=== PATIENT | male | born 1950 | race Caucasian/White ===

== ENCOUNTER 2016-07-08 15:56 | Inpatient (IN) | payer MEDICARE ==
[2016-07-12] MEDS ORDERED: ALPRAZolam TAB* 0.5 MG PO PRN (10:05)
[2016-07-12] MEDS ORDERED: Prochlorperazine TAB* 10 MG PO PRN (10:05)
[2016-07-12] MEDS ORDERED: Ondansetron TAB* 4 MG PO PRN (10:05)
[2016-07-12] MEDS ORDERED: NS 0.9% 1000 ML* 1,000 ML IV SCH ×2 (13:00→13:15)
[2016-07-12] MEDS ORDERED: NS 0.9% IVPB ONE (13:00)
[2016-07-12] MEDS ORDERED: IFOSFAMIDE IVPB ONE (13:00)
[2016-07-12] MEDS ORDERED: MESNA IVPB ONE (13:00)
[2016-07-12] MEDS: Enoxaparin(*) 40 MG/0.4 ML SYR SUBCUT SCH (13:25)
[2016-07-12] MEDS: Senna TAB PO PRN (16:39)
[2016-07-13] MEDS: Senna TAB PO PRN (08:02)
[2016-07-13] MEDS ORDERED: Omeprazole CAP* 20 MG PO SCH (09:00)
[2016-07-13] MEDS ORDERED: Valsartan TAB* 160 MG PO SCH (09:00)
[2016-07-13] MEDS: Enoxaparin(*) 40 MG/0.4 ML SYR SUBCUT SCH (12:41)
[2016-07-13] MEDS ORDERED: NS 0.9% IVPB ONE (13:00)
[2016-07-13] MEDS ORDERED: ETOPOSIDE IVPB ONE (13:00)
[2016-07-13 16:00] LABS: Albumin 3.2 g/dL (3.2-5.2); BUN/Creatinine Ratio 24.4 (8-20); Calcium 8.3 mg/dL (8.6-10.3); EGFR African American 127.7 (>60); EGFR Non-African American 99.3 (>60); Globulin 2.6 g/dL (2-4); Potassium 3.7 mmol/L (3.5-5.0); Total Bilirubin 0.5 mg/dL (0.2-1.0); Total Protein 5.8 g/dL (6.4-8.9)
[2016-07-13 16:09] VITALS: BP 139/77
--- NOTE | 2016-07-14 04:30 | DS ---
CC: Saniya Kim NP DISCHARGE SUMMARY: DATE OF ADMISSION: 07/12/16 DATE OF DISCHARGE: 07/13/16 DISCHARGE DIAGNOSIS: 1. 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 2. Hypertension: Stable on valsartan. 3. Hepatitis C: Nonactive. DISCHARGE MEDICATIONS: 1. Neupogen 480 mcg subcutaneous daily, day 4 through 11. 2. Valsartan 160 mg q.a.m. 3. Omeprazole 20 mg q.a.m. 4. Alprazolam 0.5 t.i.d. p.r.n. anxiety. 5. Senna 2 tabs p.o. b.i.d. p.r.n. constipation. 6. Prochlorperazine 10 mg p.o. q.6 hours p.r.n. nausea. 7. Ondansetron 4 mg q.6 hours p.r.n. nausea. HOSPITAL COURSE: Please see admission note for full H and P; however, briefly, Mr. Goetz is wel l-known to our service due to his unfortunate diagnosis of mantle cell lymphoma recently, recurrent to the eyelid and lacrimal glands. He initiated chemotherapy with cycle 1 day 1 of RICE in the chem otherapy suite as an outpatient on 07/11/16 and was admitted on 07/12/16 for overnight infusion. Ov ernight infusion was tolerated very well with no complications and no complaints by the patient. Th roughout his admission, he had no complaints of nausea and showed no evidence of toxicities from placido motherapy. Today, he received education regarding his subcutaneous injections of Neupogen for days 4 through 11 and was seen at the bedside by JOSE Long. The patient denied questions regarding discharge and states understanding of followup in the office. He will be seen on 07/21/16 to evalua te tolerance and plan for cycle 2 to start on 07/23/16. TIME SPENT: Greater than 30 minutes with greater than 50% [id number] counseling. JOSE ANTONIO NAVARRETE NP [id number]/[facility] #: [id number]
== END 2016-07-13 17:15 | disposition home or self-care (01) | DRG 847 ==
LOC: MED 07-12 12:26
PROVIDERS: ADMIT Internal Medicine Hematology & Oncology; ATTEND Internal Medicine Hematology & Oncology
DX: Z51.11 Encounter for antineoplastic chemotherapy (principal); C83.18 Mantle cell lymphoma, lymph nodes of multiple sites; G90.09 Other idiopathic peripheral autonomic neuropathy; I48.91 Unspecified atrial fibrillation; C34.12 Malignant neoplasm of upper lobe, left bronchus or lung; I10 Essential (primary) hypertension; B19.20 Unspecified viral hepatitis C without hepatic coma
CPT/HCPCS: 36415; 36591; 80053; 83615; 85025; 96361; 96367; 96413; 96415; 96417; 99214; 99222; 99232; A9270-GY; G0463; J1100; J1200; J1453; J1642; J1650; J2469; J9045; J9181; J9209; J9280; J9310

== ENCOUNTER 2016-07-18 17:49 | Inpatient (IN) | payer MEDICARE ==
[2016-07-18] MEDS ORDERED: Acetaminophen TAB* 325 MG PO ONE (18:43)
[2016-07-18] MEDS ORDERED: Ketorolac INJ* 30 MG/ML 1 ML VIAL IV ONE (18:43)
[2016-07-18] MEDS ORDERED: fentaNYL* 50 MCG/ML 2 ML VIAL (100 MCG VIAL) IV SLOW PU ONE (18:48)
[2016-07-18] MEDS: NS 0.9% 1000 ML* 3,000 ML IV ONE ×3 (18:56→19:35)
[2016-07-18 19:18] LABS: Add Diff/Slide Review? Manual Diff Added; Albumin 3.7 g/dL (3.2-5.2); BUN/Creatinine Ratio 19.5 (8-20); Comments Flag Yes; EGFR African American 72.1 (>60); EGFR Non-African American 56.1 (>60); Globulin 2.9 g/dL (2-4); Hematocrit 34 % (42-52); Hemoglobin 11.9 g/dl (14.0-18.0); Mean Corpuscular HGB Conc 35 g/dl (31-36); Mean Corpuscular Hemoglobin 32 pg (27-31); Mean Corpuscular Volume 92 fL (80-94); Mean Platelet Volume 10 um3 (7.4-10.4); Potassium 3.8 mmol/L (3.5-5.0); Red Blood Count 3.71 10^6/ul (4.0-5.4); Red Cell Distribution Width 12 % (10.5-15); Total Bilirubin 2.2 mg/dL (0.2-1.0); Total Protein 6.6 g/dL (6.4-8.9); White Blood Count 0.2 10^3/ul (3.5-10.8)
[2016-07-18 19:19] LABS: Troponin I 0.02 ng/mL (<0.04)
[2016-07-18] MEDS ORDERED: Cefepime(*) 2 GM in NS 0.9% 50 ML* 50 ML IVPB ONE (19:22)
--- NOTE | 2016-07-18 19:36 | RAD ---
INDICATION: Fever. Neutropenia. COMPARISON: August 06, 2015 TECHNIQUE: An AP portable view obtained at 1915 hours is submitted. FINDINGS: Bones/Soft Tissues: There are no acute bony findings. There is a right-sided [id number] catheter. Cardiomediastinal: The cardiomediastinal silhouette is normal. Lungs: There are no infiltrates. Pleura: There are no pleural effusions. Other: None IMPRESSION: NO ACTIVE DISEASE.
[2016-07-18 19:49] LABS: Neutrophil % 3 % (38-83); Reactive Lymph % 3 % (0-6)
[2016-07-18 19:50] LABS: Spherocytes 1+
[2016-07-18 19:51] LABS: Add Path Review? YES
[2016-07-18] MEDS: NS 0.9% 1000 ML* 2,000 ML IV ONE (20:52)
--- NOTE | 2016-07-18 21:03 | ED ---
I, Howard,Chelsea, scribed for Clara Palomares MD on 07/18/16 at 1850 . HPI Febrile Illness - HPI Summary HPI Summary: This 65 y/o male presents to ED via [facility] for elevated temperature since yesterday. Temperature of 104.4 F is noted at triage. Blood presure of 102 /76 is noted at initial evaluation, and it is unknown if the blood pressure is within baseline for pt. Positive for sharp pain at right hip and DO. PMHx is significant for lymphoma with ongoing chemo treatment. Primary care involves Dr. Bhatia. Pt lives alone. - History of Current Complaint Chief Complaint: EDGeneral Time Seen by Provider: 07/18/16 18:36 Hx Obtained From: Patient Timing: Constant Pain Intensity: 7 Pain Scale Used: 0-10 Numeric Aggravating Factors: Nothing Alleviating Factors: Nothing Associated Signs and Symptoms: Headache - Additional Pertinent History Primary Care Physician: SUJEY - Allergy/Home Medications Allergies/Adverse Reactions: Allergies Allergy/AdvReac Type Severity Reaction Status Date / Time No Known Allergies Allergy Verified 05/27/16 13:33 PMH/Surg Hx/FS Hx/Imm Hx Endocrine/Hematology History: Reports: Hx Thyroid Disease - HYPO Denies: Hx Diabetes, Hx Systemic Lupus Erythematosus Cardiovascular History: Reports: Hx Hypertension, Other Cardiovascular Problems/ Disorders - HX HEART PALPITATIONS Denies: Hx Congestive Heart Failure, Hx Pacemaker/ICD Respiratory History: Reports: Hx Chronic Obstructive Pulmonary Disease (COPD), Hx Lung Cancer - left upper lobectomy 07/30/15, Other Respiratory Problems/ Disorders - HX OF RIGHT PLEURAL EFFUSION (02/05/2015), Denies: Hx Asthma GI History: Reports: Hx Gastroesophageal Reflux Disease Denies: Hx Ulcer History: Reports: Other Problems/Disorders - BENIGN URETERAL TUMOR Denies: Hx Dialysis, Hx Renal Disease Musculoskeletal History: Reports: Hx Arthritis Denies: Hx Rheumatoid Arthritis Sensory History: Reports: Hx Contacts or Glasses Denies: Hx Hearing Aid Opthamlomology History: Reports: Hx Contacts or Glasses Neurological History: Reports: Other Neuro Impairments/Disorders - IDIOPATHIC PERIPHERAL NEUROPATHY Psychiatric History: Reports: Hx Anxiety, Hx Panic Disorder - ANXIETY-DOES NOT INTERFERE WITH MRI - Cancer History Cancer Type, Location and Year: Lung CA 2014, lymphoma Hx Chemotherapy: No - LYMPHOMA IN REMISSION, CHEMO FIRST WEEK OF JUNE - Surgical History Surgery Procedure, Year, and Place: KIDNEY SURGERY - FIBROUS (benign) TUMOR IN [place], [facility] [place] 30 yrs ago. 2009 LAPAROSCOPIC CHOLECYSTECTOMY, [facility] [place]. RIGHT KNEE ARTHROSCOPY X 2, [facility] [place]. 2013 RIGHT KNEE TOTAL REPLACEMENT, [facility] [place]. 02/05/2015 BIOPSY RIGHT AXILLA ADENOPATHY, RIGHT THORACENTESIS, [facility] [place]. POWER PORT 12/15. Left Upper Lobectomy 07/30/15 Hx Anesthesia Reactions: No Infectious Disease History: Yes Infectious Disease History: Reports: Hx Hepatitis - + HEP C 2001 Denies: Hx Human Immunodeficiency Virus (HIV), Traveled Outside the [place] in Last 30 Days - Family History Known Family History: Negative: Other - Negative adverse reaction to anesthesia or malignant hyperthermia - Social History Alcohol Use: None Alcohol Amount: 1-2/WEEK Substance Use Type: Reports: None Substance Use Comment - Amount & Last Used: HX OF DRUG ABUSE- NONE FOR 15 YRS Hx Tobacco Use: Yes Smoking Status (MU): Former Smoker Type: Cigarettes Amount Used/How Often: 1/2PPD 50 YRS Length of Time of Smoking/Using Tobacco: 52 YRS Have You Smoked in the Last Year: No Review of Systems Positive: Fever Positive: Other - right hip pain Positive: Headache All Other Systems Reviewed And Are Negative: Yes Physical Exam Triage Information Reviewed: Yes Vital Signs On Initial Exam: Initial Vitals Temp Pulse Resp BP Pulse Ox 104.4 F 135 24 102/76 98 07/18/16 18:32 07/18/16 18:32 07/18/16 18:32 07/18/16 18:32 07/18/16 18:32 Vital Signs Reviewed: Yes Appearance: Positive: Ill-Appearing, Obese Skin: Positive: Other - hot to touch Eyes: Positive: EOMI, TJ Neck: Positive: Supple, Nontender Respiratory/Lung Sounds: Positive: Clear to Auscultation, Breath Sounds Present Cardiovascular: Positive: RRR, Pulses are Symmetrical in both Upper and Lower Extremities Abdomen Description: Positive: Nontender, Soft Musculoskeletal: Positive: Pain @ - at right hip Neurological: Positive: Sensory/Motor Intact, Alert, Oriented to Person Place, Time Psychiatric: Positive: Affect/Mood Appropriate AVPU Assessment: Alert - [place] Coma Scale Coma Scale Total: 15 Diagnostics - Vital Signs Vital Signs Temp Pulse Resp BP Pulse Ox 07/18/16 18:32 104.4 F 135 24 102/76 98 - Laboratory Lab Results: Lab Results 07/18/16 07/18/16 07/18/16 Range/Units 18:33 18:33 18:33 WBC 0.2 L (3.5-10.8) 10^3/ul RBC 3.71 L (4.0-5.4) 10^6/ul Hgb 11.9 L (14.0-18.0) g/dl Hct 34 L (42-52) % MCV 92 (80-94) fL MCH 32 H (27-31) pg MCHC 35 (31-36) g/dl RDW 12 (10.5-15) % Plt Count 41 L (150-450) 10^3/ul MPV 10 (7.4-10.4) um3 Absolute Neuts (auto) 0 L* (1.5-7.7) 10^3/ul Absolute Lymphs (auto) 0.2 L (1.0-4.8) 10^3/ul Absolute Monos (auto) 0 (0-0.8) 10^3/ul Absolute Eos (auto) Not Reportable Absolute Basos (auto) Not Reportable Absolute Nucleated RBC Not Reportable Neutrophils % 3 L (38-83) % Lymphocytes % 91 H (25-47) % Reactive Lymphs % 3 (0-6) % Monocytes % 3 (0-13) % Normal RBC Morphology Not Reportable Spherocytes 1+ Hem Pathologist Commnt Pending INR (Anticoag Therapy) 1.02 (0.89-1.11) APTT 45.5 H (26.0-36.3) seconds Sodium 133 (133-145) mmol/L Potassium 3.8 (3.5-5.0) mmol/L Chloride 104 (101-111) mmol/L Carbon Dioxide 19 L (22-32) mmol/L Anion Gap 10 (2-11) mmol/L BUN 25 H (6-24) mg/dL Creatinine 1.28 H (0.67-1.17) mg/dL Est GFR ( Amer) 72.1 (>60) Est GFR (Non-Af Amer) 56.1 (>60) BUN/Creatinine Ratio 19.5 (8-20) Glucose 133 H (70-100) mg/dL Lactic Acid (0.5-2.0) mmol/L Calcium 9.0 (8.6-10.3) mg/dL Total Bilirubin 2.20 H (0.2-1.0) mg/dL AST 16 (13-39) U/L ALT 26 (7-52) U/L Alkaline Phosphatase 99 (34-104) U/L Troponin I 0.02 (<0.04) ng/mL Total Protein 6.6 (6.4-8.9) g/dL Albumin 3.7 (3.2-5.2) g/dL Globulin 2.9 (2-4) g/dL Albumin/Globulin Ratio 1.3 (1-3) 07/18/16 Range/Units 18:33 WBC (3.5-10.8) 10^3/ul RBC (4.0-5.4) 10^6/ul Hgb (14.0-18.0) g/dl Hct (42-52) % MCV (80-94) fL MCH (27-31) pg MCHC (31-36) g/dl RDW (10.5-15) % Plt Count (150-450) 10^3/ul MPV (7.4-10.4) um3 Absolute Neuts (auto) (1.5-7.7) 10^3/ul Absolute Lymphs (auto) (1.0-4.8) 10^3/ul Absolute Monos (auto) (0-0.8) 10^3/ul Absolute Eos (auto) Absolute Basos (auto) Absolute Nucleated RBC Neutrophils % (38-83) % Lymphocytes % (25-47) % Reactive Lymphs % (0-6) % Monocytes % (0-13) % Normal RBC Morphology Spherocytes Hem Pathologist Commnt INR (Anticoag Therapy) (0.89-1.11) APTT (26.0-36.3) seconds Sodium (133-145) mmol/L Potassium (3.5-5.0) mmol/L Chloride (101-111) mmol/L Carbon Dioxide (22-32) mmol/L Anion Gap (2-11) mmol/L BUN (6-24) mg/dL Creatinine (0.67-1.17) mg/dL Est GFR ( Amer) (>60) Est GFR (Non-Af Amer) (>60) BUN/Creatinine Ratio (8-20) Glucose (70-100) mg/dL Lactic Acid 2.6 H* (0.5-2.0) mmol/L Calcium (8.6-10.3) mg/dL Total Bilirubin (0.2-1.0) mg/dL AST (13-39) U/L ALT (7-52) U/L Alkaline Phosphatase (34-104) U/L Troponin I (<0.04) ng/mL Total Protein (6.4-8.9) g/dL Albumin (3.2-5.2) g/dL Globulin (2-4) g/dL Albumin/Globulin Ratio (1-3) Result Diagrams: 07/18/16 18:33 07/18/16 18:33 Lab Statement: Any lab studies that have been ordered have been reviewed, and results considered in the medical decision making process. - Radiology CXR Xray Interpretation: No Acute Changes Radiology Interpretation Completed By: Radiologist - EKG 1740 Cardiac Rate: Tachycardia - 134 bpm EKG Rhythm: Sinus Tachycardia Re-Evaluation - Re-Evaluation First Eval Re-Evaluation Time: 18:50 Course/Dx - Course Course Of Treatment: 65 yo male with lymphoma who arrived with temp of 104.4 with a recent wbc of 5. Today's wbc is 0.2 and he has received a 30 cc/kg bolus as well as cefepime for neutropenia. - Diagnoses Provider Diagnoses: Neutropenic fever - Provider Notifications Discussed Care Of Patient With: Dr. Chan (Hospitalist) at 1935 PM Instructed by Provider To: Admit As Inpatient - Critical Care Time Critical Care Time: 30-74 min Discharge - Discharge Plan Condition: Critical Disposition: ADMITTED TO [facility] documentation as recorded by the Howard villanueva Soohyun accurately reflects the service I personally performed and the decisions made by me, Clara Palomares MD.
[2016-07-18] MEDS: NS 0.9% 1000 ML* 1,000 ML IV SCH (21:05)
[2016-07-18] MEDS ORDERED: Morphine INJ* 2 MG/ML 1 ML SYRINGE ONE (21:22)
[2016-07-18] MEDS: Morphine INJ* 2 MG/ML 1 ML SYRINGE IV PRN (21:29)
[2016-07-18 21:58] LABS: Urine Bacteria Absent (Absent); Urine Bilirubin Negative (Negative); Urine Glucose Negative (Negative); Urine Nitrite Negative (Negative)
[2016-07-18] MEDS ORDERED: Heparin VIAL(*) 5000 UNITS/ML VIAL (FIVE THOUSAND) SUBCUT SCH (22:00)
[2016-07-18] MEDS ORDERED: NS 0.9% 1000 ML* 2,000 ML IV ONE (22:55)
[2016-07-18] MEDS ORDERED: Norepinephrine 16MCG/ML IVPRE* 4,000 MCG/250 ML BAG IV ONE (22:57)
--- NOTE | 2016-07-19 00:14 | HP ---
HISTORY AND PHYSICAL: DATE OF ADMISSION: 07/18/16 PRIMARY CARE PROVIDER: Saniya Kim NP CONSULTING ONCOLOGISTS: Dr. Hraris and Dr. Bhatia. ATTENDING PHYSICIAN: Ricardo Chan MD* (report being dictated by Dez Kim NP) CHIEF COMPLAINT: 1. Fever. 2. Aches. HISTORY OF PRESENT ILLNESS: Mr. Goetz is a 65-year-old male patient who comes into the ER today stating that he was feeling hot and flushed over the last 24 hours. He did receive chemo. He is on RICE therapy for lymphoma. He got his last chemo here about last week and he noted that throughout Monday and today, he was having chills, fevers, aching all over, and not feeling well. He called Dr. Harris, who is reservation sales agent for the group and Dr. Harris referred him to the hospital. He denies any vomiting. Denies having any abdominal pain. He says it just aches all over. He denies having any chest pain. Denies having any shortness of breath. He denied having any cough. He states that he was concerned because of the fever. He came in, was evaluated. There was no obvious source, but he did appear to be neutropenic and because of this, the hospitalist service was asked to evaluate for admission. PAST MEDICAL HISTORY: Significant for: 1. Lymphoma. 2. Lung cancer. 3. GERD. 4. Hypertension. 5. Hepatitis C. PAST SURGICAL HISTORY: 1. He has had a left upper lobe lobectomy. 2. He has had a laparoscopic cholecystectomy. 3. He has had port placement. 4. He has had 2 knee arthroscopies. HOME MEDICATIONS: According to the last discharge summary include: 1. Senna 2 tabs p.o. daily as needed. 2. Compazine 10 mg every 6 hours as needed. 3. Zofran 4 mg p.o. every 6 hours as needed. 4. Prilosec 20 mg daily. 5. Diovan 160 mg daily. 6. I am not sure, but he did have Neupogen. I do not know if he is still taking this or not at this point and that was 480 mcg subcu daily. ALLERGIES TO MEDICATIONS: Include no known drug allergies. FAMILY HISTORY: His mother had a history of breast cancer. Father had a history of cancer. SOCIAL HISTORY: He is a former smoker. He does drink occasionally. Surgical decision maker is his ex-, Greta. REVIEW OF SYSTEMS: There is documented fever. He denied having any significant weight change. There was no double vision. There was no ear discharge. He denied having any rhinorrhea. No sore throat. No thyroid enlargement. He denied having any chest pain, orthopnea, or nocturnal dyspnea. There is no abdominal pain. No nausea. No vomiting. No dysuria. No frequency. No seizure. No loss of consciousness. No pruritus. No skin ulcerations. Review of 14 systems completed, all others negative. PHYSICAL EXAMINATION GENERAL: At this time, Mr. Goetz is a 65-year-old male patient. He does not appear to be in any acute distress. He is sitting in the ER stretcher. He is awake and he is alert. VITAL SIGNS: Blood pressure 103/76 with a pulse 135, respirations 24, O2 sat 98 %, and his temperature initially was 104.4. His temperature now is 101.6, his heart rate is 118, his O2 sat is 97%, and blood pressure is 100/60. HEENT: Head is atraumatic and normocephalic. Eyes: EOMs are intact. His sclarea were anicteric and not pale. Throat: Oral mucosa appears to be dry. No oropharyngeal erythema. NECK: Supple. LUNGS: Clear to auscultation bilaterally. No wheezes, rales, or rhonchi. HEART: Sounds S1, S2. Regular rate and rhythm. No murmurs, rubs, or gallops. ABDOMEN: Soft, flat, and nontender. Bowel sounds present. He was nontender. EXTREMITIES: Pulses were 2+ throughout. He was able to move all 4 extremities with 5/5 strength. NEUROLOGIC: The patient is awake, he is alert, and he is oriented x3. His tongue is midline. His glued wood tester are equal. He had no gross focal deficits. His skin is intact. DIAGNOSTIC STUDIES/LAB DATA: His labs today revealed a WBC of 0, RBC of 3.71, hemoglobin of 11.9, hematocrit of 34, and platelet count was 41. His absolute neutrophils were 0. His INR was 1.02 and his PTT was 45.5. Sodium of 133, potassium 3.8, chloride of 104, his bicarb was 19, his BUN was 25, his creatinine was 1.28, glucose 133, his lactic was 2.6, calcium 9.0. Total bili 2.2, AST 16, ALT 26, alk phos 99. Troponin 0.02. He had a chest x-ray obtained today, which revealed when I reviewed it, no infiltrates. Radiology read it as no active disease. He did have an EKG today as well, which showed what appeared to be a sinus tachycardia, rate of [address]-elevations or T- wave inversions were noted. Old medical records were reviewed. ASSESSMENT AND PLAN: Mr. Goetz is a 65-year-old male patient coming into the ER today with complaints of fevers and aches. Recently received chemotherapy about last week for his lymphoma. He now appears to be neutropenic. He will be admitted under inpatient status for: 1. Neutropenic fever: At this point, he does appear to be septic. Source is unclear. I am going to put him on Cefepime 2 g every 8 hours. I am going to check him for the flu as well, although I think this is less likely. We will hydrate him. He does appear to be dehydrated. He got 3 L of fluid in the ER. I am going to give him another 2 L wide open. If his blood pressure does not respond after this, I would consider starting Levophed. I am going to put him in the ICU. We will panculture him. We will wait for source and follow. 2. History of lymphoma: He can follow with his oncology team. 3. Hypertension: I am going to hold his Diovan. 4. Hepatitis C: It is not an active issue currently. 5. Lung cancer: He can follow with his primary and primary oncology team. Not an active issue currently. 6. Gastroesophageal reflux disease: Continue PPI therapy. 7. Code status: He is full code. 8. Fluid, electrolytes, and nutrition: Again, he will have normal saline at 150 an hour. In addition to this, a regular diet. 9. DVT prophylaxis: He is high risk. He will be placed on heparin subcu. We will watch the platelets while on heparin. TIME SPENT: Time spent on the admission was 60 minutes; greater than half the time was spent [id number] with the patient obtaining my history and physical, the other half time is spent going over the plan of care with the patient and implementing plan of care. I did discuss the plan of care with my attending, Dr. Chan. He is in agreement. DEZ KIM NP CC: Saniya Kim NP; Dr. Harris; Dr. Bhatia* [id number]/[facility] #: [id number] [facility]
[2016-07-19] MEDS: Acetaminophen TAB* 325 MG PO PRN ×4 (00:21→22:25)
[2016-07-19] MEDS ORDERED: Norepinephrine 16MCG/ML IVPRE* 4,000 MCG/250 ML BAG IV ONE (02:12)
[2016-07-19] MEDS: Norepinephrine 16MCG/ML IVPRE* 4,000 MCG/250 ML BAG IV SCH ×4 (02:15→12:23)
[2016-07-19] MEDS: NS 0.9% 1000 ML* 1,000 ML IV SCH (03:06)
[2016-07-19] MEDS ORDERED: NS 0.9% 1000 ML* 1,000 ML IV ONE (03:16)
--- NOTE | 2016-07-19 04:31 | PN ---
Progress Note - Progress Note Note: Nursing reports 3 of 4 blood CX bottles already growing Gram negative bacilli. Patient initiated on cefepime 2g IV Q8H. Most recent urine CX grew carpenter- sensitive E-coli (specifically sensitive to cefepime). Continue as is. Hypotension improved with aggressive hydration and norepinephrine GTT currently at 30.
[2016-07-19] MEDS: Cefepime(*) 2 GM in NS 0.9% 50 ML* 50 ML IVPB SCH ×3 (05:31→20:05)
[2016-07-19 05:51] LABS: Hematocrit 29 % (42-52); Hemoglobin 9.9 g/dl (14.0-18.0); Mean Corpuscular HGB Conc 35 g/dl (31-36); Mean Corpuscular Hemoglobin 32 pg (27-31); Mean Corpuscular Volume 92 fL (80-94); Mean Platelet Volume 10 um3 (7.4-10.4); Red Cell Distribution Width 13 % (10.5-15); White Blood Count 0.1 10^3/ul (3.5-10.8)
[2016-07-19 05:52] LABS: Add Diff/Slide Review? Manual Diff Added; Comments Flag Yes
[2016-07-19 05:56] LABS: BUN/Creatinine Ratio 19.7 (8-20); Calcium 6.7 mg/dL (8.6-10.3); EGFR African American 76.2 (>60); EGFR Non-African American 59.2 (>60); Potassium 3.7 mmol/L (3.5-5.0)
[2016-07-19 06:39] LABS: Eosinophils % 9 % (0-6); Hypochromasia 1+; Neutrophil % 1 % (38-83); Reactive Lymph % 5 % (0-6)
[2016-07-19] MEDS: Omeprazole CAP* 20 MG PO SCH (08:45)
[2016-07-19] MEDS: Morphine INJ* 2 MG/ML 1 ML SYRINGE IV PRN ×8 (08:50→23:31)
[2016-07-19 11:36] LABS: Uric Acid 4.9 mg/dL (4.4-7.6)
[2016-07-19] MEDS ORDERED: TBO FILGRASTIM 480 MCG/0.8 ML SUBCUT SCH (12:00)
--- NOTE | 2016-07-19 12:27 | PN ---
Progress Note - Progress Note Note: CRITICAL CARE MEDICINE Date: 07/19/16 Time: 1130 SUBJECTIVE: Patient seen and examined. PHYSICAL EXAM: Vital Signs: Reviewed. Neurologic: awake, comm HEENT: pupils equal. Sclera anicteric. Trachea midline. Cardiovascular: S1 S2, tachy Respiratory: some distress but able to provide a deep breath; no rales Abdomen: Soft, nt. No r/g/r. Extremities: Warm. no edema Access: port LABS: Reviewed. IMAGING: Reviewed. MEDICATIONS: Reviewed. ASSESSMENT: 65 M Septic shock sec to ecoli from UTI Acute hypoxic resp failure - more from wob associated with metabolic demands of his septic shock Mantle cell lymphoma s/p RICE now in fan Previous lung ca Neutropenic fevers PLAN: Neurologic: awake, communicating and tolerating. Cardiovascular: Perfusing. Intravascular volume better and still with some ebb phase and would keep fluids today. adjust to LR. tafhcycardia will remain. Respiratory: Can place on HFo2 today to see if we can relieve some of the metabolic demands associated with his resp mechanics not for parenchyma O2. At risk for ALI. Gastrointestinal: po diet. Renal/Metabolic: edwina on ckd and f.u post hydration status. Infectious Disease: on C4 continued for ecoli sepsis. Hematology: onc f/u. no transfusion needs at this time. neupogen. Endocrine: tolerating and doesn't seem to require stress dose steroids by may be at risk for relative adrenal depletion. clincal f/u Musculoskeletal: oob but rest today Psych/Social: he expresses understanding Supportive and preventative care as ordered. SUP: po VTE prophylaxis: held due to plt counts currently Disposition: ICU Code Status: Full D//w onc. Critical Care Time: 30min Anca Braswell DO
[2016-07-19] MEDS ORDERED: Ondansetron INJ* 2 MG/ML VIAL ONE (17:27)
[2016-07-19] MEDS ORDERED: Ondansetron INJ* 2 MG/ML VIAL IV PRN (17:33)
[2016-07-20] MEDS: Morphine INJ* 2 MG/ML 1 ML SYRINGE IV PRN ×16 (01:05→22:55)
[2016-07-20 04:22] LABS: Hematocrit 26 % (42-52); Hemoglobin 9.1 g/dl (14.0-18.0); Mean Corpuscular HGB Conc 34 g/dl (31-36); Mean Corpuscular Hemoglobin 32 pg (27-31); Mean Corpuscular Volume 93 fL (80-94); Mean Platelet Volume 9 um3 (7.4-10.4); Red Blood Count 2.84 10^6/ul (4.0-5.4); Red Cell Distribution Width 13 % (10.5-15)
[2016-07-20 04:23] LABS: Comments Flag Yes
[2016-07-20 04:24] LABS: White Blood Count 0.3 10^3/ul (3.5-10.8)
[2016-07-20] MEDS: Cefepime(*) 2 GM in NS 0.9% 50 ML* 50 ML IVPB SCH ×3 (04:27→21:20)
[2016-07-20 04:30] LABS: Albumin 2.8 g/dL (3.2-5.2); Calcium 7.3 mg/dL (8.6-10.3); EGFR African American 95.9 (>60); EGFR Non-African American 74.5 (>60); Globulin 2.6 g/dL (2-4); Potassium 4.2 mmol/L (3.5-5.0); Total Bilirubin 0.6 mg/dL (0.2-1.0); Total Protein 5.4 g/dL (6.4-8.9)
[2016-07-20 04:35] LABS: Troponin I 0.63 ng/mL (<0.04)
--- NOTE | 2016-07-20 05:34 | PN ---
Progress Note - Progress Note Note: Nursing called to report morphologic change on telemetry, reviewed and concerning for ST elevation. ECG obtained revealing new non-diagnostic ST elevation in V3-6 & 2 with decreased upward concavity in V2. Patient had reported a brief episode of 1-2/10 chest pain to nursing prior to midnight completely alleviated with IV morphine. Currently he denies chest pain, SOB, N/V , palpitations, sweating, and light-headedness. He denies any of these associations with his chest pain earlier yesterday as well. Troponin is up to 0.6 from 0.02. Lungs: CTAB; CV TR/RR; Abdomen: SNTND; extremities: W&D. He is admitted for neutropenic fever 2nd E coli septic shock eliminating him from consideration for cardiac catheterization. His platelets have been <50 and in fact are 10 this AM removing the option of aspirin and heparin. Additionally, beta blockade cannot be done as his systolics have been in the 90s recently, worse prior. The case was reviewed with Maribel Gould MD cardiology who agreed that he is not a candidate for either medical therapy or cardiac catheterization. As such, will continue supportive treatment, trend troponin, & check an ECHO in the AM. Assessment: plan abnormal ECG & elevated troponin : certainly concerning for ACS, but could also be pericarditis : chech ECHO to eval for wall motion abnormalities vs pericardial effusion : Maribel Stauffer MD cardiology consulted, will follow : continue supplemental oxygen neutropenic fever 2nd septic shock 2nd E coli : continue cefepime
--- NOTE | 2016-07-20 09:45 | ECHO ---
Patient: SHEKHAR PAUL [facility] Rec#: [id number] : 1950 Date: 07/20/2016 Age: 65y Height: 233.68 cm / 92.0 in Weight: 26.76 kg / 59.0 lbs Sex: M BSA: 1.51 Room#: ICU 1 Admit Date#: 07/18/2016 Type: Inpatient Referring: Ricardo Chan MD Reading: Jyoti Blackwood MD Forensic Anthropologist: Greta Galvan,RDCS,RDMS CC: Saniya Kim NP Transthoracic Echocardiogram Indication: Fever, Chest pain BP: 92/59 HR: 94 Rhythm: NSR Findings History: Lymphoma, lung cancer, chemotherapy, HTN, former smoker, GERD Technical Comments: The study quality is fair. Completed 0820 Left Ventricle: The left ventricular chamber size is normal. Mild concentric left ventricular hypertrophy is observed. There is diffuse global hypokinesis of the left ventricle. The estimated ejection fraction is 25-30%. Abnormal left ventricular diastolic function is observed. Left Atrium: The left atrium is severely dilated. Right Ventricle: The right ventricle is mildly dilated. The right ventricular global systolic function is mildly to moderately reduced. Right Atrium: The right atrium is moderately dilated. Aortic Valve: The aortic valve is trileaflet. Systolic excursion of the aortic valve is normal. There is a trace of aortic regurgitation. There is no evidence of aortic stenosis. Mitral Valve: The mitral valve leaflets appear normal. There is mild to moderate mitral regurgitation. There is no evidence of mitral stenosis. Tricuspid Valve: The tricuspid valve leaflets are normal. There is moderate to severe tricuspid regurgitation. There is evidence of moderate pulmonary hypertension. Pulmonic Valve: The pulmonic valve appears normal. There is mild pulmonic regurgitation. Pericardium: There is no significant pericardial effusion. Aorta: The aortic root appears normal. The aortic arch is not well visualized. Pulmonary Artery: The main pulmonary artery appears normal. Venous: The inferior vena cava is dilated. There is less than 50% respiratory change in the inferior vena cava dimension. Conclusions Mild concentric left ventricular hypertrophy is observed. There is diffuse global hypokinesis of the left ventricle. The estimated ejection fraction is 25-30%, closer to 25%. The right ventricle is dilated and global systolic function is mildly to moderately reduced. Bi atrial enlargement. There is a trace of aortic regurgitation, mild sclerosis. There is mild to moderate mitral regurgitation, closer to moderate. There is moderate to severe tricuspid regurgitation, mild reversal of flow into the hepatic veins. There is evidence of moderate pulmonary hypertension: 47 mmHg assuming an RA pressure of 20 mmHg. Compared with prior echo of 08/05/15, LVEF newly depressed, previously 55-60%, RVE and hypokinesis are new, the degree of MR and TR have increased from trace, PA pressure ewly elevated. Measurements Name Value Normal Range RVIDd (AP) 2D 3.6 cm (0.9 - 2.6) RVDdMajor (2D) 3.4 cm (2.2 - 4.4) RAd ISD 4CH 5.6 cm (3.4 - 4.9) RA (A4C)W 5.3 cm (2.9 - 4.6) IVSd (2D) 1.1 cm (0.6 - 1) LVPWd (2D) 1.1 cm (0.6 - 1) LVIDd (2D) 5.3 cm (3.6 - 5.4) LVIDs (2D) 4.4 cm - LV FS (2D) 16 % (25 - 45) Aortic Annulus 2 cm (1.4 - 2.6) Ao root diameter (2D) 3.3 cm (2.1 - 3.5) Ascending Ao 3.1 cm (2.1 - 3.4) LA dimension (AP) 2D 4.4 cm (2.3 - 3.8) LAd ISD 4CH 6.1 cm (2.9 - 5.3) LA ISD 4CH W 4.7 cm (2.5 - 4.5) Name Value Normal Range LA ESV SP 4CH (A/L) 92.79 ml - LA ESV SP 2CH (A/L) 117.6 ml - LA ESV BP (A/L) 112.26 ml - LA ESV BP (A/L) index 74 ml/m2 - LA ESV SP 4CH (MOD) 85.06 ml - LA ESV SP 2CH (MOD) 110.83 ml - Name Value Normal Range MV E-wave Vmax 0.9 m/sec - MV deceleration time 134.4 msec - MV A-wave Vmax 0.6 m/sec - MV E:A ratio 1.5 ratio - P. vein S-wave Vmax 0.4 m/sec - P. vein D-wave Vmax 0.5 m/sec - P. vein S:D Vmax ratio 0.8 ratio - P. vein A-wave duration 100.3 msec - LV septal e' Vmax 0.06 m/sec - LV lateral e' Vmax 0.05 m/sec - LV E:e' septal ratio 15 ratio - LV E:e' lateral ratio 18 ratio - Name Value Normal Range AV Vmax 1.2 m/sec - AV VTI 22 cm - AV peak gradient 6 mmHg - AV mean gradient 3.9 mmHg - LVOT Vmax 0.9 m/sec - LVOT VTI 14.4 cm - LVOT peak gradient 3.1 mmHg - LVOT mean gradient 1.7 mmHg - NAYELI Vmax 0.4 m/sec - Name Value Normal Range MR Vmax 4.1 m/sec - MR VTI 117 cm - MR flow (PISA) 63 ml/sec - MR PISA radius 0.5 cm - MR alias Vmax 33.89 cm/sec - Name Value Normal Range TR Vmax 2.6 m/sec - TR peak gradient 27 mmHg - RAP 20 mmHg - RVSP 47 mmHg - IVC diameter 3.4 cm - Name Value Normal Range PV Vmax 0.7 m/sec - PV peak gradient 2 mmHg -
[2016-07-20] MEDS ORDERED: Adenosine* 3 MG/ML VIAL ONE (10:36)
[2016-07-20] MEDS ORDERED: Adenosine* 3 MG/ML VIAL IV PUSH ONE (10:42)
[2016-07-20] MEDS ORDERED: Amiodarone TAB* 400 MG PO ONE (10:43)
[2016-07-20] MEDS ORDERED: Amiodarone 150 MG IVPREMIX* 150 MG/100 ML BAG IV ONE ×3 (10:44→11:23)
[2016-07-20] MEDS ORDERED: Amiodarone IV VIAL* 6 ML ONE (10:48)
[2016-07-20] MEDS: Omeprazole CAP* 20 MG PO SCH (10:57)
[2016-07-20] MEDS: oxyCODONE TAB* 5 MG TAB PO PRN ×3 (10:57→19:46)
[2016-07-20] MEDS: FILGRASTIM-SNDZ* 480 MCG/0.8 ML SYRINGE SUBCUT SCH (11:10)
[2016-07-20] MEDS ORDERED: Amiodarone IV VIAL* 3 ML ONE (11:24)
--- NOTE | 2016-07-20 11:24 | PN ---
Progress Note - Progress Note SOAP: Subjective: feels bad right now. +chest pain, middle of chest. had it yesterday but it resolved and then this am got up to go to the bathroom and it recurred. currently in atypical aflutter, tachypneic. Objective: Vital Signs Temp Pulse Resp BP Pulse Ox 98.1 F 93 26 92/59 100 07/20/16 07:25 07/20/16 06:15 07/20/16 10:25 07/20/16 06:00 07/20/16 06:15 current HR 130s-140s rr 30 perr eomi tachy CTA anteriorly soft nt +Bs no le edema A+O x 3, grossly nonfocal Laboratory Results - last 24 hr 07/19/16 07/20/16 07/20/16 05:33 03:50 04:02 WBC 0.3 L RBC 2.84 L Hgb 9.1 L Hct 26 L MCV 93 MCH 32 H MCHC 34 RDW 13 Plt Count 10 L D MPV 9 Neut % (Auto) 4.9 L Lymph % (Auto) 69.1 H Snyder % (Auto) 20.4 H Eos % (Auto) 5.6 Baso % (Auto) 0 Absolute Neuts (auto) 0 L Absolute Lymphs (auto) 0.2 L Absolute Monos (auto) 0.1 Absolute Eos (auto) 0 Absolute Basos (auto) 0 Absolute Nucleated RBC 0 Nucleated RBC % 0.3 Sodium 136 Potassium 4.2 Chloride 113 H Carbon Dioxide 17 L Anion Gap 6 BUN 22 Creatinine 1.00 Est GFR ( Amer) 95.9 Est GFR (Non-Af Amer) 74.5 BUN/Creatinine Ratio 22.0 H Glucose 115 H Uric Acid 4.9 Calcium 7.3 L Total Bilirubin 0.60 D AST 13 ALT 18 Alkaline Phosphatase 61 Lactate Dehydrogenase Cancelled 126 L Troponin I 0.63 H* Total Protein 5.4 L Albumin 2.8 L Globulin 2.6 Albumin/Globulin Ratio 1.1 07/20/16 06:15 WBC RBC Hgb Hct MCV MCH MCHC RDW Plt Count MPV Neut % (Auto) Lymph % (Auto) Snyder % (Auto) Eos % (Auto) Baso % (Auto) Absolute Neuts (auto) Absolute Lymphs (auto) Absolute Monos (auto) Absolute Eos (auto) Absolute Basos (auto) Absolute Nucleated RBC Nucleated RBC % Sodium Potassium Chloride Carbon Dioxide Anion Gap BUN Creatinine Est GFR ( Amer) Est GFR (Non-Af Amer) BUN/Creatinine Ratio Glucose Uric Acid Calcium Total Bilirubin AST ALT Alkaline Phosphatase Lactate Dehydrogenase Troponin I 0.48 H* Total Protein Albumin Globulin Albumin/Globulin Ratio Active Medications Generic Name Dose Route Start Last Admin Trade Name Freq PRN Reason Stop Dose Admin Acetaminophen 650 mg 07/18/16 20:19 07/19/16 22:25 Tylenol Tab* PO 650 mg Q4H PRN Administration FEVER/PAIN Filgrastim-Sndz 480 mcg 07/19/16 12:04 07/20/16 11:10 Zarxio* SUBCUT 480 mcg DAILY NIKOLAY Administration Heparin Sodium (Porcine) 5 ml 07/19/16 09:00 07/20/16 10:58 Heparin Flush Port (Ivad) FLUSH Not Given DAILY [facility] Protocol Cefepime HCl 2 gm/ Sodium 50 mls @ 100 mls/hr 07/19/16 05:00 07/20/16 04:27 Chloride IVPB 100 mls/hr Q8H NIKOLAY Administration Morphine Sulfate 2 mg 07/19/16 18:52 07/20/16 10:25 Morphine Inj (Syringe)* IV 2 mg Q1H PRN Administration PAIN - MILD Omeprazole 20 mg 07/19/16 09:00 07/20/16 10:57 Prilosec Cap* PO 20 mg QAM NIKOLAY Administration Ondansetron HCl 4 mg 07/19/16 17:33 Zofran Inj* IV Q6H PRN NAUSEA/VOMITING Oxycodone HCl 5 mg 07/20/16 10:05 07/20/16 10:57 Roxycodone Tab* PO 5 mg Q4H PRN Administration PAIN Assessment: recurrent mantle cell lymphoma on salvage R-ICE chemotherapy, cycle 1 day 10 admitted with neutropenic fevers of unclear source. Unfortunately he has deteriorated clinically. He has ongoing chest pain with an echocardiogram showing new heart failure, and then after his echo developed aflutter. At this point he will be managed primarily by the scheme technician. Plan: Neutropenic sepsis: unclear source cont neupogen would transfuse platelets <15, when more stable today cont cefepime hold heparin flushes afib/flutter: ongoing chest pain, new heart failure (he did receive adriamycin in January 2015 for 6 cycles--300 mg/m2) management per ICU and cardiology discussed at length with Dr. Braswell
[2016-07-20] MEDS ORDERED: Magnesium Sulfate 2 GM IV* 2 GM/50 ML BAG IVPB ONE (11:26)
--- NOTE | 2016-07-20 11:37 | PN ---
Progress Note - Progress Note Note: CRITICAL CARE MEDICINE Date: 07/20/16 Time: 930 SUBJECTIVE: Patient seen and examined. PHYSICAL EXAM: Vital Signs: Reviewed. Neurologic: awake, comm HEENT: pupils equal. Sclera anicteric. Trachea midline. Cardiovascular: S1 S2, tachy at 100 Respiratory: less distress, heike high flow. no rales Abdomen: Soft, nt. Extremities: Warm. Access: port LABS: Reviewed. IMAGING: Reviewed. MEDICATIONS: Reviewed. ASSESSMENT: 65 M Septic shock sec to ecoli from UTI Acute hypoxic resp failure - more from wob associated with metabolic demands of his septic shock Mantle cell lymphoma s/p RICE now in fan Previous lung ca Neutropenic fevers Pancytopenia PLAN: Neurologic: awake, communicating and tolerating. Cardiovascular: Perfusing. Intravascular volume ok and can hold on further and allow him to mobilize. Cards will eval for type 2 mi. Respiratory: Stay on HFO2 today with slow wean. May have small effusions but doubt ali. Gastrointestinal: po diet. Renal/Metabolic: edwina better. Infectious Disease: C4 continued for ecoli sepsis. Hematology: onc f/u. no transfusion yet, even plt given his acute setting currently, but may need plt later today. neupogen. Endocrine: clincal f/u Musculoskeletal: oob but rest again today Psych/Social: he expresses understanding Supportive and preventative care as ordered. SUP: po VTE prophylaxis: held due to plt counts currently Disposition: ICU service Code Status: Full D/w onc. Critical Care Time: 30min FHever Braswell DO
[2016-07-20] MEDS ORDERED: Diltiazem IV* 5 MG/ML 5 ML VIAL (for loading dose/IV Push) (25 MG) IV SLOW PU ONE (11:59)
[2016-07-20] MEDS ORDERED: Amiodarone 360 MG IVPREMIX* 360 MG/200 ML BAG IV SCH (13:30)
[2016-07-20] MEDS ORDERED: Metoprolol Tartrate IV* 1 MG/ML 5 ML VIAL ONE (14:08)
[2016-07-20] MEDS ORDERED: Metoprolol Tartrate IV* 1 MG/ML 5 ML VIAL IV ONE ×2 (14:10→16:39)
[2016-07-20] MEDS ORDERED: Furosemide IV* 10 MG/ML VIAL (40 MG) IV SLOW PU ONE (15:27)
--- NOTE | 2016-07-20 16:36 | PN ---
Progress Note - Progress Note Note: CRITICAL CARE MEDICINE Date: 07/20/16 Time: 1630 Late entry throughout the day: Pt with aflutter earlier today; did not break with amio bolus, but slowed from 150 to 140s; HFO2 up to dec pulm demand. cardizem given with slower rate into 120s but occasional afib to aflutter resuming. Amio gtt started but still same with rates ~110-120s. Lopressor 5mg then given with conversion to SR into 80- 90s however did not hold as still now with PAF. Will give another dose and see if we can hold with amio gtt for now and eventual po bb. However, his dynamics are still tenuous. Attempt to mobilize some water with lasix. Remains on HFO2 and continued. We discussed his dynamics at length. We discussed plans of care. We discussed cardioversion if it came to it but he is hoping to avoid. Explained he would need sedation for it, however rate controlled at present and see where his status takes us as I'm concerned that sedation may lead towards intubation needs , as well as risk with plts being so low, and the fact that he converted with rx and now back into PAF. He express understanding. We did discuss potential intubation if it came to it and would utilize as needed in his current dynamics, but he also desires DNR. Disposition: ICU Code Status: DNR, trial intubation Critical Care Time: 25min Anca Braswell DO
[2016-07-20] MEDS: Amiodarone 360 MG IVPREMIX* 360 MG/200 ML BAG IV SCH (19:29)
[2016-07-20 22:37] LABS: Mean Platelet Volume 8 um3 (7.4-10.4)
[2016-07-20 22:38] LABS: Comments Flag Yes
--- NOTE | 2016-07-21 00:08 | CONS ---
CONSULTATION REPORT: DATE OF CONSULTATION: 07/20/16 REASON FOR CONSULTATION: Chest pain, cardiomyopathy, and elevated troponin. HISTORY OF PRESENT ILLNESS: Mr. Goetz is an unfortunate 65-year-old gentleman actively receiving chemo with a history of lymphoma and lung cancer. He is on RICE therapy for his lymphoma. He is neutropenic and developed chills , fevers and total body aching and Dr. Harris referred him to the hospital on the . Evaluation to date included lab work, which confirmed his neutropenia, has showed mild elevation in troponins, acidemia, evidence of dehydration and blood cultures were positive for E. coli. He was admitted to the intensive care unit and treated for sepsis with aggressive hydration and has subsequently developed chest pain in addition to his total body flu-like aching. An echocardiogram was done yesterday, which revealed his ejection fraction was 20% to 25% as well as right ventricular hypokinesis and this is new compared to an echo done a year ago. He additionally had [id number] mitral and moderate- to-severe tricuspid insufficiency. When I examined the patient, he had been medicated with morphine for his diffuse myalgias and was feeling better. He denies orthopnea or PND and said he was feeling pretty well until this weekend when he came in. PAST MEDICAL HISTORY: The patient has a past medical history of lymphoma with ongoing RICE therapy, history of lung cancer with left upper lobectomy, history of hypertension, hepatitis C, and reflux. PAST SURGICAL HISTORY: Includes his left upper lobectomy, laparoscopic cholecystectomy, port placement, and knee arthropathies. CURRENT INPATIENT MEDICATIONS: Include: 1. Tylenol p.r.n. 2. Cefepime. 3. Zarxio 480 mcg subcutaneously daily. 4. Heparin flush. 5. Morphine p.r.n. 6. Prilosec 20 mg a day. 7. Zofran p.r.n. 8. OxyContin, Roxycontin. 9. He was recently on a norepinephrine drip and received potassium replacement yesterday. ALLERGIES: He has no known drug allergies. FAMILY HISTORY: Significant that his mother had breast cancer, his father had cancer. No family history of coronary disease identified. SOCIAL HISTORY: The patient is a former smoker, occasional alcohol. REVIEW OF SYSTEMS: See history of present illness for recent fevers, chills, myalgias, followed by chest pain following aggressive hydration. PHYSICAL EXAMINATION: On exam, the patient is 6 feet 2 inches, weighs 257 pounds with a BMI of 33. Vital signs at the time I saw him when I walked in the room, he became acutely tachycardic with a regular narrow complex tachycardia at 160 beats a minute (increased from approximately 100 beats a minute). Blood pressure 131/76, oxygen saturation 100% on room air, respiratory rate was 23, temperature was 98.6 at the time I saw him, yesterday it was as high as 100.2 and on the , it was 104.1. General Appearance: Centripetally obese, somewhat older gentleman lying at 20 degrees, appeared reasonably comfortable. Psychologically pleasant and cooperative. Neurologically awake, alert, oriented to person, place, and time. Cranial nerves II through XII intact grossly. Normal sensory and motor function in the upper and lower extremities. Gait not able to be checked. Skin was warm and dry. No appreciable cyanosis or rashes. HEENT: Pupils are equal and round. Mucous membranes moderately moist. Neck: Thick from obesity, but increased JVP not appreciated. Breath sounds were mildly diminished in the bases. No wheezing, rales or rhonchi. Coronary: S1 and S2, regular, but very tachycardic. No murmurs or rubs appreciated. Abdomen: Rotund, active bowel sounds. Soft, nontender. Lower extremities were warm and free of edema. LABORATORY DATA: White count 0.3, hemoglobin 9.1, hematocrit 26, platelets 10. INR 1.02. Sodium 136, potassium 4.2, chloride 113, bicarbonate 17. BUN 22, creatinine 1.0, glucose 115. ALT of 18, LDH 126, troponin #1 of 0.63, #2 of 0.48. Urinalysis from 07/18/16 was positive for protein, blood, leukocyte esterase, red blood cells, bacteria were negative. Influenza A and B were negative. Microbiology, urine culture, no growth. Two blood cultures from the are positive for E. coli. Chest x-ray from 07/18/16 showed no active disease. Transthoracic echo from 07/20/16 showed global hypokinesis with ejection fraction of 25%, right ventricular enlargement and hypokinesis, mild-to -moderate mitral insufficiency, [id number] tricuspid insufficiency, PA pressure of 47 mmHg. Ejection fraction in 08/05/15 was 55% to 60% with good valve function. ECG at 3:44 this morning has showed normal sinus rhythm, 94 beats a minute, QRS axis +30, normal AV and IV conduction times. He has diffuse J-point type ST elevation. 12-lead ECG at 10:37 this morning showed a narrow complex tachycardia at 150 beats a minute suspicious for flutter. IMPRESSION: In summary, Mr. Goetz is a 65-year-old gentleman with a history of lung cancer and now being treated for lymphoma, presented with neutropenic with E. coli sepsis and following aggressive sepsis management including antibiotics, fluids, and pressors. He developed chest pain, and a mild elevation in troponins. His echo was found to be newly depressed, but appeared to be severe with global hypokinesis. During my exam, the patient developed his regular narrow complex tachycardia at 150 beats a minute and I gave Adenocard, which revealed/confirmed that this is atypical flutter with a 2:1 block. I have initiated amiodarone both IV push and orally. I discussed with the director of business development the option of cardioversion. This option was declined as he was hemodynamically stable and later in the day with Lopressor for rate control, he did transiently cardiovert, but popped right back in, so electrically cardioversion is not felt to help him at least today. The cardiomyopathy itself could be related to the atrial flutter as the patient is completely unaware when he is in this rhythm. He is completely asymptomatic. This could be a tachycardic-induced rhythm. It is also possible that it is related to the septic shock and his metabolic derangements and we cannot entirely rule out the possibility of underlying coronary artery disease. For now, I am recommending amiodarone loading, we can retry cardioversion, it would be much better for him if he is able to maintain sinus rhythm. If able, now that he is no longer needing pressors, I would look towards converting him towards medications for his cardiomyopathy, low-dose beta blockers and VICENTE inhibitors and I would avoid calcium channel blockers if possible for rate lowering. Long-term, once the patient's neutropenia has improved and he is a candidate for more than medical management, I would consider either a heart catheterization or a stress test, but if he is going to be receiving ongoing chemo, I suspect medical management is optimal as opposed to procedural or interventional management as anticoagulants will be very risky for him. As his sepsis improves, he may want to consider starting spironolactone as part of his diuretic regimen as this can help with cardiomyopathy. The patient's chest pain could be anginal but as he has had hours of it with only a mild bump in troponin, congestive heart failure may be a major component. The patient was quite adamant that he did not feel better sitting up positionally, but for pain control in addition to beta-blockers, nitrates may help even in low doses for symptomatic relief. Overall, the patient is a high risk candidate. With sepsis, anemia, he is at risk for high output failure in addition to systolic failure and attempts at rhythm and rate control are going to be very important to stabilize or improve his cardiomyopathy. CC: Saniya Kim NP; Nathaniel Harris MD; Hospitalist Service* [id number]/[facility] #: [id number] MTDD
[2016-07-21] MEDS: Morphine INJ* 2 MG/ML 1 ML SYRINGE IV PRN ×4 (02:25→10:27)
[2016-07-21] MEDS: oxyCODONE TAB* 5 MG TAB PO PRN ×2 (02:25→10:27)
[2016-07-21] MEDS ORDERED: Metoprolol Tartrate IV* 1 MG/ML 5 ML VIAL ONE (02:38)
[2016-07-21] MEDS ORDERED: Metoprolol Tartrate IV* 1 MG/ML 5 ML VIAL IV ONE ×3 (02:40→14:05)
[2016-07-21] MEDS: Cefepime(*) 2 GM in NS 0.9% 50 ML* 50 ML IVPB SCH ×3 (04:48→20:33)
[2016-07-21 06:32] LABS: Hematocrit 24 % (42-52); Hemoglobin 8.4 g/dl (14.0-18.0); Mean Corpuscular HGB Conc 35 g/dl (31-36); Mean Corpuscular Hemoglobin 32 pg (27-31); Mean Corpuscular Volume 93 fL (80-94); Mean Platelet Volume 10 um3 (7.4-10.4); Red Blood Count 2.62 10^6/ul (4.0-5.4); Red Cell Distribution Width 13 % (10.5-15)
[2016-07-21 06:33] LABS: Comments Flag Yes; White Blood Count 0.6 10^3/ul (3.5-10.8)
[2016-07-21 06:36] LABS: BUN/Creatinine Ratio 23.6 (8-20); EGFR African American 89.6 (>60); EGFR Non-African American 69.7 (>60); Magnesium 1.9 mg/dL (1.9-2.7); Phosphorus 2.2 mg/dL (2.5-5.0); Potassium 3.9 mmol/L (3.5-5.0)
[2016-07-21] MEDS: Amiodarone 360 MG IVPREMIX* 360 MG/200 ML BAG IV SCH (06:47)
[2016-07-21] MEDS: Omeprazole CAP* 20 MG PO SCH (08:10)
[2016-07-21] MEDS: FILGRASTIM-SNDZ* 480 MCG/0.8 ML SYRINGE SUBCUT SCH (08:10)
--- NOTE | 2016-07-21 09:11 | PN ---
Progress Note - Progress Note SOAP: Subjective: []Better today then yesterday, and much better then day before that. His breathing is doing ok. No chest pain when HR is controlled, can feel it when HR goes higher. No fevers or chills. Eating some. Acetaminophen (Tylenol Tab*) 650 mg PO Q4H PRN PRN Reason: FEVER/PAIN Last Admin: 07/19/16 22:25 Dose: 650 mg Filgrastim-Sndz (Zarxio*) 480 mcg SUBCUT DAILY [facility] Last Admin: 07/21/16 08:10 Dose: 480 mcg Heparin Sodium (Porcine) (Heparin Flush Port (Ivad)) 5 ml FLUSH DAILY [facility] PRN Reason: Protocol Last Admin: 07/21/16 08:11 Dose: Not Given Cefepime HCl 2 gm/ Sodium (Chloride) 50 mls @ 100 mls/hr IVPB Q8H [facility] Last Admin: 07/21/16 04:48 Dose: 100 mls/hr Amiodarone HCl (Nexterone 360 Mg/200 Ml Ivpremix*) 360 mg in 200 mls @ 16.666 mls/hr IV Q12H [facility] PRN Reason: 0.5 MG/MIN Stop: 07/21/16 19:29 Last Admin: 07/21/16 06:47 Dose: 16.666 mls/hr Morphine Sulfate (Morphine Inj (Syringe)*) 2 mg IV Q1H PRN PRN Reason: PAIN - MILD Last Admin: 07/21/16 08:09 Dose: 2 mg Omeprazole ([facility]c Cap*) [facility] Last Admin: 07/21/16 08:10 Dose: 20 mg Ondansetron HCl (Zofran Inj*) 4 mg IV Q6H PRN PRN Reason: NAUSEA/VOMITING Oxycodone HCl (Roxycodone Tab*) 5 mg PO Q4H PRN PRN Reason: PAIN Last Admin: 07/21/16 02:25 Dose: 5 mg Objective: [] Vital Signs Temp Pulse Resp BP Pulse Ox 100 F 85 20 115/73 100 07/21/16 07:27 07/21/16 06:15 07/21/16 08:09 07/21/16 06:00 07/21/16 08:36 HEENT - Pale, no thrush, no LAD and no JVD Pulm - High flow O2. No distress, rated under 20 Irregular and rapid, no murmurs, distant S1S2 Obease, +BS NT Ext warm, no edema Assessment: 65 recurrent mantle cell lymphoma on salvage R-ICE chemotherapy, cycle 1 day 10 admitted with neutropenic fevers, gram negative sepsis 2nd to E. Coli. Course further complicated by rapid a-fib, cardiomyopathy and likley stress ischemia. Today he appears more stable on high flow O2 and amiodarone load. There is modest increase in WBC and fever responding to Cefepime. Plan: 1. Neutropenic sepsis. Will continue Cefepime and will continue Neupogen until ANC > 2000. 2. Heme. Counts stable, follow and transfuse platelets < 10K 3. Cardiac. Amiodarone load and rate 120s. Cardiomyopathy could be stress induced. Appreciate ICU team and cardiology input. 4. FEN. Renal function is stable. Fluid balance per ICU team. 5. Currently on intensive care service, will follow and to oncology once ready for floor.
[2016-07-21] MEDS ORDERED: Digoxin IV* 0.5 MG/2 ML AMP (0.25 MG/ML) ONE (09:51)
[2016-07-21] MEDS ORDERED: Furosemide IV* 10 MG/ML VIAL (40 MG) IV SLOW PU ONE (09:56)
[2016-07-21] MEDS ORDERED: Carvedilol TAB* 6.25 MG PO SCH (10:00)
[2016-07-21] MEDS: Potassium & Sodium Phos 250MG* = 1 PACKET PO SCH ×2 (10:16→20:33)
--- NOTE | 2016-07-21 11:35 | PN ---
Progress Note - Progress Note Note: CRITICAL CARE MEDICINE Date: 07/21/16 Time: 930 SUBJECTIVE: Patient seen and examined. PHYSICAL EXAM: Vital Signs: Reviewed. Neurologic: awake, comm HEENT: pupils equal. Sclera anicteric. Trachea midline. Cardiovascular: S1 S2, tachy still and variable Respiratory: less distress again, heike high flow. no rales; changed to 30lpm Abdomen: Soft, nt. Extremities: Warm. Access: port LABS: Reviewed. IMAGING: Reviewed. MEDICATIONS: Reviewed. ASSESSMENT: 65 M Septic shock sec to ecoli from UTI Acute hypoxic resp failure - more from wob associated with metabolic demands of his septic shock Mantle cell lymphoma s/p RICE now in fan Previous lung ca Neutropenic fevers Pancytopenia Afib/Aflutter with RVR PLAN: Neurologic: awake, communicating. prn rx Cardiovascular: Perfusing. Intravascular volume fine and can mobilize again today. Hr still problematic. Seems to respond to bb. Start bb po and see if we can improve control. Doubt he will maintain rhythm control and will dc amio later. Respiratory: Stay on HFO2 today but wean some. Gastrointestinal: po diet. Renal/Metabolic: edwina stable Infectious Disease: C4 continued for ecoli sepsis. Hematology: onc f/u. plt better. neupogen. Endocrine: maintained Musculoskeletal: oob Psych/Social: he expresses understanding Supportive and preventative care as ordered. SUP: po VTE prophylaxis: chemical prophyl held due to plt counts currently Disposition: ICU Code Status: Full Critical Care Time: 30min Anca Braswell DO
[2016-07-21] MEDS ORDERED: Digoxin IV* 0.5 MG/2 ML AMP (0.25 MG/ML) IV SLOW PU ONE (14:06)
[2016-07-21] MEDS ORDERED: Potassium Chlor TAB* 20 MEQ TAB.ER PO ONE (15:00)
[2016-07-21] MEDS ORDERED: Metoprolol Tartrate TAB* 25 MG PO SCH ×2 (21:00→21:21)
[2016-07-21] MEDS ORDERED: Metoprolol Tartrate TAB* 25 MG PO ONE (21:20)
[2016-07-21] MEDS ORDERED: Metoprolol Tartrate TAB* 25 MG ONE (21:25)
[2016-07-22] MEDS: Acetaminophen TAB* 325 MG PO PRN ×2 (00:02→03:30)
[2016-07-22] MEDS: Cefepime(*) 2 GM in NS 0.9% 50 ML* 50 ML IVPB SCH ×3 (04:28→21:03)
[2016-07-22 05:52] LABS: Hematocrit 25 % (42-52); Hemoglobin 8.6 g/dl (14.0-18.0); Mean Corpuscular HGB Conc 35 g/dl (31-36); Mean Corpuscular Hemoglobin 32 pg (27-31); Mean Corpuscular Volume 92 fL (80-94); Mean Platelet Volume 8 um3 (7.4-10.4); Red Blood Count 2.69 10^6/ul (4.0-5.4); Red Cell Distribution Width 13 % (10.5-15); White Blood Count 1.8 10^3/ul (3.5-10.8)
[2016-07-22 05:56] LABS: Add Diff/Slide Review? Manual Diff Added; BUN/Creatinine Ratio 25.2 (8-20); Calcium 7.9 mg/dL (8.6-10.3); Comments Flag Yes; EGFR African American 92.6 (>60); Magnesium 1.6 mg/dL (1.9-2.7); Phosphorus 2.2 mg/dL (2.5-5.0); Potassium 3.4 mmol/L (3.5-5.0)
[2016-07-22 07:37] LABS: Eosinophils % 2 % (0-6); Immature Granulocytes 14 % (0-9); Metamyelocytes % 1 % (0-2); Myelocytes % 1 % (0-1); Neutrophil % 47 % (38-83)
[2016-07-22 07:39] LABS: Toxic Granulation 1+
[2016-07-22] MEDS: Potassium & Sodium Phos 250MG* = 1 PACKET PO SCH ×2 (09:00→21:03)
[2016-07-22] MEDS: FILGRASTIM-SNDZ* 480 MCG/0.8 ML SYRINGE SUBCUT SCH (09:00)
[2016-07-22] MEDS: Omeprazole CAP* 20 MG PO SCH (09:00)
[2016-07-22] MEDS ORDERED: Potassium Chlor TAB* 20 MEQ TAB.ER PO ONE ×2 (09:24→17:00)
[2016-07-22] MEDS ORDERED: Magnesium Sulfate 2 GM IV* 2 GM/50 ML BAG IVPB ONE (09:24)
[2016-07-22] MEDS ORDERED: Furosemide IV* 10 MG/ML VIAL (40 MG) IV SLOW PU ONE (09:30)
[2016-07-22] MEDS ORDERED: Metoprolol Tartrate TAB* 25 MG PO ONE (09:31)
--- NOTE | 2016-07-22 10:27 | PN ---
Progress Note - Progress Note SOAP: Subjective: []Still feeling better. SOB, cannot get much in his lungs. Starting to eat today. No fevers. No chest pain. Had a BM that was fairly solid. No nausea. Acetaminophen (Tylenol Tab*) 650 mg PO Q4H PRN PRN Reason: FEVER/PAIN Last Admin: 07/22/16 03:30 Dose: 650 mg Filgrastim-Sndz (Zarxio*) 480 mcg SUBCUT DAILY [facility] Last Admin: 07/22/16 09:00 Dose: 480 mcg Heparin Sodium (Porcine) (Heparin Flush Port (Ivad)) 5 ml FLUSH DAILY [facility] PRN Reason: Protocol Last Admin: 07/22/16 09:00 Dose: Not Given Cefepime HCl 2 gm/ Sodium (Chloride) 50 mls @ 100 mls/hr IVPB Q8H [facility] Last Admin: 07/22/16 04:28 Dose: 100 mls/hr Metoprolol Tartrate (Lopressor Tab*) 50 mg PO BID [facility] Morphine Sulfate (Morphine Inj (Syringe)*) 2 mg IV Q1H PRN PRN Reason: PAIN - MILD Last Admin: 07/21/16 10:27 Dose: 2 mg Omeprazole (Prilosec Cap*) 20 mg PO QAM [facility] Last Admin: 07/22/16 09:00 Dose: 20 mg Ondansetron HCl (Zofran Inj*) 4 mg IV Q6H PRN PRN Reason: NAUSEA/VOMITING Oxycodone HCl (Roxycodone Tab*) 5 mg PO Q4H PRN PRN Reason: PAIN Last Admin: 07/21/16 10:27 Dose: 5 mg Potassium Chloride (Klor Con Er Tab*) 40 meq PO ONCE ONE Stop: 07/22/16 17:01 Potassium Phos/Sodium Phos (Neutra Phos 250 Mg Colin*) 250 mg PO BID [facility] Stop: 07/22/16 21:01 Last Admin: 07/22/16 09:00 Dose: 250 mg Objective: [] Vital Signs Temp Pulse Resp BP Pulse Ox 99.6 F 89 16 102/53 99 07/22/16 07:53 07/22/16 07:00 07/22/16 07:00 07/22/16 07:00 07/22/16 07:00 HEENT - Pale, no thrush, no LAD and no JVD Pulm - Decreased O2, shallow breaths, rate 20 on exam Irregular and rapid, no murmurs, distant S1S2 Obease, +BS NT Ext warm, no edema Assessment: 65 recurrent mantle cell lymphoma on salvage R-ICE chemotherapy, cycle 1 day 10 admitted with neutropenic fevers, gram negative sepsis 2nd to E. Coli. Course further complicated by rapid a-fib, cardiomyopathy and likley stress ischemia. There is increase in WBC and fever responding to Cefepime. Plan: 1. Neutropenic sepsis. Will continue Cefepime and will continue Neupogen until ANC > 2000. 2. Heme. Counts stable, follow. No transfusions today. 3. Cardiac. Amiodarone and Metoprolol. Decreased HR> Cardiomyopathy could be stress induced. Appreciate ICU team and cardiology input. 4. FEN. Renal function is stable. Fluid balance per ICU team. Mg and K today. 5. Currently on intensive care service, will follow and to oncology once ready for floor.
--- NOTE | 2016-07-22 11:01 | PN ---
Progress Note - Progress Note Note: CRITICAL CARE MEDICINE Date: 07/22/16 Time: 1000 SUBJECTIVE: Patient seen and examined. PHYSICAL EXAM: Vital Signs: Reviewed. Neurologic: awake, comm HEENT: pupils equal. Sclera anicteric. Trachea midline. Cardiovascular: S1 S2, Hr better, in SR but still tachy. Respiratory: less distress again, wean off high flow. Abdomen: Soft, nt. Extremities: Warm. Access: port LABS: Reviewed. IMAGING: Reviewed. MEDICATIONS: Reviewed. ASSESSMENT: 65 M Septic shock sec to ecoli from UTI Acute hypoxic resp failure - more from wob associated with metabolic demands of his septic shock - improved. Mantle cell lymphoma s/p RICE now in fan Previous lung ca Neutropenic fevers Pancytopenia Afib/Aflutter with RVR Stress cardiomyopathy PLAN: Neurologic: awake, communicating. prn rx but needing less Cardiovascular: Perfusing. mobilize a bit more vol today and then can hold off on further iv diuretics. inc bb to 50mg bid and should be able to hold there. Would look to add back low dose arb after that when able. did recived dig, and amio previous, but see if can maintain with just bb. Respiratory: off HFO2 today and try to avoid recuse needs Gastrointestinal: po diet. Renal/Metabolic: maintained. replete lytes Infectious Disease: C4 continued for ecoli sepsis ongoing and extended course waiting count recovery Hematology: onc f/u. plt a bit lower but holding. Hopefully can rebound tomorrow. neupogen. Endocrine: maintained Musculoskeletal: oob more today Psych/Social: he expresses understanding Supportive and preventative care as ordered. SUP: po VTE prophylaxis: chemical prophyl held due to plt counts currently Disposition: ICU Code Status: Continued DNR, trail intubation (claridied again with pt) Critical Care Time: 30min Anca Braswell DO
[2016-07-22] MEDS: oxyCODONE TAB* 5 MG TAB PO PRN ×2 (12:49→21:12)
[2016-07-22] MEDS: Metoprolol Tartrate TAB* 50 mg PO SCH (21:03)
[2016-07-23] MEDS: oxyCODONE TAB* 5 MG TAB PO PRN ×2 (01:17→21:13)
[2016-07-23] MEDS: Cefepime(*) 2 GM in NS 0.9% 50 ML* 50 ML IVPB SCH (04:28)
[2016-07-23 05:59] LABS: Hematocrit 26 % (42-52); Mean Corpuscular HGB Conc 35 g/dl (31-36); Mean Corpuscular Hemoglobin 32 pg (27-31); Mean Corpuscular Volume 92 fL (80-94); Mean Platelet Volume 8 um3 (7.4-10.4); Red Blood Count 2.82 10^6/ul (4.0-5.4); Red Cell Distribution Width 13 % (10.5-15); White Blood Count 9.1 10^3/ul (3.5-10.8)
[2016-07-23 06:00] LABS: Add Diff/Slide Review? Manual Diff Added; Comments Flag Yes
[2016-07-23 06:07] LABS: Add Path Review? YES
[2016-07-23 06:24] LABS: BUN/Creatinine Ratio 22.6 (8-20); Calcium 7.8 mg/dL (8.6-10.3); EGFR African American 104.2 (>60); Magnesium 1.8 mg/dL (1.9-2.7); Phosphorus 1.9 mg/dL (2.5-5.0); Potassium 3.3 mmol/L (3.5-5.0)
[2016-07-23 06:33] LABS: Hypochromasia 1+; Immature Granulocytes 36 % (0-9); Macrocytosis 1+; Metamyelocytes % 4 % (0-2); Microcytosis 1+; Neutrophil % 45 % (38-83)
--- NOTE | 2016-07-23 08:34 | PN ---
Progress Note - Progress Note SOAP: Subjective: []Not feeling any different. Remains weak and SOB. Not taking deep breaths. Not eating much, a little. Passing gas and small BM. No fever or chills. Acetaminophen (Tylenol Tab*) 650 mg PO Q4H PRN PRN Reason: FEVER/PAIN Last Admin: 07/22/16 03:30 Dose: 650 mg Heparin Sodium (Porcine) (Heparin Flush Port (Ivad)) 5 ml FLUSH DAILY [facility] PRN Reason: Protocol Last Admin: 07/22/16 09:00 Dose: Not Given Cefepime HCl 2 gm/ Sodium (Chloride) 50 mls @ 100 mls/hr IVPB Q8H [facility] Last Admin: 07/23/16 04:28 Dose: 100 mls/hr Magnesium Sulfate 3 gm/ Sodium (Chloride) 106 mls @ 53 mls/hr IVPB ONCE ONE Stop: 07/23/16 10:20 Metoprolol Tartrate (Lopressor Tab*) 50 mg PO BID [facility] Last Admin: 07/22/16 21:03 Dose: 50 mg Morphine Sulfate (Morphine Inj (Syringe)*) 2 mg IV Q1H PRN PRN Reason: PAIN - MILD Last Admin: 07/21/16 10:27 Dose: 2 mg Omeprazole (Prilosec Cap*) 20 mg PO QAM [facility] Last Admin: 07/22/16 09:00 Dose: 20 mg Ondansetron HCl (Zofran Inj*) 4 mg IV Q6H PRN PRN Reason: NAUSEA/VOMITING Oxycodone HCl (Roxycodone Tab*) 5 mg PO Q4H PRN PRN Reason: PAIN Last Admin: 07/23/16 01:17 Dose: 5 mg Potassium Chloride (Klor Con Er Tab*) 20 meq PO BID [facility] Objective: [] Vital Signs Temp Pulse Resp BP Pulse Ox 100.3 F 91 19 126/60 99 07/23/16 07:39 07/23/16 07:00 07/23/16 07:00 07/23/16 07:00 07/23/16 07:00 HEENT - Pale, no thrush, no LAD and no JVD Pulm - Still with mild respiratory distress. No wheezing or crackles. Irregular and rapid, no murmurs, distant S1S2 Obease, +BS but decreased, distended, NT. Ext warm, no edema Assessment: 65 recurrent mantle cell lymphoma on salvage R-ICE chemotherapy, cycle 1 day 10 admitted with neutropenic fevers, gram negative sepsis 2nd to E. Coli. Course further complicated by rapid a-fib, cardiomyopathy and likley stress ischemia. Continued SOB likley from underlying lung disease. Plan: 1. E. Coli sepsis. Day 4 of antibiotics for carpenter sensitive E.Coli. Will consider narrowing of antibiotics. 2. D/c Neupogen. 2. Heme. Tx plts today 3. Cardiac. Metoprolol with stable rate today. 4. FEN. Replete Mg and K. Unclear if can keep neutral fluid balance based on PO intake w/o IVF. 5. Currently on intensive care service, will discuss with belt operator when to transfer to floor.
[2016-07-23] MEDS: Omeprazole CAP* 20 MG PO SCH (09:25)
[2016-07-23] MEDS: Metoprolol Tartrate TAB* 50 mg PO SCH ×3 (09:25→20:37)
[2016-07-23] MEDS: Potassium Chlor TAB* 20 MEQ TAB.ER PO SCH ×2 (09:25→20:38)
[2016-07-23] MEDS ORDERED: Potassium Phosphate IV* 20 MMOLE in NS 0.9% 250 ML* 250 ML IVPB ONE (09:38)
--- NOTE | 2016-07-23 11:09 | PN ---
Progress Note - Progress Note Note: CRITICAL CARE MEDICINE Date: 07/23/16 Time: 1000 SUBJECTIVE: Patient seen and examined. PHYSICAL EXAM: Vital Signs: Reviewed. Neurologic: awake, comm HEENT: pupils equal. Sclera anicteric. Trachea midline. Cardiovascular: S1 S2, Hr maintained, Afib rate controlled. Respiratory: NC. no rales Abdomen: Soft, nt. Extremities: Warm. Dep edema Access: port LABS: Reviewed. IMAGING: Reviewed. MEDICATIONS: Reviewed. ASSESSMENT: 65 M Septic shock sec to ecoli from UTI Acute hypoxic resp failure - more from wob associated with metabolic demands of his septic shock - improved. Mantle cell lymphoma s/p RICE now in fan Previous lung ca Neutropenic fevers Pancytopenia Afib/Aflutter with RVR Stress cardiomyopathy PLAN: Neurologic: awake, communicating. prn rx Cardiovascular: Perfusing. mobilized well. can hold on diuretics. adjusted bb to tid to maintain as long as bp tolerable and hopefully improved cardiac function in time. not on anticoags. can have cards f/u for anticipated outpt needs Respiratory: NC. doing well. Gastrointestinal: po diet. encourage Renal/Metabolic: maintained. repleting lytes, and off lasix should improve Infectious Disease: Now with neutrophils, can adjusted abx to ancef for tx of ecoli sepsis for 7days. Hematology: onc f/u. plts today. neupogen dcd. Endocrine: maintained Musculoskeletal: oob, ambulate. Psych/Social: he expresses understanding Supportive and preventative care as ordered. SUP: po VTE prophylaxis: chemical prophyl held due to plt counts currently Disposition: to floor with tele Code Status: Continued DNR, trail intubation Critical Care Time: 25min FHever Braswell DO
[2016-07-23] MEDS: ceFAZolin VIAL(*) 1 GM in NS 0.9% 50 ML* 50 ML IVPB SCH ×2 (11:51→20:32)
[2016-07-24] MEDS: oxyCODONE TAB* 5 MG TAB PO PRN ×2 (01:13→05:25)
[2016-07-24] MEDS: ceFAZolin VIAL(*) 1 GM in NS 0.9% 50 ML* 50 ML IVPB SCH ×3 (02:19→22:02)
[2016-07-24 05:47] LABS: Hematocrit 25 % (42-52); Hemoglobin 8.8 g/dl (14.0-18.0); Mean Corpuscular HGB Conc 35 g/dl (31-36); Mean Corpuscular Hemoglobin 32 pg (27-31); Mean Corpuscular Volume 91 fL (80-94); Mean Platelet Volume 9 um3 (7.4-10.4); Red Blood Count 2.78 10^6/ul (4.0-5.4); Red Cell Distribution Width 13 % (10.5-15); White Blood Count 12.1 10^3/ul (3.5-10.8)
[2016-07-24 05:53] LABS: Comments Flag Yes
[2016-07-24 05:55] LABS: Add Diff/Slide Review? Manual Diff Added
[2016-07-24 06:05] LABS: BUN/Creatinine Ratio 18.5 (8-20); Calcium 7.6 mg/dL (8.6-10.3); EGFR African American 122.2 (>60); EGFR Non-African American 95.1 (>60); Potassium 3.2 mmol/L (3.5-5.0)
[2016-07-24 06:27] LABS: Immature Granulocytes 16 % (0-9); Myelocytes % 4 % (0-1); Neutrophil % 63 % (38-83); Reactive Lymph % 3 % (0-6)
[2016-07-24 06:28] LABS: Add Path Review? YES; Hypochromasia 1+
[2016-07-24] MEDS: Omeprazole CAP* 20 MG PO SCH (09:20)
[2016-07-24] MEDS: Metoprolol Tartrate TAB* 50 mg PO SCH ×3 (09:20→21:57)
[2016-07-24] MEDS: Potassium Chlor TAB* 20 MEQ TAB.ER PO SCH ×2 (09:20→21:58)
[2016-07-24] MEDS ORDERED: Potassium Chlor TAB* 20 MEQ TAB.ER PO ONE (12:00)
--- NOTE | 2016-07-24 12:37 | PN ---
Subjective Date of Service: 07/24/16 Interval History: Patient seen this afternoon. No complaints. Breathing well, no fever or chills. Says he feels his appetite may be returning, ate most of his breakfast this AM. No chest pain or palpitations. Family History: Unchanged from Admission Social History: Unchanged from Admission Past Medical History: Unchanged from Admission Objective Active Medications: Acetaminophen (Tylenol Tab*) 650 mg PO Q4H PRN Heparin Sodium (Porcine) (Heparin Flush Port (Ivad)) 5 ml FLUSH DAILY [facility] Cefazolin Sodium 1 gm/ Sodium (Chloride) 50 mls @ 200 mls/hr IVPB Q8H [facility] Metoprolol Tartrate (Lopressor Tab*) 50 mg PO TID [facility] Morphine Sulfate (Morphine Inj (Syringe)*) 2 mg IV Q1H PRN Omeprazole (Prilosec Cap*) 20 mg PO QAM [facility] Ondansetron HCl (Zofran Inj*) 4 mg IV Q6H PRN Oxycodone HCl (Roxycodone Tab*) 5 mg PO Q4H PRN Potassium Chloride (Klor Con Er Tab*) 20 meq PO BID [facility] Vital Signs 07/23/16 07/23/16 07/23/16 12:50 14:19 15:24 Temperature 97.9 F 98.3 F Pulse Rate 117 85 Respiratory 20 24 20 Rate Blood Pressure 130/66 140/64 (mmHg) O2 Sat by Pulse 94 100 Oximetry 07/24/16 07/24/16 07/24/16 07:35 08:00 11:01 Temperature 98.6 F 98.0 F Pulse Rate 86 87 Respiratory 22 24 20 Rate Blood Pressure 105/57 113/65 (mmHg) O2 Sat by Pulse 97 100 Oximetry Oxygen Devices in Use Now: Nasal Cannula - 5L Appearance: Middle-aged, M, laying in bed in NAD Eyes: No Scleral Icterus Ears/Nose/Mouth/Throat: Mucous Membranes Moist Neck: NL Appearance and Movements; NL JVP Respiratory: Symmetrical Chest Expansion and Respiratory Effort, Clear to Auscultation Cardiovascular: NL Sounds; No Murmurs; No JVD, - - IRIR Abdominal: NL Sounds; No Tenderness; No Distention Lymphatic: No Cervical Adenopathy Extremities: - - Mild LE edema Neurological: Alert and Oriented x 3 Result Diagrams: 07/24/16 05:35 07/24/16 05:35 Additional Lab and Data: Lab Results 07/18/16 07/18/16 07/18/16 Range/Units 18:33 18:33 18:33 WBC 0.2 L (3.5-10.8) 10^3/ul RBC 3.71 L (4.0-5.4) 10^6/ul Hgb 11.9 L (14.0-18.0) g/dl Hct 34 L (42-52) % MCV 92 (80-94) fL MCH 32 H (27-31) pg MCHC 35 (31-36) g/dl RDW 12 (10.5-15) % Plt Count 41 L (150-450) 10^3/ul MPV 10 (7.4-10.4) um3 Absolute Neuts (auto) 0 L* (1.5-7.7) 10^3/ul Absolute Lymphs (auto) 0.2 L (1.0-4.8) 10^3/ul Absolute Monos (auto) 0 (0-0.8) 10^3/ul Absolute Eos (auto) Not Reportable Absolute Basos (auto) Not Reportable Absolute Nucleated RBC Not Reportable Neutrophils % 3 L (38-83) % Lymphocytes % 91 H (25-47) % Reactive Lymphs % 3 (0-6) % Monocytes % 3 (0-13) % Normal RBC Morphology Not Reportable Spherocytes 1+ Hem Pathologist Commnt Pending INR (Anticoag Therapy) 1.02 (0.89-1.11) APTT 45.5 H (26.0-36.3) seconds Sodium 133 (133-145) mmol/L Potassium 3.8 (3.5-5.0) mmol/L Chloride 104 (101-111) mmol/L Carbon Dioxide 19 L (22-32) mmol/L Anion Gap 10 (2-11) mmol/L BUN 25 H (6-24) mg/dL Creatinine 1.28 H (0.67-1.17) mg/dL Est GFR ( Amer) 72.1 (>60) Est GFR (Non-Af Amer) 56.1 (>60) BUN/Creatinine Ratio 19.5 (8-20) Glucose 133 H (70-100) mg/dL Lactic Acid (0.5-2.0) mmol/L Calcium 9.0 (8.6-10.3) mg/dL Total Bilirubin 2.20 H (0.2-1.0) mg/dL AST 16 (13-39) U/L ALT 26 (7-52) U/L Alkaline Phosphatase 99 (34-104) U/L Troponin I 0.02 (<0.04) ng/mL Total Protein 6.6 (6.4-8.9) g/dL Albumin 3.7 (3.2-5.2) g/dL Globulin 2.9 (2-4) g/dL Albumin/Globulin Ratio 1.3 (1-3) // Range/Units 18:33 WBC (3.5-10.8) 10^3/ul RBC (4.0-5.4) 10^6/ul Hgb (14.0-18.0) g/dl Hct (42-52) % MCV (80-94) fL MCH (27-31) pg MCHC (31-36) g/dl RDW (10.5-15) % Plt Count (150-450) 10^3/ul MPV (7.4-10.4) um3 Absolute Neuts (auto) (1.5-7.7) 10^3/ul Absolute Lymphs (auto) (1.0-4.8) 10^3/ul Absolute Monos (auto) (0-0.8) 10^3/ul Absolute Eos (auto) Absolute Basos (auto) Absolute Nucleated RBC Neutrophils % (38-83) % Lymphocytes % (25-47) % Reactive Lymphs % (0-6) % Monocytes % (0-13) % Normal RBC Morphology Spherocytes Hem Pathologist Commnt INR (Anticoag Therapy) (0.89-1.11) APTT (26.0-36.3) seconds Sodium (133-145) mmol/L Potassium (3.5-5.0) mmol/L Chloride (101-111) mmol/L Carbon Dioxide (22-32) mmol/L Anion Gap (2-11) mmol/L BUN (6-24) mg/dL Creatinine (0.67-1.17) mg/dL Est GFR ( Amer) (>60) Est GFR (Non-Af Amer) (>60) BUN/Creatinine Ratio (8-20) Glucose (70-100) mg/dL Lactic Acid 2.6 H* (0.5-2.0) mmol/L Calcium (8.6-10.3) mg/dL Total Bilirubin (0.2-1.0) mg/dL AST (13-39) U/L ALT (7-52) U/L Alkaline Phosphatase (34-104) U/L Troponin I (<0.04) ng/mL Total Protein (6.4-8.9) g/dL Albumin (3.2-5.2) g/dL Globulin (2-4) g/dL Albumin/Globulin Ratio (1-3) Microbiology and Other Data: Microbiology 07/18/16 21:35 Urine Culture - Final Urine No Growth (<1,000 CFU/mL) 07/18/16 21:35 Nasal Screen MRSA (PCR)([facility]) - Final Nasal Mrsa Negative Influenza Types A,B Antigen ([facility]) - Final Specimen received for Influenza A/B Molecular testing Assess/Plan/Problems-Billing Assessment: Sepsis 2/2 E. coli bacteremia, acute hypoxic respiratory failure, AFib with RVR , cardiomyopathy in a 65 yo M with hx of mantle cell lymphoma on cycle 1 of R- ICE chemo 1. E. coli bacteremia - continue Ancef, no longer neutropenic s/p Filgrastim 2. AFib with RVR - rate has been controlled - continue current TID Metoprolol dosing - holding on anticoagulation, can discuss further as outpatient 3. Cardiomyopathy - ?stress vs tachycardia vs ischemia - mild LE edema, otherwise no signs of fluid overload - continue with beta-quincy alone for now 4. Hypokalemia - replete 5. Pancytopenia - WBC up as above - Platelets stable 6. Acute hypoxic respiratory failure - on 5L NC, continue to wean as able 7. DVT ppx - SCDs
[2016-07-24 13:09] LABS: Magnesium 1.9 mg/dL (1.9-2.7)
[2016-07-24] MEDS: Acetaminophen TAB* 325 MG PO PRN (21:59)
[2016-07-25] MEDS: ceFAZolin VIAL(*) 1 GM in NS 0.9% 50 ML* 50 ML IVPB SCH ×3 (03:00→20:15)
[2016-07-25] MEDS: oxyCODONE TAB* 5 MG TAB PO PRN ×3 (06:37→20:10)
[2016-07-25 06:42] LABS: Hematocrit 26 % (42-52); Hemoglobin 9.1 g/dl (14.0-18.0); Mean Corpuscular HGB Conc 35 g/dl (31-36); Mean Corpuscular Hemoglobin 32 pg (27-31); Mean Corpuscular Volume 91 fL (80-94); Mean Platelet Volume 10 um3 (7.4-10.4); Red Blood Count 2.86 10^6/ul (4.0-5.4); Red Cell Distribution Width 13 % (10.5-15); White Blood Count 15.2 10^3/ul (3.5-10.8)
[2016-07-25 06:44] LABS: Add Diff/Slide Review? Manual Diff Added; Comments Flag Yes
[2016-07-25 06:56] LABS: BUN/Creatinine Ratio 16.2 (8-20); Calcium 7.6 mg/dL (8.6-10.3); EGFR African American 149.6 (>60); EGFR Non-African American 116.3 (>60); Magnesium 1.6 mg/dL (1.9-2.7); Potassium 3.7 mmol/L (3.5-5.0)
[2016-07-25 07:49] LABS: Add Path Review? YES; Hypochromasia 1+; Immature Granulocytes 16 % (0-9); Metamyelocytes % 3 % (0-2); Myelocytes % 4 % (0-1); Neutrophil % 66 % (38-83); Polychromasia 1+
[2016-07-25] MEDS: Metoprolol Tartrate TAB* 50 mg PO SCH ×3 (08:57→20:13)
[2016-07-25] MEDS: Acetaminophen TAB* 325 MG PO PRN (08:57)
[2016-07-25] MEDS: Potassium Chlor TAB* 20 MEQ TAB.ER PO SCH ×2 (08:57→20:12)
[2016-07-25] MEDS: Omeprazole CAP* 20 MG PO SCH (08:57)
[2016-07-26] MEDS: oxyCODONE TAB* 5 MG TAB PO PRN (01:25)
[2016-07-26] MEDS: ceFAZolin VIAL(*) 1 GM in NS 0.9% 50 ML* 50 ML IVPB SCH (03:11)
[2016-07-26 06:08] LABS: BUN/Creatinine Ratio 13.4 (8-20); Calcium 7.7 mg/dL (8.6-10.3); EGFR African American 152.2 (>60); EGFR Non-African American 118.3 (>60); Magnesium 1.5 mg/dL (1.9-2.7); Potassium 3.9 mmol/L (3.5-5.0)
[2016-07-26 06:11] LABS: Add Diff/Slide Review? Manual Diff Added; Comments Flag Yes; Hematocrit 27 % (42-52); Hemoglobin 9.1 g/dl (14.0-18.0); Mean Corpuscular HGB Conc 34 g/dl (31-36); Mean Corpuscular Hemoglobin 31 pg (27-31); Mean Corpuscular Volume 91 fL (80-94); Mean Platelet Volume 11 um3 (7.4-10.4); Red Blood Count 2.93 10^6/ul (4.0-5.4); Red Cell Distribution Width 13 % (10.5-15); White Blood Count 13.7 10^3/ul (3.5-10.8)
[2016-07-26 06:30] LABS: Immature Granulocytes 5 % (0-9); Metamyelocytes % 1 % (0-2); Neutrophil % 62 % (38-83)
[2016-07-26 06:31] LABS: Add Path Review? YES; Hypochromasia 1+; Toxic Granulation 2+
[2016-07-26] MEDS ORDERED: ALPRAZolam TAB* 0.5 MG PO ONE (09:40)
[2016-07-26] MEDS ORDERED: ALPRAZolam TAB* 0.5 MG ONE (09:41)
--- NOTE | 2016-07-26 09:50 | PN ---
Progress Note - Progress Note SOAP: Subjective: []Anxious this AM, though denies worsening SOB or chest pain. States at home he takes Xanax 0.5 mg and would like to try that. Medications: Acetaminophen (Tylenol Tab*) 650 mg PO Q4H PRN PRN Reason: FEVER/PAIN Last Admin: 07/25/16 08:57 Dose: 650 mg Heparin Sodium (Porcine) (Heparin Flush Port (Ivad)) 5 ml FLUSH DAILY [facility] PRN Reason: Protocol Last Admin: 07/26/16 09:42 Dose: Not Given Cefazolin Sodium 1 gm/ Sodium (Chloride) 50 mls @ 200 mls/hr IVPB Q8H [facility] Stop: 07/30/16 10:59 Last Admin: 07/26/16 03:11 Dose: 200 mls/hr Metoprolol Tartrate (Lopressor Tab*) 50 mg PO TID [facility] Last Admin: 07/25/16 20:13 Dose: 50 mg Morphine Sulfate (Morphine Inj (Syringe)*) 2 mg IV Q1H PRN PRN Reason: PAIN - MILD Last Admin: 07/21/16 10:27 Dose: 2 mg Omeprazole (Prilosec Cap*) 20 mg PO QAM [facility] Last Admin: 07/25/16 08:57 Dose: 20 mg Ondansetron HCl (Zofran Inj*) 4 mg IV Q6H PRN PRN Reason: NAUSEA/VOMITING Oxycodone HCl (Roxycodone Tab*) 5 mg PO Q4H PRN PRN Reason: PAIN Last Admin: 07/26/16 01:25 Dose: 5 mg Potassium Chloride (Klor Con Er Tab*) 20 meq PO BID [facility] Last Admin: 07/25/16 20:12 Dose: 20 meq Objective: [] Assessment: []65 yo male with recurrent mantle cell lymphoma now s/p C1 RICE (day 16 today) admitted with neutropenic fever, slowly recovering. Plan: []1. Neutropenic Fever: resolved 2. E.Coli Sepsis: on Cefazolin, improving 3. A.Fib with RVR: post medical conversion, SR now, cont. B-Jimbo and will f/ u with cardiology on d/c 4. Cardiomyopathy: question of stress induced r/t sepsis and tachycardia, however will f/u with cardiology on d/c 5. Pancytopenia: secondary to chemotherapy, resolving 6. Anxiety: restart Xanax 0.5 mg PO TID PRN 7. Mantle Cell Lymphoma: C2 RICE delayed x1 week, will re-assess following d/c
[2016-07-26] MEDS: Omeprazole CAP* 20 MG PO SCH (10:45)
[2016-07-26] MEDS: Metoprolol Tartrate TAB* 50 mg PO SCH (10:45)
[2016-07-26] MEDS ORDERED: ALPRAZolam TAB* 0.5 MG PO PRN (10:45)
[2016-07-26] MEDS: Potassium Chlor TAB* 20 MEQ TAB.ER PO SCH (10:45)
[2016-07-26 11:47] VITALS: BP 130/75
--- NOTE | 2016-07-26 16:46 | DS ---
CC: Dr. Blackwood; Saniya Kim NP DISCHARGE SUMMARY: DATE OF ADMISSION: 07/18/16 DATE OF DISCHARGE: 07/26/16 DISCHARGE DIAGNOSES: 1. E. coli sepsis: Improving on cefazolin, we will discharge on Levaquin to complete full 2 weeks of antibiotics. 2. Neutropenic fever: Resolved, . 3. Atrial fibrillation with rapid ventricular response: Resolved with medical management, on beta quincy. Will follow up with Cardiology on discharge. 4. Cardiomyopathy: Likely stress induced secondary to severe sepsis, will follow up with cardiolog y on discharge. 5. Recurrent mantle cell lymphoma: Status post cycle 1 RICE with cycle 2 delayed x1 week at this t [facility]. 6. Pancytopenia: Secondary to chemotherapy, resolving. DISCHARGE MEDICATIONS: 1. Levaquin 750 mg p.o. daily to complete full 2 weeks of antibiotics. 2. Metoprolol 50 mg p.o. t.i.d. 3. Potassium chloride 20 mEq p.o. daily. 4. Loperamide 2 mg p.r.n. diarrhea MDD 8 tablets. 5. Acetaminophen 650 mg p.o. q.4 hours p.r.n. fever or pain, call office with any fevers. 6. Oxycodone 5 mg p.o. q.4 hours p.r.n. pain. 7. Omeprazole 20 mg q.a.m. 8. Senna 2 tabs p.o. b.i.d. p.r.n. constipation. 9. Compazine 10 mg p.o. q.6 hours p.r.n. nausea. 10. Ondansetron 4 mg p.o. q.6 hours p.r.n. nausea. 11. Stop valsartan and stop Prograf until next cycle. HOSPITAL COURSE: Please see admission note for full H and P; however, briefly, Mr. Goetz is wel l known to our service due to his unfortunate recurrence of mantle cell lymphoma, now status post fi rst cycle of RICE. He presented to the ER feeling flushed with fevers, chills, and aches. At that time, he felt very unwell, though he had no specific signs of infection. At this time, Mr. Hernandez d was approximately day 6 following his first chemotherapy and was neutropenic, therefore he was adm itted with neutropenic fever and covered with Bactrim antibiotics. On admission, his lactic acid wa s 2.6 resolving to 1.5 the following day. On admission, Mr. Goetz received aggressive hydration , which his blood pressure did unfortunately not respond to and therefore, he required Levophed drip , which was starting on the evening of the July 18 and discontinued shortly after. He was in the [facility] for the majority of his stay. During his admission, his course was complicated by tachycardia an d subsequent echo revealing significant cardiomyopathy. He was seen in consultation by Dr. Blackwood who administered amiodarone to medically convert the patient out of atrial flutter to sinus rhythm. Subsequently, he has been on beta quincy and done very well. In terms of his cardiomyopathy, she f elt that management as an outpatient would be best once the patient recovered from his severe sepsis . At this time, Mr. Goetz is doing well with full recovery of his counts. He remains weak, but feels strong enough to walk around the hospital. He gets short of breath with exertion; however, i s using supplemental O2 and maintaining oxygenation. He has not had further fevers or chills and clark s as noted early recovery of his neutrophils, improvement of platelets and recovery of his H and H. Plan of care was discussed with Mr. Goetz at length, he will continue on Levaquin 750 mg to com plete a 2-week course of antibiotics (4/4 cultures on admission positive for pansensitive E. coli). He will continue with beta quincy and follow up with Dr. Blackwood in approximately 2 weeks. I have requested that he call the office to schedule this at his convenience. He will be seen in the oncol ogy office on 07/29/16, to discuss with Dr. Bhatia regarding plan of care. He will have labs drawn that day. Mr. Goetz has been set up for home oxygen and denies questions or concerns, st ating appreciation for ability to be discharged today. TIME SPENT: Greater than 40 minutes spent with greater than 50% in [id number] counseling. JOSE ANTONIO NAVARRETE, KARLY [id number]/[facility] #: [id number]
== END 2016-07-26 14:11 | disposition home or self-care (01) | DRG 871 ==
LOC: ED 17:49 → ICU 20:16 → MEDTELE 07-23 12:32
PROVIDERS: ADMIT Hospitalist; ATTEND Internal Medicine Hematology & Oncology
PROC: 3E033XZ Introduction of Vasopressor into Peripheral Vein, Percutaneous Approach (ICD-10-PCS; principal; 2016-07-19)
PROC: 30233R1 Transfusion of Nonautologous Platelets into Peripheral Vein, Percutaneous Approach (ICD-10-PCS; 2016-07-20)
DX: A41.51 Sepsis due to Escherichia coli [E. coli] (principal); R65.21 Severe sepsis with septic shock; J96.01 Acute respiratory failure with hypoxia; N17.9 Acute kidney failure, unspecified; D61.810 Antineoplastic chemotherapy induced pancytopenia; C83.10 Mantle cell lymphoma, unspecified site; I48.4 Atypical atrial flutter; I13.0 Hypertensive heart and chronic kidney disease with heart failure and stage 1 through stage 4 chronic kidney disease, or unspecified chronic kidney disease; I50.20 Unspecified systolic (congestive) heart failure; I48.0 Paroxysmal atrial fibrillation; E86.0 Dehydration; E87.2 Acidosis; N39.0 Urinary tract infection, site not specified; I51.81 Takotsubo syndrome; E03.9 Hypothyroidism, unspecified; J44.9 Chronic obstructive pulmonary disease, unspecified; K21.9 Gastro-esophageal reflux disease without esophagitis; M19.90 Unspecified osteoarthritis, unspecified site; G60.9 Hereditary and idiopathic neuropathy, unspecified; Z96.651 Presence of right artificial knee joint; R40.2412 Glasgow coma scale score 13-15, at arrival to emergency department; R50.81 Fever presenting with conditions classified elsewhere; B19.20 Unspecified viral hepatitis C without hepatic coma; E66.9 Obesity, unspecified; I27.2 Other secondary pulmonary hypertension; N18.9 Chronic kidney disease, unspecified; T45.1X5A Adverse effect of antineoplastic and immunosuppressive drugs, initial encounter; Z66 Do not resuscitate; E87.6 Hypokalemia; Z80.3 Family history of malignant neoplasm of breast; Z87.891 Personal history of nicotine dependence; Y92.9 Unspecified place or not applicable; Z85.118 Personal history of other malignant neoplasm of bronchus and lung; Z90.2 Acquired absence of lung [part of]; Z90.49 Acquired absence of other specified parts of digestive tract; Z80.9 Family history of malignant neoplasm, unspecified; Z68.33 Body mass index [BMI] 33.0-33.9, adult; F41.0 Panic disorder [episodic paroxysmal anxiety]; D70.9 Neutropenia, unspecified; I08.3 Combined rheumatic disorders of mitral, aortic and tricuspid valves
CPT/HCPCS: 36415; 71010; 80048; 80053; 81003; 81015; 83605; 83615; 83735; 84100; 84484; 84550; 85025; 85049; 85060; 85610; 85730; 87040; 87077; 87086; 87186; 87205; 87502; 87641; 93005; 93306; 94760; 99232; 99239; A9270-GY; J0153; J0282; J0690; J0692; J1160; J1447; J1642; J1885; J1940; J2270; J2405; J3010; J3475; J3480; P9035; Q5101 ZA

== ENCOUNTER 2016-08-11 08:49 | Emergency (ER) | payer MEDICARE ==
[2016-08-11] MEDS ORDERED: NS 0.9% 1000 ML* 1,000 ML IV SCH (10:30)
[2016-08-11 12:52] LABS: Hematocrit 23 % (42-52); Hemoglobin 7.8 g/dl (14.0-18.0); Mean Corpuscular HGB Conc 34 g/dl (31-36); Mean Corpuscular Hemoglobin 30 pg (27-31); Mean Corpuscular Volume 89 fL (80-94); Mean Platelet Volume 9 um3 (7.4-10.4); Red Blood Count 2.58 10^6/ul (4.0-5.4); Red Cell Distribution Width 13 % (10.5-15); White Blood Count 9.2 10^3/ul (3.5-10.8)
[2016-08-11 13:03] LABS: Add Diff/Slide Review? Slide Review Added; Comments Flag Yes
[2016-08-11 13:17] LABS: Albumin 2.6 g/dL (3.2-5.2); BUN/Creatinine Ratio 13.5 (8-20); C Reactive Protein 172.74 mg/L (< 5.00); Calcium 8.2 mg/dL (8.6-10.3); EGFR African American 135.3 (>60); EGFR Non-African American 105.2 (>60); Globulin 3.4 g/dL (2-4); Magnesium 1.4 mg/dL (1.9-2.7); Potassium 4.2 mmol/L (3.5-5.0); Total Bilirubin 0.7 mg/dL (0.2-1.0)
[2016-08-11 13:18] LABS: Troponin I 0.02 ng/mL (<0.04)
[2016-08-11 13:28] LABS: TSH (Thyroid Stimulating Horm) 1.52 mcIU/mL (0.34-5.60)
[2016-08-11 13:31] LABS: Urine Bilirubin Negative (Negative); Urine Glucose Negative (Negative); Urine Nitrite Negative (Negative)
[2016-08-11] MEDS ORDERED: NS 0.9% 500 ML BAG* 500 ML IV ONE (14:00)
--- NOTE | 2016-08-11 14:42 | ED ---
Any Muñiz Edward, scribed for Jose Roberto Hewitt MD on 08/11/16 at 0938 . Dizziness - HPI Summary HPI Summary: 66 y/o male presents to ED c/o generalized weakness and lightheadedness. Patient 's symptoms started this morning when he woke up. Associated sx: body aches. Patient describes his symptoms as "flu-like." Denies fever, cough, dysuria, diarrhea, sore throat and nausea. PMHx lymphoma, CT (within last 6 weeks), went septic on . Patient stated that he started a new chemo cocktail on Monday that would not interfere with his "weak heart". - History Of Current Complaint Chief Complaint: EDDizziness Stated Complaint: LIGHTHEADED Time Seen by Provider: 08/11/16 09:31 Hx Obtained From: Patient Onset/Duration: Still Present Timing: Constant Character: Lightheaded, Weak Associated Signs And Symptoms: Positive: Other: - Also denies sore throat, dysuria, and cough. Negative: Nausea, Vomiting, Diarrhea, Fever - Allergies/Home Medications Allergies/Adverse Reactions: Allergies Allergy/AdvReac Type Severity Reaction Status Date / Time No Known Allergies Allergy Verified 05/27/16 13:33 PMH/Surg Hx/FS Hx/Imm Hx Previously Healthy: No Endocrine/Hematology History: Reports: Hx Thyroid Disease - HYPO, Other Endocrine/Hematological Disorders - Hx of nadirs, takes immune system booster Denies: Hx Diabetes, Hx Systemic Lupus Erythematosus Cardiovascular History: Reports: Hx Hypertension, Hx Myocardial Infarction - Less than 6 weeks ago, Other Cardiovascular Problems/Disorders - HX HEART PALPITATIONS Denies: Hx Congestive Heart Failure, Hx Pacemaker/ICD Respiratory History: Reports: Hx Chronic Obstructive Pulmonary Disease (COPD), Hx Lung Cancer - left upper lobectomy 07/30/15, Other Respiratory Problems/ Disorders - HX OF RIGHT PLEURAL EFFUSION (02/05/2015) Denies: Hx Asthma GI History: Reports: Hx Gastroesophageal Reflux Disease Denies: Hx Ulcer History: Reports: Other Problems/Disorders - BENIGN URETERAL TUMOR , frequent UTIs Denies: Hx Dialysis, Hx Renal Disease Musculoskeletal History: Reports: Hx Arthritis, Hx Back Problems - Chronic back pain x30 years Denies: Hx Rheumatoid Arthritis Sensory History: Reports: Hx Contacts or Glasses Denies: Hx Hearing Aid Opthamlomology History: Reports: Hx Contacts or Glasses Neurological History: Reports: Other Neuro Impairments/Disorders - IDIOPATHIC PERIPHERAL NEUROPATHY Psychiatric History: Reports: Hx Anxiety, Hx Panic Disorder - ANXIETY-DOES NOT INTERFERE WITH MRI - Cancer History Cancer Type, Location and Year: Lung CA 2015,. Lymphoma x2 Hx Chemotherapy: Yes - Surgical History Surgery Procedure, Year, and Place: KID[place] [facility] [place]. [place] [facility] [place] [facility] [place] [facility] [place]2015 BIOPSY RIGHT AXILLA ADENOPATHY, [place] [facility] [place]. Left Upper Lobectomy 07/30/15 Hx Anesthesia Reactions: No Infectious Disease History: No Infectious Disease History: Reports: Hx Hepatitis - + HEP C 2001 Denies: Hx Human Immunodeficiency Virus (HIV), Traveled Outside the in Last 30 Days - Family History Known Family History: Positive: Cardiac Disease - Mother of CHF, Other - Mother, father and brother had cancer - Social History Occupation: Retired Lives: Alone Alcohol Use: None Alcohol Amount: 1-2/WEEK Substance Use Type: Reports: None Substance Use Comment - Amount & Last Used: HX OF DRUG ABUSE- NONE FOR 15 YRS Hx Tobacco Use: Yes Smoking Status (MU): Former Smoker Type: Cigarettes Amount Used/How Often: 1PPD 50 YRS Length of Time of Smoking/Using Tobacco: 52 YRS Have You Smoked in the Last Year: No Review of Systems Constitutional: Negative Negative: Fever Eyes: Negative ENT: Negative Negative: Sore Throat, Nasal Discharge Cardiovascular: Negative Respiratory: Negative Negative: Cough Gastrointestinal: Negative Negative: Vomiting, Diarrhea, Nausea Genitourinary: Negative Negative: dysuria Positive: Other - Body aches Skin: Negative Neurological: Negative, Other - Lightheadedness Positive: Weakness Psychological: Normal All Other Systems Reviewed And Are Negative: Yes Physical Exam Triage Information Reviewed: Yes Vital Signs On Initial Exam: Initial Vitals Temp Pulse Resp BP Pulse Ox 97.9 F 86 20 132/70 100 08/11/16 08:57 08/11/16 08:57 08/11/16 08:57 08/11/16 08:57 08/11/16 08:57 Vital Signs Reviewed: Yes Appearance: Positive: Well-Appearing, No Pain Distress, Well-Nourished Skin: Positive: Warm, Skin Color Reflects Adequate Perfusion, Dry Head/Face: Positive: Normal Head/Face Inspection Eyes: Positive: Normal, EOMI, TJ ENT: Positive: Normal ENT inspection Neck: Positive: Supple, Nontender Respiratory/Lung Sounds: Positive: Clear to Auscultation, Breath Sounds Present Cardiovascular: Positive: RRR Abdomen Description: Positive: Nontender, Soft Bowel Sounds: Positive: Present Musculoskeletal: Positive: Normal, Strength/ROM Intact Neurological: Positive: Normal, Sensory/Motor Intact, Alert, Oriented to Person Place, Time Psychiatric: Positive: Normal, Affect/Mood Appropriate - [place] Coma Scale Coma Scale Total: 15 Diagnostics - Vital Signs Vital Signs Temp Pulse Resp BP Pulse Ox 08/11/16 08:57 97.9 F 86 20 132/70 100 - Laboratory Lab Results: Lab Results 08/11/16 08/11/16 08/11/16 Range/Units 12:10 12:10 12:10 WBC 9.2 (3.5-10.8) 10^3/ul RBC 2.58 L (4.0-5.4) 10^6/ul Hgb 7.8 L (14.0-18.0) g/dl Hct 23 L (42-52) % MCV 89 (80-94) fL MCH 30 (27-31) pg MCHC 34 (31-36) g/dl RDW 13 (10.5-15) % Plt Count 275 (150-450) 10^3/ul MPV 9 (7.4-10.4) um3 Neut % (Auto) 77.5 (38-83) % Lymph % (Auto) 7.6 L (25-47) % [place] % (Auto) 14.1 H (1-9) % Eos % (Auto) 0.2 (0-6) % Baso % (Auto) 0.6 (0-2) % Absolute Neuts (auto) 7.1 (1.5-7.7) 10^3/ul Absolute Lymphs (auto) 0.7 L (1.0-4.8) 10^3/ul Absolute Monos (auto) 1.3 H (0-0.8) 10^3/ul Absolute Eos (auto) 0 (0-0.6) 10^3/ul Absolute Basos (auto) 0.1 (0-0.2) 10^3/ul Absolute Nucleated RBC 0 10^3/ul Nucleated RBC % 0 INR (Anticoag Therapy) 1.24 H (0.89-1.11) APTT 32.0 (26.0-36.3) seconds Sodium 135 (133-145) mmol/L Potassium 4.2 (3.5-5.0) mmol/L Chloride 101 (101-111) mmol/L Carbon Dioxide 26 (22-32) mmol/L Anion Gap 8 (2-11) mmol/L BUN 10 (6-24) mg/dL Creatinine 0.74 (0.67-1.17) mg/dL Est GFR ( Amer) 135.3 (>60) Est GFR (Non-Af Amer) 105.2 (>60) BUN/Creatinine Ratio 13.5 (8-20) Glucose 102 H (70-100) mg/dL Lactic Acid (0.5-2.0) mmol/L Calcium 8.2 L (8.6-10.3) mg/dL Magnesium 1.4 L (1.9-2.7) mg/dL Total Bilirubin 0.70 (0.2-1.0) mg/dL AST 20 (13-39) U/L ALT 18 (7-52) U/L Alkaline Phosphatase 119 H (34-104) U/L Total Creatine Kinase 17 (10-223) U/L CK-MB (CK-2) 1.7 (0.6-6.3) ng/mL Troponin I 0.02 (<0.04) ng/mL C-Reactive Protein 172.74 H (< 5.00) mg/L B-Natriuretic Peptide ( - 100) pg/mL Total Protein 6.0 L (6.4-8.9) g/dL Albumin 2.6 L (3.2-5.2) g/dL Globulin 3.4 (2-4) g/dL Albumin/Globulin Ratio 0.8 L (1-3) Lipase 23 (11.0-82.0) U/L TSH 1.52 (0.34-5.60) mcIU/mL Urine Color Urine Appearance Urine pH (5-9) Ur Specific [place] (1.010-1.030) Urine Protein (Negative) Urine Ketones (Negative) Urine Blood (Negative) Urine Nitrate (Negative) Urine Bilirubin (Negative) Urine Urobilinogen (Negative) Ur Leukocyte Esterase (Negative) Urine Glucose (Negative) 08/11/16 08/11/16 08/11/16 Range/Units 12:10 12:10 13:20 WBC (3.5-10.8) 10^3/ul RBC (4.0-5.4) 10^6/ul Hgb (14.0-18.0) g/dl Hct (42-52) % MCV (80-94) fL MCH (27-31) pg MCHC (31-36) g/dl RDW (10.5-15) % Plt Count (150-450) 10^3/ul MPV (7.4-10.4) um3 Neut % (Auto) (38-83) % Lymph % (Auto) (25-47) % [place] % (Auto) (1-9) % Eos % (Auto) (0-6) % Baso % (Auto) (0-2) % Absolute Neuts (auto) (1.5-7.7) 10^3/ul Absolute Lymphs (auto) (1.0-4.8) 10^3/ul Absolute Monos (auto) (0-0.8) 10^3/ul Absolute Eos (auto) (0-0.6) 10^3/ul Absolute Basos (auto) (0-0.2) 10^3/ul Absolute Nucleated RBC 10^3/ul Nucleated RBC % INR (Anticoag Therapy) (0.89-1.11) APTT (26.0-36.3) seconds Sodium (133-145) mmol/L Potassium (3.5-5.0) mmol/L Chloride (101-111) mmol/L Carbon Dioxide (22-32) mmol/L Anion Gap (2-11) mmol/L BUN (6-24) mg/dL Creatinine (0.67-1.17) mg/dL Est GFR ( Amer) (>60) Est GFR (Non-Af Amer) (>60) BUN/Creatinine Ratio (8-20) Glucose (70-100) mg/dL Lactic Acid 0.8 (0.5-2.0) mmol/L Calcium (8.6-10.3) mg/dL Magnesium (1.9-2.7) mg/dL Total Bilirubin (0.2-1.0) mg/dL AST (13-39) U/L ALT (7-52) U/L Alkaline Phosphatase (34-104) U/L Total Creatine Kinase (10-223) U/L CK-MB (CK-2) (0.6-6.3) ng/mL Troponin I (<0.04) ng/mL C-Reactive Protein (< 5.00) mg/L B-Natriuretic Peptide 472 H ( - 100) pg/mL Total Protein (6.4-8.9) g/dL Albumin (3.2-5.2) g/dL Globulin (2-4) g/dL Albumin/Globulin Ratio (1-3) Lipase (11.0-82.0) U/L TSH (0.34-5.60) mcIU/mL Urine Color Yellow Urine Appearance Clear Urine pH 5.0 (5-9) Ur Specific [place] 1.008 L (1.010-1.030) Urine Protein Negative (Negative) Urine Ketones Negative (Negative) Urine Blood Negative (Negative) Urine Nitrate Negative (Negative) Urine Bilirubin Negative (Negative) Urine Urobilinogen Negative (Negative) Ur Leukocyte Esterase Negative (Negative) Urine Glucose Negative (Negative) Result Diagrams: 08/11/16 12:10 08/11/16 12:10 Lab Statement: Any lab studies that have been ordered have been reviewed, and results considered in the medical decision making process. Dizzy Course/Dx - Course Course Of Treatment: NO CRITICAL CARE TIME. IMPROVED AFTER IV FLUIDS IN ED. DISCUSSED WITH PRADEEP ALVAREZ AND HARJIT. DISCHARGE HOME STABLE. - Diagnoses Provider Diagnoses: Weakness, Hypomagnesemia, Anemia Discharge - Discharge Plan Condition: Stable Disposition: HOME Patient Education Materials: Weakness (ED), Hypomagnesemia (ED), Anemia (ED) Referrals: Yosef Bhatia MD [Medical Doctor] - Saniya Kim NP [Primary Care Provider] - Additional Instructions: FOLLOW UP WITH YOUR DOCTOR. YOU HAVE AN APPOINTMENT TOMORROW, 08/12/16, AT 1PM WITH JOSE ANTONIO NAVARRETE. YOUR MAGNESIUM IS LOW, TAKE YOUR MAGNESIUM DIRECTED. RETURN TO THE EMERGENCY DEPARTMENT FOR ANY WORSENING OF YOUR CONDITION; FEVER, WEAKNESS OR QUESTIONS OR CONCERNS. The documentation as recorded by the Any villanueva Edward accurately reflects the service I personally performed and the decisions made by me, Jose Roberto Hewitt MD.
[2016-08-11 15:13] VITALS: BP 125/68
== END 2016-08-11 15:23 | disposition home or self-care (01) ==
LOC: ED 08:49
DX: R53.1 Weakness (principal); E83.42 Hypomagnesemia; D64.9 Anemia, unspecified; R42 Dizziness and giddiness; J02.9 Acute pharyngitis, unspecified; R30.0 Dysuria; R05 Cough; Z87.891 Personal history of nicotine dependence
CPT/HCPCS: 36415; 80053; 81003; 82550; 82553; 83605; 83690; 83735; 83880; 84443; 84484; 85025; 85610; 85730; 86140; 99283; J1642

== ENCOUNTER 2017-07-02 10:04 | Emergency (ER) | payer MEDICARE ==
[2017-07-02] MEDS ORDERED: DOXYcycline CAP(*) 100 MG PO ONE (11:22)
--- NOTE | 2017-07-02 11:50 | ED ---
Skin Complaint - HPI Summary HPI Summary: Pt. is a 66-year-old male who presents emergency department for evaluation for a tick bite to his right upper inner thigh. Patient states he noticed tick this afternoon and pulled it out. He believes he got tick , when he was mowing the grass. Symptoms are mild in severity. He notes a small area of redness surrounding tick bite. Otherwise denies fever, headache, joint pain, rash. Symptoms are mild in severity. No current modifying factors. - History of Current Complaint Chief Complaint: EDRashSkinAbscess Time Seen by Provider: 07/02/17 11:13 Stated Complaint: FOUND TICK ON RT LOWER EXTEMITY Hx Obtained From: Patient Pain Intensity: 1 - Additional Pertinent History Primary Care Physician: SUJEY - Allergy/Home Medications Allergies/Adverse Reactions: Allergies Allergy/AdvReac Type Severity Reaction Status Date / Time No Known Allergies Allergy Verified 07/02/17 10:06 PMH/Surg Hx/FS Hx/Imm Hx Previously Healthy: Yes Endocrine/Hematology History: Reports: Hx Thyroid Disease - HYPO, Other Endocrine/Hematological Disorders - Hx of nadirs, takes immune system booster Denies: Hx Diabetes, Hx Systemic Lupus Erythematosus Cardiovascular History: Reports: Hx Hypertension, Hx Myocardial Infarction - Less than 6 weeks ago, Other Cardiovascular Problems/Disorders - HX HEART PALPITATIONS Denies: Hx Congestive Heart Failure, Hx Pacemaker/ICD Respiratory History: Reports: Hx Chronic Obstructive Pulmonary Disease (COPD), Hx Lung Cancer - left upper lobectomy 07/30/15, Other Respiratory Problems/ Disorders - HX OF RIGHT PLEURAL EFFUSION (02/05/2015) Denies: Hx Asthma GI History: Reports: Hx Gastroesophageal Reflux Disease Denies: Hx Ulcer History: Reports: Other Problems/Disorders - BENIGN URETERAL TUMOR , frequent UTIs Denies: Hx Dialysis, Hx Renal Disease Musculoskeletal History: Reports: Hx Arthritis, Hx Back Problems - Chronic back pain x30 years Denies: Hx Rheumatoid Arthritis Sensory History: Reports: Hx Contacts or Glasses Denies: Hx Hearing Aid Opthamlomology History: Reports: Hx Contacts or Glasses Neurological History: Reports: Other Neuro Impairments/Disorders - IDIOPATHIC PERIPHERAL NEUROPATHY Psychiatric History: Reports: Hx Anxiety, Hx Panic Disorder - ANXIETY-DOES NOT INTERFERE WITH MRI - Cancer History Cancer Type, Location and Year: Lung CA 2014,. Lymphoma x2 Hx Chemotherapy: Yes - Surgical History Surgery Procedure, Year, and Place: KIDNEY SURGERY - FIBROUS (benign) [place]UMOR IN [place], [facility] [place]rs ago. 2009 LAPAROSCOPIC CHOLECYSTECTOMY, [facility] [place]. RIGHT KNEE ARTHROSCOPY X 2, [facility] [place]. 2013 RIGHT KNEE TOTAL REPLACEMENT, [facility] [place]. 02/05/2015 BIOPSY RIGHT AXILLA ADENOPATHY, RIGHT THORACENTESIS, [facility] [place]. POWER PORT 02/03. Left Upper Lobectomy 07/30/15 Hx Anesthesia Reactions: No Infectious Disease History: No Infectious Disease History: Reports: Hx Hepatitis - + HEP C 2001 Denies: Hx Human Immunodeficiency Virus (HIV), Traveled Outside the [place] in Last 30 Days - Family History Known Family History: Positive: Cardiac Disease - Mother of CHF, Other - Mother, father and brother had cancer - Social History Occupation: Retired Lives: With Family Alcohol Use: None Alcohol Amount: 1-2/WEEK Substance Use Type: Reports: None Substance Use Comment - Amount & Last Used: HX OF DRUG ABUSE- NONE FOR 15 YRS Hx Tobacco Use: Yes Smoking Status (MU): Former Smoker Type: Cigarettes Amount Used/How Often: 1PPD 50 YRS Length of Time of Smoking/Using Tobacco: 52 YRS Have You Smoked in the Last Year: No Review of Systems Negative: Fever Musculoskeletal: Negative Positive: Other - Tick to upper leg right Negative: Headache All Other Systems Reviewed And Are Negative: Yes Physical Exam Triage Information Reviewed: Yes Vital Signs On Initial Exam: Initial Vitals Temp Pulse Resp BP Pulse Ox 96 F 70 16 147/79 97 07/02/17 10:08 07/02/17 10:08 07/02/17 10:08 07/02/17 10:08 07/02/17 10:08 Vital Signs Reviewed: Yes Appearance: Positive: Well-Appearing - Pt. sitting on bed in [facility]. Skin: Positive: Warm, Dry, Other - <1cm area of erythema noted to the right upper medial aspect of leg. No erythema migrans. No induration or fluctuance. Head/Face: Positive: Normal Head/Face Inspection Eyes: Positive: Normal, TJ Neck: Positive: Supple Musculoskeletal: Positive: Normal Neurological: Positive: Normal, CN Intact II-III Psychiatric: Positive: Normal Diagnostics - Vital Signs Vital Signs Temp Pulse Resp BP Pulse Ox 07/02/17 10:08 96 F 70 16 147/79 97 - Laboratory Lab Statement: Any lab studies that have been ordered have been reviewed, and results considered in the medical decision making process. Course/Dx - Course Course Of Treatment: Pt. presenting for evaluation after tick bite. Patient notes it was present for 3-4 days. Patient removed tick prior to arrival. We' ll treat prophylactically with 200 mg doxycycline. Advised patient to keep wound clean and dry. Close follow-up with family doctor for rash, fever, joint pain, headaches. Patient understands and agrees with plan. - Differential Diagnoses - Skin Complaint Differential Diagnoses: Abscess, Cellulitis, Tick Born Illness - Diagnoses Provider Diagnoses: Tick bite Discharge - Sign-Out/Discharge Documenting (check all that apply): Discharge/Admit/Transfer - Discharge Plan Condition: Good Disposition: HOME Patient Education Materials: Tick Bite (ED) Referrals: Saniya Kim NP [Primary Care Provider] - Additional Instructions: Schedule a follow up appointment with your PCP for fever, rash, joint pain, headache Keep area clean and dry - Billing Disposition and Condition Condition: GOOD Disposition: HOME
[2017-07-02 12:48] VITALS: BP 142/93
== END 2017-07-02 11:30 | disposition home or self-care (01) ==
LOC: ED 10:04
DX: S70.361A Insect bite (nonvenomous), right thigh, initial encounter (principal); W57.XXXA Bitten or stung by nonvenomous insect and other nonvenomous arthropods, initial encounter; Y92.9 Unspecified place or not applicable
CPT/HCPCS: 99281; A9270-GY

== ENCOUNTER 2017-10-14 15:26 | Emergency (ER) | payer MEDICARE ==
--- NOTE | 2017-10-14 15:59 | ED ---
Palpitations / Dysrhythmia - HPI Summary HPI Summary: This patient is a 67 year old M presenting to [facility] with a chief complaint of fast heart palpitations beginning about an hour and a half ago. Reports elevated blood pressure. Denies CP, SOB, fever, chills, abdominal pain, nausea, and vomiting. Patient denies any other symptoms. Patient reports a lobectomy roughly two and half years ago that resulted in A-fib. He states he has not had A-fib since then. PMHx of lymphoma, currently in remission. - History of Current Complaint Chief Complaint: EDDysrhythmPalp Time Seen by Provider: 10/14/17 15:51 Hx Obtained From: Patient Onset/Duration: Sudden Onset Timing: Constant Character: Fast Aggravating: Nothing Alleviating: Nothing Associated Signs & Symptoms: Negative Related History: Similar Episode/Dx as - A-fib - Allergy/Home Medications Allergies/Adverse Reactions: Allergies Allergy/AdvReac Type Severity Reaction Status Date / Time No Known Allergies Allergy Verified 10/14/17 15:42 Home Medications: Home Medications Imbruvica 4 cap PO DAILY 10/14/17 [History Confirmed 10/14/17] Metoprolol Tartrate TAB* [Lopressor TAB*] 50 mg PO BID 10/14/17 [History] Wellbutrin TAB* 300 mg PO DAILY 10/14/17 [History Confirmed 10/14/17] PMH/Surg Hx/FS Hx/Imm Hx Endocrine/Hematology History: Reports: Hx Thyroid Disease - HYPO, Other Endocrine/Hematological Disorders - Hx of nadirs, takes immune system booster Denies: Hx Diabetes, Hx Systemic Lupus Erythematosus Cardiovascular History: Reports: Hx Hypertension, Hx Myocardial Infarction - Less than 6 weeks ago, Other Cardiovascular Problems/Disorders - HX HEART PALPITATIONS Denies: Hx Congestive Heart Failure, Hx Pacemaker/ICD Respiratory History: Reports: Hx Chronic Obstructive Pulmonary Disease (COPD), Hx Lung Cancer - left upper lobectomy 07/30/15, Other Respiratory Problems/ Disorders - HX OF RIGHT PLEURAL EFFUSION (02/05/2015) Denies: Hx Asthma GI History: Reports: Hx Gastroesophageal Reflux Disease Denies: Hx Ulcer History: Reports: Other Problems/Disorders - BENIGN URETERAL TUMOR , frequent UTIs Denies: Hx Dialysis, Hx Renal Disease Musculoskeletal History: Reports: Hx Arthritis, Hx Back Problems - Chronic back pain x30 years Denies: Hx Rheumatoid Arthritis Sensory History: Reports: Hx Contacts or Glasses Opthamlomology History: Reports: Hx Contacts or Glasses Neurological History: Reports: Other Neuro Impairments/Disorders - IDIOPATHIC PERIPHERAL NEUROPATHY Psychiatric History: Reports: Hx Anxiety, Hx Panic Disorder - ANXIETY-DOES NOT INTERFERE WITH MRI - Cancer History Cancer Type, Location and Year: Lung CA 2015,. Lymphoma x2 Hx Chemotherapy: Yes - Surgical History Surgery Procedure, Year, and Place: KIDNEY SURGERY - FIBROUS (benign) TUMOR IN [place], [facility] [place] 30 yrs ago. 2009 LAPAROSCOPIC CHOLECYSTECTOMY, [facility] [place]. RIGHT KNEE ARTHROSCOPY X 2, [facility] [place]. 2013 RIGHT KNEE TOTAL REPLACEMENT, [facility] [place]. 02/05/2015 BIOPSY RIGHT AXILLA ADENOPATHY, RIGHT THORACENTESIS, [facility] [place]. POWER PORT 02/03. Left Upper Lobectomy 07/30/15 Hx Anesthesia Reactions: No Infectious Disease History: Yes Infectious Disease History: Reports: Hx Hepatitis - + HEP C 2001 Denies: Hx Human Immunodeficiency Virus (HIV), Traveled Outside the [place] in Last 30 Days - Family History Known Family History: Positive: Cardiac Disease - Mother of CHF, Other - Mother, father and brother had cancer - Social History Alcohol Use: None Alcohol Amount: 1-2/WEEK Substance Use Type: Reports: None Substance Use Comment - Amount & Last Used: HX OF DRUG ABUSE- NONE FOR 15 YRS Hx Tobacco Use: Yes Smoking Status (MU): Former Smoker Type: Cigarettes Amount Used/How Often: 1PPD 50 YRS Length of Time of Smoking/Using Tobacco: 52 YRS Have You Smoked in the Last Year: No Review of Systems Negative: Fever Positive: Palpitations. Negative: Chest Pain Negative: Shortness Of Breath Negative: Abdominal Pain, Vomiting, Nausea All Other Systems Reviewed And Are Negative: Yes Physical Exam - Summary Physical Exam Summary: GENERAL: Patient is a well developed and nourished male who is lying comfortable in the stretcher. Patient is not in any acute respiratory distress. HEAD AND FACE: Normocephalic EYES: PERRLA, EOMI x 2. EARS: Hearing grossly intact. MOUTH: Oropharynx within normal limits. NECK: Supple, trachea is midline, no adenopathy, no JVD, no carotid bruit. CHEST: Symmetric, no tenderness at palpation LUNGS: Clear to auscultation bilaterally. No wheezing or crackles. CVS: Tachycardic rate and regular rhythm, S1 and S2 present, no murmurs or gallops appreciated. ABDOMEN: Soft, non-tender. Bowel sounds are normal. No abdominal abnormal pulsations. EXTREMITIES: Full ROM in all major joints, no cyanosis or clubbing. BLE edema right worse than left, with 2+ pitting edema on right NEURO: Alert and oriented x 3. No acute neurological deficits. Speech is normal and follows commands. SKIN: Dry and warm Triage Information Reviewed: Yes Vital Signs On Initial Exam: Initial Vitals Temp Pulse Resp BP Pulse Ox 98.8 F 96 13 148/91 96 10/14/17 15:33 10/14/17 15:33 10/14/17 15:33 10/14/17 15:33 10/14/17 15:33 Vital Signs Reviewed: Yes Diagnostics - Vital Signs Vital Signs Temp Pulse Resp BP Pulse Ox 10/14/17 15:33 98.8 F 92 0 148/91 95 - Laboratory Result Diagrams: 10/14/17 16:35 10/14/17 16:35 Lab Statement: Any lab studies that have been ordered have been reviewed, and results considered in the medical decision making process. - Radiology CXR Radiology Interpretation Completed By: Radiologist - #. Postsurgical change of partial LEFT pneumonectomy. Persistent finding of small LEFT pleural effusion. #. No new intrathoracic disease evident Ed Physician has reviewed this report. - EKG 1836 Cardiac Rate: NL - 78 BPM EKG Rhythm: Sinus Rhythm EKG Interpretation: ST depressions seen in lateral leads - Additional Comments Diagnostic Additional Comments: A Venous Doppler study reveals, as per radiologist: No evidence for RIGHT lower extremity deep venous thrombosis. ED Physician has reviewed this report. Re-Evaluation - Re-Evaluation First Re-Evaluation Time: 18:47 Change: Improved - Patient reports symptoms improved after Cardizem. Course/Dx - Course Course Of Treatment: 67 year old M presenting to [facility] with a chief complaint of fast heart palpitations beginning about an hour and a half ago. Reports elevated blood pressure. Denies CP, SOB, fever, chills, abdominal pain, nausea, and vomiting. Patient denies any other symptoms. Patient was tachycardic upon evaluation. Patient was given Cardizem; heart rate improved and patient reports feeling better. Patient is given IVF. CXR is unremarkable. Venous Doppler study is negative for DVT. Bloodwork is unremarkable. Patient will be signed out to Dr. Bartholomew awaiting next troponin results. - Diagnoses Provider Diagnoses: Palpitations Discharge - Sign-Out/Discharge Documenting (check all that apply): Sign-Out Patient Signing out patient TO: Alan Bartholomew - troponin - Discharge Plan Condition: Good Disposition: HOME Patient Education Materials: Chest Pain (ED) Referrals: Saniya Kim NP [Primary Care Provider] - - Billing Disposition and Condition Condition: GOOD Disposition: Home - Attestation Statements Document Initiated by Scribe: Yes Documenting Scribe: Yola Osuna Provider For Whom Grayson is Documenting (Include Credential): Ale Richmond MD Scribe Attestation: Yola Muñiz, scribed for Ale Richmond MD on 10/16/17 at 0750. Scribe Documentation Reviewed: Yes Provider Attestation: The documentation as recorded by the scribeYola accurately reflects the service I personally performed and the decisions made by , Ale Richmond MD
[2017-10-14] MEDS ORDERED: NS 0.9% 1000 ML* 1,000 ML IV ONE (16:16)
[2017-10-14] MEDS ORDERED: Diltiazem IV VIAL* 5 MG/ML 10 ML VIAL IV SLOW PU ONE (16:17)
[2017-10-14] MEDS ORDERED: Diltiazem IV* 5 MG/ML 5 ML VIAL (for loading dose/IV Push) (25 MG) ONE (16:36)
[2017-10-14 16:49] LABS: ABS Basophils 0.3 10^3/ul (0-0.2); ABS Eosinophils 0 10^3/ul (0-0.6); ABS Neutrophils 2.1 10^3/ul (1.5-7.7); ABS Nucleated RBC 0 10^3/ul; Eosinophil % 0.8 % (0-6); Hematocrit 42 % (42-52); Hemoglobin 14.7 g/dl (14.0-18.0); Lymphocyte % 37.1 % (25-47); Mean Corpuscular HGB Conc 35 g/dl (31-36); Mean Corpuscular Hemoglobin 34 pg (27-31); Mean Corpuscular Volume 98 fL (80-94); Mean Platelet Volume 9.9 um3 (7.4-10.4); Nucleated Red Blood Cells % 0.1; Platelet Count 94 10^3/ul (150-450); Red Blood Count 4.33 10^6/ul (4.00-5.40); Red Cell Distribution Width 14 % (10.5-15); White Blood Count 5.5 10^3/ul (3.5-10.8)
[2017-10-14 16:55] LABS: INR 0.93 (0.77-1.02)
[2017-10-14 16:58] LABS: EGFR Non-African American 67.8 (>60)
--- NOTE | 2017-10-14 17:17 | RAD ---
Indication: Palpitations. History of atrial fibrillation. History of lung carcinoma. Comparison: July 05, 2017 PET/CT. Technique: Upright AP 1637 hours Report: Unchanged finding of LEFT hemithorax volume loss reflecting previous partial LEFT pneumonectomy. Unchanged small LEFT pleural effusion. No pulmonary infiltrate or suspicious focal pulmonary lesions evident. Tip of RIGHT chest port at level of the superior vena cava RIGHT atrial junction. Unchanged mild cardiomegaly. Unremarkable central pulmonary vasculature and mediastinal contours. IMPRESSION: #. Postsurgical change of partial LEFT pneumonectomy. Persistent finding of small LEFT pleural effusion. #. No new intrathoracic disease evident.
[2017-10-14 17:49] LABS: ABS Basophils 0 10^3/ul (0-0.2); ABS Neutrophils 2.4 10^3/ul (1.5-7.7); Monocytes % 17 % (0-7)
--- NOTE | 2017-10-14 17:57 | RAD ---
INDICATION: Clinical concern for RIGHT lower extremity DVT. History of mantle cell lymphoma. COMPARISON: September 04, 2013 ultrasound TECHNIQUE: Spears scale, color Doppler, and spectral analysis of the deep veins of the RIGHT lower extremity. Vessel compression, phasicity, and augmentation assessed. REPORT: The RIGHT common femoral, great saphenous, profunda femoral, femoral, popliteal, peroneal, and posterior tibial veins are patent. Patency of the LEFT common femoral vein documented. IMPRESSION: No evidence for RIGHT lower extremity deep venous thrombosis.
--- NOTE | 2017-10-14 19:36 | ED ---
Re-Evaluation - Re-Evaluation First Re-Evaluation Time: 18:47 Change: Improved - Patient reports symptoms improved after Cardizem. Second Eval Re-Evaluation Time: 19:35 Change: Unchanged Comment: Pt wishes to leave before 2nd troponin, unwilling to wait to speak with me. Due to high patient census and acuity unable to break free immediately. Course/Dx - Course Course Of Treatment: 67 year old M presenting to [facility] with a chief complaint of fast heart palpitations beginning about an hour and a half ago. Reports elevated blood pressure. Denies CP, SOB, fever, chills, abdominal pain, nausea, and vomiting. Patient denies any other symptoms. Patient was tachycardic upon evaluation. Patient was given Cardizem; heart rate improved and patient reports feeling better. Patient is given IVF. CXR is unremarkable. Venous Doppler study is negative for DVT. Bloodwork is unremarkable. Patient will be signed out to Dr. Bartholomew awaiting next troponin results. - Diagnoses Provider Diagnoses: Palpitations Discharge - Sign-Out/Discharge Documenting (check all that apply): Patient Departure - Discharge Plan Condition: Good Disposition: HOME Patient Education Materials: Chest Pain (ED) Referrals: Saniya Kim NP [Primary Care Provider] - - Billing Disposition and Condition Condition: GOOD Disposition: Home - Attestation Statements Document Initiated by Grayson: Shilpi
[2017-10-14 20:06] VITALS: BP 154/95
== END 2017-10-14 20:07 | disposition home or self-care (01) ==
LOC: ED 15:26
DX: R00.2 Palpitations (principal); R03.0 Elevated blood-pressure reading, without diagnosis of hypertension; J90 Pleural effusion, not elsewhere classified; R60.0 Localized edema; Z96.651 Presence of right artificial knee joint; Z90.2 Acquired absence of lung [part of]; Z85.72 Personal history of non-Hodgkin lymphomas; Z87.891 Personal history of nicotine dependence
CPT/HCPCS: 36415; 71045; 80053; 83605; 83735; 83880; 84484; 85025; 85379; 85610; 85730; 86141; 87040; 93005; 96374; 99284; J3490

== ENCOUNTER 2017-12-17 19:10 | Emergency (ER) | payer MEDICARE ==
--- NOTE | 2017-12-17 19:53 | ED ---
Hypertension - HPI Summary HPI Summary: A 67 y/o M with PMHx afib presents to ED with c/o elevated BP onset [employer]. Pt took his BP at home and it was 192/116. Pt denies irregular palpitations. Associated sx: hot ears. At bedside, pt states feeling OK, but his ears are still hot. Pt takes Metoprolol. Dr. Blackwood is his compliance representative. Pt went to his office on two days ago for a check-up s/p heart monitoring (they did see afib on his heart monitor for 13 hours). They prescribed Eliquis but the pharmacy didnt have it, so he hasnt picked it up or taken it yet. Pt says hes unable to notice when he has episodes of afib. Denies CP, SOB, LE edema, fever, cough, sinus congestion. BP at bedside is 148/82. Other PMHx includes lymphoma, in remission; anxiety. Pt sees Dr. Bhatia, oncology. - History of Current Complaint Chief Complaint: EDHypertension Stated Complaint: HIGH BP Time Seen by Provider: 12/17/17 19:45 Hx Obtained From: Patient Onset/Duration: Started Hours Ago, Atraumatic, Still Present Timing: Constant Associated Signs & Symptoms: Other: - Pos: hot ears. Denies CP, SOB, LE edema, fever, cough, sinus congestion. - Allergies/Home Medications Allergies/Adverse Reactions: Allergies Allergy/AdvReac Type Severity Reaction Status Date / Time No Known Allergies Allergy Verified 10/14/17 15:42 PMH/Surg Hx/FS Hx/Imm Hx Previously Healthy: No Endocrine/Hematology History: Reports: Hx Thyroid Disease - HYPO, Other Endocrine/Hematological Disorders - Hx of nadirs, takes immune system booster Denies: Hx Diabetes, Hx Systemic Lupus Erythematosus Cardiovascular History: Reports: Hx Hypertension, Hx Myocardial Infarction - Less than 6 weeks ago, Other Cardiovascular Problems/Disorders - HX HEART PALPITATIONS Denies: Hx Congestive Heart Failure, Hx Pacemaker/ICD Respiratory History: Reports: Hx Chronic Obstructive Pulmonary Disease (COPD), Hx Lung Cancer - left upper lobectomy 07/30/15, Other Respiratory Problems/ Disorders - HX OF RIGHT PLEURAL EFFUSION (02/05/2015) Denies: Hx Asthma GI History: Reports: Hx Gastroesophageal Reflux Disease Denies: Hx Ulcer History: Reports: Other Problems/Disorders - BENIGN URETERAL TUMOR , frequent UTIs Denies: Hx Dialysis, Hx Renal Disease Musculoskeletal History: Reports: Hx Arthritis, Hx Back Problems - Chronic back pain x30 years Denies: Hx Rheumatoid Arthritis Sensory History: Reports: Hx Contacts or Glasses Opthamlomology History: Reports: Hx Contacts or Glasses Neurological History: Reports: Other Neuro Impairments/Disorders - IDIOPATHIC PERIPHERAL NEUROPATHY Psychiatric History: Reports: Hx Anxiety, Hx Panic Disorder - ANXIETY-DOES NOT INTERFERE WITH MRI - Cancer History Cancer Type, Location and Year: Lung CA 2015,. Lymphoma x2 Hx Chemotherapy: Yes - Surgical History Surgery Procedure, Year, and Place: KIDNEY SURGERY - [place] [facility] [place]. 2009 LAPAROSCOPIC [place] [facility] [place] [facility] [place] [facility] [place]. [place]2015 BIOPSY RIGHT AXILLA ADENOPATHY, [place] [facility] [place] 02/03. Left Upper Lobectomy 07/30/15 Hx Anesthesia Reactions: No Infectious Disease History: No Infectious Disease History: Reports: Hx Hepatitis - + HEP C 2001 Denies: Hx Human Immunodeficiency Virus (HIV), Traveled Outside the [place] in Last 30 Days - Family History Known Family History: Positive: Cardiac Disease - Mother of CHF, Other - Mother, father and brother had cancer - Social History Occupation: Retired Lives: Alone Alcohol Use: None Alcohol Amount: 1-2/WEEK Substance Use Type: Reports: None Substance Use Comment - Amount & Last Used: HX OF DRUG ABUSE- NONE FOR 15 YRS Hx Tobacco Use: Yes Smoking Status (MU): Former Smoker Type: Cigarettes Amount Used/How Often: 1PPD 50 YRS Length of Time of Smoking/Using Tobacco: 52 YRS Have You Smoked in the Last Year: No Review of Systems Negative: Fever ENT: Other - neg: sinus congestion Positive: Other - pos: hot ears Positive: Other - pos: high BP. Negative: Palpitations, Chest Pain Negative: Shortness Of Breath, Cough Negative: Edema - LE All Other Systems Reviewed And Are Negative: Yes Physical Exam - Summary Physical Exam Summary: Appearance: Well appearing, no pain distress Skin: warm, dry, reflects adequate perfusion Head/face: normal Eyes: EOMI, TJ ENT: mucous membranes moist. ears clear. Neck: supple, non-tender Respiratory: CTA, breath sounds present Cardiovascular: RRR, pulses symmetrical Abdomen: non-tender, soft Bowel Sounds: present Musculoskeletal: normal, strength/ROM intact Neuro: normal, sensory motor intact, A&Ox3 Triage Information Reviewed: Yes Vital Signs On Initial Exam: Initial Vitals Temp Pulse Resp BP Pulse Ox 98.9 F 74 16 159/90 96 12/17/17 19:18 12/17/17 19:18 12/17/17 19:18 12/17/17 19:18 12/17/17 19:18 Vital Signs Reviewed: Yes Diagnostics - Vital Signs Vital Signs Temp Pulse Resp BP Pulse Ox 12/17/17 19:18 98.9 F 74 16 159/90 96 - Laboratory Lab Statement: Any lab studies that have been ordered have been reviewed, and results considered in the medical decision making process. - EKG 1952 Cardiac Rate: NL - [address] Segment: Normal Summary of EKG Findings: Normal [place]. Normal Interval. Hypertension Course/Dx - Course Course Of Treatment: Patient states his ears got warm and sometimes his blood pressures up when that happens. He took his blood pressure is 190 systolic. He is feeling better here and his blood pressures down to 148 systolic. He also has had intermittent atrial fibrillation but at present he is in normal sinus rhythm. He tried to fill his novel anticoagulant the other day but the pharmacy was out. First dose was given here. - Diagnoses Provider Diagnoses: Hypertension, History of lymphoma, Paroxysmal A-fib Discharge - Sign-Out/Discharge Documenting (check all that apply): Patient Departure - DC - Discharge Plan Condition: Improved Disposition: HOME Patient Education Materials: Chronic Hypertension (ED) Referrals: Jyoti Blackwood MD [Medical Doctor] - Saniya Kim NP [Primary Care Provider] - Additional Instructions: Take your blood pressure medicine every day. Take the blood thinner twice a day as ordered. Fill the medication in the morning. Return with chest pain, trouble breathing, worse, new symptoms or other concerns. - Billing Disposition and Condition Condition: IMPROVED Disposition: Home - Attestation Statements Document Initiated by Scribe: Yes Documenting Scribe: Latia Granados Provider For Whom Scribe is Documenting (Include Credential): Dr. Livan Nj MD Scribe Attestation: Latia Muñiz scribed for Dr. Livan Nj MD on 12/17/17 at 2149. Scribe Documentation Reviewed: Yes Provider Attestation: The documentation as recorded by the scribe, Latia Granados accurately reflects the service I personally performed and the decisions made by me, Dr. Livan Nj MD
[2017-12-17] MEDS ORDERED: Apixaban* 5 MG TAB PO ONE (19:54)
[2017-12-17 20:15] VITALS: BP 149/82
== END 2017-12-17 20:20 | disposition home or self-care (01) ==
LOC: ED 19:10
DX: I10 Essential (primary) hypertension (principal); I48.0 Paroxysmal atrial fibrillation; Z85.72 Personal history of non-Hodgkin lymphomas; Z96.651 Presence of right artificial knee joint; Z87.891 Personal history of nicotine dependence
CPT/HCPCS: 93005; 99282

== ENCOUNTER 2018-06-02 19:15 | Emergency (ER) | payer MEDICARE ==
--- NOTE | 2018-06-02 23:48 | ED ---
Abdominal Pain/Male - HPI Summary HPI Summary: This patient is a 67 year old male presenting to [facility] with a chief complaint of LUQ pain since a couple hours ago. He said the pain lasted 15 minutes and then resolved. He denies the pain radiating anywhere, nausea, vomiting, diarrhea. He is currently in remission for lymphoma and lung cancer. He is currently not in any pain. - History of Current Complaint Chief Complaint: EDAbdPain Stated Complaint: ABD PAIN PER EMS Hx Obtained From: Patient Onset/Duration: Lasting Minutes, Resolved Severity Initially: Moderate Severity Currently: None Pain Intensity: 0 Pain Scale Used: 0-10 Numeric Location: Discrete At: LUQ Radiates: No - Allergies/Home Medications Allergies/Adverse Reactions: Allergies Allergy/AdvReac Type Severity Reaction Status Date / Time No Known Allergies Allergy Verified 06/02/18 19:32 PMH/Surg Hx/FS Hx/Imm Hx Endocrine/Hematology History: Reports: Hx Thyroid Disease - HYPO, Other Endocrine/Hematological Disorders - Hx of nadirs, takes immune system booster Denies: Hx Diabetes, Hx Systemic Lupus Erythematosus Cardiovascular History: Reports: Hx Hypertension, Hx Myocardial Infarction - Less than 6 weeks ago, Other Cardiovascular Problems/Disorders - HX HEART PALPITATIONS Denies: Hx Congestive Heart Failure, Hx Pacemaker/ICD Respiratory History: Reports: Hx Chronic Obstructive Pulmonary Disease (COPD), Hx Lung Cancer - left upper lobectomy 07/30/15, Other Respiratory Problems/ Disorders - HX OF RIGHT PLEURAL EFFUSION (02/05/2015) Denies: Hx Asthma GI History: Reports: Hx Gastroesophageal Reflux Disease Denies: Hx Ulcer History: Reports: Other Problems/Disorders - BENIGN URETERAL TUMOR , frequent UTIs Denies: Hx Dialysis, Hx Renal Disease Musculoskeletal History: Reports: Hx Arthritis, Hx Back Problems - Chronic back pain x30 years Denies: Hx Rheumatoid Arthritis Sensory History: Reports: Hx Contacts or Glasses Opthamlomology History: Reports: Hx Contacts or Glasses Neurological History: Reports: Other Neuro Impairments/Disorders - IDIOPATHIC PERIPHERAL NEUROPATHY Psychiatric History: Reports: Hx Anxiety, Hx Panic Disorder - ANXIETY-DOES NOT INTERFERE WITH MRI - Cancer History Cancer Type, Location and Year: Lung CA 2014,. Lymphoma x2 Hx Chemotherapy: Yes - Surgical History Surgery Procedure, Year, and Place: KID[place] SURG[place] [facility] [place]. 2010 [place] [facility] [place] 2[place] [facility] [place] [facility] [place]. 02/05/2015 BIOPSY RIGHT AXILLA ADENOPATHY, [place]ORAC[place]ES[place] [facility] [place] P[place] 02/03. Left Upper Lobectomy 07/30/15 Hx Anesthesia Reactions: No Infectious Disease History: No Infectious Disease History: Reports: Hx Hepatitis - + HEP C 2001 Denies: Hx Human Immunodeficiency Virus (HIV), Traveled Outside the [place] in Last 30 Days - Family History Known Family History: Positive: Cardiac Disease - Mother of CHF, Other - Mother, father and brother had cancer - Social History Alcohol Use: None Alcohol Amount: 1-2/WEEK Substance Use Type: Reports: None Substance Use Comment - Amount & Last Used: HX OF DRUG ABUSE- NONE FOR 15 YRS Hx Tobacco Use: Yes Smoking Status (MU): Former Smoker Type: Cigarettes Amount Used/How Often: 1PPD 50 YRS Length of Time of Smoking/Using Tobacco: 52 YRS Have You Smoked in the Last Year: No Review of Systems Negative: Fever Positive: Abdominal Pain. Negative: Vomiting, Diarrhea, Nausea All Other Systems Reviewed And Are Negative: Yes Physical Exam - Summary Physical Exam Summary: VITAL SIGNS: Reviewed. GENERAL: Patient is a well-developed and nourished MALE who is lying comfortable in the stretcher. Patient is not in any acute respiratory distress. HEAD AND FACE: No signs of trauma. No ecchymosis, hematomas or skull depressions. No sinus tenderness. EYES: PERRLA, EOMI x 2, No injected conjunctiva, no nystagmus. EARS: Hearing grossly intact. Ear canals and tympanic membranes are within normal limits. MOUTH: Oropharynx within normal limits. NECK: Supple, trachea is midline, no adenopathy, no JVD, no carotid bruit, no c- spine tenderness, neck with full ROM. CHEST: Symmetric, no tenderness at palpation LUNGS: Clear to auscultation bilaterally. No wheezing or crackles. CVS: Regular rate and rhythm, S1 and S2 present, no murmurs or gallops appreciated. ABDOMEN: Soft, non-tender. No signs of distention. No rebound no guarding, and no masses palpated. Bowel sounds are normal. EXTREMITIES: FROM in all major joints, no edema, no cyanosis or clubbing. NEURO: Alert and oriented x 3. No acute neurological deficits. Speech is normal and follows commands. SKIN: Dry and warm Triage Information Reviewed: Yes Vital Signs On Initial Exam: Initial Vitals Temp Pulse Resp BP Pulse Ox 98.1 F 68 16 131/76 95 06/02/18 19:30 06/02/18 19:30 06/02/18 19:30 06/02/18 19:30 06/02/18 19:30 Vital Signs Reviewed: Yes Diagnostics - Vital Signs Vital Signs Temp Pulse Resp BP Pulse Ox 06/02/18 23:30 69 176/90 95 06/02/18 23:29 68 95 06/02/18 23:06 97.1 F 75 16 159/83 94 06/02/18 19:30 98.1 F 68 16 131/76 95 - Laboratory Result Diagrams: 06/03/18 00:32 06/03/18 00:32 Lab Statement: Any lab studies that have been ordered have been reviewed, and results considered in the medical decision making process. Abdominal Pain Male Course/Dx - Course Course Of Treatment: This patient is a 67 year old male presenting to [facility] with a chief complaint of LUQ pain since a couple hours ago. Labs and Abd/Pel CT were unremarkable for gastrointestinal problems. The patient will be discharged and this plan was discussed with the patient and he was agreeable with this plan. - Diagnoses Provider Diagnoses: Abdominal pain Discharge - Sign-Out/Discharge Documenting (check all that apply): Patient Departure - Discharge Patient Received Moderate/Deep Sedation with Procedure: No - Discharge Plan Condition: Stable Disposition: HOME Referrals: Saniya Kim, [facility] [Primary Care Provider] - 2 Days Additional Instructions: Return to ED with any new or worsening symptoms. - Attestation Statements Document Initiated by Scribe: Yes Documenting Scribe: Eliceo Masterson Provider For Whom Scribe is Documenting (Include Credential): Long Richey MD Scribe Attestation: Eliceo Muñiz, scribed for Long Richey MD on 06/03/18 at 0328. Status of Scribe Document: Ready
[2018-06-03 00:46] LABS: Hematocrit 41 % (36-46); Hemoglobin 13.9 g/dL (14.0-18.0); Mean Corpuscular HGB Conc 34 g/dL (31-36); Mean Corpuscular Hemoglobin 33 pg (27-31); Mean Corpuscular Volume 98 fL (80-94); Mean Platelet Volume 11.2 fL (7.4-10.4); Platelet Count 95 10^3/uL (150-450); Red Blood Count 4.22 10^6 /uL (4.18-5.48); Red Cell Distribution Width 14 % (10.5-15); White Blood Count 4.7 10^3/uL (3.5-10.8)
[2018-06-03 00:56] LABS: Albumin 3.6 g/dL (3.2-5.2); Albumin/Globulin Ratio 1.3 (1-3); BUN/Creatinine Ratio 10.1 (8-20); Calcium 8.8 mg/dL (8.6-10.3); EGFR African American 73.3 (>60); EGFR Non-African American 60.6 (>60); Globulin 2.7 g/dL (2-4); Magnesium 1.9 mg/dL (1.9-2.7); Potassium 4.2 mmol/L (3.5-5.0); Total Bilirubin 1.1 mg/dL (0.2-1.0); Total Protein 6.3 g/dL (6.4-8.9)
[2018-06-03 01:15] LABS: Lymphocytes % 38 %; Monocytes % 21 %; Neutrophil % 36 %; Variant Lymph % 2 % (0-6)
[2018-06-03 01:22] LABS: Platelet Morphology Large
[2018-06-03 01:23] LABS: ABS Basophils 0.09 10^3/ul (0-0.2); ABS Eosinophils 0.05 10^3/ul (0-0.6); ABS Neutrophils 1.69 10^3/ul (1.5-7.7)
[2018-06-03 02:35] LABS: Urine Appearance Cloudy; Urine Bacteria Absent (Absent); Urine Bilirubin Negative (Negative); Urine Blood 2+ (Negative); Urine Color Yellow; Urine Glucose Negative (Negative); Urine Ketones Negative (Negative); Urine Nitrite Negative (Negative); Urine Protein Negative (Negative); Urine Red Blood Cell Absent (Absent); Urine Specific Gravity 1.011 (1.010-1.030); Urine Squamous Epithelial Cell Present (Absent); Urine Urobilinogen Negative (Negative); Urine White Blood Cell Trace(0-5/hpf) (Absent)
[2018-06-03 03:54] VITALS: BP 124/73
== END 2018-06-03 03:59 | disposition home or self-care (01) ==
LOC: ED 19:15
DX: R10.12 Left upper quadrant pain (principal); Z87.891 Personal history of nicotine dependence; J44.9 Chronic obstructive pulmonary disease, unspecified; Z85.118 Personal history of other malignant neoplasm of bronchus and lung; K21.9 Gastro-esophageal reflux disease without esophagitis; F41.9 Anxiety disorder, unspecified; Z85.72 Personal history of non-Hodgkin lymphomas; B19.20 Unspecified viral hepatitis C without hepatic coma
CPT/HCPCS: 36415; 74176; 80053; 81003; 81015; 82150; 83690; 83735; 85025; 85060; 87077; 87086; 87186; 99283

== ENCOUNTER 2018-09-03 15:28 | Inpatient (IN) | payer MEDICARE ==
[2018-09-03] MEDS ORDERED: Ondansetron INJ* 2 MG/ML VIAL IV PRN (15:42)
[2018-09-03] MEDS ORDERED: KCL 20 MEQ/100 ML IVPREMIX* 20 MEQ/100 ML BAG IV ONE (17:00)
[2018-09-03] MEDS ORDERED: ALPRAZolam TAB* 0.5 MG PO PRN (17:06)
[2018-09-03] MEDS ORDERED: Prochlorperazine TAB* 10 MG PO PRN (17:06)
[2018-09-03] MEDS ORDERED: Metoprolol Tartrate IV* 1 MG/ML 5 ML VIAL IV ONE (17:10)
[2018-09-03] MEDS ORDERED: Magnesium Sulfate 2 GM IV* 2 GM/50 ML BAG IVPB ONE (17:30)
--- NOTE | 2018-09-03 17:35 | PN ---
Progress Note - Progress Note Date of Service: 09/03/18 SOAP: Subjective: []Called by nursing for SVT on tele with rate 150, vital signs otherwise stable. Milton denies chest pain and pressure, denies feeling palpitations. Denies SOB, however mild tachypnea following ambulation in room. History of A.Fib. Medicaitons: Alprazolam (Xanax Tab*) 0.5 mg PO TID PRN PRN Reason: ANXIETY Apixaban (Eliquis*) 5 mg PO BID NIKOLAY Bupropion HCl (Wellbutrin Xl *) 150 mg PO DAILY NIKOLAY Escitalopram Oxalate (Lexapro *) 10 mg PO DAILY NIKOLAY Sodium Chloride (Ns 0.9% 1000 Ml) 1,000 mls @ 100 mls/hr IV PER RATE NIKOLAY Azithromycin (Zithromax 500 Mg/250 Ml) 500 mg in 250 mls @ 250 mls/hr IVPB Q24H NIKOLAY Ceftriaxone Sodium 1 gm/ (Sodium Chloride) 50 mls @ 100 mls/hr IVPB Q24H NIK[facility]AY Potassium Chloride (Potassium Chloride 20 Meq/100 Ml Ivpremix*) 20 meq in 100 mls @ 50 mls/hr IV ONCE ONE Stop: 09/03/18 18:59 Magnesium Sulfate (Magnesium Sulfate 2 Gm Iv*) 2 gm in 50 mls @ 50 mls/hr IVPB ONCE ONE Stop: 09/03/18 18:29 Metoprolol Tartrate (Lopressor Tab*) 50 mg PO BID NIKOLAY Ondansetron HCl (Zofran Inj*) 4 mg IV Q4H PRN PRN Reason: NAUSEA/VOMITING Oxycodone HCl (Roxycodone Tab*) 5 mg PO Q6HR NIKOLAY Pantoprazole Sodium (Protonix Tab*) 40 mg PO QAM NIKOLAY Potassium Chloride (Klor Con Er Tab*) 30 meq PO DAILY NIKOLAY Prochlorperazine (Compazine Tab*) 10 mg PO Q6H PRN PRN Reason: NAUSEA Objective: [] Vital Signs Temp Pulse Resp BP Pulse Ox 97 F 119 18 106/67 91 09/03/18 16:21 09/03/18 16:21 09/03/18 16:21 09/03/18 16:21 09/03/18 16:21 A&Ox3, EOMI, neuro grossly non-focal HRR, rapid rate, tele SVT with ectopy, rate 119 LS clear, tachypnea, normal resp. effort Laboratory Tests 09/03/18 09/03/18 09/03/18 14:38 14:38 14:38 WBC 7.3 Hgb 10.2 L Hct 30 L Plt Count 113 L Absolute Neuts (auto) 6.0 Absolute Lymphs (auto) 0.6 L Sodium 134 L Potassium 3.4 L Chloride 104 Carbon Dioxide 23 Anion Gap 7 Lactic Acid 1.2 Calcium 7.3 L Magnesium 1.6 L Lactate Dehydrogenase 210 Assessment: []68 yo male admitted with bibasilar pneumonia presenting with tachycardia. EKG reveala tachy aarhythmia and he has a history of A.Fib. Plan: []- replace K+ and Mg - IV metoprolol push x1, resume home PO beta quincy - on Eliquis - abx. as per admission - cont. tele monitoring, repeat 12 lead EKG in AM
[2018-09-03] MEDS: Metoprolol Tartrate TAB* 50 mg PO SCH (17:55)
[2018-09-03] MEDS: oxyCODONE TAB* 5 MG TAB PO SCH (17:59)
[2018-09-03] MEDS: oxyCODONE TAB* 5 MG TAB PO PRN (18:00)
[2018-09-03] MEDS: cefTRIAXone(*) 1 GM in NS 0.9% 50 ML* 50 ML IVPB SCH (20:01)
[2018-09-03] MEDS: Azithromycin 500 mg/250 ml NS 500 MG/250 ML BAG IVPB SCH (20:48)
[2018-09-03] MEDS: Apixaban* 5 MG TAB PO SCH (20:49)
[2018-09-03 22:29] LABS: Influenza A Molecular NEGATIVE (Negative); Influenza B Molecular NEGATIVE (Negative)
[2018-09-04] MEDS: oxyCODONE TAB* 5 MG TAB PO SCH ×5 (00:04→23:51)
[2018-09-04] MEDS: NS 0.9% 1000 ML** 1,000 ML IV SCH ×3 (00:05→22:57)
[2018-09-04 06:07] LABS: Hematocrit 30 % (42-52); Hemoglobin 10.4 g/dL (14.0-18.0); Mean Corpuscular HGB Conc 35 g/dL (31-36); Mean Corpuscular Hemoglobin 33 pg (27-31); Mean Corpuscular Volume 96 fL (80-94); Mean Platelet Volume 11.7 fL (7.4-10.4); Platelet Count 118 10^3/uL (150-450); Red Blood Count 3.13 10^6 /uL (4.18-5.48); Red Cell Distribution Width 15 % (10-15); White Blood Count 7.8 10^3/uL (3.5-10.8)
[2018-09-04 06:16] LABS: Albumin 2.3 g/dL (3.2-5.2); Albumin/Globulin Ratio 0.8 (1-3); BUN/Creatinine Ratio 21.5 (8-20); Calcium 7.9 mg/dL (8.6-10.3); EGFR African American 117.3 (>60); Globulin 2.9 g/dL (2-4); Magnesium 1.9 mg/dL (1.9-2.7); Potassium 3.7 mmol/L (3.5-5.0); Total Bilirubin 1.9 mg/dL (0.2-1.0); Total Protein 5.2 g/dL (6.4-8.9)
[2018-09-04 08:24] LABS: ABS Basophils 0.1 10^3/ul (0-0.2); ABS Eosinophils 0.1 10^3/ul (0-0.6); ABS Lymphocytes 0.6 10^3/ul (1.0-4.8); ABS Monocytes 0.5 10^3/ul (0-0.8); ABS Neutrophils 6.5 10^3/ul (1.5-7.7); Eosinophil % 1.1 %; Lymphocyte % 8.2 %
[2018-09-04] MEDS: Pantoprazole TAB * 40 MG TAB PO SCH (08:33)
[2018-09-04] MEDS: Potassium Chlor TAB* 10 MEQ TAB.ER PO SCH (08:34)
[2018-09-04] MEDS: BuPROPion XL* 150 MG TAB.XL PO SCH (08:34)
[2018-09-04] MEDS: Metoprolol Tartrate TAB* 50 mg PO SCH ×2 (08:34→21:12)
[2018-09-04] MEDS: Apixaban* 5 MG TAB PO SCH ×2 (08:34→21:11)
[2018-09-04] MEDS: Escitalopram * 10 MG TAB PO SCH (09:37)
--- NOTE | 2018-09-04 14:20 | CONSULT ---
Subjective Date of Service: 09/04/18 - CC: SOB, cough Interval History: Several weeks of SOB. Found to have pneumonia and afib/fllutter, RVR. Per patient he has been taking his Eliquis. Unaware of afib/flutter, no palpitations or racing. Family History: Unchanged from Admission - Mother CHF, Father of cancer, type unknownn Social History: Unchanged from Admission - , distant IVDA. Past Medical History: Unchanged from Admission - PAF on metoprolol, Lymphoma since 2014, lung CA, lobectomy 2016, HCV, HTN, chol, transient CM with sepsis Medications Active Medications: Alprazolam (Xanax Tab*) 0.5 mg PO TID PRN PRN Reason: ANXIETY Apixaban (Eliquis*) 5 mg PO BID [facility] Last Admin: 09/04/18 08:34 Dose: 5 mg Bupropion HCl (Wellbutrin Xl *) 150 mg PO DAILY [facility] Last Admin: 09/04/18 08:34 Dose: 150 mg Escitalopram Oxalate (Lexapro *) 10 mg PO DAILY [facility] Last Admin: 09/04/18 09:37 Dose: 10 mg Sodium Chloride (Ns 0.9% 1000 Ml) 1,000 mls @ 100 mls/hr IV PER RATE [facility] Last Admin: 09/04/18 12:32 Dose: 100 mls/hr Azithromycin (Zithromax 500 Mg/250 Ml) 500 mg in 250 mls @ 250 mls/hr IVPB Q24H [facility] Last Admin: 09/03/18 20:48 Dose: 250 mls/hr Ceftriaxone Sodium 1 gm/ (Sodium Chloride) 50 mls @ 100 mls/hr IVPB Q24H [facility] Last Admin: 09/03/18 20:01 Dose: 100 mls/hr Metoprolol Tartrate (Lopressor Tab*) 50 mg PO BID [facility] Last Admin: 09/04/18 08:34 Dose: 50 mg Metoprolol Tartrate (Lopressor Iv*) 5 mg IV Q6H PRN PRN Reason: TACHYCARDIA Ondansetron HCl (Zofran Inj*) 4 mg IV Q4H PRN PRN Reason: NAUSEA/VOMITING Oxycodone HCl (Roxycodone Tab*) 5 mg PO Q6HR [facility] Last Admin: 09/04/18 12:32 Dose: 5 mg Oxycodone HCl (Roxycodone Tab*) 10 mg PO Q6H PRN PRN Reason: pain uncontrolled by prior med Last Admin: 09/03/18 18:00 Dose: 10 mg Pantoprazole Sodium (Protonix Tab*) 40 mg PO QAM [facility] Last Admin: 09/04/18 08:33 Dose: 40 mg Potassium Chloride (Klor Con Er Tab*) 30 meq PO DAILY [facility] Last Admin: 09/04/18 08:34 Dose: 30 meq Prochlorperazine (Compazine Tab*) 10 mg PO Q6H PRN PRN Reason: NAUSEA Home Medications: Omeprazole CAP (NF) [Prilosec CAP* 20 MG] 20 mg PO QAM 07/04/12 [History Confirmed 09/03/18] ALPRAZolam TAB* [Xanax TAB*] 0.5 mg PO TID PRN #15 tab MDD 1.5 mg 07/26/16 [Rx Confirmed 09/03/18] Imbruvica 4 cap PO DAILY 10/14/17 [History Confirmed 09/03/18] Metoprolol Tartrate TAB* [Lopressor TAB*] 50 mg PO BID 10/14/17 [History Confirmed 09/03/18] Wellbutrin TAB* 150 mg PO DAILY 10/14/17 [History Confirmed 09/03/18] Acetaminophen TAB* [Tylenol TAB*] 650 mg PO Q72HR 09/03/18 [History Confirmed ] Apixaban* [Eliquis*] 5 mg PO BID 09/03/18 [History Confirmed 09/03/18] Escitalopram * [Lexapro *] 10 mg PO DAILY 09/03/18 [History Confirmed 09/03/18] Potassium Chloride 30 meq PO DAILY 09/03/18 [History Confirmed 09/03/18] Prochlorperazine TAB* [Compazine Tab*] 10 mg PO Q6H PRN 09/03/18 [History Confirmed 09/03/18] oxyCODONE TAB* [Roxycodone TAB 5 mg*] 5 mg PO Q6HR MDD 30 mg 09/03/18 [History Confirmed 09/03/18] Review of Systems - Measurements Intake and Output: Intake and Output Last 24 Hours 09/02/18 09/03/18 09/04/18 09/05/18 04:59 04:59 04:59 04:59 Intake Total 545 723 Output Total 275 Balance 545 448 Weight 243 lb Intake: IV Fluids 25 523 IVF & ABX 25 523 IVPB 400 IVF & ABX 300 potassium 100 Oral 120 200 Output: Urine 275 - Review of Systems General Comments: + fevers, chills, cough, unproductive. No orthopnea, + GARCIA. No palpitations, no increase in LE edema. Review of Systems Statement: All other review of systems negative, unless stated above. Objective Vital Signs: Temp Pulse Resp BP Pulse Ox 98.7 F 128 17 120/41 92 09/04/18 07:39 09/04/18 07:39 09/04/18 12:32 09/04/18 07:39 09/04/18 07:39 Oxygen Devices in Use Now: None Appearance: Overweight older male lying at 40 degrees in bed appears comforatbble. Eyes: PERRLA Ears/Nose/Mouth/Throat: Mucous Membranes Moist Neck: NL Appearance and Movements; NL JVP - thick. Respiratory: Symmetrical Chest Expansion and Respiratory Effort - patchy rhonchi and crackles. No wheezing. Cardiovascular: - - Irregularly irregular and fast. Abdominal: NL Sounds; No Tenderness; No Distention - + centripetal obesity. Extremities: - - 2++ edema lower legs. Skin: - - Large 6 inch by 12 inch ecchymotic area on right lower arm, no cyanosis. Laboratory Results: 09/04/18 05:35 09/04/18 05:35 Total Bilirubin 1.90 mg/dL (0.2-1.0) H 09/04/18 05:35 AST 26 U/L (13-39) 09/04/18 05:35 ALT 18 U/L (7-52) 09/04/18 05:35 Alkaline Phosphatase 156 U/L (34-104) H 09/04/18 05:35 Total Protein 5.2 g/dL (6.4-8.9) L 09/04/18 05:35 Albumin 2.3 g/dL (3.2-5.2) L 09/04/18 05:35 Globulin 2.9 g/dL (2-4) 09/04/18 05:35 Albumin/Globulin Ratio 0.8 (1-3) L 09/04/18 05:35 Diagnostic Imaging: Echo 12/25/17: EF 55-60%, mild to mod MR, PA pr 41 mmHg. Stress test: 03/02/18: EF 64%, normal perfusion rest/stress. Patient Name: SHEKHAR PAUL Medical Record#: [id number] Ordering Physician: [id number] : 1950 Age: 68 Sex: M Location: [facility] Exam Date: 09/03/18 ADM Status: REG REF Order Information: CT CHEST/ABD/PEL W Accession Number: [id number] CPT: 97442 INDICATION: History of lung cancer and mantle cell lymphoma. Six-week history of fevers and dyspnea on exertion. Post LEFT lobectomy. History of urolithiasis, cholecystectomy. COMPARISON: July 27, 2018 CT chest and June 03, 2018 CT abdomen pelvis. December 25, 2017 PET/CT. TECHNIQUE: Multidetector CT images were obtained from the lung apices to the ischial tuberosities with 149 mL Omnipaque 300 IV contrast. Oral contrast administered. CHEST REPORT: LUNG: Postsurgical change of LEFT upper lobe resection. Patchy bilateral pulmonary consolidation and more confluent consolidation involving the posterior lateral basal segments of the lower lobes with associated air bronchograms. The appearance is most suggestive of bronchopneumonia. Small bilateral dependent pleural effusions. MEDIASTINUM / AXILLA: Negative for thoracic lymphadenopathy, cardiomegaly, or pericardial effusion. Mild atherosclerotic plaque of normal diameter abdominal aorta. BONES: Schmorl node endplate herniation at the superior endplate of the T11 vertebral body. Negative for suspicious thoracic osseous lesions. SOFT TISSUE: Gynecomastia noted. Unremarkable superficial soft tissues. CHEST IMPRESSION: #. Bronchopneumonia. Trace associated pleural effusions. #. No compelling CT evidence for thoracic metastatic disease. ABDOMEN PELVIS REPORT: LIVER / GALLBLADDER / PANCREAS / SPLEEN: Negative for focal liver lesions. Post cholecystectomy. Negative for biliary dilatation. Moderately atrophic pancreas without suspicious CT finding. Unremarkable spleen. ALIMENTARY TRACT: Negative for suspicious CT finding at the upper GI, small bowel, infra cecal appendix, or colon. Negative for ascites, free air, or significant hernias. MESENTERIC: Unremarkable. ADRENAL / GENITOURINARY: Normal adrenal glands. Unremarkable kidneys with symmetric nephrograms and pyelograms. Unremarkable nondilated ureters and largely decompressed urinary bladder. Symmetric seminal vesicles. RETROPERITONEAL: Negative for lymphadenopathy. VASCULAR: Mild atherosclerotic plaque of normal diameter abdominal aorta and iliac arteries. BONES: Negative for suspicious osseous lesions. Lumbar sacral spine degenerative spondylosis and facet joint osteoarthritis. Acquired central canal stenosis most prominent at L2-L3 moderate in severity. This report is only to be considered final once signed by the Provider(s) as displayed in the "<Electronically Signed by >" field (s). Absence of a signature indicates the report is in a draft status and still needs to be finalized. In the event this document was created by someone other than the signing Provider, the individual initiating the document will be listed in the "Entered by:" or "Dictated by:" kumar. 1 of 2 EKG Data: Tele: atrial flutter RVR 130-150 bpm Assessment/Plan 68 yo with PAF, in flutter RVR with pneumonia. Also hx lung CA and lymphoma. Plan: CV in AM. Keep KCL 4-4.5, KCL replacement noted, may need more. Continue metoprolol for rate control, may be difficult with flutter for consistent good control especially in setting of pneumonia. May need an antiarrhythmic added to maintain NSR. Continue Eliquis. long term flutter ablation might be an option for him.
--- NOTE | 2018-09-04 17:18 | CONS ---
CONSULTATION REPORT: DATE OF CONSULT: 09/04/18 REQUESTING PHYSICIAN: Dr. Bhatia. CONSULTING SERVICE: Infectious Diseases. REASON FOR CONSULTATION: Pneumonia. IMPRESSION: 1. Community acquired pneumonia in the setting of immunocompromised state. He had had Rituxan therapy in the last year who has had malaise, cough, and was feverish. A CT of the chest from 09/03/18 shows bibasilar infiltrates as reported by the radiologist, but also some scattered small infiltrates mostly in the right lung as well. As he is immunocompromised the differential includes typical and atypical bacteria, viruses, fungi, including cryptococcus, cytomegalovirus, mycobacterial. 2. Mantle cell lymphoma chemotherapy including Rituxan about a year ago. 3. Atrial fibrillation. 4. Depression. RECOMMENDATION: We will continue ceftriaxone and azithromycin, we will add cryptococcal antigen and follow his progress here. HISTORY OF PRESENT ILLNESS: This is a 68-year-old man who has been followed by Dr. Bhatia for mantle cell lymphoma treated with chemotherapy, which has been over about a year now and more recently has had a week or 10 days of malaise, chills, feverish feeling cough which has been nonproductive. He had a CT chest , abdomen and pelvis with findings as noted above. He was admitted for antibiotics, which are ceftriaxone and azithromycin, tolerating that well. Since he has been here his appetite has improved. He is in atrial fibrillation. He will be seen by Dr. Blackwood for cardioversion tomorrow. He does not have any chest pain and no fevers since he has been here. PAST MEDICAL HISTORY: 1. Depression. 2. Mantle cell lymphoma 3. Atrial fibrillation. 4. Gastroesophageal reflux disease. MEDICATIONS: 1. Xanax as needed. 2. Eliquis. 3. Azithromycin 500 mg daily. 4. Bupropion XL 5. Escitalopram. 6. Metoprolol. 7. Oxycodone is needed. 8. Pantoprazole. 9. Ceftriaxone 1 g a day. ALLERGIES: No known drug allergies. SOCIAL HISTORY: He lives in [place]. He is semiretired from [employer]. No pets. No travel. No sick contacts. He lives by himself. FAMILY HISTORY: No current infections or TB. REVIEW OF SYSTEMS: All negative except as noted above to a 14 point review. PHYSICAL EXAM: Vital Signs: Temperature 37, heart rate 120, respiratory rate 19, blood pressure 120/40, oxygen saturation 92% on room air. General: He is awake, nondistressed. Neurologic: He is oriented x3. Follows commands. HEENT : There is no conjunctival hemorrhage. Oropharynx without lesions. Neck: Supple without mass. Heart: Tachycardic without murmurs. Lungs: Decreased breath sound at the base without wheeze, rales or egophony. Abdomen: Soft, nontender, distended. Bowel sounds present. Skin: There is no rash or splinter hemorrhages. There is ecchymosis in the right forearm. DIAGNOSTIC STUDIES/LAB DATA: White blood cell count 7, hemoglobin 10, MCV 96, platelets 118. Creatinine is 0.7, bilirubin 1.9, ALT 18. Please see impressions recommendations outlined above. Thanks for asking Mr. Goetz in consultation. [id number]/[facility] #: [id number] BECKY
[2018-09-04] MEDS: cefTRIAXone(*) 1 GM in NS 0.9% 50 ML* 50 ML IVPB SCH (17:37)
[2018-09-04] MEDS: Metoprolol Tartrate IV* 1 MG/ML 5 ML VIAL IV PRN (17:38)
[2018-09-04] MEDS: Azithromycin 500 mg/250 ml NS 500 MG/250 ML BAG IVPB SCH (19:24)
[2018-09-05] MEDS: Metoprolol Tartrate IV* 1 MG/ML 5 ML VIAL IV PRN (05:29)
[2018-09-05] MEDS: oxyCODONE TAB* 5 MG TAB PO SCH ×3 (05:34→17:07)
[2018-09-05 05:59] LABS: BUN/Creatinine Ratio 20.5 (8-20); Calcium 7.4 mg/dL (8.6-10.3); EGFR African American 128.5 (>60); EGFR Non-African American 106.2 (>60); Potassium 3.8 mmol/L (3.5-5.0)
[2018-09-05] MEDS: Potassium Chlor TAB* 10 MEQ TAB.ER PO SCH (09:11)
[2018-09-05] MEDS: Apixaban* 5 MG TAB PO SCH ×2 (09:12→21:16)
[2018-09-05] MEDS: Escitalopram * 10 MG TAB PO SCH (09:12)
[2018-09-05] MEDS: Pantoprazole TAB * 40 MG TAB PO SCH (09:12)
[2018-09-05] MEDS: BuPROPion XL* 150 MG TAB.XL PO SCH (09:12)
[2018-09-05] MEDS: Metoprolol Tartrate TAB* 50 mg PO SCH ×2 (09:12→21:16)
[2018-09-05] MEDS ORDERED: Potassium Chlor TAB* 20 MEQ TAB.ER PO ONE (10:00)
[2018-09-05] MEDS ORDERED: Naloxone* 0.4 MG/ML 1 ML VIAL ONE (10:05)
[2018-09-05] MEDS ORDERED: fentaNYL* 50 MCG/ML 2 ML VIAL (100 MCG VIAL) ONE (10:05)
[2018-09-05] MEDS ORDERED: Midazolam* 1 MG/ML 5 ML VIAL (5 MG) ONE ×2 (10:05)
[2018-09-05] MEDS ORDERED: Flumazenil* 0.1 MG/ML 5 ML MDV ONE (10:05)
--- NOTE | 2018-09-05 12:26 | PN ---
Subjective Date of Service: 09/05/18 - CC: SOB Interval History: SOB persisted until more aggressive beta blockade this AM and better rate control. No new c/o. Medications Active Medications: Alprazolam (Xanax Tab*) 0.5 mg PO TID PRN PRN Reason: ANXIETY Apixaban (Eliquis*) 5 mg PO BID [facility] Last Admin: 09/05/18 09:12 Dose: 5 mg Bupropion HCl (Wellbutrin Xl *) 150 mg PO DAILY [facility] Last Admin: 09/05/18 09:12 Dose: 150 mg Escitalopram Oxalate (Lexapro *) 10 mg PO DAILY [facility] Last Admin: 09/05/18 09:12 Dose: 10 mg Sodium Chloride (Ns 0.9% 1000 Ml) 1,000 mls @ 100 mls/hr IV PER RATE [facility] Last Admin: 09/04/18 22:57 Dose: 100 mls/hr Azithromycin (Zithromax 500 Mg/250 Ml) 500 mg in 250 mls @ 250 mls/hr IVPB Q24H [facility] Last Admin: 09/04/18 19:24 Dose: 250 mls/hr Ceftriaxone Sodium 1 gm/ (Sodium Chloride) 50 mls @ 100 mls/hr IVPB Q24H [facility] Last Admin: 09/04/18 17:37 Dose: 100 mls/hr Magnesium Oxide (Magox 400 Tab*) 400 mg PO DAILY [facility] Metoprolol Tartrate (Lopressor Tab*) 50 mg PO BID [facility] Last Admin: 09/05/18 09:12 Dose: 50 mg Metoprolol Tartrate (Lopressor Iv*) 5 mg IV Q6H PRN PRN Reason: TACHYCARDIA Last Admin: 09/05/18 05:29 Dose: 5 mg Ondansetron HCl (Zofran Inj*) 4 mg IV Q4H PRN PRN Reason: NAUSEA/VOMITING Oxycodone HCl (Roxycodone Tab*) 5 mg PO Q6HR [facility] Last Admin: 09/05/18 05:34 Dose: 5 mg Oxycodone HCl (Roxycodone Tab*) 10 mg PO Q6H PRN PRN Reason: pain uncontrolled by prior med Last Admin: 09/03/18 18:00 Dose: 10 mg Pantoprazole Sodium (Protonix Tab*) 40 mg PO QAM [facility] Last Admin: 09/05/18 09:12 Dose: 40 mg Potassium Chloride (Klor Con Er Tab*) 30 meq PO DAILY [facility] Last Admin: 09/05/18 09:11 Dose: 30 meq Prochlorperazine (Compazine Tab*) 10 mg PO Q6H PRN PRN Reason: NAUSEA Objective Vital Signs: Temp Pulse Resp BP Pulse Ox 98.2 F 112 17 128/60 92 09/05/18 08:02 09/05/18 08:02 09/05/18 10:00 09/05/18 08:02 09/05/18 08:02 Oxygen Devices in Use Now: None Appearance: Overweight older male lying at 40 degrees in bed appears comforatbble. Eyes: PERRLA Ears/Nose/Mouth/Throat: Mucous Membranes Moist Neck: NL Appearance and Movements; NL JVP - thick. Respiratory: Symmetrical Chest Expansion and Respiratory Effort - patchy rhonchi and crackles. No wheezing. Cardiovascular: - - Irregularly irregular and fast. Abdominal: NL Sounds; No Tenderness; No Distention - + centripetal obesity. Extremities: - - 2++ edema lower legs. Skin: - - Large 6 inch by 12 inch ecchymotic area on right lower arm, no cyanosis. Laboratory Results: 09/04/18 05:35 09/05/18 05:30 Total Bilirubin 1.90 mg/dL (0.2-1.0) H 09/04/18 05:35 AST 26 U/L (13-39) 09/04/18 05:35 ALT 18 U/L (7-52) 09/04/18 05:35 Alkaline Phosphatase 156 U/L (34-104) H 09/04/18 05:35 Total Protein 5.2 g/dL (6.4-8.9) L 09/04/18 05:35 Albumin 2.3 g/dL (3.2-5.2) L 09/04/18 05:35 Globulin 2.9 g/dL (2-4) 09/04/18 05:35 Albumin/Globulin Ratio 0.8 (1-3) L 09/04/18 05:35 Diagnostic Imaging: Echo 12/25/17: EF 55-60%, mild to mod MR, PA pr 41 mmHg. Stress test: 03/02/18: EF 64%, normal perfusion rest/stress. Patient Name: SHEKHAR PAUL Medical Record#: [id number] Ordering Physician: Yosef Bhatia MD Acct.#: [id number] : 1950 Age: 68 Sex: M Location: [facility] Exam Date: 09/03/18 ADM Status: REG REF Order Information: CT CHEST/ABD/PEL W Accession Number: [id number] CPT: 40384 INDICATION: History of lung cancer and mantle cell lymphoma. Six-week history of fevers and dyspnea on exertion. Post LEFT lobectomy. History of urolithiasis, cholecystectomy. COMPARISON: July 27, 2018 CT chest and June 03, 2018 CT abdomen pelvis. December 25, 2017 PET/CT. TECHNIQUE: Multidetector CT images were obtained from the lung apices to the ischial tuberosities with 149 mL Omnipaque 300 IV contrast. Oral contrast administered. CHEST REPORT: LUNG: Postsurgical change of LEFT upper lobe resection. Patchy bilateral pulmonary consolidation and more confluent consolidation involving the posterior lateral basal segments of the lower lobes with associated air bronchograms. The appearance is most suggestive of bronchopneumonia. Small bilateral dependent pleural effusions. MEDIASTINUM / AXILLA: Negative for thoracic lymphadenopathy, cardiomegaly, or pericardial effusion. Mild atherosclerotic plaque of normal diameter abdominal aorta. BONES: Schmorl node endplate herniation at the superior endplate of the T11 vertebral body. Negative for suspicious thoracic osseous lesions. SOFT TISSUE: Gynecomastia noted. Unremarkable superficial soft tissues. CHEST IMPRESSION: #. Bronchopneumonia. Trace associated pleural effusions. #. No compelling CT evidence for thoracic metastatic disease. ABDOMEN PELVIS REPORT: LIVER / GALLBLADDER / PANCREAS / SPLEEN: Negative for focal liver lesions. Post cholecystectomy. Negative for biliary dilatation. Moderately atrophic pancreas without suspicious CT finding. Unremarkable spleen. ALIMENTARY TRACT: Negative for suspicious CT finding at the upper GI, small bowel, infra cecal appendix, or colon. Negative for ascites, free air, or significant hernias. MESENTERIC: Unremarkable. ADRENAL / GENITOURINARY: Normal adrenal glands. Unremarkable kidneys with symmetric nephrograms and pyelograms. Unremarkable nondilated ureters and largely decompressed urinary bladder. Symmetric seminal vesicles. RETROPERITONEAL: Negative for lymphadenopathy. VASCULAR: Mild atherosclerotic plaque of normal diameter abdominal aorta and iliac arteries. BONES: Negative for suspicious osseous lesions. Lumbar sacral spine degenerative spondylosis and facet joint osteoarthritis. Acquired central canal stenosis most prominent at L2-L3 moderate in severity. This report is only to be considered final once signed by the Provider(s) as displayed in the "<Electronically Signed by >" field (s). Absence of a signature indicates the report is in a draft status and still needs to be finalized. In the event this document was created by someone other than the signing Provider, the individual initiating the document will be listed in the "Entered by:" or "Dictated by:" kumar. 1 of 2 EKG Data: Tele: atrial flutter RVR 130-150 bpm, now 90's since later this AM. Assessment/Plan 68 yo with PAF, in flutter RVR with pneumonia. Also hx lung CA and lymphoma. s/p succesful cardioversion A. flutter to NSR. Keep KCL 4-4.5, KCL replacement noted, I ordered additional electrolytes to recheck. Continue metoprolol for rhythm control for now. If recurrent flutter or significant ectopy then a stronger antiarrhythmic can be added to maintain NSR. Continue Eliquis. long term flutter ablation might be an option for him.
[2018-09-05] MEDS: Magnesium Oxide TAB* 400 MG PO SCH (13:21)
[2018-09-05] MEDS: NS 0.9% 1000 ML** 1,000 ML IV SCH (13:23)
[2018-09-05 15:10] LABS: Calcium 7.5 mg/dL (8.6-10.3); Magnesium 1.8 mg/dL (1.9-2.7); Potassium 4.7 mmol/L (3.5-5.0)
[2018-09-05 15:15] LABS: BUN/Creatinine Ratio 19.7 (8-20); EGFR African American 132.7 (>60); EGFR Non-African American 109.7 (>60)
[2018-09-05] MEDS: cefTRIAXone(*) 1 GM in NS 0.9% 50 ML* 50 ML IVPB SCH (17:07)
--- NOTE | 2018-09-05 17:21 | PRO ---
CC: Dr. Bhatia CARDIOVERSION REPORT: DATE OF PROCEDURE: 09/05/18 PREPROCEDURE DIAGNOSIS: Atrial flutter, rapid ventricular rate. POSTPROCEDURE DIAGNOSIS: Atrial flutter, rapid ventricular rate. PROCEDURE: Electrical cardioversion. SURGEON: Jyoti Blackwood MD. The indications, risks, and benefits of the procedure were discussed with the patient and he was amen able to proceeding. I verified that he had been taking his Eliquis regularly. DESCRIPTION OF PROCEDURE: The patient had AP patches placed on the chest wall. A time-out was morteza roberson. The patient received a total of 8 mg of Versed and 50 mcg of fentanyl for sedation. 100 joules w as delivered across the chest wall with successful cardioversion from atrial flutter with a rapid mey tricular rate to normal sinus rhythm. The patient's blood pressure dropped transiently with sedation and he responded well to antigravity m easures and saline. CONCLUSION: Successful cardioversion from atrial flutter to normal sinus rhythm. COMPLICATIONS: Transient hypotension. [id number]/[facility] #: [id number]
[2018-09-05] MEDS: Azithromycin 500 mg/250 ml NS 500 MG/250 ML BAG IVPB SCH (18:20)
[2018-09-06] MEDS: oxyCODONE TAB* 5 MG TAB PO SCH ×5 (00:30→23:44)
[2018-09-06] MEDS: NS 0.9% 1000 ML** 1,000 ML IV SCH (01:48)
[2018-09-06] MEDS: BuPROPion XL* 150 MG TAB.XL PO SCH (08:32)
[2018-09-06] MEDS: Potassium Chlor TAB* 10 MEQ TAB.ER PO SCH (08:32)
[2018-09-06] MEDS: Pantoprazole TAB * 40 MG TAB PO SCH (08:32)
[2018-09-06] MEDS: Metoprolol Tartrate TAB* 50 mg PO SCH ×2 (08:32→21:38)
[2018-09-06] MEDS: Magnesium Oxide TAB* 400 MG PO SCH (08:32)
[2018-09-06] MEDS: Escitalopram * 10 MG TAB PO SCH (08:32)
[2018-09-06] MEDS: Apixaban* 5 MG TAB PO SCH ×2 (08:32→21:38)
[2018-09-06] MEDS ORDERED: Magnesium Sulfate 2 GM IV* 2 GM/50 ML BAG IVPB ONE (10:34)
[2018-09-06] MEDS ORDERED: Furosemide IV* 10 MG/ML 2 ML VIAL (20 MG) IV ONE (10:48)
--- NOTE | 2018-09-06 10:56 | PN ---
Progress Note - Progress Note Date of Service: 09/06/18 SOAP: Subjective: [Successful cardioversion yesterday with Dr Blackwood. Remained in NSR over night. He reports a couple "thumps" this am. Nothing significant on tele. Reports some increased cough and dyspnea this am. No fevers] Objective: [ Vital Signs: Temp Pulse Resp BP Pulse Ox 98.0 F 90 20 115/57 96 09/06/18 08:00 09/06/18 08:00 09/06/18 08:00 09/06/18 08:00 09/06/18 08:00 Alprazolam (Xanax Tab*) 0.5 mg PO TID PRN PRN Reason: ANXIETY Apixaban (Eliquis*) 5 mg PO BID [facility] Last Admin: 09/06/18 08:32 Dose: 5 mg Bupropion HCl (Wellbutrin Xl *) 150 mg PO DAILY [facility] Last Admin: 09/06/18 08:32 Dose: 150 mg Escitalopram Oxalate (Lexapro *) 10 mg PO DAILY [facility] Last Admin: 09/06/18 08:32 Dose: 10 mg Azithromycin (Zithromax 500 Mg/250 Ml) 500 mg in 250 mls @ 250 mls/hr IVPB Q24H [facility] Last Admin: 09/05/18 18:20 Dose: 250 mls/hr Ceftriaxone Sodium 1 gm/ (Sodium Chloride) 50 mls @ 100 mls/hr IVPB Q24H [facility] Last Admin: 09/05/18 17:07 Dose: 100 mls/hr Magnesium Sulfate (Magnesium Sulfate 2 Gm Iv*) 2 gm in 50 mls @ 50 mls/hr IVPB ONCE ONE Stop: 09/06/18 11:33 Magnesium Oxide (Magox 400 Tab*) 400 mg PO DAILY [facility] Last Admin: 09/06/18 08:32 Dose: 400 mg Metoprolol Tartrate (Lopressor Tab*) 50 mg PO BID [facility] Last Admin: 09/06/18 08:32 Dose: 50 mg Metoprolol Tartrate (Lopressor Iv*) 5 mg IV Q6H PRN PRN Reason: TACHYCARDIA Last Admin: 09/05/18 05:29 Dose: 5 mg Ondansetron HCl (Zofran Inj*) 4 mg IV Q4H PRN PRN Reason: NAUSEA/VOMITING Oxycodone HCl (Roxycodone Tab*) 5 mg PO Q6HR [facility] Last Admin: 09/06/18 05:33 Dose: 5 mg Oxycodone HCl (Roxycodone Tab*) 10 mg PO Q6H PRN PRN Reason: pain uncontrolled by prior med Last Admin: 09/03/18 18:00 Dose: 10 mg Pantoprazole Sodium (Protonix Tab*) 40 mg PO QAM [facility] Last Admin: 09/06/18 08:32 Dose: 40 mg Potassium Chloride (Klor Con Er Tab*) 30 meq PO DAILY [facility] Last Admin: 09/06/18 08:32 Dose: 30 meq Prochlorperazine (Compazine Tab*) 10 mg PO Q6H PRN PRN Reason: NAUSEA Laboratory Results - last 24 hr 09/04/18 09/04/18 09/05/18 05:35 05:35 14:47 Hem Pathologist Commnt Sodium 136 Potassium 4.7 Chloride 109 Carbon Dioxide 20 L Anion Gap 7 BUN 14 Creatinine 0.71 Est GFR ( Amer) 132.7 Est GFR (Non-Af Amer) 109.7 BUN/Creatinine Ratio 19.7 Glucose 102 H Calcium 7.5 L Magnesium 1.8 L Cryptococcus Ag Negative Exam: Gen: mildly ill appearing 68 yo male in NAD CV: RRR, no m/r/g Resp: diffuse rhonchi Abd: soft, nonTTP Ext: trace edema] Assessment: [This is a 68 yo male with mantle cell lymphoma treated by Dr Bhatia with imbruvica with recent h/o malaise and fevers admitted with bilateral PNA. He was in rapid afib at admission which was resistant to aggressive beta blockade now s/p cardioversion.] Plan: [1. PNA - cont ceftriaxone/azithromycin - ID consult appreciated - cryptococcus Ag negative - stop IVF and give a one time dose of Lasix today due to persistent rhonchi and increased dyspnea today 2. Afib - s/p cardioversion 09/05 - remains in NSR - cont BB and eliquis - cont telemetry - keep K >4 and Mg >2 3. Mantle cell lymphoma - hold imbruvica dispo: cont IV abx, evaluate for dc readiness over the next couple of days
[2018-09-06] MEDS: cefTRIAXone(*) 1 GM in NS 0.9% 50 ML* 50 ML IVPB SCH (16:35)
[2018-09-06] MEDS: Azithromycin 500 mg/250 ml NS 500 MG/250 ML BAG IVPB SCH (17:24)
[2018-09-07] MEDS: Metoprolol Tartrate IV* 1 MG/ML 5 ML VIAL IV PRN ×2 (01:10→08:42)
[2018-09-07] MEDS ORDERED: Metoprolol Tartrate IV* 1 MG/ML 5 ML VIAL IV ONE (02:40)
[2018-09-07] MEDS: oxyCODONE TAB* 5 MG TAB PO SCH ×3 (05:44→19:39)
[2018-09-07 06:50] LABS: BUN/Creatinine Ratio 18.5 (8-20); Calcium 7.4 mg/dL (8.6-10.3); EGFR African American 146.9 (>60); EGFR Non-African American 121.4 (>60); Magnesium 1.8 mg/dL (1.9-2.7); Potassium 3.7 mmol/L (3.5-5.0)
[2018-09-07 06:51] LABS: Hematocrit 31 % (42-52); Hemoglobin 10.3 g/dL (14.0-18.0); Mean Corpuscular HGB Conc 33 g/dL (31-36); Mean Corpuscular Hemoglobin 31 pg (27-31); Mean Corpuscular Volume 95 fL (80-94); Mean Platelet Volume 11.2 fL (7.4-10.4); Platelet Count 151 10^3/uL (150-450); Red Blood Count 3.29 10^6 /uL (4.18-5.48); Red Cell Distribution Width 15 % (10-15); White Blood Count 6.6 10^3/uL (3.5-10.8)
[2018-09-07 07:46] LABS: ABS Lymphocytes 0.7 10^3/ul (1.0-4.8); ABS Monocytes 0.8 10^3/ul (0-0.8); ABS Neutrophils 5.1 10^3/ul (1.5-7.7); Eosinophil % 0.5 %; Lymphocyte % 9.9 %
[2018-09-07 07:50] LABS: Polychromasia 1+
[2018-09-07] MEDS ORDERED: Magnesium Sulfate IV* 3 GM in NS 0.9% 100 ML* 100 ML IVPB ONE (08:25)
[2018-09-07] MEDS: Potassium Chlor TAB* 10 MEQ TAB.ER PO SCH (08:31)
[2018-09-07] MEDS: BuPROPion XL* 150 MG TAB.XL PO SCH (08:31)
[2018-09-07] MEDS: Magnesium Oxide TAB* 400 MG PO SCH ×2 (08:33→21:08)
[2018-09-07] MEDS: Metoprolol Tartrate TAB* 50 mg PO SCH ×2 (08:37→20:58)
[2018-09-07] MEDS: Escitalopram * 10 MG TAB PO SCH (08:37)
[2018-09-07] MEDS: Apixaban* 5 MG TAB PO SCH ×2 (08:38→20:58)
[2018-09-07] MEDS: Pantoprazole TAB * 40 MG TAB PO SCH (08:38)
[2018-09-07] MEDS: oxyCODONE TAB* 5 MG TAB PO PRN ×2 (08:39→20:59)
[2018-09-07] MEDS ORDERED: Furosemide IV* 10 MG/ML 2 ML VIAL (20 MG) IV ONE (09:45)
--- NOTE | 2018-09-07 09:45 | PN ---
Progress Note - Progress Note Date of Service: 09/07/18 SOAP: Subjective: []did fine until evening then more SOB, ok in bed but difficulty walking to bathroom. No palpitations and no chest pain. eating fine EVENTS: Rapid a-fib overnight, Rx IV Metoprolol Alprazolam (Xanax Tab*) 0.5 mg PO TID PRN PRN Reason: ANXIETY Last Admin: 09/06/18 12:04 Dose: 0.5 mg Apixaban (Eliquis*) 5 mg PO BID [facility] Last Admin: 09/07/18 08:38 Dose: 5 mg Bupropion HCl (Wellbutrin Xl *) 150 mg PO DAILY [facility] Last Admin: 09/07/18 08:31 Dose: 150 mg Escitalopram Oxalate (Lexapro *) 10 mg PO DAILY [facility] Last Admin: 09/07/18 08:37 Dose: 10 mg Azithromycin (Zithromax 500 Mg/250 Ml) 500 mg in 250 mls @ 250 mls/hr IVPB Q24H [facility] Last Admin: 09/06/18 17:24 Dose: 250 mls/hr Ceftriaxone Sodium 1 gm/ (Sodium Chloride) 50 mls @ 100 mls/hr IVPB Q24H [facility] Last Admin: 09/06/18 16:35 Dose: 100 mls/hr Magnesium Sulfate 3 gm/ Sodium (Chloride) 106 mls @ 53 mls/hr IVPB ONCE ONE Stop: 09/07/18 10:24 Magnesium Oxide (Magox 400 Tab*) 400 mg PO DAILY [facility] Last Admin: 09/07/18 08:33 Dose: 400 mg Metoprolol Tartrate (Lopressor Tab*) 50 mg PO BID [facility] Last Admin: 09/07/18 08:37 Dose: 50 mg Metoprolol Tartrate (Lopressor Iv*) 5 mg IV Q6H PRN PRN Reason: TACHYCARDIA Last Admin: 09/07/18 08:42 Dose: 5 mg Ondansetron HCl (Zofran Inj*) 4 mg IV Q4H PRN PRN Reason: NAUSEA/VOMITING Oxycodone HCl (Roxycodone Tab*) 5 mg PO Q6HR [facility] Last Admin: 09/07/18 05:44 Dose: 5 mg Oxycodone HCl (Roxycodone Tab*) 10 mg PO Q6H PRN PRN Reason: pain uncontrolled by prior med Last Admin: 09/07/18 08:39 Dose: 10 mg Pantoprazole Sodium (Protonix Tab*) 40 mg PO QAM [facility] Last Admin: 09/07/18 08:38 Dose: 40 mg Potassium Chloride (Klor Con Er Tab*) 30 meq PO DAILY [facility] Last Admin: 09/07/18 08:31 Dose: 30 meq Prochlorperazine (Compazine Tab*) 10 mg PO Q6H PRN PRN Reason: NAUSEA Objective: [] Vital Signs Temp Pulse Resp BP Pulse Ox 98.1 F 126 16 112/51 92 09/06/18 23:28 09/07/18 03:51 09/07/18 08:39 09/07/18 03:51 09/07/18 03:51 Exam: Gen:comfortable in bed CV: RRR on my exam and in 90s, distant S1S2 Resp: crackles at base BL Abd: soft, nonTTP Ext:+1-+2 PRIYANK Micro: Yeast in sputum Assessment: [This is a 68 yo male with mantle cell lymphoma treated by Dr Bhatia with imbruvica with recent h/o malaise and fevers admitted with bilateral PNA. He was in rapid afib at admission which was resistant to aggressive beta blockade. Recurrent a-fib last night with increased SOB.] Plan: [1. PNA - cont ceftriaxone/azithromycin - cryptococcus Ag negative - Yeast in sputum of unclear sig, d/w ID as clinically improving will follow. 2. Afib - s/p cardioversion 09/05 - a-fib d/w cardiology - NPO today, possible re-cardioversion - Metoprolol IV as needed - cont telemetry - keep K >4 and Mg >2, Give IV Mg today 3. CHF. Lasix 20 IV now and check BNP in am. 3. Mantle cell lymphoma - hold imbruvica
--- NOTE | 2018-09-07 10:44 | PN ---
Progress Note - Progress Note Date of Service: 09/07/18 SOAP: Subjective: CC: Pneumonia HPI: Mr. Goetz is a 68 yo male with PMH significant for depression, mantle cell lymphoma, A fib, and GERD; who presented to the hospital with complaints of malaise, fever, chills and cough. Denies fever, chills, nausea, vomiting, diarrhea. Continued to have an intermittent cough without much sputum production. Reports shortness of breath overnight and this morning, but states this improved after medication in his IV (metoprolol was given for rapid A fib). Objective: Vital Signs - 8 hr 09/07/18 09/07/18 09/07/18 02:55 03:51 05:44 Pulse Rate 126 Respiratory 18 18 18 Rate Blood Pressure 112/51 (mmHg) O2 Sat by Pulse 92 Oximetry Physical Exam: General: NAD, sitting up in bed Neurological: Alert and Oriented HEENT: Moist MM, no thrush Cardiovascular: Heart rate regular. + bilateral LE edema Respiratory: Lung sounds clear, diminished with crackles in the bilateral bases and scattered in the right upper lobe Abdominal: Bowel sounds present; ABD soft, non tender and non distended Skin: No rash Laboratory Results - last 24 hr 09/07/18 09/07/18 05:52 05:52 WBC 6.6 RBC 3.29 L Hgb 10.3 L Hct 31 L MCV 95 H MCH 31 MCHC 33 RDW 15 Plt Count 151 MPV 11.2 H Neut % (Auto) 77.1 Lymph % (Auto) 9.9 Mills % (Auto) 11.9 Eos % (Auto) 0.5 Baso % (Auto) 0.6 Absolute Neuts (auto) 5.1 Absolute Lymphs (auto) 0.7 L Absolute Monos (auto) 0.8 Absolute Eos (auto) 0.0 Absolute Basos (auto) 0.0 Absolute Nucleated RBC 0.0 Neutrophils % 77.0 Lymphocytes % 9.0 Reactive Lymphs % 1.0 Monocytes % 12.0 Eosinophils % 1.0 Nucleated RBC % 0.0 Normal RBC Morphology Not Reportable Polychromasia 1+ Hypochromasia 1+ Sodium 138 Potassium 3.7 Chloride 107 Carbon Dioxide 22 Anion Gap 9 BUN 12 Creatinine 0.65 L Est GFR ( Amer) 146.9 Est GFR (Non-Af Amer) 121.4 BUN/Creatinine Ratio 18.5 Glucose 128 H Calcium 7.4 L Magnesium 1.8 L Microbiology 09/05/18 04:41 Gram Stain - Final Sputum Sputum Culture - Preliminary MOLD YEAST 09/04/18 05:19 Legionella Urinary Antigen - Final Urine Negative Legionella Antigen Streptococcus pneumoniae Ag Screen - Final Negative S. pneumo Antigen Assessment: 1. Community acquired pneumonia. This is in the setting of an immunocompromised state. Chest CT with bibasilar infiltrates and scattered infiltrates on the right lung. Cryptococcus antigen negative. Sputum culture with mold and yeast, unclear significance. Urine antigens for legionella and s. pneumoniae negative. Afebrile and no leukocytosis. 2. Mantle cell lymphoma. Treated with Rituxan, on hold for now. 3. A fib. Recurrent A fib with RVR overnight, suspect this is contributing to increased shortness of breath. Plan: Continue ceftriaxone and azithromycin, day 5. If he continues to improve suspect the mold and yeast seen in the sputum culture are nonpathogens. Will continue to follow along.
[2018-09-07] MEDS ORDERED: Midazolam* 1 MG/ML 5 ML VIAL (5 MG) ONE (13:59)
[2018-09-07] MEDS ORDERED: fentaNYL* 50 MCG/ML 2 ML VIAL (100 MCG VIAL) ONE (14:00)
[2018-09-07] MEDS ORDERED: Naloxone* 0.4 MG/ML 1 ML VIAL ONE (14:00)
[2018-09-07] MEDS ORDERED: Flumazenil* 0.1 MG/ML 5 ML MDV ONE (14:00)
--- NOTE | 2018-09-07 16:05 | PRO ---
CC: Dr. Bhatia; Dr. Khan CARDIOVERSION NOTE: DATE OF PROCEDURE: 09/07/18 PROCEDURE: Direct current cardioversion. INDICATIONS: The patient is a 68-year-old male patient who is hospitalized for pneumonia, history of lung cancer and was found to have rapid atrial flutter/fibrillation. Two days ago, he had direct cu rrent cardioversion with Dr. Blackwood and was started on anticoagulation. He had recurrent rapid symp tomatic atrial flutter/fibrillation last night. Direct current cardioversion was further requested t o restore normal sinus rhythm mechanism. DESCRIPTION OF PROCEDURE: After informed written consent had been obtained and with continuous blood pressure, pulse oximetry, and heart rate monitoring, the patient received a total dose of Versed 10 mg intravenously and 50 mcg of fentanyl intravenously. Attempted direct current cardioversion using 150 synchronized joules then 200 synchronized joules and the third one 200 synchronized joules were u nsuccessful to convert the patient to normal sinus rhythm. The patient tolerated the patient procedu re very well and there were no complications. CONCLUSION: Unsuccessful multiple attempts for direct current cardioversion. The patient is still i n atrial flutter/fibrillation. We will start sotalol 80 mg twice a day. Continue anticoagulation. [id number]/[facility] #: [id number]
[2018-09-07] MEDS: cefTRIAXone(*) 1 GM in NS 0.9% 50 ML* 50 ML IVPB SCH (17:18)
[2018-09-07] MEDS: Azithromycin 500 mg/250 ml NS 500 MG/250 ML BAG IVPB SCH (18:10)
[2018-09-07 18:47] LABS: BUN/Creatinine Ratio 19.4 (8-20); Calcium 7.1 mg/dL (8.6-10.3); EGFR African American 141.9 (>60); EGFR Non-African American 117.3 (>60)
[2018-09-07 19:24] LABS: Magnesium 2.1 mg/dL (1.9-2.7); Potassium 3.7 mmol/L (3.5-5.0)
[2018-09-07] MEDS: Sotalol TAB* 80 MG PO SCH (20:58)
[2018-09-08] MEDS: oxyCODONE TAB* 5 MG TAB PO SCH ×4 (01:24→18:18)
[2018-09-08 06:43] LABS: Hematocrit 32 % (42-52); Hemoglobin 10.6 g/dL (14.0-18.0); Mean Corpuscular HGB Conc 34 g/dL (31-36); Mean Corpuscular Hemoglobin 32 pg (27-31); Mean Corpuscular Volume 94 fL (80-94); Mean Platelet Volume 10.5 fL (7.4-10.4); Platelet Count 173 10^3/uL (150-450); Red Blood Count 3.36 10^6 /uL (4.18-5.48); Red Cell Distribution Width 15 % (10-15); White Blood Count 4.7 10^3/uL (3.5-10.8)
[2018-09-08 07:02] LABS: Albumin 2.2 g/dL (3.2-5.2); Albumin/Globulin Ratio 0.8 (1-3); BUN/Creatinine Ratio 18.6 (8-20); Calcium 7.5 mg/dL (8.6-10.3); EGFR African American 134.9 (>60); EGFR Non-African American 111.5 (>60); Globulin 2.6 g/dL (2-4); Magnesium 1.9 mg/dL (1.9-2.7); Potassium 3.9 mmol/L (3.5-5.0); Total Bilirubin 1.2 mg/dL (0.2-1.0); Total Protein 4.8 g/dL (6.4-8.9)
[2018-09-08] MEDS: Potassium Chlor TAB* 10 MEQ TAB.ER PO SCH (08:29)
[2018-09-08] MEDS: Metoprolol Tartrate TAB* 50 mg PO SCH ×2 (08:30→20:59)
[2018-09-08] MEDS: Pantoprazole TAB * 40 MG TAB PO SCH (08:30)
[2018-09-08] MEDS: Magnesium Oxide TAB* 400 MG PO SCH ×2 (08:30→20:59)
[2018-09-08] MEDS: BuPROPion XL* 150 MG TAB.XL PO SCH (08:30)
[2018-09-08] MEDS: Sotalol TAB* 80 MG PO SCH ×2 (08:30→20:59)
[2018-09-08] MEDS: Escitalopram * 10 MG TAB PO SCH (08:30)
[2018-09-08] MEDS: Apixaban* 5 MG TAB PO SCH ×2 (08:30→20:59)
--- NOTE | 2018-09-08 14:35 | PN ---
Progress Note - Progress Note Date of Service: 09/08/18 SOAP: Subjective: [Repeat cardioversion was unsuccessful yesterday. Started sotalol with much better rate control. Nursing staff noted increased edema in arms and legs, but pt doesn't feel this is much different for him. He reports his breathing is good today, but requiring 4L supp O2 to maintain sats in low 90s. Remains afebrile.] Objective: [ Vital Signs: Temp Pulse Resp BP Pulse Ox 98.4 F 69 20 107/58 97 09/08/18 11:15 09/08/18 11:15 09/08/18 12:16 09/08/18 11:15 09/08/18 11:15 Alprazolam (Xanax Tab*) 0.5 mg PO TID PRN PRN Reason: ANXIETY Last Admin: 09/06/18 12:04 Dose: 0.5 mg Apixaban (Eliquis*) 5 mg PO BID [facility] Last Admin: 09/08/18 08:30 Dose: 5 mg Bupropion HCl (Wellbutrin Xl *) 150 mg PO DAILY [facility] Last Admin: 09/08/18 08:30 Dose: 150 mg Escitalopram Oxalate (Lexapro *) 10 mg PO DAILY [facility] Last Admin: 09/08/18 08:30 Dose: 10 mg Azithromycin (Zithromax 500 Mg/250 Ml) 500 mg in 250 mls @ 250 mls/hr IVPB Q24H [facility] Last Admin: 09/07/18 18:10 Dose: 250 mls/hr Ceftriaxone Sodium 1 gm/ (Sodium Chloride) 50 mls @ 100 mls/hr IVPB Q24H [facility] Last Admin: 09/07/18 17:18 Dose: 100 mls/hr Magnesium Oxide (Magox 400 Tab*) 400 mg PO BID [facility] Last Admin: 09/08/18 08:30 Dose: 400 mg Metoprolol Tartrate (Lopressor Tab*) 50 mg PO BID [facility] Last Admin: 09/08/18 08:30 Dose: 50 mg Metoprolol Tartrate (Lopressor Iv*) 5 mg IV Q6H PRN PRN Reason: TACHYCARDIA Last Admin: 09/07/18 08:42 Dose: 5 mg Ondansetron HCl (Zofran Inj*) 4 mg IV Q4H PRN PRN Reason: NAUSEA/VOMITING Oxycodone HCl (Roxycodone Tab*) 5 mg PO Q6HR [facility] Last Admin: 09/08/18 12:16 Dose: 5 mg Oxycodone HCl (Roxycodone Tab*) 10 mg PO Q6H PRN PRN Reason: pain uncontrolled by prior med Last Admin: 09/07/18 20:59 Dose: 10 mg Pantoprazole Sodium (Protonix Tab*) 40 mg PO QAM [facility] Last Admin: 09/08/18 08:30 Dose: 40 mg Potassium Chloride (Klor Con Er Tab*) 40 meq PO DAILY [facility] Last Admin: 09/08/18 08:29 Dose: 40 meq Prochlorperazine (Compazine Tab*) 10 mg PO Q6H PRN PRN Reason: NAUSEA Sotalol HCl (Betapace Tab*) 80 mg PO BID [facility] Last Admin: 09/08/18 08:30 Dose: 80 mg Laboratory Results - last 24 hr 09/07/18 09/07/18 09/08/18 05:52 18:09 06:32 WBC RBC Hgb Hct MCV MCH MCHC RDW Plt Count MPV Neut % (Auto) Lymph % (Auto) [place] % (Auto) Eos % (Auto) Baso % (Auto) Absolute Neuts (auto) Absolute Lymphs (auto) Absolute Monos (auto) Absolute Eos (auto) Absolute Basos (auto) Absolute Nucleated RBC Immature Gran % Neutrophils % Band Neutrophils % Lymphocytes % Monocytes % Basophils % Nucleated RBC % Normal RBC Morphology Hem Pathologist Commnt Sodium 136 Potassium 3.7 Chloride 105 Carbon Dioxide 23 Anion Gap 8 BUN 13 Creatinine 0.67 Est GFR ( Amer) 141.9 Est GFR (Non-Af Amer) 117.3 BUN/Creatinine Ratio 19.4 Glucose 103 H Calcium 7.1 L Magnesium 2.1 Total Bilirubin AST ALT Alkaline Phosphatase B-Natriuretic Peptide 729 H Total Protein Albumin Globulin Albumin/Globulin Ratio 09/08/18 09/08/18 06:32 06:32 WBC 4.7 RBC 3.36 L Hgb 10.6 L Hct 32 L MCV 94 MCH 32 H MCHC 34 RDW 15 Plt Count 173 MPV 10.5 H Neut % (Auto) Not Reportable Lymph % (Auto) Not Reportable [place] % (Auto) Not Reportable Eos % (Auto) Not Reportable Baso % (Auto) Not Reportable Absolute Neuts (auto) Not Reportable Absolute Lymphs (auto) Not Reportable Absolute Monos (auto) Not Reportable Absolute Eos (auto) Not Reportable Absolute Basos (auto) Not Reportable Absolute Nucleated RBC Not Reportable Immature Gran % 1.0 Neutrophils % 79.0 Band Neutrophils % 1.0 Lymphocytes % 11.0 Monocytes % 7.0 Basophils % 2.0 Nucleated RBC % Not Reportable Normal RBC Morphology Normal Hem Pathologist Commnt Sodium 138 Potassium 3.9 Chloride 107 Carbon Dioxide 25 Anion Gap 6 BUN 13 Creatinine 0.70 Est GFR ( Amer) 134.9 Est GFR (Non-Af Amer) 111.5 BUN/Creatinine Ratio 18.6 Glucose 99 Calcium 7.5 L Magnesium 1.9 Total Bilirubin 1.20 H AST 35 ALT 23 Alkaline Phosphatase 162 H B-Natriuretic Peptide Total Protein 4.8 L Albumin 2.2 L Globulin 2.6 Albumin/Globulin Ratio 0.8 L Exam: Gen: relatively well appearing 68 yo male in NAD CV: RRR, no m/r/g Resp: few crackles appreciated at lung bases Abd: soft, nonTTP Ext: trace to 1+ edema of both upper extremities and 1-2+ LE edema] Assessment: [This is a 68 yo male with mantle cell lymphoma treated by Dr Bhatia with imbruvica with recent h/o malaise and fevers admitted with bilateral PNA. Hospital course c/b rapid afib which has unfortunately been resistant to cardioversion. Plan: [1. PNA - cont ceftriaxone/azithromycin - ID consult appreciated - cryptococcus Ag negative - sputum grew mold and yuli - he reports he is feeling better and has been afebrile so less likely these are true pathogens and may represent a contaminant from the mouth - hold off on additional antimicrobials at this time 2. Afib - s/p cardioversion 09/05 and 09/07 - 09/07 was unsuccessful - remains in rate controlled afib/flutter - cont sotalol per cardiology - cont eliquis - cont telemetry - keep K >4 and Mg >2 3. Edema - repeat echo to better assess EF - will diuress more aggressively 4. Mantle cell lymphoma - hold imbruvica dispo: cont IV abx, evaluate for dc readiness over the next couple of days ]
[2018-09-08] MEDS: cefTRIAXone(*) 1 GM in NS 0.9% 50 ML* 50 ML IVPB SCH (17:20)
[2018-09-08] MEDS: Azithromycin 500 mg/250 ml NS 500 MG/250 ML BAG IVPB SCH (18:19)
[2018-09-09] MEDS: oxyCODONE TAB* 5 MG TAB PO SCH ×4 (00:20→18:17)
[2018-09-09 08:15] LABS: Hematocrit 31 % (42-52); Hemoglobin 10.1 g/dL (14.0-18.0); Mean Corpuscular HGB Conc 33 g/dL (31-36); Mean Corpuscular Hemoglobin 31 pg (27-31); Mean Corpuscular Volume 95 fL (80-94); Mean Platelet Volume 10.7 fL (7.4-10.4); Platelet Count 174 10^3/uL (150-450); Red Blood Count 3.23 10^6 /uL (4.18-5.48); Red Cell Distribution Width 15 % (10-15); White Blood Count 3.6 10^3/uL (3.5-10.8)
[2018-09-09 08:26] LABS: ALT 31 U/L (7-52); AST 48 U/L (13-39); Albumin/Globulin Ratio 0.8 (1-3); Alkaline Phosphatase 150 U/L (34-104); Anion Gap 6 mmol/L (2-11); BUN/Creatinine Ratio 18.8 (8-20); Blood Urea Nitrogen 13 mg/dL (6-24); CO2 Carbon Dioxide 25 mmol/L (22-32); Calcium 7.5 mg/dL (8.6-10.3); Chloride 106 mmol/L (101-111); EGFR African American 137.2 (>60); EGFR Non-African American 113.4 (>60); Globulin 2.5 g/dL (2-4); Glucose 96 mg/dL (70-100); Potassium 3.9 mmol/L (3.5-5.0); Sodium 137 mmol/L (135-145); Total Protein 4.5 g/dL (6.4-8.9)
[2018-09-09 08:50] LABS: ABS Eosinophils 0.1 10^3/ul (0-0.6); ABS Lymphocytes 0.5 10^3/ul (1.0-4.8); ABS Monocytes 0.3 10^3/ul (0-0.8); ABS Neutrophils 2.7 10^3/ul (1.5-7.7); Eosinophil % 1.8 %; Lymphocyte % 13.3 %
[2018-09-09] MEDS: Potassium Chlor TAB* 10 MEQ TAB.ER PO SCH (08:54)
[2018-09-09] MEDS: Magnesium Oxide TAB* 400 MG PO SCH ×3 (08:54→22:23)
[2018-09-09] MEDS: Apixaban* 5 MG TAB PO SCH ×2 (08:54→22:23)
[2018-09-09] MEDS: Escitalopram * 10 MG TAB PO SCH (08:54)
[2018-09-09] MEDS: BuPROPion XL* 150 MG TAB.XL PO SCH (08:54)
[2018-09-09] MEDS: Pantoprazole TAB * 40 MG TAB PO SCH (08:54)
[2018-09-09] MEDS: Sotalol TAB* 80 MG PO SCH ×2 (08:54→22:24)
[2018-09-09] MEDS: Metoprolol Tartrate TAB* 50 mg PO SCH ×2 (08:55→22:24)
[2018-09-09 10:01] LABS: Magnesium 1.7 mg/dL (1.9-2.7)
[2018-09-09] MEDS ORDERED: Magnesium Sulf 4 GM/100 ML IV* 4,000 MG/100 ML BAG IVPB ONE (10:22)
--- NOTE | 2018-09-09 10:45 | PN ---
Progress Note - Progress Note Date of Service: 09/09/18 SOAP: Subjective: [Reports that he continues to feel well. Still requiring 3-4 L supp O2, walked to the bathroom last night and took off his O2 because the hose wouldn't reach and he desaturated to 78%. Recovered quickly. HR remains relatively well controlled with sotalol.] Objective: [ Vital Signs: Temp Pulse Resp BP Pulse Ox 98.1 F 71 18 106/49 95 09/09/18 07:41 09/09/18 07:41 09/09/18 09:57 09/09/18 07:41 09/09/18 07:41 Alprazolam (Xanax Tab*) 0.5 mg PO TID PRN PRN Reason: ANXIETY Last Admin: 09/06/18 12:04 Dose: 0.5 mg Apixaban (Eliquis*) 5 mg PO BID [facility] Last Admin: 09/09/18 08:54 Dose: 5 mg Bupropion HCl (Wellbutrin Xl *) 150 mg PO DAILY [facility] Last Admin: 09/09/18 08:54 Dose: 150 mg Escitalopram Oxalate (Lexapro *) 10 mg PO DAILY [facility] Last Admin: 09/09/18 08:54 Dose: 10 mg Furosemide (Lasix Iv*) 40 mg IV DAILY [facility] Azithromycin (Zithromax 500 Mg/250 Ml) 500 mg in 250 mls @ 250 mls/hr IVPB Q24H [facility] Last Admin: 09/08/18 18:19 Dose: 250 mls/hr Ceftriaxone Sodium 1 gm/ (Sodium Chloride) 50 mls @ 100 mls/hr IVPB Q24H [facility] Last Admin: 09/08/18 17:20 Dose: 100 mls/hr Magnesium Sulfate (Magnesium Sulf 4 Gm/100 Ml Iv*) 4,000 mg in 100 mls @ 33.333 mls/hr IVPB ONCE ONE Stop: 09/09/18 13:21 Magnesium Oxide (Magox 400 Tab*) 400 mg PO BID [facility] Last Admin: 09/09/18 08:54 Dose: 400 mg Metoprolol Tartrate (Lopressor Tab*) 50 mg PO BID [facility] Last Admin: 09/09/18 08:55 Dose: 50 mg Metoprolol Tartrate (Lopressor Iv*) 5 mg IV Q6H PRN PRN Reason: TACHYCARDIA Last Admin: 09/07/18 08:42 Dose: 5 mg Ondansetron HCl (Zofran Inj*) 4 mg IV Q4H PRN PRN Reason: NAUSEA/VOMITING Oxycodone HCl (Roxycodone Tab*) 5 mg PO Q6HR [facility] Last Admin: 09/09/18 07:20 Dose: 5 mg Oxycodone HCl (Roxycodone Tab*) 10 mg PO Q6H PRN PRN Reason: pain uncontrolled by prior med Last Admin: 09/07/18 20:59 Dose: 10 mg Pantoprazole Sodium (Protonix Tab*) 40 mg PO QAM [facility] Last Admin: 09/09/18 08:54 Dose: 40 mg Potassium Chloride (Klor Con Er Tab*) 40 meq PO DAILY [facility] Last Admin: 09/09/18 08:54 Dose: 40 meq Prednisone (Deltasone Tab*) 20 mg PO DAILY [facility] Prochlorperazine (Compazine Tab*) 10 mg PO Q6H PRN PRN Reason: NAUSEA Sotalol HCl (Betapace Tab*) 80 mg PO BID [facility] Last Admin: 09/09/18 08:54 Dose: 80 mg Laboratory Results - last 24 hr 09/09/18 09/09/18 07:30 07:30 WBC 3.6 RBC 3.23 L Hgb 10.1 L Hct 31 L MCV 95 H MCH 31 MCHC 33 RDW 15 Plt Count 174 MPV 10.7 H Neut % (Auto) 74.6 Lymph % (Auto) 13.3 [place] % (Auto) 9.5 Eos % (Auto) 1.8 Baso % (Auto) 0.8 Absolute Neuts (auto) 2.7 Absolute Lymphs (auto) 0.5 L Absolute Monos (auto) 0.3 Absolute Eos (auto) 0.1 Absolute Basos (auto) 0.0 Absolute Nucleated RBC 0.0 Immature Gran % 2.0 Neutrophils % 78.0 Band Neutrophils % 2.0 Lymphocytes % 13.0 Monocytes % 6.0 Eosinophils % 1.0 Nucleated RBC % 0.0 Normal RBC Morphology Normal Sodium 137 Potassium 3.9 Chloride 106 Carbon Dioxide 25 Anion Gap 6 BUN 13 Creatinine 0.69 Est GFR ( Amer) 137.2 Est GFR (Non-Af Amer) 113.4 BUN/Creatinine Ratio 18.8 Glucose 96 Calcium 7.5 L Magnesium 1.7 L Total Bilirubin 0.90 AST 48 H ALT 31 Alkaline Phosphatase 150 H Total Protein 4.5 L Albumin 2.0 L Globulin 2.5 Albumin/Globulin Ratio 0.8 L Exam: Gen: relatively well appearing 68 yo male in NAD CV: somewhat irregular, no m/r/g Resp: diffuse rhonchi and a few crackles appreciated at lung bases Abd: soft, nonTTP Ext: 1+ edema of both upper extremities and 1-2+ LE edema] Assessment: [This is a 68 yo male with mantle cell lymphoma treated by Dr Bhatia with imbruvica with recent h/o malaise and fevers admitted with bilateral PNA. Hospital course c/b rapid afib which has unfortunately been resistant to cardioversion. Plan: [1. PNA - cont ceftriaxone/azithromycin - ID consult appreciated - cryptococcus Ag negative - sputum grew mold and yuli - he reports he is feeling better and has been afebrile so less likely these are true pathogens and may represent a contaminant from the mouth - hold off on additional antimicrobials at this time 2. Afib - s/p cardioversion 09/05 and 09/07 - 09/07 was unsuccessful - remains in rate controlled afib/flutter - cont sotalol per cardiology - cont eliquis - cont telemetry - keep K >4 and Mg >2 3. Edema/hypoxia - repeat echo to better assess EF - increase lasix further - hypoxia is certainly multifactorial secondary to PNA and pulm edema - there are increased rhonchorous breath sounds on exam - will add 20mg of prednisone today as well 4. Mantle cell lymphoma - hold imbruvica dispo: cont IV abx, cont diuresis, no immediate plans for dc
[2018-09-09] MEDS: predniSONE TAB* 20 MG PO SCH (11:38)
[2018-09-09] MEDS: Furosemide IV* 10 MG/ML VIAL (40 MG) IV SCH (11:38)
--- NOTE | 2018-09-09 15:30 | ECHO ---
*[facility]* [place] [address] Fax #: [phone] Transthoracic Echocardiogram Patient: Milton Goetz : 1950 Study Date: 09/09/2018 Age: 68 Gender: M HR: 136 bpm Height: 72 in /182.9 cm BSA: 2.31 m^2 Weight: 242.5 lb /110.2 kg BMI: 33 kg/m^2 *Circuit Design Engineer: * Vanda Paniagua [facility] *Referring Physician: * Heri Owens *Reading Physician: * Efrain Khan MD Indications: Edema. History: Atrial fibrillation. Risk factors: Former tobacco use. Hypertension. Obese. Lymphoma, lung cancer, chemotherapy. Conclusions Summary: 1. Left ventricle: The cavity size is normal. Wall thickness is normal. Systolic function is mildly reduced. The estimated ejection fraction is 45-50%. Given rapid a fib it is difficult to make a final estimate of left ventricle ejection fraction although appears at least mildly reduced. 2. Left atrium: The atrium is severely dilated. 3. Right atrium: The atrium is moderately dilated. 4. Mitral valve: There is mild to moderate regurgitation. 5. Tricuspid valve: There is mild-moderate regurgitation. 6. Pulmonic valve: There is trace to mild regurgitation. 7. C/t 08/04/2016, left ventricle ejection fraction with subtle improvement from 35-40% then.Mixed valvular disease is stable. Study data: Transthoracic echocardiogram. Procedure: Transthoracic echocardiography was performed. Image quality was fair. Complete 2D, spectral Doppler, and color flow Doppler. Location: Bedside. Patient status: Inpatient. Patient room number: 435. Rhythm: Atrial fibrillation. Findings Left ventricle: The cavity size is normal. Wall thickness is normal. Systolic function is mildly reduced. The estimated ejection fraction is 45-50%. Given rapid a fib it is difficult to make a final estimate of left ventricle ejection fraction although appears at least mildly reduced. Wall motion is normal; there are no regional wall motion abnormalities. Left ventricular diastolic function parameters are indeterminate. Right ventricle: The cavity size is moderately dilated. Systolic function is mildly to moderately reduced by visual assessment. Systolic pressure is increased. Ventricular septum: There is septal flattening of the interventricular septum consistent with RV volume or pressure overload. Left atrium: The atrium is severely dilated. Right atrium: The atrium is moderately dilated. Mitral valve: The leaflets are mildly thickened. There is no evidence of stenosis. There is mild to moderate regurgitation. Aortic valve: The valve is trileaflet. The leaflets are normal thickness. There is no evidence of stenosis. There is trace regurgitation. Tricuspid valve: The leaflets are normal thickness. There is no evidence of stenosis. There is mild-moderate regurgitation. Pulmonic valve: The leaflets are normal thickness. There is no evidence of stenosis. There is trace to mild regurgitation. Aorta: Ascending aorta: The ascending aorta is appears normal. Aortic arch: The aortic arch is not visualized. The aortic root is not dilated. Pericardium: A prominent pericardial fat pad is present. There is no significant pericardial effusion. Pulmonary arteries: The main pulmonary artery is normal-sized. Pulmonary artery pressure may be underestimated. Systemic veins: Inferior vena cava: The vessel is normal in size. The respirophasic diameter changes are in the normal range (>= 50%). Measurements Left ventricle Value Ref Aortic valve Value Ref CHAMP, LAX 4.8 cm 4.2 - 5.8 Anita diam, ED 2.0 cm ----- ESD, LAX 3.4 cm 2.5 - 4.0 Peak v, S 1.39 m/sec ----- FS, LAX 28 % 25 - 43 VTI, S 21.2 cm ----- PW, ED, LAX 1.0 cm 0.6 - 1.0 Mean grad, S 4.0 mm Hg ----- FS 28 % 25 - 43 Peak grad, S 8.0 mm Hg ----- PW, ED 1.0 cm 0.6 - 1.0 LVOT/AV, VTI ratio 0.75 ----- E', lat anita, TDI 11.8 cm/sec >=10.0 E/e', lat anita, 6 Mitral valve Value Ref TDI Peak E 0.75 m/sec ----- E', med anita, TDI 9.2 cm/sec >=7.0 Peak A 0 m/sec -- --- E/e', med anita, 8 Decel time 151 ms ----- TDI Peak grad, D 2.3 mm Hg ----- E', avg, TDI 10.5 cm/sec MR alias velocity 0.42 m/sec ----- E/e', avg, TDI 7 <=14 MR PISA radius 0.3 cm -- --- Max MR v 4.08 m/sec ----- LVOT Value Ref Regurg VTI 82.0 cm ----- Peak jonny, S 0.9 m/sec ERO, PISA 0.06 cm^2 ----- VTI, S 16.0 cm MR vol, PISA 6 ml ----- Mean grad, S 2 mm Hg Pulmonic valve Value Ref Ventricular septum Value Ref Peak v, S 0.83 m/sec ----- IVS, ED 0.9 cm 0.6 - 1.0 Peak grad, S 3.0 mm Hg ----- Right ventricle Value Ref Tricuspid valve Value Ref CHAMP, LAX 3.7 cm TR peak v 2.8 m/sec <=2.8 CHAMP minor ax, A4C (H) 5.5 cm 1.9 - 3.5 Peak RV-RA grad, S 31 mm Hg ----- mid Pressure, S 34 mm Hg Aortic root Value Ref Root diam 3.2 cm <4.4 Left atrium Value Ref AP dim, ES (H) 4.40 cm 3.00 - Ascending aorta Value Ref 4.00 AAo AP diam, S 3.1 cm ----- ML dim, A4C 4.9 cm AAo AP diam/bsa, S 1.3 cm/m^2 ----- SI dim, A4C 5.7 cm Vol/bsa, ES, 1-p (H) 39 ml/m^2 12 - 37 Pulmonary artery Value Ref A4C Pressure, S 31.0 mm Hg ----- Vol/bsa, ES, A/L (H) 55 ml/m^2 16 - 34 Inferior vena cava Value Ref Right atrium Value Ref Diam 1.7 cm ----- SI dim, ES (H) 5.7 cm 3.4 - 5.3 ML dim, ES, A4C (H) 5.0 cm 2.6 - 4.4 SI dim, ES, A4C (H) 5.7 cm 3.4 - 5.3 Estimated RAP 3 mm Hg Legend: (L) and (H) becky values outside specified reference range. Prepared and electronically signed by Efrain Khan MD 09/09/2018 15:29
[2018-09-09] MEDS: cefTRIAXone(*) 1 GM in NS 0.9% 50 ML* 50 ML IVPB SCH (17:30)
[2018-09-09] MEDS: Azithromycin 500 mg/250 ml NS 500 MG/250 ML BAG IVPB SCH (18:13)
[2018-09-10] MEDS: oxyCODONE TAB* 5 MG TAB PO SCH ×4 (00:15→21:56)
[2018-09-10 00:46] LABS: Phosphorus < 1.0 mg/dL (2.5-5.0)
[2018-09-10] MEDS ORDERED: Potassium & Sodium Phos 250MG* = 1 PACKET PO ONE (01:15)
[2018-09-10 06:32] LABS: Phosphorus 3.1 mg/dL (2.5-5.0)
[2018-09-10 08:51] LABS: BUN/Creatinine Ratio 20.9 (8-20); Calcium 7.4 mg/dL (8.6-10.3); EGFR African American 141.9 (>60); EGFR Non-African American 117.3 (>60); Magnesium 2.1 mg/dL (1.9-2.7)
[2018-09-10] MEDS: Sotalol TAB* 80 MG PO SCH ×2 (09:16→20:37)
[2018-09-10] MEDS: Metoprolol Tartrate TAB* 50 mg PO SCH ×2 (09:16→20:37)
[2018-09-10] MEDS: Potassium Chlor TAB* 10 MEQ TAB.ER PO SCH (09:16)
[2018-09-10] MEDS: Escitalopram * 10 MG TAB PO SCH (09:16)
[2018-09-10] MEDS: BuPROPion XL* 150 MG TAB.XL PO SCH (09:16)
[2018-09-10] MEDS: Furosemide IV* 10 MG/ML VIAL (40 MG) IV SCH (09:17)
[2018-09-10] MEDS: Pantoprazole TAB * 40 MG TAB PO SCH (09:17)
[2018-09-10] MEDS: Apixaban* 5 MG TAB PO SCH ×2 (09:17→20:37)
[2018-09-10] MEDS: Magnesium Oxide TAB* 400 MG PO SCH ×3 (09:17→20:37)
[2018-09-10] MEDS: predniSONE TAB* 20 MG PO SCH (09:17)
--- NOTE | 2018-09-10 11:17 | PN ---
Progress Note - Progress Note Date of Service: 09/10/18 SOAP: Subjective: [Reports he was very short of breath with walking retirement down the diaz this am. Able to walk to the bathroom and back with O2 in place. HR in to the 150s with any activity, but ~60 bpm overnight. No cough. Diuressing well with lasix (down 2kg today).] Objective: [ Vital Signs: Temp Pulse Resp BP Pulse Ox 97.6 F 74 16 101/61 96 09/10/18 07:25 09/10/18 07:25 09/10/18 09:15 09/10/18 07:25 09/10/18 07:25 Alprazolam (Xanax Tab*) 0.5 mg PO TID PRN PRN Reason: ANXIETY Last Admin: 09/06/18 12:04 Dose: 0.5 mg Apixaban (Eliquis*) 5 mg PO BID [facility] Last Admin: 09/10/18 09:17 Dose: 5 mg Bupropion HCl (Wellbutrin Xl *) 150 mg PO DAILY [facility] Last Admin: 09/10/18 09:16 Dose: 150 mg Escitalopram Oxalate (Lexapro *) 10 mg PO DAILY [facility] Last Admin: 09/10/18 09:16 Dose: 10 mg Furosemide (Lasix Iv*) 40 mg IV DAILY [facility] Last Admin: 09/10/18 09:17 Dose: 40 mg Heparin Sodium (Porcine) (Heparin Flush Port (Ivad)) 5 ml FLUSH DAILY [facility]; Protocol Last Admin: 09/10/18 09:17 Dose: 5 ml Ceftriaxone Sodium 1 gm/ (Sodium Chloride) 50 mls @ 100 mls/hr IVPB Q24H [facility] Last Admin: 09/09/18 17:30 Dose: 100 mls/hr Magnesium Oxide (Magox 400 Tab*) 400 mg PO TID [facility] Last Admin: 09/10/18 09:17 Dose: 400 mg Metoprolol Tartrate (Lopressor Tab*) 50 mg PO BID [facility] Last Admin: 09/10/18 09:16 Dose: 50 mg Metoprolol Tartrate (Lopressor Iv*) 5 mg IV Q6H PRN PRN Reason: TACHYCARDIA Last Admin: 09/07/18 08:42 Dose: 5 mg Ondansetron HCl (Zofran Inj*) 4 mg IV Q4H PRN PRN Reason: NAUSEA/VOMITING Oxycodone HCl (Roxycodone Tab*) 5 mg PO Q6HR [facility] Last Admin: 09/10/18 05:54 Dose: 5 mg Oxycodone HCl (Roxycodone Tab*) 10 mg PO Q6H PRN PRN Reason: pain uncontrolled by prior med Last Admin: 09/07/18 20:59 Dose: 10 mg Pantoprazole Sodium (Protonix Tab*) 40 mg PO QAM [facility] Last Admin: 09/10/18 09:17 Dose: 40 mg Potassium Chloride (Klor Con Er Tab*) 40 meq PO DAILY [facility] Last Admin: 09/10/18 09:16 Dose: 40 meq Prednisone (Deltasone Tab*) 20 mg PO DAILY [facility] Last Admin: 09/10/18 09:17 Dose: 20 mg Prochlorperazine (Compazine Tab*) 10 mg PO Q6H PRN PRN Reason: NAUSEA Sotalol HCl (Betapace Tab*) 80 mg PO BID [facility] Last Admin: 09/10/18 09:16 Dose: 80 mg Laboratory Results - last 24 hr 09/08/18 09/09/18 09/09/18 06:32 07:30 07:30 Hem Pathologist Commnt Sodium 137 Potassium 3.9 Chloride 106 Carbon Dioxide 25 Anion Gap 6 BUN 13 Creatinine 0.69 Est GFR ( Amer) 137.2 Est GFR (Non-Af Amer) 113.4 BUN/Creatinine Ratio 18.8 Glucose 96 Calcium 7.5 L Phosphorus < 1.0 L* Magnesium 1.7 L Total Bilirubin 0.90 AST 48 H ALT 31 Alkaline Phosphatase 150 H Total Protein 4.5 L Albumin 2.0 L Globulin 2.5 Albumin/Globulin Ratio 0.8 L 09/10/18 06:05 Hem Pathologist Commnt Sodium 137 Potassium 4.0 Chloride 104 Carbon Dioxide 27 Anion Gap 6 BUN 14 Creatinine 0.67 Est GFR ( Amer) 141.9 Est GFR (Non-Af Amer) 117.3 BUN/Creatinine Ratio 20.9 H Glucose 113 H Calcium 7.4 L Phosphorus 3.1 Magnesium 2.1 Total Bilirubin AST ALT Alkaline Phosphatase Total Protein Albumin Globulin Albumin/Globulin Ratio Exam: Gen: relatively well appearing 68 yo male in NAD CV: irregular, no m/r/g Resp: somewhat diminished lung sounds but no rhonchi and just an faint crackle at the bases Abd: soft, nonTTP Ext: trace edema of both upper extremities and 1+ LE edema] Assessment: [This is a 68 yo male with mantle cell lymphoma treated by Dr Bhatia with imbruvica with recent h/o malaise and fevers admitted with bilateral PNA. Hospital course c/b rapid afib which has unfortunately been resistant to cardioversion. Has persistent O2 needs and GARCIA without cough or recurrent fevers which seems to be mostly driven by his afib. Plan: [1. PNA - cont ceftriaxone (day 8 )-(completed 7d of azithromycin) - ID consult appreciated - cryptococcus Ag negative - sputum grew mold and yuli which seems less likely to be a true contaminant at this time 2. Afib - s/p cardioversion 09/05 and 09/07 - 09/07 was unsuccessful - rate control is variable in afib/flutter - requested that cardiology re- evaluate him today - cont sotalol - cont eliquis - cont telemetry - keep K >4 and Mg >2 3. Edema/hypoxia - EF ~45% - cont lasix 40 mg IV daily for now - hypoxia is certainly multifactorial secondary to PNA and pulm edema - there are increased rhonchorous breath sounds on exam - cont 20mg of prednisone ( started 09/09) 4. Mantle cell lymphoma - hold imbruvica dispo: cont IV abx, cont diuresis, re-eval by cardiology today, no immediate plans for dc]
[2018-09-10] MEDS: cefTRIAXone(*) 1 GM in NS 0.9% 50 ML* 50 ML IVPB SCH (16:49)
[2018-09-11] MEDS: oxyCODONE TAB* 5 MG TAB PO SCH ×5 (01:27→23:50)
[2018-09-11 06:32] LABS: Hematocrit 32 % (42-52); Hemoglobin 10.6 g/dL (14.0-18.0); Mean Corpuscular HGB Conc 33 g/dL (31-36); Mean Corpuscular Hemoglobin 32 pg (27-31); Mean Corpuscular Volume 95 fL (80-94); Mean Platelet Volume 10.4 fL (7.4-10.4); Platelet Count 218 10^3/uL (150-450); Red Blood Count 3.36 10^6 /uL (4.18-5.48); Red Cell Distribution Width 15 % (10-15); White Blood Count 3.8 10^3/uL (3.5-10.8)
[2018-09-11 06:46] LABS: Albumin 2.3 g/dL (3.2-5.2); Albumin/Globulin Ratio 0.9 (1-3); Calcium 7.7 mg/dL (8.6-10.3); EGFR African American 134.9 (>60); EGFR Non-African American 111.5 (>60); Globulin 2.5 g/dL (2-4); Magnesium 1.9 mg/dL (1.9-2.7); Total Bilirubin 0.7 mg/dL (0.2-1.0); Total Protein 4.8 g/dL (6.4-8.9)
[2018-09-11] MEDS ORDERED: Midazolam* 1 MG/ML 5 ML VIAL (5 MG) ONE (07:59)
[2018-09-11] MEDS ORDERED: fentaNYL* 50 MCG/ML 2 ML VIAL (100 MCG VIAL) ONE (07:59)
[2018-09-11] MEDS ORDERED: Naloxone* 0.4 MG/ML 1 ML VIAL ONE (07:59)
[2018-09-11] MEDS ORDERED: Flumazenil* 0.1 MG/ML 5 ML MDV ONE (08:00)
[2018-09-11 08:35] LABS: ABS Lymphocytes 0.7 10^3/ul (1.0-4.8); ABS Monocytes 0.4 10^3/ul (0-0.8); ABS Neutrophils 2.6 10^3/ul (1.5-7.7); Eosinophil % 0.9 %; Lymphocyte % 19.5 %; Nucleated Red Blood Cells % 0.1
--- NOTE | 2018-09-11 09:09 | CARD ---
CC: Dr. Yosef Bhatia; Dr. Jyoti Blackwood * CARDIOVERSION NOTE: DATE OF STUDY: 09/11/18 PROCEDURE: Cardioversion. INDICATION: Atrial fibrillation. HISTORY: The patient is a 68-year-old gentleman with a history of atrial fibrillation. He has had multiple cardioversions during this admission. The patient was started on sotalol last 09/07/18. He has had at least 5 doses of sotalol. Cardioversion was recommended. PROCEDURE IN DETAIL: The patient was in a fasting state. Informed consent had been obtained prior to the procedure. All labs were reviewed. The patient is on Eliquis for anticoagulation. The patient was given 8 mg of Versed and 50 mcg of fentanyl for conscious sedation. The patient was cardioverted with 150 joules of synchronized biphasic energy. The patient converted to normal sinus rhythm. The patient tolerated the procedure well and there were no complications. The patient will get an EKG to follow up on QT intervals as he is on sotalol. [id number] #: [id number] [facility]
[2018-09-11] MEDS: Furosemide IV* 10 MG/ML VIAL (40 MG) IV SCH (09:52)
[2018-09-11] MEDS: Escitalopram * 10 MG TAB PO SCH (09:52)
[2018-09-11] MEDS: Potassium Chlor TAB* 10 MEQ TAB.ER PO SCH (09:53)
[2018-09-11] MEDS: BuPROPion XL* 150 MG TAB.XL PO SCH (09:53)
[2018-09-11] MEDS: Metoprolol Tartrate TAB* 50 mg PO SCH ×2 (09:53→20:24)
[2018-09-11] MEDS: Pantoprazole TAB * 40 MG TAB PO SCH (09:53)
[2018-09-11] MEDS: Apixaban* 5 MG TAB PO SCH ×2 (09:53→20:25)
[2018-09-11] MEDS: Sotalol TAB* 80 MG PO SCH ×2 (09:53→20:25)
[2018-09-11] MEDS: predniSONE TAB* 20 MG PO SCH (09:53)
[2018-09-11] MEDS: Magnesium Oxide TAB* 400 MG PO SCH ×3 (09:53→20:24)
[2018-09-11] MEDS: cefTRIAXone(*) 1 GM in NS 0.9% 50 ML* 50 ML IVPB SCH (16:47)
[2018-09-12] MEDS: oxyCODONE TAB* 5 MG TAB PO SCH ×4 (06:09→23:46)
[2018-09-12 06:43] LABS: BUN/Creatinine Ratio 21.4 (8-20); Calcium 7.9 mg/dL (8.6-10.3); EGFR African American 134.9 (>60); EGFR Non-African American 111.5 (>60); Potassium 3.9 mmol/L (3.5-5.0)
[2018-09-12 08:11] LABS: Magnesium 1.8 mg/dL (1.9-2.7)
[2018-09-12] MEDS: BuPROPion XL* 150 MG TAB.XL PO SCH (09:34)
[2018-09-12] MEDS: Sotalol TAB* 80 MG PO SCH ×2 (09:34→21:28)
[2018-09-12] MEDS: Escitalopram * 10 MG TAB PO SCH (09:35)
[2018-09-12] MEDS: Potassium Chlor TAB* 10 MEQ TAB.ER PO SCH (09:35)
[2018-09-12] MEDS: Metoprolol Tartrate TAB* 50 mg PO SCH ×2 (09:36→21:29)
[2018-09-12] MEDS: predniSONE TAB* 20 MG PO SCH (09:36)
[2018-09-12] MEDS: Magnesium Oxide TAB* 400 MG PO SCH ×3 (09:36→21:29)
[2018-09-12] MEDS: Apixaban* 5 MG TAB PO SCH ×2 (09:36→21:29)
[2018-09-12] MEDS: Pantoprazole TAB * 40 MG TAB PO SCH (09:36)
[2018-09-12] MEDS: Furosemide IV* 10 MG/ML VIAL (40 MG) IV SCH (09:42)
--- NOTE | 2018-09-12 10:00 | PN ---
<Marsha Li - Last Filed: 09/12/18 09:54> Subjective Date of Service: 09/12/18 - PAF, AFL Interval History: No events last night, patient states breathing has improved, plan is weaning patient off of humidified oxygen per nurse. He offers no complaints and is lying in bed comfortably Medications Active Medications: Alprazolam (Xanax Tab*) 0.5 mg PO TID PRN PRN Reason: ANXIETY Last Admin: 09/06/18 12:04 Dose: 0.5 mg Apixaban (Eliquis*) 5 mg PO BID [facility] Last Admin: 09/12/18 09:36 Dose: 5 mg Bupropion HCl (Wellbutrin Xl *) 150 mg PO DAILY [facility] Last Admin: 09/12/18 09:34 Dose: 150 mg Escitalopram Oxalate (Lexapro *) 10 mg PO DAILY [facility] Last Admin: 09/12/18 09:35 Dose: 10 mg Furosemide (Lasix Iv*) 40 mg IV DAILY [facility] Last Admin: 09/12/18 09:42 Dose: 40 mg Heparin Sodium (Porcine) (Heparin Flush Port (Ivad)) 5 ml FLUSH DAILY [facility]; Protocol Last Admin: 09/12/18 06:14 Dose: 5 ml Ceftriaxone Sodium 1 gm/ (Sodium Chloride) 50 mls @ 100 mls/hr IVPB Q24H [facility] Last Admin: 09/11/18 16:47 Dose: 100 mls/hr Magnesium Oxide (Magox 400 Tab*) 400 mg PO TID [facility] Last Admin: 09/12/18 09:36 Dose: 400 mg Metoprolol Tartrate (Lopressor Tab*) 50 mg PO BID [facility] Last Admin: 09/12/18 09:36 Dose: 50 mg Metoprolol Tartrate (Lopressor Iv*) 5 mg IV Q6H PRN PRN Reason: TACHYCARDIA Last Admin: 09/07/18 08:42 Dose: 5 mg Ondansetron HCl (Zofran Inj*) 4 mg IV Q4H PRN PRN Reason: NAUSEA/VOMITING Oxycodone HCl (Roxycodone Tab*) 10 mg PO Q6H PRN PRN Reason: pain uncontrolled by prior med Last Admin: 09/07/18 20:59 Dose: 10 mg Oxycodone HCl (Roxycodone Tab*) 5 mg PO Q6H [facility] Last Admin: 09/12/18 06:09 Dose: 5 mg Pantoprazole Sodium (Protonix Tab*) 40 mg PO QAM [facility] Last Admin: 09/12/18 09:36 Dose: 40 mg Potassium Chloride (Klor Con Er Tab*) 40 meq PO DAILY [facility] Last Admin: 09/12/18 09:35 Dose: 40 meq Prednisone (Deltasone Tab*) 20 mg PO DAILY [facility] Last Admin: 09/12/18 09:36 Dose: 20 mg Prochlorperazine (Compazine Tab*) 10 mg PO Q6H PRN PRN Reason: NAUSEA Sotalol HCl (Betapace Tab*) 80 mg PO BID [facility] Last Admin: 09/12/18 09:34 Dose: 80 mg Objective Vital Signs: Temp Pulse Resp BP Pulse Ox 97.6 F 67 16 103/49 98 09/12/18 03:15 09/12/18 03:15 09/12/18 09:34 09/12/18 03:15 09/12/18 08:00 Oxygen Devices in Use Now: None, Nasal Cannula Appearance: Overweight older male lying at 40 degrees in bed appears comforatbble. Eyes: PERRLA Ears/Nose/Mouth/Throat: Mucous Membranes Moist Neck: NL Appearance and Movements; NL JVP - thick. Respiratory: Symmetrical Chest Expansion and Respiratory Effort - Diminished throughout, no evidence of adventicious brath sounds Cardiovascular: - - Normal S1, S2, RRR no murmur or gallop Abdominal: NL Sounds; No Tenderness; No Distention - + centripetal obesity. Extremities: - - trace pretibial edema noted bilaterally Skin: - Neurological: Alert and Oriented x 3 Lines/Tubes/Other Access: Clean, Dry and Intact Other Access - right anterior chest mediport Laboratory Results: 09/11/18 05:48 09/12/18 06:15 Total Bilirubin 0.70 mg/dL (0.2-1.0) 09/11/18 05:48 AST 67 U/L (13-39) H 09/11/18 05:48 ALT 52 U/L (7-52) 09/11/18 05:48 Alkaline Phosphatase 157 U/L (34-104) H 09/11/18 05:48 B-Natriuretic Peptide 729 pg/mL (<=100) H 09/08/18 06:32 Total Protein 4.8 g/dL (6.4-8.9) L 09/11/18 05:48 Albumin 2.3 g/dL (3.2-5.2) L 09/11/18 05:48 Globulin 2.5 g/dL (2-4) 09/11/18 05:48 Albumin/Globulin Ratio 0.9 (1-3) L 09/11/18 05:48 Laboratory Results - last 24 hr 09/11/18 09/12/18 05:48 06:15 Hem Pathologist Commnt Sodium 139 Potassium 3.9 Chloride 103 Carbon Dioxide 31 Anion Gap 5 BUN 15 Creatinine 0.70 Est GFR ( Amer) 134.9 Est GFR (Non-Af Amer) 111.5 BUN/Creatinine Ratio 21.4 H Glucose 102 H Calcium 7.9 L Magnesium 1.8 L Diagnostic Imaging: Echo 12/25/17: EF 55-60%, mild to mod MR, PA pr 41 mmHg. Stress test: 03/02/18: EF 64%, normal perfusion rest/stress. Patient Name: MILTON GOETZ Medical Record#: [id number] Ordering Physician: Yosef Bhatia MD Acct.#: [id number] : 1950 Age: 68 Sex: M Location: [facility] Exam Date: 09/03/18 ADM Status: REG REF Order Information: CT CHEST/ABD/PEL W Accession Number: [id number] CPT: 49111 INDICATION: History of lung cancer and mantle cell lymphoma. Six-week history of fevers and dyspnea on exertion. Post LEFT lobectomy. History of urolithiasis, cholecystectomy. COMPARISON: July 27, 2018 CT chest and June 03, 2018 CT abdomen pelvis. December 25, 2017 PET/CT. TECHNIQUE: Multidetector CT images were obtained from the lung apices to the ischial tuberosities with 149 mL Omnipaque 300 IV contrast. Oral contrast administered. CHEST REPORT: LUNG: Postsurgical change of LEFT upper lobe resection. Patchy bilateral pulmonary consolidation and more confluent consolidation involving the posterior lateral basal segments of the lower lobes with associated air bronchograms. The appearance is most suggestive of bronchopneumonia. Small bilateral dependent pleural effusions. MEDIASTINUM / AXILLA: Negative for thoracic lymphadenopathy, cardiomegaly, or pericardial effusion. Mild atherosclerotic plaque of normal diameter abdominal aorta. BONES: Schmorl node endplate herniation at the superior endplate of the T11 vertebral body. Negative for suspicious thoracic osseous lesions. SOFT TISSUE: Gynecomastia noted. Unremarkable superficial soft tissues. CHEST IMPRESSION: #. Bronchopneumonia. Trace associated pleural effusions. #. No compelling CT evidence for thoracic metastatic disease. ABDOMEN PELVIS REPORT: LIVER / GALLBLADDER / PANCREAS / SPLEEN: Negative for focal liver lesions. Post cholecystectomy. Negative for biliary dilatation. Moderately atrophic pancreas without suspicious CT finding. Unremarkable spleen. ALIMENTARY TRACT: Negative for suspicious CT finding at the upper GI, small bowel, infra cecal appendix, or colon. Negative for ascites, free air, or significant hernias. MESENTERIC: Unremarkable. ADRENAL / GENITOURINARY: Normal adrenal glands. Unremarkable kidneys with symmetric nephrograms and pyelograms. Unremarkable nondilated ureters and largely decompressed urinary bladder. Symmetric seminal vesicles. RETROPERITONEAL: Negative for lymphadenopathy. VASCULAR: Mild atherosclerotic plaque of normal diameter abdominal aorta and iliac arteries. BONES: Negative for suspicious osseous lesions. Lumbar sacral spine degenerative spondylosis and facet joint osteoarthritis. Acquired central canal stenosis most prominent at L2-L3 moderate in severity. This report is only to be considered final once signed by the Provider(s) as displayed in the "<Electronically Signed by >" field (s). Absence of a signature indicates the report is in a draft status and still needs to be finalized. In the event this document was created by someone other than the signing Provider, the individual initiating the document will be listed in the "Entered by:" or "Dictated by:" kumar. 1 of 2 *[facility]* [place] [id number] Fax #: [phone] Transthoracic Echocardiogram Patient: Milton Goetz : 1950 Study Date: 09/09/2018 Age: 68 Gender: M HR: 136 bpm Height: 72 in /182.9 cm BSA: 2.31 m^2 Weight: 242.5 lb /110.2 kg BMI: 33 kg/m^2 *Airline Flight Attendant: * Vanda Paniagua [facility] *Referring Physician: * Heri Owens *Reading Physician: * Efrain Khan MD Indications: Edema. History: Atrial fibrillation. Risk factors: Former tobacco use. Hypertension. Obese. Lymphoma, lung cancer, chemotherapy. Conclusions Summary: 1. Left ventricle: The cavity size is normal. Wall thickness is normal. Systolic function is mildly reduced. The estimated ejection fraction is 45-50%. Given rapid a fib it is difficult to make a final estimate of left ventricle ejection fraction although appears at least mildly reduced. 2. Left atrium: The atrium is severely dilated. 3. Right atrium: The atrium is moderately dilated. 4. Mitral valve: There is mild to moderate regurgitation. 5. Tricuspid valve: There is mild-moderate regurgitation. 6. Pulmonic valve: There is trace to mild regurgitation. 7. C/t 08/04/2016, left ventricle ejection fraction with subtle improvement from 35-40% then.Mixed valvular disease is stable. This report is only to be considered final once signed by the Provider(s) as displayed in the "<Electronically Signed by >" field (s). Absence of a signature indicates the report is in a draft status and still needs to be finalized. In the event this document was created by someone other than the signing Provider, the individual initiating the document will be listed in the "Entered by:" or "Dictated by:" kumar. EKG Data: Tele: Sinus rhythm rate 70's no VT or ectopy. 09/12/2018 ECG; Sinus rhythm rate 60, QTc 501 comparable to yesterday's ECG Assessment/Plan #1 H/o PAF/AFL; on Eliquis therapy with multiple CV this admission. He was started on Sotalol 80mg Po BID on 09/07/2018. He is s/p CV 09/11/2018. No ventricular ectopy on telemetry. QTc is 501 comparable to yesterday's ECG. Mag 1.8, K+ 3.9. Will increase KCL to 40mg in MEQ in am and 20 MEQ at noon. will continue PO Mag and give one time dose of 2 g IV. Recommend keeping K+ > 4, Mag >2. Once IV lasix is converted to PO or stopped he will likely require less Mag and K+ replacement. #2Hypomagnesium/Hypokalemia; Will replace. REcommend daily BMP while getting diuresis. #3 HFmrEF; Echo 08/2018 per report LVEF 45-50% improved compared to 2017 study. Appears to be responding well to diuresis. Adds that breathing effort has improved. Would consider transitioning patient to PO Lasix. On Lopressor therapy #4 Disposition pending course, patient DNR will d/w Dr. Blackwood <Jyoti Blackwood - Last Filed: 09/12/18 16:44> Medications Active Medications: Alprazolam (Xanax Tab*) 0.5 mg PO TID PRN PRN Reason: ANXIETY Last Admin: 09/06/18 12:04 Dose: 0.5 mg Apixaban (Eliquis*) 5 mg PO BID [facility] Last Admin: 09/12/18 09:36 Dose: 5 mg Bupropion HCl (Wellbutrin Xl *) 150 mg PO DAILY [facility] Last Admin: 09/12/18 09:34 Dose: 150 mg Escitalopram Oxalate (Lexapro *) 10 mg PO DAILY [facility] Last Admin: 09/12/18 09:35 Dose: 10 mg Furosemide (Lasix Iv*) 40 mg IV DAILY [facility] Last Admin: 09/12/18 09:42 Dose: 40 mg Heparin Sodium (Porcine) (Heparin Flush Port (Ivad)) 5 ml FLUSH DAILY [facility]; Protocol Last Admin: 09/12/18 06:14 Dose: 5 ml Anidulafungin 200 mg/ Sodium (Chloride) 260 mls @ 65 mls/hr IVPB .LOADING DOSE x 1 [facility] Last Admin: 09/12/18 13:47 Dose: 65 mls/hr Anidulafungin 100 mg/ Sodium (Chloride) 130 mls @ 65 mls/hr IVPB Q24H [facility] Magnesium Oxide (Magox 400 Tab*) 400 mg PO TID [facility] Last Admin: 09/12/18 13:47 Dose: 400 mg Metoprolol Tartrate (Lopressor Tab*) 50 mg PO BID [facility] Last Admin: 09/12/18 09:36 Dose: 50 mg Metoprolol Tartrate (Lopressor Iv*) 5 mg IV Q6H PRN PRN Reason: TACHYCARDIA Last Admin: 09/07/18 08:42 Dose: 5 mg Ondansetron HCl (Zofran Inj*) 4 mg IV Q4H PRN PRN Reason: NAUSEA/VOMITING Oxycodone HCl (Roxycodone Tab*) 10 mg PO Q6H PRN PRN Reason: pain uncontrolled by prior med Last Admin: 09/07/18 20:59 Dose: 10 mg Oxycodone HCl (Roxycodone Tab*) 5 mg PO Q6H [facility] Last Admin: 09/12/18 12:09 Dose: 5 mg Pantoprazole Sodium (Protonix Tab*) 40 mg PO QAM [facility] Last Admin: 09/12/18 09:36 Dose: 40 mg Potassium Chloride (Klor Con Er Tab*) 40 meq PO DAILY [facility] Last Admin: 09/12/18 09:35 Dose: 40 meq Potassium Chloride (Klor Con Er Tab*) 20 meq PO 1400 [facility] Last Admin: 09/12/18 16:35 Dose: 20 meq Prochlorperazine (Compazine Tab*) 10 mg PO Q6H PRN PRN Reason: NAUSEA Sotalol HCl (Betapace Tab*) 80 mg PO BID [facility] Last Admin: 09/12/18 09:34 Dose: 80 mg Objective Vital Signs: Temp Pulse Resp BP Pulse Ox 98.5 F 66 16 115/54 97 09/12/18 11:03 09/12/18 11:03 09/12/18 16:40 09/12/18 11:03 09/12/18 15:43 Laboratory Results: 09/11/18 05:48 09/12/18 06:15 Total Bilirubin 0.70 mg/dL (0.2-1.0) 09/11/18 05:48 AST 67 U/L (13-39) H 09/11/18 05:48 ALT 52 U/L (7-52) 09/11/18 05:48 Alkaline Phosphatase 157 U/L (34-104) H 09/11/18 05:48 B-Natriuretic Peptide 729 pg/mL (<=100) H 09/08/18 06:32 Total Protein 4.8 g/dL (6.4-8.9) L 09/11/18 05:48 Albumin 2.3 g/dL (3.2-5.2) L 09/11/18 05:48 Globulin 2.5 g/dL (2-4) 09/11/18 05:48 Albumin/Globulin Ratio 0.9 (1-3) L 09/11/18 05:48 Assessment/Plan I saw and examined the patient personally. Appears improved c/w last week despite imaging. I agree with the above recommendations and plans including Sotalol for PAF and electrolyte optimization.
[2018-09-12] MEDS ORDERED: Magnesium Sulfate 2 GM IV* 2 GM/50 ML BAG IVPB ONE (10:04)
--- NOTE | 2018-09-12 10:44 | PN ---
Progress Note - Progress Note Date of Service: 09/12/18 SOAP: Subjective: CC: Pneumonia HPI: Mr. Goetz is a 68 yo male with PMH significant for depression, mantle cell lymphoma, A fib, and GERD; who presented to the hospital with complaints of malaise, fever, chills and cough. Denies fever, chills, cough, ABD pain, urinary symptoms, nausea, vomiting, diarrhea. Reports that shortness of breath and LE edema are improving. Objective: Vital Signs - 8 hr 09/12/18 09/12/18 08:08 09:34 Temperature 97.7 F Pulse Rate 63 Respiratory 20 16 Rate Blood Pressure 132/72 (mmHg) O2 Sat by Pulse 98 Oximetry Physical Exam: General: NAD, sitting up in bed Neurological: Alert and Oriented HEENT: Moist MM, no thrush Cardiovascular: Heart rate regular Respiratory: Lung sounds clear, diminished in bases bilateral Abdominal: Bowel sound present; ABD soft, non tender, non distended Skin: No rash Laboratory Last Values WBC 3.8 10^3/uL (3.5-10.8) 09/11/18 05:48 RBC 3.36 10^6 /uL (4.18-5.48) L 09/11/18 05:48 Hgb 10.6 g/dL (14.0-18.0) L 09/11/18 05:48 Hct 32 % (42-52) L 09/11/18 05:48 MCV 95 fL (80-94) H 09/11/18 05:48 MCH 32 pg (27-31) H 09/11/18 05:48 MCHC 33 g/dL (31-36) 09/11/18 05:48 RDW 15 % (10-15) 09/11/18 05:48 Plt Count 218 10^3/uL (150-450) 09/11/18 05:48 MPV 10.4 fL (7.4-10.4) 09/11/18 05:48 Neut % (Auto) 68.5 % 09/11/18 05:48 Lymph % (Auto) 19.5 % 09/11/18 05:48 Larue % (Auto) 10.5 % 09/11/18 05:48 Eos % (Auto) 0.9 % 09/11/18 05:48 Baso % (Auto) 0.6 % 09/11/18 05:48 Absolute Neuts (auto) 2.6 10^3/ul (1.5-7.7) 09/11/18 05:48 Absolute Lymphs (auto) 0.7 10^3/ul (1.0-4.8) L 09/11/18 05:48 Absolute Monos (auto) 0.4 10^3/ul (0-0.8) 09/11/18 05:48 Absolute Eos (auto) 0.0 10^3/ul (0-0.6) 09/11/18 05:48 Absolute Basos (auto) 0.0 10^3/ul (0-0.2) 09/11/18 05:48 Absolute Nucleated RBC 0.0 10^3/ul 09/11/18 05:48 Immature Gran % 2.0 % (0-9) 09/09/18 07:30 Neutrophils % 73.0 % 09/11/18 05:48 Band Neutrophils % 2.0 % (0-8) 09/09/18 07:30 Lymphocytes % 18.0 % 09/11/18 05:48 Reactive Lymphs % 1.0 % (0-6) 09/07/18 05:52 Monocytes % 8.0 % 09/11/18 05:48 Eosinophils % 1.0 % 09/11/18 05:48 Basophils % 2.0 % 09/08/18 06:32 Nucleated RBC % 0.1 09/11/18 05:48 Normal RBC Morphology Normal (Normal) 09/11/18 05:48 Polychromasia 1+ 09/07/18 05:52 Hypochromasia 1+ 09/07/18 05:52 Hem Pathologist Commnt 09/11/18 05:48 Sodium 139 mmol/L (135-145) 09/12/18 06:15 Potassium 3.9 mmol/L (3.5-5.0) 09/12/18 06:15 Chloride 103 mmol/L (101-111) 09/12/18 06:15 Carbon Dioxide 31 mmol/L (22-32) 09/12/18 06:15 Anion Gap 5 mmol/L (2-11) 09/12/18 06:15 BUN 15 mg/dL (6-24) 09/12/18 06:15 Creatinine 0.70 mg/dL (0.67-1.17) 09/12/18 06:15 Est GFR ( Amer) 134.9 (>60) 09/12/18 06:15 Est GFR (Non-Af Amer) 111.5 (>60) 09/12/18 06:15 BUN/Creatinine Ratio 21.4 (8-20) H 09/12/18 06:15 Glucose 102 mg/dL (70-100) H 09/12/18 06:15 Calcium 7.9 mg/dL (8.6-10.3) L 09/12/18 06:15 Phosphorus 3.1 mg/dL (2.5-5.0) 09/10/18 06:05 Magnesium 1.8 mg/dL (1.9-2.7) L 09/12/18 06:15 Total Bilirubin 0.70 mg/dL (0.2-1.0) 09/11/18 05:48 AST 67 U/L (13-39) H 09/11/18 05:48 ALT 52 U/L (7-52) 09/11/18 05:48 Alkaline Phosphatase 157 U/L (34-104) H 09/11/18 05:48 B-Natriuretic Peptide 729 pg/mL (<=100) H 09/08/18 06:32 Total Protein 4.8 g/dL (6.4-8.9) L 09/11/18 05:48 Albumin 2.3 g/dL (3.2-5.2) L 09/11/18 05:48 Globulin 2.5 g/dL (2-4) 09/11/18 05:48 Albumin/Globulin Ratio 0.9 (1-3) L 09/11/18 05:48 Cryptococcus Ag Negative (Negative) 09/04/18 05:35 Influenza A (Rapid) Negative (Negative) 09/03/18 22:06 Influenza B (Rapid) Negative (Negative) 09/03/18 22:06 Microbiology 09/05/18 04:41 Gram Stain - Final Sputum Sputum Culture - Final MOLD Tita Albicans 09/04/18 05:19 Legionella Urinary Antigen - Final Urine Negative Legionella Antigen Streptococcus pneumoniae Ag Screen - Final Negative S. pneumo Antigen Assessment: 1. Community acquired pneumonia. This is in the setting of an immunocompromised state. Chest CT with bibasilar infiltrates and scattered infiltrates on the right lung. Cryptococcus antigen negative. Urine antigens for legionella and s. pneumoniae negative. Sputum culture with mold and yeast, unclear significance as he is improving, so feel these are nonpathogens. Afebrile and no leukocytosis. Repeat chest xray from 09/11 "progressive consolidation in the right upper lobe with increase infiltrates in the left upper lobe and right upper lobe". Last xray without significant difference when compared to previous chest xray and chest CT. 2. Mantle cell lymphoma. Treated with Rituxan, on hold per Oncology. Plan: Completed 7 day course of Azithromycin. Continue Ceftriaxone, day 10 discontinue after todays dose. Would not empirically treat with an antifungal medication as patient is taking Sotolol, due to concern for drug interaction. Recommendations have been discussed with Dr. Bhatia.
[2018-09-12] MEDS ORDERED: Anidulafungin* 100 MG in NS 0.9% 100 ML* 100 ML IVPB SCH (13:00)
[2018-09-12] MEDS ORDERED: Anidulafungin* 200 MG in NS 0.9% 250 ML* 200 ML IVPB SCH (13:00)
[2018-09-12] MEDS: Potassium Chlor TAB* 20 MEQ TAB.ER PO SCH (16:35)
[2018-09-12] MEDS: oxyCODONE TAB* 5 MG TAB PO PRN (21:29)
[2018-09-13] MEDS: oxyCODONE TAB* 5 MG TAB PO SCH ×3 (05:47→18:13)
[2018-09-13] MEDS: Potassium Chlor TAB* 10 MEQ TAB.ER PO SCH (09:15)
[2018-09-13] MEDS: Magnesium Oxide TAB* 400 MG PO SCH ×3 (09:20→20:28)
[2018-09-13] MEDS: Pantoprazole TAB * 40 MG TAB PO SCH (09:20)
[2018-09-13] MEDS: Metoprolol Tartrate TAB* 50 mg PO SCH ×2 (09:20→20:28)
[2018-09-13] MEDS: Apixaban* 5 MG TAB PO SCH ×2 (09:20→20:28)
[2018-09-13] MEDS: Furosemide IV* 10 MG/ML VIAL (40 MG) IV SCH (09:22)
[2018-09-13] MEDS: Sotalol TAB* 80 MG PO SCH ×2 (09:45→20:35)
[2018-09-13] MEDS: Escitalopram * 10 MG TAB PO SCH (09:45)
[2018-09-13] MEDS: BuPROPion XL* 150 MG TAB.XL PO SCH (09:45)
[2018-09-13] MEDS: Potassium Chlor TAB* 20 MEQ TAB.ER PO SCH (13:26)
[2018-09-13] MEDS: Anidulafungin* 100 MG in NS 0.9% 100 ML* 100 ML IVPB SCH (13:30)
[2018-09-14] MEDS: oxyCODONE TAB* 5 MG TAB PO SCH ×4 (00:52→17:48)
[2018-09-14] MEDS: BuPROPion XL* 150 MG TAB.XL PO SCH (08:17)
[2018-09-14] MEDS: Sotalol TAB* 80 MG PO SCH ×2 (08:17→21:17)
[2018-09-14] MEDS: Escitalopram * 10 MG TAB PO SCH (08:17)
[2018-09-14] MEDS: Metoprolol Tartrate TAB* 50 mg PO SCH ×2 (08:17→21:16)
[2018-09-14] MEDS: Potassium Chlor TAB* 10 MEQ TAB.ER PO SCH (08:18)
[2018-09-14] MEDS: Apixaban* 5 MG TAB PO SCH ×2 (08:18→21:16)
[2018-09-14] MEDS: Magnesium Oxide TAB* 400 MG PO SCH ×3 (08:18→21:16)
[2018-09-14] MEDS: Pantoprazole TAB * 40 MG TAB PO SCH (08:18)
[2018-09-14] MEDS: Furosemide IV* 10 MG/ML VIAL (40 MG) IV SCH (08:19)
[2018-09-14 08:22] LABS: BUN/Creatinine Ratio 19.2 (8-20); Calcium 7.6 mg/dL (8.6-10.3); EGFR African American 119.1 (>60); EGFR Non-African American 98.4 (>60); Magnesium 1.9 mg/dL (1.9-2.7)
[2018-09-14] MEDS: Potassium Chlor TAB* 20 MEQ TAB.ER PO SCH (12:56)
[2018-09-14] MEDS: Anidulafungin* 100 MG in NS 0.9% 100 ML* 100 ML IVPB SCH (13:23)
--- NOTE | 2018-09-14 21:46 | PN ---
Progress Note - Progress Note Date of Service: 09/14/18 SOAP: Subjective: [Reports feeling better today. He was able to walk a considerable distance with PT today. Still requiring ~4L to maintain sats in the high 80s/low 90s with activity. At rest avg sat is in the high 90s. No cough. Remains in NSR.] Objective: [ Vital Signs: Temp Pulse Resp BP Pulse Ox 97.9 F 64 20 119/64 96 09/14/18 15:31 09/14/18 15:31 09/14/18 21:15 09/14/18 15:31 09/14/18 16:00 Alprazolam (Xanax Tab*) 0.5 mg PO TID PRN PRN Reason: ANXIETY Last Admin: 09/06/18 12:04 Dose: 0.5 mg Apixaban (Eliquis*) 5 mg PO BID [facility] Last Admin: 09/14/18 21:16 Dose: 5 mg Bupropion HCl (Wellbutrin Xl *) 150 mg PO DAILY [facility] Last Admin: 09/14/18 08:17 Dose: 150 mg Escitalopram Oxalate (Lexapro *) 10 mg PO DAILY [facility] Last Admin: 09/14/18 08:17 Dose: 10 mg Furosemide (Lasix Iv*) 40 mg IV DAILY [facility] Last Admin: 09/14/18 08:19 Dose: 40 mg Heparin Sodium (Porcine) (Heparin Flush Port (Ivad)) 5 ml FLUSH DAILY [facility]; Protocol Last Admin: 09/14/18 16:38 Dose: 5 ml Anidulafungin 100 mg/ Sodium (Chloride) 130 mls @ 65 mls/hr IVPB Q24H [facility] Last Admin: 09/14/18 13:23 Dose: 65 mls/hr Magnesium Oxide (Magox 400 Tab*) 400 mg PO TID [facility] Last Admin: 09/14/18 21:16 Dose: 400 mg Metoprolol Tartrate (Lopressor Tab*) 50 mg PO BID [facility] Last Admin: 09/14/18 21:16 Dose: 50 mg Metoprolol Tartrate (Lopressor Iv*) 5 mg IV Q6H PRN PRN Reason: TACHYCARDIA Last Admin: 09/07/18 08:42 Dose: 5 mg Ondansetron HCl (Zofran Inj*) 4 mg IV Q4H PRN PRN Reason: NAUSEA/VOMITING Oxycodone HCl (Roxycodone Tab*) 10 mg PO Q6H PRN PRN Reason: pain uncontrolled by prior med Last Admin: 09/12/18 21:29 Dose: 10 mg Oxycodone HCl (Roxycodone Tab*) 5 mg PO Q6H [facility] Last Admin: 09/14/18 17:48 Dose: 5 mg Pantoprazole Sodium (Protonix Tab*) 40 mg PO QAM [facility] Last Admin: 09/14/18 08:18 Dose: 40 mg Potassium Chloride (Klor Con Er Tab*) 40 meq PO DAILY [facility] Last Admin: 09/14/18 08:18 Dose: 40 meq Potassium Chloride (Klor Con Er Tab*) 20 meq PO 1400 [facility] Last Admin: 09/14/18 12:56 Dose: 20 meq Prochlorperazine (Compazine Tab*) 10 mg PO Q6H PRN PRN Reason: NAUSEA Sotalol HCl (Betapace Tab*) 80 mg PO BID [facility] Last Admin: 09/14/18 21:17 Dose: 80 mg Laboratory Results - last 24 hr 09/14/18 09/14/18 07:35 12:02 Sodium 138 Potassium 4.0 Chloride 102 Carbon Dioxide 32 Anion Gap 4 BUN 15 Creatinine 0.78 Est GFR ( Amer) 119.1 Est GFR (Non-Af Amer) 98.4 BUN/Creatinine Ratio 19.2 Glucose 89 POC Glucose (mg/dL) 129 H Calcium 7.6 L Magnesium 1.9 Exam: Gen: relatively well appearing 68 yo male in NAD CV: RRR, no m/r/g Resp: somewhat diminished lung sounds but no w/c/r Abd: soft, nonTTP Ext: no edema Assessment: [This is a 68 yo male with mantle cell lymphoma treated by Dr Bhatia with imbruvica with recent h/o malaise and fevers admitted with bilateral PNA. Hospital course c/b rapid afib now NSR after 3 cardioversions. Sputum grew mold , now identified as aspergillus and yuli now presumed to be a pathogen based on radiographic progression and continued high O2 needs. Plan: [1. PNA - completed full course of ceftriaxone and azithromycin - cont andulifungin per ID for presumed fungal PNA, azoles are contraindicated in combination with sotalol due to increased risk of QTC prolongation/arrythmia - will require a minimum of 3-4 weeks of antifungal therapy, but likely longer 2. Afib - now NSR s/p 3 cardioversions - cont sotalol and metoprolol - cont eliquis - cont telemetry - keep K >4 and Mg >2 - EF ~45% - now appears euvolemic, can switch to oral diuretics 3. Mantle cell lymphoma - holding imbruvica, remains EDGAR dispo: cont antifungals, consider dc with daily outpatient infusions Monday if he remains stable over the weekend
[2018-09-15] MEDS: oxyCODONE TAB* 5 MG TAB PO SCH ×5 (00:22→23:47)
[2018-09-15 07:45] LABS: Hematocrit 31 % (42-52); Hemoglobin 10.5 g/dL (14.0-18.0); Mean Corpuscular HGB Conc 34 g/dL (31-36); Mean Corpuscular Hemoglobin 32 pg (27-31); Mean Corpuscular Volume 95 fL (80-94); Platelet Count 200 10^3/uL (150-450); Red Blood Count 3.32 10^6 /uL (4.18-5.48); Red Cell Distribution Width 15 % (10-15); White Blood Count 2.9 10^3/uL (3.5-10.8)
[2018-09-15 08:01] LABS: BUN/Creatinine Ratio 18.1 (8-20); Calcium 7.7 mg/dL (8.6-10.3); EGFR African American 110.8 (>60); EGFR Non-African American 91.6 (>60); Potassium 4.1 mmol/L (3.5-5.0)
[2018-09-15 08:21] LABS: ABS Eosinophils 0.1 10^3/ul (0-0.6); ABS Lymphocytes 0.7 10^3/ul (1.0-4.8); ABS Monocytes 0.4 10^3/ul (0-0.8); ABS Neutrophils 1.6 10^3/ul (1.5-7.7); Eosinophil % 3.3 %; Lymphocyte % 25.7 %; Nucleated Red Blood Cells % 0.1
[2018-09-15] MEDS: Potassium Chlor TAB* 10 MEQ TAB.ER PO SCH (08:30)
[2018-09-15] MEDS: Apixaban* 5 MG TAB PO SCH ×2 (08:30→21:25)
[2018-09-15] MEDS: BuPROPion XL* 150 MG TAB.XL PO SCH (08:30)
[2018-09-15] MEDS: Sotalol TAB* 80 MG PO SCH ×2 (08:30→21:23)
[2018-09-15] MEDS: Escitalopram * 10 MG TAB PO SCH (08:31)
[2018-09-15] MEDS: Metoprolol Tartrate TAB* 50 mg PO SCH ×2 (08:31→21:24)
[2018-09-15] MEDS: Magnesium Oxide TAB* 400 MG PO SCH ×3 (08:31→21:23)
[2018-09-15] MEDS: Furosemide IV* 10 MG/ML VIAL (40 MG) IV SCH (08:32)
[2018-09-15] MEDS: Pantoprazole TAB * 40 MG TAB PO SCH (08:32)
[2018-09-15] MEDS: Anidulafungin* 100 MG in NS 0.9% 100 ML* 100 ML IVPB SCH (13:55)
[2018-09-15] MEDS: Potassium Chlor TAB* 20 MEQ TAB.ER PO SCH (13:56)
[2018-09-15] MEDS: oxyCODONE TAB* 5 MG TAB PO PRN (21:24)
[2018-09-16] MEDS: oxyCODONE TAB* 5 MG TAB PO SCH ×3 (05:55→17:31)
[2018-09-16] MEDS: Magnesium Oxide TAB* 400 MG PO SCH ×3 (09:43→21:47)
[2018-09-16] MEDS: Metoprolol Tartrate TAB* 50 mg PO SCH ×2 (09:43→21:48)
[2018-09-16] MEDS: Apixaban* 5 MG TAB PO SCH ×2 (09:43→21:48)
[2018-09-16] MEDS: BuPROPion XL* 150 MG TAB.XL PO SCH (09:43)
[2018-09-16] MEDS: Potassium Chlor TAB* 10 MEQ TAB.ER PO SCH (09:43)
[2018-09-16] MEDS: Escitalopram * 10 MG TAB PO SCH (09:43)
[2018-09-16] MEDS: Sotalol TAB* 80 MG PO SCH ×2 (09:43→21:47)
[2018-09-16] MEDS: Pantoprazole TAB * 40 MG TAB PO SCH (09:43)
[2018-09-16] MEDS: Furosemide IV* 10 MG/ML VIAL (40 MG) IV SCH (09:50)
[2018-09-16] MEDS: Potassium Chlor TAB* 20 MEQ TAB.ER PO SCH (13:47)
[2018-09-16] MEDS: Anidulafungin* 100 MG in NS 0.9% 100 ML* 100 ML IVPB SCH (13:48)
[2018-09-17] MEDS: oxyCODONE TAB* 5 MG TAB PO SCH ×3 (00:41→12:31)
[2018-09-17] MEDS: Furosemide IV* 10 MG/ML VIAL (40 MG) IV SCH (08:51)
[2018-09-17] MEDS: Pantoprazole TAB * 40 MG TAB PO SCH (08:51)
[2018-09-17] MEDS: Metoprolol Tartrate TAB* 50 mg PO SCH (08:51)
[2018-09-17] MEDS: Sotalol TAB* 80 MG PO SCH (08:52)
[2018-09-17] MEDS: Magnesium Oxide TAB* 400 MG PO SCH ×2 (08:52→15:04)
[2018-09-17] MEDS: BuPROPion XL* 150 MG TAB.XL PO SCH (08:52)
[2018-09-17] MEDS: Apixaban* 5 MG TAB PO SCH (08:52)
[2018-09-17] MEDS: Potassium Chlor TAB* 10 MEQ TAB.ER PO SCH (08:52)
[2018-09-17] MEDS: Escitalopram * 10 MG TAB PO SCH (08:53)
--- NOTE | 2018-09-17 11:27 | DS ---
- Discharge Summary Admission Date: 09/03/18 Discharge Date: 09/17/18 Discharge Diagnosis: 1. Aspergillus Pneumonia: improving, home on IV anti-fungal 2. A.Fib: s/p cardioversion, stable on anti-arrhythmias 3. Mantle Cell Lymphoma: Imbruvica on hold, stable by imaging 4. Squamous cell Lung cancer: s/p lobectomy, no recurrence on imaging Discharge Medications: Medication Instructions Recorded Confirmed Type Omeprazole CAP (NF) [Prilosec CAP* 20 mg PO QAM 07/04/12 09/03/18 History 20 MG] ALPRAZolam TAB* [Xanax TAB*] 0.5 mg PO TID PRN #15 tab MDD 1.5 07/26/16 Rx mg Metoprolol Tartrate TAB* 50 mg PO BID 10/14/17 09/03/18 History [Lopressor TAB*] Wellbutrin TAB* 150 mg PO DAILY 10/14/17 09/03/18 History Apixaban* [Eliquis*] 5 mg PO BID 09/03/18 09/03/18 History Escitalopram * [Lexapro *] 10 mg PO DAILY 09/03/18 09/03/18 History Prochlorperazine TAB* [Compazine 10 mg PO Q6H PRN 09/03/18 09/03/18 History Tab*] Furosemide TAB* [Lasix TAB*] 40 mg PO DAILY #30 tab 09/17/18 Rx Magnesium Oxide TAB* [MagOx 400 400 mg PO TID #90 tab 09/17/18 Rx TAB*] Potassium Chlor TAB* [Potassium 40 meq PO 1400 #30 tab.er 09/17/18 Rx Chlor TAB 20 MEQ*] Sotalol TAB* [Betapace 80 MG TAB*] 80 mg PO BID #30 tab 09/17/18 Rx oxyCODONE TAB* [Roxycodone TAB 5 5 - 10 mg PO Q6HR PRN #0 MDD 40 mg 09/17/18 Rx mg*] Andulafungin 100 mg IV q24 hours via Port Disposition: Home Condition: Stable Diet: Heart Healthy Activity: As tolerated Hospital Course: Please see admission note for full H&P, however briefly Mr. Goetz is well known to our service due to his diagnosis of lung cancer (EDGAR) and mantle cell lymphoma treated with Imbruvica. Mr. Goetz was seen in our clinic on to follow-up a CT that was obtained to evaluate his lymphoma due to several weeks of vague complaints of weakness and feeling poorly. This revealed a bibasilar pneumonia and he was admitted for IV antibiotics. On admission Mr. Goetz was found to have tachycardia that was felt to be A.Fib with RVR and IV metropolol was administered. The following day Dr. Blackwood of cardiology saw the patient in consultation. Mr. Goetz was also seen by Infectious disease on 09/04 due to his long standing immunosuppression. On 09/05/18 he was cardioverted successfully. Unfortunately he transitioned back in A.Fib and a second attempt at cardioversion was unsuccessful on 09/07/18. He was started on Sotalol. On 09/08/18 Mr. Goetz had an echocardiogram with EF 45% (slightly improved from prior) with a BNP of 729. On 09/11 he had a successful cardioversion and has remained in sinus since. Work-up for his pneumonia was negative for influenza, cryptococcus antigen, and urine leionella and s.pneumo antigens. On 09/12 it was felt that Mr. Goetz was clinically improving and his abx. were discontinued, however a repeat Chest x-ray from revealed worsening infiltrates and he had difficulty ambulating due to SOB therefore IV anti-fungals were started as his sputum from admission revealing mold and yeast (initially felt to not be clinically significant). On the evening of 09/13 fungal culture results revealed Aspergillus in the sputum. Mr. Goetz has clinically improved since, however he will require at least 4 weeks of IV Anidulafungin (azoles interact with sotalol) due to his Aspergillus pneumonia. During his admission Mr. Goetz has required supplemental O2 due to a combination of his fungal pneumonia, history of lung cancer s/p lobectomy, and underlying chronic cardiac disease. He is unable to maintain his O2 SATs >88% on RA and will therefore require joint terminal attack controller O2. Mr. Goetz is clinically stable for discharge home with plan for IV antibiotics. He will follow-up with his primary as needed, Infectious Disease in approximately 2 weeks, Hem/Onc in 2 weeks, and cardiology in approximately 1 month. Plan of care was reviewed at length with all questions answered.
[2018-09-17] MEDS: Anidulafungin* 100 MG in NS 0.9% 100 ML* 100 ML IVPB SCH (13:36)
[2018-09-17] MEDS: Potassium Chlor TAB* 20 MEQ TAB.ER PO SCH (15:04)
[2018-09-17 17:48] VITALS: BP 108/60
== END 2018-09-17 18:15 | disposition home or self-care (01) | DRG 868 ==
LOC: MED 16:12 → MEDTELE 19:49
PROVIDERS: ADMIT Internal Medicine Hematology & Oncology; ATTEND Internal Medicine Hematology & Oncology
PROC: 5A2204Z Restoration of Cardiac Rhythm, Single (ICD-10-PCS; principal; 2018-09-05 07:00)
PROC: 5A2204Z Restoration of Cardiac Rhythm, Single (ICD-10-PCS; 2018-09-07)
DX: B44.9 Aspergillosis, unspecified (principal); C83.10 Mantle cell lymphoma, unspecified site; I47.1 Supraventricular tachycardia; I48.92 Unspecified atrial flutter; G60.9 Hereditary and idiopathic neuropathy, unspecified; E78.5 Hyperlipidemia, unspecified; Z96.659 Presence of unspecified artificial knee joint; F10.10 Alcohol abuse, uncomplicated; G89.29 Other chronic pain; M54.9 Dorsalgia, unspecified; Z66 Do not resuscitate; E66.3 Overweight; I50.9 Heart failure, unspecified; I11.0 Hypertensive heart disease with heart failure; R09.02 Hypoxemia; E83.42 Hypomagnesemia; E87.6 Hypokalemia; F32.9 Major depressive disorder, single episode, unspecified; K21.9 Gastro-esophageal reflux disease without esophagitis; I48.0 Paroxysmal atrial fibrillation; Z85.118 Personal history of other malignant neoplasm of bronchus and lung; Z79.01 Long term (current) use of anticoagulants; Z99.81 Dependence on supplemental oxygen; Z87.891 Personal history of nicotine dependence; Z86.19 Personal history of other infectious and parasitic diseases; Z90.49 Acquired absence of other specified parts of digestive tract; Z68.31 Body mass index [BMI] 31.0-31.9, adult; Z92.21 Personal history of antineoplastic chemotherapy; Z80.9 Family history of malignant neoplasm, unspecified
CPT/HCPCS: 36415; 71046; 80048; 80053; 83735; 83880; 84100; 85025; 85060; 87070; 87106; 87107; 87205; 87899; 92960; 93005; 93306; 99156; 99157; 99232; 99239; A9270-GY; G8978-GP-CI; G8979-GP-CH; J0348; J0456; J0696; J1642; J1940; J2250; J2310; J3010; J3475; J3480; J3490; J7512

== ENCOUNTER 2018-10-13 14:27 | Inpatient (IN) | payer MEDICARE ==
--- NOTE | 2018-10-13 14:37 | ED ---
Shortness of Breath - HPI Summary HPI Summary: This patient is a 68 year old male presenting to [facility] with a chief complaint of shortness of breath, fever, and chills over the last 5 days. The patient was seen here yesterday for a sore throat and his blood cultures were positive for gram-negative bacterial growth so he was called back in. The patient is currently being treated for lymphoma and was admitted for bilateral fungal pneumonia 2 months ago. 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 The patient reports cough. He reports chronic lower back pain and rates it 7/10 in severity. Medications reviewed. Allergies noted. - History of Current Complaint Time Seen by Provider: 10/13/18 14:31 Hx Obtained From: Patient Onset/Duration: Lasting Days Associated Signs & Symptoms: Cough (Productive), Fever, Chills - Allergy/Home Medications Allergies/Adverse Reactions: Allergies Allergy/AdvReac Type Severity Reaction Status Date / Time No Known Allergies Allergy Verified 07/27/18 12:26 PMH/Surg Hx/FS Hx/Imm Hx Endocrine/Hematology History: Reports: Hx Thyroid Disease - HYPO, Other Endocrine/Hematological Disorders - Hx of nadirs, takes immune system booster Denies: Hx Diabetes, Hx Systemic Lupus Erythematosus Cardiovascular History: Reports: Hx Hypertension, Other Cardiovascular Problems/ Disorders - HX HEART PALPITATIONS Denies: Hx Angina, Hx Congestive Heart Failure, Hx Coronary Artery Disease, Hx Myocardial Infarction, Hx Pacemaker/ICD Respiratory History: Reports: Hx Asthma, Hx Chronic Obstructive Pulmonary Disease (COPD), Hx Lung Cancer - left upper lobectomy 07/30/15, Other Respiratory Problems/Disorders - HX OF RIGHT PLEURAL EFFUSION (02/05/2015) GI History: Reports: Hx Gastroesophageal Reflux Disease Denies: Hx Ulcer History: Reports: Other Problems/Disorders - BENIGN URETERAL TUMOR , frequent UTIs Denies: Hx Dialysis, Hx Renal Disease Musculoskeletal History: Reports: Hx Arthritis, Hx Back Problems - Chronic back pain x30 years Denies: Hx Rheumatoid Arthritis Sensory History: Reports: Hx Contacts or Glasses Denies: Hx Hearing Aid Opthamlomology History: Reports: Hx Contacts or Glasses Neurological History: Reports: Other Neuro Impairments/Disorders - IDIOPATHIC PERIPHERAL NEUROPATHY Psychiatric History: Reports: Hx Anxiety, Hx Panic Disorder - ANXIETY-DOES NOT INTERFERE WITH MRI - Cancer History Cancer Type, Location and Year: Lung CA 2014,. Lymphoma x2 Hx Chemotherapy: Yes - Surgical History Surgery Procedure, Year, and Place: KIDNEY SURGERY - FIBROUS (benign) [place] [facility] [place]. 2009 LAPAROSCOPIC CHOLECYST[place]OMY, [facility] [place]. RIGHT KNEE ARTHROSCOPY X 2, [facility] [place]. 2013 RIGHT KNEE TOTAL REPLACEMENT, [facility] [place]. 02/05/2015 BIOPSY RIGHT AXILLA ADENOPATHY, RIGHT THORACENTESIS, [facility] [place]. POWER PORT 12/15. Left Upper Lobectomy 07/30/15 Hx Anesthesia Reactions: No Infectious Disease History: Reports: Hx Hepatitis - + HEP C 2001 Denies: Hx Human Immunodeficiency Virus (HIV) - Family History Known Family History: Positive: Cardiac Disease - Mother of CHF, Other - Mother, father and brother had cancer - Social History Alcohol Use: None Alcohol Amount: 1-2/WEEK Hx Substance Use: No Substance Use Type: Reports: None Substance Use Comment - Amount & Last Used: HX OF DRUG ABUSE- NONE FOR 15 YRS Hx Tobacco Use: Yes Smoking Status (MU): Former Smoker Type: Cigarettes Amount Used/How Often: 1PPD 50 YRS Length of Time of Smoking/Using Tobacco: 52 YRS Have You Smoked in the Last Year: No Review of Systems Positive: Fever, Chills Positive: Sore Throat Positive: Shortness Of Breath, Cough All Other Systems Reviewed And Are Negative: Yes Physical Exam - Summary Physical Exam Summary: Constitutional: Well-developed, Well-nourished, Alert. (-) Distressed Skin: Warm, Dry HENT: Normocephalic; Atraumatic. Laryngitis Eyes: Conjunctiva normal Neck: Musculoskeletal ROM normal neck. (-) JVD, (-) Stridor, (-) Tracheal deviation Cardio: Rhythm regular, Tachycardic, Heart sounds normal; Intact distal pulses; The pedal pulses are 2+ and symmetric. Radial pulses are 2+ and symmetric. (-) Murmur Pulmonary/Chest wall: Rhonchi at the bilateral bases. 89% spO2 on RA. Abd: Soft, (-) tenderness, (-) Distension, (-) Guarding, (-) Rebound Musculoskeletal: (-) Edema Lymph: (-) Cervical adenopathy Neuro: Alert, Oriented x3 Psych: Mood and affect Normal Triage Information Reviewed: Yes Vital Signs On Initial Exam: Temp Pulse Resp BP Pulse Ox 99.0 F 118 26 117/80 89 10/13/18 14:37 10/13/18 14:37 10/13/18 14:37 10/13/18 14:37 10/13/18 14:37 Vital Signs Reviewed: Yes Diagnostics - Laboratory Result Diagrams: 10/13/18 14:54 10/13/18 14:54 Lab Statement: Any lab studies that have been ordered have been reviewed, and results considered in the medical decision making process. - EKG 1445 Cardiac Rate: Tachycardia EKG Rhythm: Sinus Tachycardia Summary of EKG Findings: ST Depressions in V2-V6. Course/Dx - Course Course Of Treatment: Patient is here after being called back for having positive blood culture. Patient seen by myself last night where cultures were sent. Patient had gram-positive bacilli in this culture. Upon arrival here, patient is tachycardic and borderline hypoxic. Patient was normotensive while in the emergency department. Patient had blood work performed which showed an ANC of 0.6. Patient had an initial lactate of 5.1. Patient is given a 30 cc/ kg bolus of fluids. Patient is given cefepime empirically. Patient was admitted to the oncology service. - Diagnoses Provider Diagnoses: Sepsis, Hypoxemia, Laryngitis, Cough, SOB (shortness of breath) - Physician Notifications Discussed Care of Patient With: Denise Ma - Oncology Time Discussed With Above Provider: 15:35 Instructed by Provider To: Admit As Inpatient Discharge ED - Sign-Out/Discharge Documenting (check all that apply): Patient Departure - Admission Patient Received Moderate/Deep Sedation with Procedure: No - Discharge Plan Condition: Stable Disposition: ADMITTED TO [facility] - Billing Disposition and Condition Condition: STABLE Disposition: Admitted to [facility] - Attestation Statements Document Initiated by Grayson: Yes Documenting Scribe: Eliceo Masterson Provider For Whom Grayson is Documenting (Include Credential): Casey Lindsey MD Scribe Attestation: Eliceo Muñiz, scribed for Casey Lindsey MD on 10/13/18 at 2102. Scribe Documentation Reviewed: Yes Provider Attestation: The documentation as recorded by the Eliceo villanueva accurately reflects the service I personally performed and the decisions made by me, Casey Lindsey MD Status of Scribe Document: Viewed
[2018-10-13] MEDS ORDERED: Cefepime(*) 2 GM in NS 0.9% 50 ML* 50 ML IVPB ONE (14:50)
[2018-10-13] MEDS ORDERED: Cefepime 2 GM in Dextrose(*) 2 GM/50 ML BAG IV ONE (15:04)
[2018-10-13 15:09] LABS: Hematocrit 41 % (42-52); Hemoglobin 13.7 g/dL (14.0-18.0); Mean Corpuscular HGB Conc 34 g/dL (31-36); Mean Corpuscular Hemoglobin 31 pg (27-31); Mean Corpuscular Volume 93 fL (80-94); Mean Platelet Volume 10.2 fL (7.4-10.4); Platelet Count 72 10^3/uL (150-450); Red Blood Count 4.38 10^6 /uL (4.18-5.48); Red Cell Distribution Width 16 % (10-15); White Blood Count 2.1 10^3/uL (3.5-10.8)
[2018-10-13 15:21] LABS: ALT 12 U/L (7-52); AST 26 U/L (13-39); Albumin 3.3 g/dL (3.2-5.2); Albumin/Globulin Ratio 1.1 (1-3); Alkaline Phosphatase 114 U/L (34-104); Anion Gap 14 mmol/L (2-11); BUN/Creatinine Ratio 15.9 (8-20); Blood Urea Nitrogen 21 mg/dL (6-24); CO2 Carbon Dioxide 23 mmol/L (22-32); Chloride 96 mmol/L (101-111); EGFR African American 64.9 (>60); EGFR Non-African American 53.6 (>60); Globulin 3.1 g/dL (2-4); Glucose 129 mg/dL (70-100); Potassium 3.8 mmol/L (3.5-5.0); Sodium 133 mmol/L (135-145); Total Protein 6.4 g/dL (6.4-8.9)
[2018-10-13 15:28] LABS: Troponin I 0.04 ng/mL (<0.04)
[2018-10-13] MEDS ORDERED: NS 0.9% 1000 ML** 1,000 ML IV ONE ×3 (15:31→19:50)
--- NOTE | 2018-10-13 16:19 | ADMNOTE ---
Admission Chief Complaint: called back to ER for + blood cultures History of Present Illness: Of note Milton is a VERY vague historian so most of this detail comes from his chart. He has a history of both squamous cell lung cancer (currently EDGAR) and mantle cell lymphoma currently on imbruvica presenting with sore throat, hoarse voice and fevers. He was recently admitted to [facility] in August for what ultimately was diagnosed as an aspergillus PNA which is being treated with Andulifungin IV at home. He was seen in our office on 10/05 and apparently looked and felt well at that time. His imbruvica was resumed. He was apparently seen in the office by Dr. Voss on Monday or and was doing well at that time. He came to the ER yesterday and was able to give a good history to the ER doctor ( though is unable to provide this to me now). He told Dr. Lindsey that night he redeveloped fevers and laryngitis symptoms without a clear sore throat , just very scratchy voice. In the ER he was febrile but not neutropenic with stable labs and CT of chest with inflammatory nodules but what appeared to be clearing PNA. Dr. Voss was contacted and he recommended oral augmentin. He got one dose of this in the ER and went home but apparently has not taken any more "I have been out of it". His blood cultures came back positive for gram negative bacilli and so he was called and instructed to come back to the hospital. Currently he is febrile, tachycardic (to the 110s), neutropenic (ANC 600) and has a lactic acid of 5.4. He is getting fluid challenged per sepsis protocol and has received cefepime. Allergies/Medications Medication: Home Medications Medication Instructions Recorded Confirmed Type Omeprazole CAP (NF) [Prilosec CAP* 20 mg PO QAM 07/04/12 10/12/18 History 20 MG] ALPRAZolam TAB* [Xanax TAB*] 0.5 mg PO TID PRN #15 tab MDD 1.5 07/26/16 Rx mg Metoprolol Tartrate TAB* 50 mg PO BID 10/14/17 10/12/18 History [Lopressor TAB*] Apixaban* [Eliquis*] 5 mg PO BID 09/03/18 10/12/18 History Escitalopram * [Lexapro *] 10 mg PO DAILY 09/03/18 10/12/18 History Prochlorperazine TAB* [Compazine 10 mg PO Q6H PRN 09/03/18 10/12/18 History Tab*] Furosemide TAB* [Lasix TAB*] 40 mg PO DAILY #30 tab 09/17/18 10/12/18 Rx Magnesium Oxide TAB* [MagOx 400 400 mg PO TID #90 tab 09/17/18 10/12/18 Rx TAB*] Potassium Chlor TAB* [Potassium 40 meq PO 1400 #30 tab.er 09/17/18 10/12/18 Rx Chlor TAB 20 MEQ*] Sotalol TAB* [Betapace 80 MG TAB*] 80 mg PO BID #30 tab 09/17/18 10/12/18 Rx oxyCODONE TAB* [Roxycodone TAB 5 5 - 10 mg PO Q6HR PRN #0 MDD 40 mg 09/17/18 Rx mg*] Ibrutinib [Imbruvica] 560 mg PO DAILY 10/12/18 10/12/18 History buPROPion SR TAB* [Wellbutrin SR 150 mg PO DAILY 10/12/18 10/12/18 History TAB*] andulifungin IV 100 mg daily Allergies/Adverse Reactions: Allergies Allergy/AdvReac Type Severity Reaction Status Date / Time No Known Allergies Allergy Verified 07/27/18 12:26 History - Past Medical History Other History: HTN. afib sp ablation. hyperlipidemia. ureteral tumor removal. lobectomy. cholecystectomy. autoimmune neuropathy. remote hepatitis C - Family History Other Family History: mother breast cancer. father "cancer". brother lung cancer - Social History Other Social History: per chart review, history of heavy alcohol use and abuse, remote IV drug use, quit smoking 4 years ago. lives alone per patient Review of Systems - Review of Systems General Comments: vague historian but reports just feeling "out of it" and "terrible". has a scratchy throat but denies pain on swallowing. no N/V/D or headaches. + fevers. +cough, no change from previous several weeks. +mild SOB on exertion, again no change Physical Exam - Physical Exam Physical Examination: Vital Signs Temp Pulse Resp BP Pulse Ox 99.0 F 118 26 129/76 92 10/13/18 14:37 10/13/18 14:44 10/13/18 16:07 10/13/18 16:07 10/13/18 14:51 lying flat in nad hoarse voice dry OP no erythema diffuse rhonchi no wheeze tachy but regular soft nt +bs no le edema port right upper chest wall A+O x 3, but clearly vague on details grossly nonfocal neurological exam, did not ambulate no MARGE no rash Results - Lab Results Lab Results: 10/13/18 10/13/18 10/13/18 14:54 14:54 14:54 WBC 2.1 L RBC 4.38 Hgb 13.7 L Hct 41 L MCV 93 MCH 31 MCHC 34 RDW 16 H Plt Count 72 L MPV 10.2 Neut % (Auto) Not Reportable Lymph % (Auto) Not Reportable Dewitt % (Auto) Not Reportable Eos % (Auto) Not Reportable Baso % (Auto) Not Reportable Absolute Neuts (auto) Not Reportable Absolute Lymphs (auto) Not Reportable Absolute Monos (auto) Not Reportable Absolute Eos (auto) Not Reportable Absolute Basos (auto) Not Reportable Absolute Nucleated RBC Not Reportable Immature Gran % 4.0 Neutrophils % 24.0 Band Neutrophils % 2.0 Lymphocytes % 43.0 Monocytes % 29.0 Metamyelocytes % 1.0 Myelocytes % 1.0 Nucleated RBC % Not Reportable Abs Neuts (Manual) 0.6 L* Abs Lymphs (Manual) 0.9 L Abs Monocytes (Manual) 0.6 Normal RBC Morphology Normal Sodium 133 L Potassium 3.8 Chloride 96 L Carbon Dioxide 23 Anion Gap 14 H BUN 21 Creatinine 1.32 H Est GFR ( Amer) 64.9 Est GFR (Non-Af Amer) 53.6 BUN/Creatinine Ratio 15.9 Glucose 129 H Lactic Acid 5.4 H* Calcium 9.0 Total Bilirubin 1.30 H AST 26 ALT 12 Alkaline Phosphatase 114 H Troponin I 0.04 H* Total Protein 6.4 Albumin 3.3 Globulin 3.1 Albumin/Globulin Ratio 1.1 Assessment and Plan Impression: 68 yo M w mantle cell lymphoma with recent admission for fevers and PNA ultimately treated for aspergillus PNA now with gram negative bacteremia and neutropenia after resuming imbruvica on 10/05. He is very vague about the time line today but in discussing with the ER this does appear to be a relatively fast deterioration with fevers and laryngitis symptoms occurring over last 48 hours. He currently meets severe sepsis but not septic shock as he is hemodynamically stable. Plan: Neutropenic Sepsis: gram negative bacteremia -cefepime 2g IV q8hr -cont andulifungin 100 mg iv daily -ID consult on Monday -6 hour sepsis check -q4 hour lactic acid until <2 -had fluid bolus, normotensive, will start NS at 150 cc/hr Afib: currently in NSR on sotalol and metoprolol, will continue these (note also on wellbutrin and lexapro but has had stable QT on this) cont eliquis 5 mg po bid cont mag and potassium -tele monitoring TATYANA: likely prerenal azotemia from hypovolemia -hold lasix -hydration as above hyponatremia: likely hypovolemic hyponatremia -cont Normal saline, hold lasix Mantel cell lymphoma: -hold imbruvica dvt prophylaxis: on eliquis as above DNR
[2018-10-13] MEDS ORDERED: NS 0.9% 1000 ML** 1,000 ML IV SCH (16:30)
[2018-10-13] MEDS ORDERED: ALPRAZolam TAB* 0.5 MG PO PRN (16:40)
[2018-10-13] MEDS ORDERED: Prochlorperazine TAB* 10 MG PO PRN (16:40)
[2018-10-13] MEDS ORDERED: Acetaminophen TAB* 325 MG ONE (18:07)
[2018-10-13] MEDS: Acetaminophen TAB* 325 MG PO PRN (18:09)
--- NOTE | 2018-10-13 19:07 | PN ---
Sepsis Event Evaluation Date of Evaluation: 10/13/18 Time of Evaluation: 19:00 Current Stage of Sepsis: Septic Shock Vital Signs - Last 12 Hours: Vital Signs - 12 hr Temp Pulse Resp BP Pulse Ox 10/13/18 19:37 99.8 F 118 20 81/51 95 10/13/18 19:25 99.8 F 122 20 88/54 94 10/13/18 17:43 107/66 10/13/18 17:13 32 143/80 10/13/18 17:00 22 10/13/18 16:42 23 135/80 10/13/18 16:12 18 129/70 10/13/18 16:07 26 129/76 10/13/18 16:01 19 10/13/18 15:42 19 97/66 10/13/18 15:12 26 108/68 10/13/18 15:00 23 10/13/18 14:51 92 10/13/18 14:44 118 91 10/13/18 14:42 118 117/80 89 10/13/18 14:37 99.0 F 118 26 117/80 89 Lactic Acid: 10/13/18 10/13/18 14:54 18:51 Lactic Acid 5.4 H* 4.0 H* - Cardiopulmonary Exam Capillary Refill: Immediate Respiratory: - - Mild Dyspnea. Rhonchi and wheezing throughout Cardiovascular: NL Sounds; No Murmurs; No JVD, RRR, No Edema - Peripheral Pulse Exam Radial Pulses: Bilateral Normal Pedal Pulses: Bilateral Normal - Skin Exam Skin Exam: Normal Turgor - [place] Coma Scale Best Eye Response: 4 - Spontaneous Best Motor Response: 6 - Obeys Commands Best Verbal Response: 5 - Oriented Coma Scale Total: 15 Assess/Plan/Problems-Billing Assessment: Given hypotension, tachycardia, and requiring higher levels of supplemental oxygen, patient will be transferred to the ICU. Patient meets septic shock as he is hypotensive despite receiving sepsis bolus in the ED and continuos IV hydration. Attending: Benito Plascencia
[2018-10-13] MEDS: Anidulafungin* 100 MG in NS 0.9% 100 ML* 100 ML IVPB SCH (20:58)
[2018-10-13] MEDS ORDERED: Magnesium Oxide TAB* 400 MG PO SCH (21:00)
[2018-10-13] MEDS: oxyCODONE TAB* 5 MG TAB PO PRN (21:10)
[2018-10-13] MEDS: Apixaban* 5 MG TAB PO SCH (21:10)
[2018-10-13] MEDS: Metoprolol Tartrate TAB* 50 mg PO SCH (21:34)
[2018-10-13] MEDS: Sotalol TAB* 80 MG PO SCH ×2 (21:34→23:51)
[2018-10-13] MEDS ORDERED: Cefepime 2 GM in Dextrose(*) 2 GM/50 ML BAG IV SCH (22:00)
[2018-10-13] MEDS: Cefepime 2 GM in Dextrose(*) 2 GM/50 ML BAG IV SCH (23:19)
[2018-10-14 00:43] LABS: Urine Appearance Cloudy; Urine Bacteria Absent (Absent); Urine Bilirubin Negative (Negative); Urine Blood 2+ (Negative); Urine Color Yellow; Urine Glucose Negative (Negative); Urine Ketones Negative (Negative); Urine Nitrite Negative (Negative); Urine Protein 2+(100 mg/dL) (Negative); Urine Red Blood Cell Trace(0-2/hpf) (Absent); Urine Specific Gravity 1.021 (1.010-1.030); Urine Squamous Epithelial Cell Present (Absent); Urine Urobilinogen Negative (Negative); Urine White Blood Cell Trace(0-5/hpf) (Absent)
[2018-10-14 04:27] LABS: Red Cell Distribution Width 15 % (10-15)
[2018-10-14 04:28] LABS: Hematocrit 36 % (42-52); Mean Corpuscular HGB Conc 34 g/dL (31-36); Mean Corpuscular Hemoglobin 31 pg (27-31); Mean Corpuscular Volume 93 fL (80-94); Platelet Count 29 10^3/uL (150-450); Red Blood Count 3.86 10^6 /uL (4.18-5.48); White Blood Count 1.2 10^3/uL (3.5-10.8)
[2018-10-14 04:42] LABS: Troponin I 0.04 ng/mL (<0.04)
[2018-10-14 04:57] LABS: Platelet Morphology Large
[2018-10-14 04:58] LABS: Polychromasia 1+
[2018-10-14 04:59] LABS: ABS Lymphocytes 0.4 10^3/ul (1.0-4.8); ABS Monocytes 0.5 10^3/ul (0-0.8); ABS Neutrophils 0.2 10^3/ul (1.5-7.7); Eosinophil % 0.5 %; Lymphocyte % 35.2 %; Nucleated Red Blood Cells % 0.3
[2018-10-14] MEDS ORDERED: Metoprolol Tartrate IV* 1 MG/ML 5 ML VIAL IV ONE (06:00)
[2018-10-14] MEDS ORDERED: Metoprolol Tartrate IV* 1 MG/ML 5 ML VIAL ONE (06:04)
[2018-10-14] MEDS: Sotalol TAB* 80 MG PO SCH ×2 (06:29→08:46)
[2018-10-14] MEDS: Cefepime 2 GM in Dextrose(*) 2 GM/50 ML BAG IV SCH ×3 (06:29→21:25)
[2018-10-14] MEDS: Metoprolol Tartrate TAB* 50 mg PO SCH (06:36)
[2018-10-14] MEDS ORDERED: Diltiazem IV push/loading dose 5 MG/ML 5 ML vial (25 mg) ONE (06:41)
[2018-10-14] MEDS ORDERED: Diltiazem DRIP* 100 MG/100 ML ADDV.BAG IV SCH (07:00)
[2018-10-14] MEDS ORDERED: Diltiazem 125 mg in 125 mL D5W PREMIX (continuous infusion) IV SCH (07:00)
[2018-10-14] MEDS: Acetaminophen TAB* 325 MG PO PRN ×2 (07:05→14:51)
[2018-10-14 08:10] LABS: ALT 10 U/L (7-52); AST 24 U/L (13-39); Albumin 2.8 g/dL (3.2-5.2); Alkaline Phosphatase 79 U/L (34-104); Anion Gap 11 mmol/L (2-11); BUN/Creatinine Ratio 20.6 (8-20); Blood Urea Nitrogen 22 mg/dL (6-24); CO2 Carbon Dioxide 21 mmol/L (22-32); Calcium 7.6 mg/dL (8.6-10.3); Chloride 104 mmol/L (101-111); EGFR African American 82.7 (>60); EGFR Non-African American 68.3 (>60); Globulin 2.7 g/dL (2-4); Glucose 107 mg/dL (70-100); Magnesium 1.5 mg/dL (1.9-2.7); Potassium 3.5 mmol/L (3.5-5.0); Sodium 136 mmol/L (135-145); Total Protein 5.5 g/dL (6.4-8.9)
--- NOTE | 2018-10-14 08:13 | PN ---
Subjective Date of Service: 10/14/18 Interval History: Mr. Goetz confirms that he does not feel well but is feeling a bit better than yesterday. He complains of a sore throat and a feeling of fullness in his throat. He denies difficulty swallowing or breathing. Nursing staff has raised concern about his swallowing and a swallow eval has been ordered. He denies chest pain, SOB, nausea, or abdominal pain. Objective Active Medications: Acetaminophen (Tylenol Tab*) 650 mg PO Q6H PRN Alprazolam (Xanax Tab*) 0.5 mg PO TID PRN Apixaban (Eliquis*) 5 mg PO BID NIKOLAY Bupropion HCl (Wellbutrin Sr Tab*) 150 mg PO DAILY NIKOLAY Escitalopram Oxalate (Lexapro *) 10 mg PO DAILY NIKOLAY Sodium Chloride (Ns 0.9% 1000 Ml) 1,000 mls @ 150 mls/hr IV PER RATE NIKOLAY Anidulafungin 100 mg/ Sodium (Chloride) 130 mls @ 65 mls/hr IVPB Q24H NIKOLAY Cefepime HCl (Maxipime 2 Gm In Dextrose Duplex (*)) 2 gm in 50 mls @ 100 mls/ hr IV Q8HR NIKOLAY Diltiazem/Dextrose (Cardizem Iv D5w Bag* Premix) 125 mg in 125 mls @ 5 mls/hr IV .PER PROTOCOL NIKOLAY; Protocol Magnesium Oxide (Magox 400 Tab*) 400 mg PO TID NIKOLAY Metoprolol Tartrate (Lopressor Tab*) 50 mg PO BID NIKOLAY Oxycodone HCl (Roxycodone Tab*) 5 mg PO Q6HR PRN Pantoprazole Sodium (Protonix Tab*) 40 mg PO QAM NIKOLAY Potassium Chloride (Klor Con Er Tab*) 40 meq PO 1400 NIKOLAY Prochlorperazine (Compazine Tab*) 10 mg PO Q6H PRN Sotalol HCl (Betapace Tab*) 80 mg PO BID [facility] Vital Signs: Temp Pulse Resp BP Pulse Ox 103.1 F 123 23 129/91 92 10/14/18 07:15 10/14/18 07:15 10/14/18 07:15 10/14/18 07:15 10/14/18 07:15 Oxygen Devices in Use Now: Nasal Cannula Appearance: Male lying in bed in NAD Eyes: No Scleral Icterus Ears/Nose/Mouth/Throat: Clear Oropharnyx, Mucous Membranes Moist Neck: Trachea Midline, No Thyroid Enlargement, Masses Respiratory: Symmetrical Chest Expansion and Respiratory Effort, - - Coarse rhonchi bilaterally throughout Cardiovascular: NL Sounds; No Murmurs; No JVD, No Edema Extremities: No Edema Skin: No Rash or Ulcers Neurological: Alert and Oriented x 3, NL Muscle Strength and Tone, - - Voice soft Result Diagrams: 10/14/18 04:10 10/14/18 04:10 Microbiology and Other Data: . Assess/Plan/Problems-Billing Assessment: Mr. Goetz is a 68 yo M with a PMH of afib, squamous cell lung cancer ( currently EDGAR) and mantle cell lymphoma currently on chemotherapy with recent diagnosis of aspergillus pneumonia on andulifugin who was admitted on 10/13/18 due to gram negative bacteremia with neutopenic fever who was transferred to the ICU last night for septic shock, now resolved. - Patient Problems (1) Septic shock Comment: - Resolved. - SBP 80-100s. LA 5.4-> 1.8, mentating appropriately, adequate urine output. - He remains febrile. - S/P 3L bolus, now NS at 150 ml/hr (2) Pseudomonal bacteremia Comment: - Continue cefepime 2g IV q8h, cipro added after discussion with ID - Full ID consult pending for Monday (3) Aspergillus pneumonia Comment: - Continue andulifungin - ID consult pending for Monday (4) Lymphoma Comment: - Was on chemotherapy with Imbruvica, held - Neutropenic with ANC 600 (5) Afib Comment: - HR 90-120s - Mag 1.5, K 3.5. Switch to IV supplementation. - Continue eliquis - Sotalol and metoprolol held due to hypotension. Diliazem gtt has been on intermittently, held for low BP as needed. Digoxin started. (6) TATYANA (acute kidney injury) Comment: - Prerenal azotemia, resolved with hydration (7) Anxiety Comment: - Cont alprazolam prn (8) Lung cancer Comment: - No evidence of disease per oncology (9) Depression Comment: - Welbutrin and lexapro held during acute illness as can contribute to prolonged QT (10) Hyponatremia Comment: - Resolved (11) DVT prophylaxis Comment: - Apixiban (12) DNR (do not resuscitate) Current Visit: Yes Status: Acute Status and Disposition: Inpatient. Patient lived alone at home. Anticipate need for KATE or greater support at discharge.
[2018-10-14 08:24] LABS: Urine Appearance Clear; Urine Bacteria 1+ (Absent); Urine Bilirubin Negative (Negative); Urine Blood 2+ (Negative); Urine Color Yellow; Urine Glucose Negative (Negative); Urine Granular Casts Present (Absent); Urine Ketones Negative (Negative); Urine Nitrite Negative (Negative); Urine Protein 2+(100 mg/dL) (Negative); Urine Red Blood Cell Absent (Absent); Urine Specific Gravity 1.019 (1.010-1.030); Urine Urobilinogen Negative (Negative); Urine White Blood Cell Trace(0-5/hpf) (Absent)
[2018-10-14] MEDS ORDERED: Magnesium Sulfate IV* 3 GM in NS 0.9% 100 ML* 100 ML IVPB ONE (08:31)
[2018-10-14] MEDS: oxyCODONE TAB* 5 MG TAB PO PRN ×3 (08:46→22:15)
[2018-10-14] MEDS: Apixaban* 5 MG TAB PO SCH (08:46)
[2018-10-14] MEDS: Pantoprazole TAB * 40 MG TAB PO SCH (08:46)
[2018-10-14] MEDS ORDERED: buPROPion SR TAB.SR* 150 MG PO SCH (09:00)
[2018-10-14] MEDS ORDERED: Escitalopram * 10 MG TAB PO SCH (09:00)
[2018-10-14] MEDS: KCL 20 MEQ/100 ML IVPREMIX* 20 MEQ/100 ML BAG IV SCH ×2 (09:11→11:44)
[2018-10-14] MEDS ORDERED: Digoxin IV* 0.5 MG/2 ML AMP (0.25 MG/ML) IV SLOW PU ONE (09:48)
[2018-10-14] MEDS ORDERED: Lactated Ringers 1000 ML Bag* 1,000 ML IV SCH (11:00)
[2018-10-14] MEDS: Ciprofloxacin 400MG IVPREMIX(* 400 MG/200 ML BAG IVPB SCH ×2 (11:17→23:25)
[2018-10-14] MEDS ORDERED: Potassium Chlor TAB* 20 MEQ TAB.ER PO SCH (14:00)
[2018-10-14] MEDS: Lactated Ringers 1000 ML Bag* 1,000 ML IV SCH (19:35)
[2018-10-14] MEDS ORDERED: Furosemide IV* 10 MG/ML 2 ML VIAL (20 MG) IV ONE (20:02)
[2018-10-14] MEDS: Anidulafungin* 100 MG in NS 0.9% 100 ML* 100 ML IVPB SCH (20:06)
--- NOTE | 2018-10-14 21:49 | PN ---
Hospitalist Progress Note Date of Service: 10/14/18 Cross Cover Note -Scant crackles in blt lung bases, 20mg IV x1 Lasix, home dose of 40mg PO being held, defer to day to resume PRN -Held Apixaban giv-n plt 29, risks vs benefits to day team given active Ca
[2018-10-15] MEDS: Cefepime 2 GM in Dextrose(*) 2 GM/50 ML BAG IV SCH ×3 (05:39→21:27)
[2018-10-15 06:25] LABS: BUN/Creatinine Ratio 30.4 (8-20); Calcium 7.8 mg/dL (8.6-10.3); EGFR African American 98.4 (>60); EGFR Non-African American 81.3 (>60); Potassium 3.7 mmol/L (3.5-5.0)
[2018-10-15 06:36] LABS: ABS Lymphocytes 0.4 10^3/ul (1.0-4.8); Eosinophil % 1.7 %; Hematocrit 33 % (42-52); Hemoglobin 11.4 g/dL (14.0-18.0); Lymphocyte % 32.8 %; Mean Corpuscular HGB Conc 34 g/dL (31-36); Mean Corpuscular Hemoglobin 32 pg (27-31); Mean Corpuscular Volume 93 fL (80-94); Mean Platelet Volume 10.5 fL (7.4-10.4); Nucleated Red Blood Cells % 0.7; Red Blood Count 3.58 10^6 /uL (4.18-5.48); Red Cell Distribution Width 16 % (10-15); White Blood Count 1.1 10^3/uL (3.5-10.8)
[2018-10-15 06:53] LABS: Platelet Morphology Large; Polychromasia 1+
[2018-10-15] MEDS: Apixaban* 5 MG TAB PO SCH (06:54)
[2018-10-15 06:55] LABS: ABS Neutrophils 0.7 10^3/ul (1.5-7.7); Platelet Count 17 10^3/uL (150-450)
[2018-10-15] MEDS: Lactated Ringers 1000 ML Bag* 1,000 ML IV SCH (07:16)
[2018-10-15] MEDS: Pantoprazole TAB * 40 MG TAB PO SCH (08:29)
[2018-10-15] MEDS ORDERED: Furosemide IV* 10 MG/ML 2 ML VIAL (20 MG) IV ONE (09:08)
[2018-10-15] MEDS: Metoprolol Tartrate TAB* 50 mg PO SCH ×2 (09:19→21:22)
[2018-10-15] MEDS: oxyCODONE TAB* 5 MG TAB PO PRN ×2 (09:26→17:20)
--- NOTE | 2018-10-15 09:51 | PN ---
Progress Note - Progress Note Date of Service: 10/15/18 SOAP: Subjective: [Milton reports that he is feeling better today. Tmax 100.2 in the last 24 hours. Urine output is good, normotensive. He has a very hoarse voice, but denies ST or neck fullness this morning. Reports that his cough has resolved. Denies SOB, despite climbing O2 needs. No abd pain, n/v.] Objective: [ Vital Signs: Temp Pulse Resp BP Pulse Ox 100.2 F 98 26 131/65 93 10/15/18 09:01 10/15/18 09:01 10/15/18 09:01 10/15/18 09:01 10/15/18 09:01 Acetaminophen (Tylenol Tab*) 650 mg PO Q6H PRN PRN Reason: TEMPERATURE > 100.4 Last Admin: 10/14/18 14:51 Dose: 650 mg Alprazolam (Xanax Tab*) 0.5 mg PO TID PRN PRN Reason: ANXIETY Anidulafungin 100 mg/ Sodium (Chloride) 130 mls @ 65 mls/hr IVPB Q24H [facility] Last Admin: 10/14/18 20:06 Dose: 65 mls/hr Cefepime HCl (Maxipime 2 Gm In Dextrose Duplex (*)) 2 gm in 50 mls @ 100 mls/ hr IV Q8HR [facility] Last Admin: 10/15/18 05:39 Dose: 100 mls/hr Metoprolol Tartrate (Lopressor Tab*) 50 mg PO Q12HR [facility] Last Admin: 10/15/18 09:19 Dose: 50 mg Oxycodone HCl (Roxycodone Tab*) 5 mg PO Q6HR PRN PRN Reason: PAIN - MILD Last Admin: 10/15/18 09:26 Dose: 5 mg Pantoprazole Sodium (Protonix Tab*) 40 mg PO QAM [facility] Last Admin: 10/15/18 08:29 Dose: 40 mg Prochlorperazine (Compazine Tab*) 10 mg PO Q6H PRN PRN Reason: NAUSEA Sotalol HCl (Betapace Tab*) 80 mg PO BID [facility] Laboratory Results - last 24 hr 10/14/18 10/15/18 10/15/18 10:33 05:35 05:35 WBC 1.1 L RBC 3.58 L Hgb 11.4 L Hct 33 L MCV 93 MCH 32 H MCHC 34 RDW 16 H Plt Count 17 L* D MPV 10.5 H Neut % (Auto) 63.4 Lymph % (Auto) 32.8 [place] % (Auto) 1.8 Eos % (Auto) 1.7 Baso % (Auto) 0.3 Absolute Neuts (auto) 0.7 L* Absolute Lymphs (auto) 0.4 L Absolute Monos (auto) 0.0 Absolute Eos (auto) 0.0 Absolute Basos (auto) 0.0 Absolute Nucleated RBC 0.0 Neutrophils % 22.0 Lymphocytes % 52.0 Monocytes % 25.0 Eosinophils % 1.0 Nucleated RBC % 0.7 Platelet Morphology Large Normal RBC Morphology Not Reportable Polychromasia 1+ Anisocytosis 2+ Sodium 136 Potassium 3.7 Chloride 106 Carbon Dioxide 24 Anion Gap 6 BUN 28 H Creatinine 0.92 Est GFR ( Amer) 98.4 Est GFR (Non-Af Amer) 81.3 BUN/Creatinine Ratio 30.4 H Glucose 98 Lactic Acid 2.2 H* Calcium 7.8 L Magnesium 2.0 Exam: Gen: Chronically ill appearing, but relatively well given clinical context and in NAD HEENT: very hoarse voice, nearly a whisper, posterior pharynx is mildly injected but otherwise negative exam CV: RRR, no m/r/g Resp: diffuse rhonchi, few baseline crackles Abd: soft and nonTTP Ext: no edema Skin: no rashes] Assessment: [68 yo male with mantle cell lymphoma treated with imbruvica with a recently prolonged hospitalization for aspergillus PNA treated with anidulafungin who presented with c/o fever and ST/hoarseness found to have pseudomonas bacteremia. Source of pseudomonas is not clear.] Plan: 1. Neutropenic fever with pseudomonas bacteremia - cont Cipro/Cefepime per ID recommendations with formal consult pending for today - Source of pseudomonas is not clear - urine cx is negative - reviewed CT chest from 10/12 which shows improving patchy infiltrate, no new consolidation - only focal sxs is a hoarse voice and ST - will obtain contrasted CT of the neck to eval for occult abscess 2. Aspergillus PNA - cont anidulafungin - appears resolving by recent CT - chest XR from 10/15 shows a more focal consolidation in the RUL - repeat CT chest today 3. Hypoxia - stop IVF, resume Lasix - repeat chest imaging today 4. Mantle cell lymphoma - hold Imbruvica 5. Afib - holding anticoagulation for thrombocytopenia - resume oral sotalol/metoprolol, stop diltiazem drip 6. Pancytopenia - secondary to imbruvica/sepsis - improving 7. DNR Dispo: transfer to telemetry floor today
[2018-10-15] MEDS ORDERED: Iodixanol* (CONTRAST) 320 MG/ML 100 ML SDV IV ONE (11:50)
--- NOTE | 2018-10-15 13:10 | CONS ---
CONSULTATION REPORT: DATE OF CONSULT: 10/15/18 PRIMARY CARE PROVIDER: Saniya Kim NP PROVIDER REQUESTING CONSULTATION: JOSE Middleton CONSULTING SERVICE: Infectious Disease. PROVIDER: Malini Marks NP ATTENDING PROVIDER: Dr. Brayan Voss.* (DICTATED BY MALINI MARKS NP) REASON FOR CONSULT: Pseudomonas bacteremia. IMPRESSION: 1. Gram-negative bacteremia. The patient is found to have Pseudomonas bacteremia. He is currently on cefepime. He continues to have low-grade fevers , temperature max was 103.5 on 10/14/18. He does have a port in place, the site is benign. Additionally, he has a right total knee arthroplasty, that is benign. He has not had any abdominal imaging. He is also noted to be neutropenic. Urine culture with no growth. 2. Neutropenic fever. Again, temperature max was 103.5. 3. Aspergillus pneumonia. This appears to be resolving based on recent CT. Chest x-ray from 10/15/18 shows focal consolidation in the right upper lobe. There is a repeat CT pending for today. 4. Mantle cell lymphoma. 5. Pancytopenia. Suspect secondary to Imbruvica and sepsis. 6. Right total knee arthroplasty. The knee is benign. RECOMMENDATIONS/PLAN: Recommend continuing cefepime. Antibiotics should be infused through the power port in the event that it is seeded. He should have a CT of the abdomen and pelvis to evaluate for abscess as the cause of his bacteremia. Keep an eye on the right knee. HISTORY OF PRESENT ILLNESS: Mr. Goetz is a 68-year-old male with past medical history significant for lung cancer; mantle cell lymphoma; hypertension ; AFib, status post ablation; hyperlipidemia; benign ureteral tumor; autoimmune neuropathy; remote history of hepatitis C; depression; GERD; and Aspergillus pneumonia, treated with antifungal intravenous 28 days. Mr. Goetz states that he had been feeling pretty well other than approximately one week ago he developed initially a sore throat, which then progressed to hoarseness. He denies any fevers, chills. He reports continued cough with brown sputum production with some "red." He presented to the hospital on 10/12/18 with complaints of laryngitis and a cough. He was diagnosed with laryngitis. At that time, it was recommended that he take a course of Augmentin and follow up with Dr. Harris. At home, prior to that ER visit, he was having subjective fevers. He had blood cultures drawn during that visit. Those blood cultures from 10/12/18 returned with pseudomonas in 2/4 bottles. When his blood cultures returned with pseudomonas, he was called by the ER, presented back to the ER. While in the emergency room, he was afebrile. He had repeat blood cultures. He was admitted to the hospitalist for gram-negative bacteremia. During his hospitalization, he has had a temperature max of 103.5 on 10/14/18. Blood cultures drawn in the emergency room on 10/13/18 returned with 3/4 bottles positive for Pseudomonas aeruginosa. The patient currently denies any fevers, chills, joint pain, muscle pain, nausea, vomiting, diarrhea, urinary symptoms, rash, recent travel. He continues to have hoarseness. During his hospitalization, he was placed on cefepime and continued on anidulafungin. PAST MEDICAL HISTORY: 1. Lung cancer, status post lobectomy. 2. Mantle cell lymphoma, on Imbruvica at home. 3. Atrial fibrillation, status post ablation. 4. Hyperlipidemia. 5. Benign ureteral tumor. 6. Autoimmune neuropathy. 7. History of hepatitis C. 8. Depression. 9. GERD. 10. Diagnosis of Aspergillus pneumonia in August 2018. PAST SURGICAL HISTORY: 1. Status post cholecystectomy. 2. Status post left upper lobectomy. 3. Status post excision of benign ureteral tumor. 4. Status post right total knee arthroplasty. MEDICATIONS: Home medications include: 1. Oxycodone 5 to 10 mg by mouth every 6 hours as needed for pain. 2. Bupropion SR 150 mg by mouth daily. 3. Sotalol 80 mg by mouth twice daily. 4. Compazine 10 mg by mouth every 6 hours as needed for nausea. 5. Potassium chloride 40 mEq by mouth daily. 6. Omeprazole 20 mg by mouth daily. 7. Metoprolol tartrate 50 mg by mouth twice daily. 8. Magnesium oxide 400 mg by mouth 3 times daily. 9. Imbruvica 560 mg by mouth daily. 10. Furosemide 40 mg by mouth daily. 11. Lexapro 10 mg by mouth daily. 12. Eliquis 5 mg by mouth twice daily. 13. Xanax 0.5 mg by mouth 3 times daily as needed for anxiety. Hospital medications: 1. Acetaminophen 650 mg by mouth every 6 hours as needed for fever or pain. 2. Xanax 0.5 mg by mouth 3 times daily as needed for anxiety. 3. Anidulafungin 100 mg IV daily. 4. Cefepime 2 g IV q.8 hours. 5. Metoprolol tartrate 50 mg by mouth every 12 hours. 6. Oxycodone 5 mg by mouth daily as needed for pain. 7. Protonix 40 mg by mouth daily. 8. Compazine 10 mg by mouth every 6 hours as needed for nausea. 9. Sotalol 80 mg by mouth twice daily. ALLERGIES: No known drug allergies. FAMILY HISTORY: Denies family history of recurrent or resistant infections. Mother with a history of heart disease, breast cancer, passed at age 70 from heart failure. Brother with a history of lung cancer. Father passed at age 56 from an unknown cancer. No family history of diabetes. SOCIAL HISTORY: He is a former smoker, quitting approximately 4 years ago. Prior to that, he had a 40-year 1 pack a day smoking history. He is a former alcoholic. Past history of IV drug use and opioid abuse. REVIEW OF SYSTEMS: I performed a 10-point review of systems. All the pertinent positives and negatives are mentioned in the history of present illness. The remaining review of systems are negative. PHYSICAL EXAM: Vital Signs: Temperature 100.2, heart rate 98, respiratory rate 26, O2 sat 93% on 3 L via nasal cannula, blood pressure 131/65. General Appearance: Alert, appears to be in no acute distress. Head: Normocephalic, atraumatic. EENT: Pupils are equal and reactive to light. Extraocular movements are intact. Moist mucous membranes. No thrush. He is noted to have a hoarse voice with a nearly whisper. His posterior pharynx with slight erythema, otherwise negative. No subconjunctival hemorrhage. Neurological: He is alert and oriented to person, place. Cardiovascular: Regular rate and rhythm. No murmurs, rubs, or gallops heard. Respiratory: No accessory muscle use. The lungs with diffuse rhonchi bilaterally. Abdomen: Bowel sounds present. Abdomen is soft, nontender, nondistended. Extremities: No lower extremity edema. Musculoskeletal: No clubbing or cyanosis noted. The right total knee arthroplasty is benign. There is no effusion. He does have limited flexion of the knee. He is unsure if this is baseline, but is able to flex and extend his knee. Psychological: Calm and cooperative. Skin: No rashes or abnormalities seen. No splinter hemorrhages noted. DIAGNOSTIC STUDIES/LAB DATA: Sodium 136, potassium 3.7, chloride 106, CO2 of 24 , BUN 28, creatinine 0.92, glucose 98. White blood cell count 1.1, hemoglobin 11.4, hematocrit 33, platelet count 17. Please see impression and recommendations outlined above. Thank you for asking us to see Mr. Goetz in consultation. We will continue to follow along. The case has been reviewed with the attending, Dr. Brayan Voss, who agrees with the plan of care. Reviewed by CORA ALVAREZ 10/16/18 0904 [id number]/[facility] [place] #: [id number] MTDD
[2018-10-15] MEDS: Sotalol TAB* 80 MG PO SCH (17:18)
[2018-10-15] MEDS: Anidulafungin* 100 MG in NS 0.9% 100 ML* 100 ML IVPB SCH (21:22)
[2018-10-16] MEDS: Cefepime 2 GM in Dextrose(*) 2 GM/50 ML BAG IV SCH ×3 (05:44→22:53)
[2018-10-16] MEDS: Sotalol TAB* 80 MG PO SCH ×2 (09:18→20:42)
[2018-10-16] MEDS: Metoprolol Tartrate TAB* 50 mg PO SCH ×2 (09:18→20:42)
[2018-10-16] MEDS: Pantoprazole TAB * 40 MG TAB PO SCH (09:18)
[2018-10-16 09:34] LABS: Albumin 2.7 g/dL (3.2-5.2); Albumin/Globulin Ratio 0.9 (1-3); BUN/Creatinine Ratio 36.4 (8-20); Calcium 8.6 mg/dL (8.6-10.3); EGFR African American 90.4 (>60); EGFR Non-African American 74.7 (>60); Globulin 3.1 g/dL (2-4); Potassium 4.1 mmol/L (3.5-5.0); Total Bilirubin 2.5 mg/dL (0.2-1.0); Total Protein 5.8 g/dL (6.4-8.9)
[2018-10-16 09:35] LABS: Hematocrit 34 % (42-52); Hemoglobin 11.5 g/dL (14.0-18.0); Mean Corpuscular HGB Conc 34 g/dL (31-36); Mean Corpuscular Hemoglobin 31 pg (27-31); Mean Corpuscular Volume 93 fL (80-94); Mean Platelet Volume 11.8 fL (7.4-10.4); Platelet Count 31 10^3/uL (150-450); Red Blood Count 3.68 10^6 /uL (4.18-5.48); Red Cell Distribution Width 17 % (10-15); White Blood Count 2.5 10^3/uL (3.5-10.8)
--- NOTE | 2018-10-16 10:29 | CONS ---
CONSULTATION REPORT: ADDENDUM: DATE OF CONSULT: 10/15/18 The patient reports chronic lower back pain which he states is at his baseline. As far as physical exam, he denies tenderness with palpation on his neck, back , and spine. MALINI REYES, KARLY [id number]/[facility] #: [id number] BECKY
--- NOTE | 2018-10-16 11:45 | PN ---
Progress Note - Progress Note Date of Service: 10/16/18 SOAP: Subjective: CC: Gram negative bacteremia. HPI: Mr. Goetz is a 68 yo male with PMH significant for lung cancer s/p left upper lobectomy, mantel call lymphoma, A fib, HLD, autoimmune neuropathy, hx hep C, depression, GERD and recent aspergillus PNA. Denies fever, chills, nausea , vomiting, or diarrhea. Reports an occasional non productive cough, and shortness of breath that continues to be about the same. Denies increased back pain, has chronic lower back pain at baseline. Continues to have a horse voice, but no sore throat. Objective: Vital Signs - 8 hr 10/16/18 10/16/18 10/16/18 03:44 07:51 08:00 Temperature 97.8 F 98.0 F Pulse Rate 88 89 Respiratory 18 16 16 Rate Blood Pressure 129/57 123/73 (mmHg) O2 Sat by Pulse 93 98 Oximetry Physical Exam: General: NAD, sitting up in a chair Neurological: Alert and Oriented HEENT: No sub conj hemorrhage, moist MM Cardiovascular: Heart rate regular Respiratory: Lung sounds diminished with scattered rhonchi. Abdominal: Bowel sounds present; ABD soft, non tender and non distended MSK: No tenderness with palpation of the neck, back or spine Skin: No rash. Port to right upper chest, site benign. Laboratory Results - last 24 hr 10/13/18 10/14/18 10/16/18 14:54 04:10 08:50 WBC 2.5 L RBC 3.68 L Hgb 11.5 L Hct 34 L MCV 93 MCH 31 MCHC 34 RDW 17 H Plt Count 31 L MPV 11.8 H Neut % (Auto) Not Reportable Lymph % (Auto) Not Reportable [place] % (Auto) Not Reportable Eos % (Auto) Not Reportable Baso % (Auto) Not Reportable Absolute Neuts (auto) Not Reportable Absolute Lymphs (auto) Not Reportable Absolute Monos (auto) Not Reportable Absolute Eos (auto) Not Reportable Absolute Basos (auto) Not Reportable Absolute Nucleated RBC Not Reportable Nucleated RBC % Not Reportable 10/16/18 08:50 Sodium 138 Potassium 4.1 Chloride 105 Carbon Dioxide 25 Anion Gap 8 BUN 36 H Creatinine 0.99 Est GFR ( Amer) 90.4 Est GFR (Non-Af Amer) 74.7 BUN/Creatinine Ratio 36.4 H Glucose 107 H Calcium 8.6 Total Bilirubin 2.50 H D AST 45 H ALT 22 Alkaline Phosphatase 93 Total Protein 5.8 L Albumin 2.7 L Globulin 3.1 Albumin/Globulin Ratio 0.9 L Microbiology 10/13/18 14:54 Aerobic Blood Culture - Final Blood Venous Pseudomonas Aeruginosa Anaerobic Blood Culture - Preliminary No Growth Day 2 10/13/18 14:54 Aerobic Blood Culture - Final Blood Venous Pseudomonas Aeruginosa Anaerobic Blood Culture - Final Pseudomonas Aeruginosa 10/14/18 00:30 Urine Culture - Final Urine No Growth (<1,000 CFU/mL) 10/13/18 21:58 Nasal Screen MRSA (PCR) - Final Nasal Mrsa Not Detected Assessment: 1. Pseudomonas bacteremia. No abscess seen on chest, neck or ABD/pelvis CT. Afebrile since yesterday AM when he had low grade fevers. Denies productive cough. Does have a power port in place to the right upper chest, site is benign. No peripheral stigmata of endocarditis. 2. Neutropenic fever. 3. Mantel cell lymphoma. 4. Right total knee arthroplasty. Knee benign. 5. Pancytopenia. Improving. Plan: Continue cefepime, we will treat through the port. Repeat blood cultures today.
[2018-10-16] MEDS: Anidulafungin* 100 MG in NS 0.9% 100 ML* 100 ML IVPB SCH (20:43)
[2018-10-17] MEDS: Cefepime 2 GM in Dextrose(*) 2 GM/50 ML BAG IV SCH (05:22)
[2018-10-17] MEDS: Metoprolol Tartrate TAB* 50 mg PO SCH ×2 (09:11→21:24)
[2018-10-17] MEDS: Pantoprazole TAB * 40 MG TAB PO SCH (09:11)
[2018-10-17] MEDS: Sotalol TAB* 80 MG PO SCH ×2 (09:12→21:24)
[2018-10-17] MEDS: Acetaminophen TAB* 325 MG PO PRN (09:19)
[2018-10-17 10:03] LABS: Hematocrit 31 % (42-52); Hemoglobin 10.3 g/dL (14.0-18.0); Mean Corpuscular HGB Conc 34 g/dL (31-36); Mean Corpuscular Hemoglobin 31 pg (27-31); Mean Corpuscular Volume 93 fL (80-94); Mean Platelet Volume 11.2 fL (7.4-10.4); Platelet Count 41 10^3/uL (150-450); Red Blood Count 3.31 10^6 /uL (4.18-5.48); Red Cell Distribution Width 17 % (10-15); White Blood Count 3.3 10^3/uL (3.5-10.8)
[2018-10-17 10:10] LABS: Albumin 2.5 g/dL (3.2-5.2); Albumin/Globulin Ratio 0.9 (1-3); BUN/Creatinine Ratio 42.7 (8-20); Calcium 8.4 mg/dL (8.6-10.3); EGFR African American 102.3 (>60); EGFR Non-African American 84.5 (>60); Globulin 2.7 g/dL (2-4); Potassium 3.9 mmol/L (3.5-5.0); Total Protein 5.2 g/dL (6.4-8.9)
--- NOTE | 2018-10-17 10:49 | PN ---
Progress Note - Progress Note Date of Service: 10/17/18 SOAP: Subjective: CC: Gram negative bacteremia. HPI: Mr. Goetz is a 68 yo male with PMH significant for lung cancer s/p left upper lobectomy, mantel call lymphoma, A fib, HLD, autoimmune neuropathy, hx hep C, depression, GERD and recent aspergillus PNA. Denies fever, chills, nausea , vomiting, or diarrhea. Reports shortness of breath that continues to be about the same. Denies increased back pain from his chronic back pain. Continues to have a horse voice, but no sore throat. He is frustrated that he is still in the hospital. Objective: Vital Signs - 8 hr 10/17/18 10/17/18 07:49 08:23 Temperature 97.7 F Pulse Rate 87 Respiratory 24 20 Rate Blood Pressure 126/68 (mmHg) O2 Sat by Pulse 99 Oximetry Physical Exam: General: NAD, sitting up in bed Neurological: Alert and Oriented HEENT: Moist MM, no thrush. Soft, horse voice Cardiovascular: Heart rate regular Respiratory: Lung sounds diminished Abdominal: Bowel sounds present; ABD soft, non tender and non distended MSK: No tenderness with palpation of neck, back, or spine Skin: No rash Laboratory Results - last 24 hr 10/16/18 10/17/18 10/17/18 08:50 09:32 09:33 WBC 2.5 L 3.3 L RBC 3.68 L 3.31 L Hgb 11.5 L 10.3 L Hct 34 L 31 L MCV 93 93 MCH 31 31 MCHC 34 34 RDW 17 H 17 H Plt Count 31 L 41 L MPV 11.8 H 11.2 H Immature Gran % 8.0 Neutrophils % 53.0 Band Neutrophils % 8.0 Lymphocytes % 20.0 Monocytes % 18.0 Eosinophils % 1.0 Normal RBC Morphology Normal Hem Pathologist Commnt Sodium 138 Potassium 3.9 Chloride 109 Carbon Dioxide 23 Anion Gap 6 BUN 38 H Creatinine 0.89 Est GFR ( Amer) 102.3 Est GFR (Non-Af Amer) 84.5 BUN/Creatinine Ratio 42.7 H Glucose 150 H Calcium 8.4 L Total Bilirubin 4.00 H D AST 51 H ALT 30 Alkaline Phosphatase 112 H Total Protein 5.2 L Albumin 2.5 L Globulin 2.7 Albumin/Globulin Ratio 0.9 L Microbiology 10/13/18 14:54 Aerobic Blood Culture - Final Blood Venous Pseudomonas Aeruginosa Anaerobic Blood Culture - Preliminary No Growth Day 3 10/13/18 14:54 Aerobic Blood Culture - Final Blood Venous Pseudomonas Aeruginosa Anaerobic Blood Culture - Final Pseudomonas Aeruginosa 10/14/18 00:30 Urine Culture - Final Urine No Growth (<1,000 CFU/mL) 10/13/18 21:58 Nasal Screen MRSA (PCR) - Final Nasal Mrsa Not Detected Assessment: 1. Pseudomonas bacteremia. No abscess seen on chest, neck or ABD/pelvis CT. Chest CT - progressive bilateral patchy consolidations/groundglass opacification concerning for PNA, suspect source could be pneumonia. Cipro was discontinued on Monday, as it was felt he didn't require dual pseudomonal coverage. Afebrile. Denies productive cough. Does have a power port in place to the right upper chest, site is benign. No peripheral stigmata of endocarditis. Repeat blood cultures from yesterday pending. 2. Elevated transaminitis. S/P cholecyctectomy. ABD CT scan without findings to explain elevated transamititis. Suspect they may be secondary to anidulafungin and/or cefepime. Liver ultrasound pending. 3. Mantel cell lymphoma. 4. Right total knee arthroplasty. Knee benign. 5. Pancytopenia. Improving. Plan: Discontinue cefepime, and start Zosyn. He will need to have 14 days of IV ABX, day 5/14. We will treat through the port in the event that it is seeded. Will need to follow LFTs to see if they are improving off Cefepime.
[2018-10-17 10:53] LABS: Indirect Bilirubin 1.3 mg/dL (0.3-1.0)
[2018-10-17 11:12] LABS: ABS Lymphocytes 0.6 10^3/ul (1.0-4.8); ABS Monocytes 0.4 10^3/ul (0-0.8); ABS Neutrophils 2.2 10^3/ul (1.5-7.7); Eosinophil % 0.9 %; Large Platelets Present; Lymphocyte % 18.7 %; Nucleated Red Blood Cells % 0.1
--- NOTE | 2018-10-17 12:14 | PN ---
Progress Note - Progress Note Date of Service: 10/17/18 SOAP: Subjective: [Not feeling great today. Mostly just fatigue. Coughing intermittently which is productive. No dyspnea at rest. He has not been out of bed this am. No abd pain, n/v/d/c. ] Objective: [ Acetaminophen (Tylenol Tab*) 650 mg PO Q6H PRN PRN Reason: TEMPERATURE > 100.4 Last Admin: 10/17/18 09:19 Dose: 650 mg Alprazolam (Xanax Tab*) 0.5 mg PO TID PRN PRN Reason: ANXIETY Cefepime HCl (Maxipime 2 Gm In Dextrose Duplex (*)) 2 gm in 50 mls @ 100 mls/ hr IV Q8HR [facility] Last Admin: 10/17/18 05:22 Dose: 100 mls/hr Metoprolol Tartrate (Lopressor Tab*) 50 mg PO Q12HR [facility] Last Admin: 10/17/18 09:11 Dose: 50 mg Oxycodone HCl (Roxycodone Tab*) 5 mg PO Q6HR PRN PRN Reason: PAIN - MILD Last Admin: 10/15/18 17:20 Dose: 5 mg Pantoprazole Sodium (Protonix Tab*) 40 mg PO QAM [facility] Last Admin: 10/17/18 09:11 Dose: 40 mg Prochlorperazine (Compazine Tab*) 10 mg PO Q6H PRN PRN Reason: NAUSEA Sotalol HCl (Betapace Tab*) 80 mg PO 0900,2100 [facility] Last Admin: 10/17/18 09:12 Dose: 80 mg Laboratory Results - last 24 hr 10/16/18 10/17/18 10/17/18 08:50 09:32 09:33 WBC 2.5 L 3.3 L RBC 3.68 L 3.31 L Hgb 11.5 L 10.3 L Hct 34 L 31 L MCV 93 93 MCH 31 31 MCHC 34 34 RDW 17 H 17 H Plt Count 31 L 41 L MPV 11.8 H 11.2 H Neut % (Auto) 66.6 Lymph % (Auto) 18.7 [place] % (Auto) 13.1 Eos % (Auto) 0.9 Baso % (Auto) 0.7 Absolute Neuts (auto) 2.2 Absolute Lymphs (auto) 0.6 L Absolute Monos (auto) 0.4 Absolute Eos (auto) 0.0 Absolute Basos (auto) 0.0 Absolute Nucleated RBC 0.0 Immature Gran % 8.0 Neutrophils % 53.0 Band Neutrophils % 8.0 Lymphocytes % 20.0 Monocytes % 18.0 Eosinophils % 1.0 Nucleated RBC % 0.1 Large Platelets Present Normal RBC Morphology Normal Hem Pathologist Commnt Sodium 138 Potassium 3.9 Chloride 109 Carbon Dioxide 23 Anion Gap 6 BUN 38 H Creatinine 0.89 Est GFR ( Amer) 102.3 Est GFR (Non-Af Amer) 84.5 BUN/Creatinine Ratio 42.7 H Glucose 150 H Calcium 8.4 L Total Bilirubin 4.00 H D Direct Bilirubin 2.70 H Indirect Bilirubin 1.3 H AST 51 H ALT 30 Alkaline Phosphatase 112 H Total Protein 5.2 L Albumin 2.5 L Globulin 2.7 Albumin/Globulin Ratio 0.9 L Vital Signs: Temp Pulse Resp BP Pulse Ox 97.7 F 87 20 126/68 99 10/17/18 07:49 10/17/18 07:49 10/17/18 08:23 10/17/18 07:49 10/17/18 07:49 Exam: Gen: Chronically ill appearing, but relatively well given clinical context and in NAD HEENT: very hoarse voice, nearly a whisper, posterior pharynx is mildly injected but otherwise negative exam CV: RRR, no m/r/g Resp: diffuse rhonchi, few baseline crackles Abd: soft and nonTTP Ext: no edema Skin: no rashes] Assessment: [68 yo male with mantle cell lymphoma treated with imbruvica with a recently prolonged hospitalization for aspergillus PNA treated with anidulafungin who presented with c/o fever and ST/hoarseness found to have pseudomonas bacteremia. Imaging demonstrated increased lung consolidation, no abscess noted in the neck, chest, abd or pelvis. Of note today he has had a sharp rise in bilirubin which does not correspond with a significant transaminitis and pt declines any GI symptoms. CT from earlier this week showed no hepatic pathology and he s/p cholecystectomy. Plan: 1. Neutropenic fever with pseudomonas bacteremia - cont Cefepime - double coverage was not necessary to continue per ID - likely source is lung - recommend a total of 2 weeks of abx - recommendations from ID for po v IV is pending 2. Aspergillus PNA - he completed the recommended course of anidulafungin, will stop today given rise of bilirubin which could be drug related 3. Hypoxia - likely related to PNA - down titrate supp O2 as tolerated 4. Elevated Tbili - check bilirubin fractionation - RUQ US if elevated direct bilirubin - Ddx. drug induced cholestasis, drug induced hepatitis, choledolithiasis, other biliary obstruction 4. Mantle cell lymphoma - hold Imbruvica 5. Afib - holding anticoagulation for thrombocytopenia, resume when plts >50K - cont sotalol/metoprolol 6. Pancytopenia - secondary to imbruvica/sepsis - improving 7. DNR Dispo: cont inpatient stay. Requested PT/OT today. Dispo will also depend on ID recommendations for length/route of abx
[2018-10-17] MEDS ORDERED: Piperacillin/Tazobac ADVAN(*) 3.375 GM in NS 0.9% 100 ML* 100 ML IVPB ONE (12:17)
[2018-10-17] MEDS ORDERED: NS 0.9% 100 ML* 0 ML ONE (12:49)
[2018-10-17] MEDS ORDERED: Zosyn per Pharmacy* NOTE FOLLOW UP SCH (13:00)
[2018-10-17] MEDS: ZOSYN 3.375 GM Q8H per EXTENDED INFUSION IVPB SCH ×2 (17:03)
[2018-10-18] MEDS: ZOSYN 3.375 GM Q8H per EXTENDED INFUSION IVPB SCH ×6 (01:15→11:04)
[2018-10-18] MEDS: oxyCODONE TAB* 5 MG TAB PO PRN ×2 (06:25→14:45)
[2018-10-18 06:56] LABS: Albumin 2.2 g/dL (3.2-5.2); BUN/Creatinine Ratio 34.6 (8-20); Calcium 7.5 mg/dL (8.6-10.3); EGFR Non-African American 94.2 (>60); Globulin 2.3 g/dL (2-4); Hematocrit 27 % (42-52); Hemoglobin 9.4 g/dL (14.0-18.0); Magnesium 1.9 mg/dL (1.9-2.7); Mean Corpuscular HGB Conc 35 g/dL (31-36); Mean Corpuscular Hemoglobin 32 pg (27-31); Mean Corpuscular Volume 92 fL (80-94); Mean Platelet Volume 10.9 fL (7.4-10.4); Platelet Count 45 10^3/uL (150-450); Potassium 3.4 mmol/L (3.5-5.0); Red Blood Count 2.97 10^6 /uL (4.18-5.48); Red Cell Distribution Width 17 % (10-15); Total Bilirubin 2.8 mg/dL (0.2-1.0); Total Protein 4.5 g/dL (6.4-8.9); White Blood Count 3.5 10^3/uL (3.5-10.8)
[2018-10-18 07:32] LABS: ABS Eosinophils 0.1 10^3/ul (0-0.6); ABS Lymphocytes 0.7 10^3/ul (1.0-4.8); ABS Monocytes 0.5 10^3/ul (0-0.8); ABS Neutrophils 2.2 10^3/ul (1.5-7.7); Eosinophil % 2.6 %; Lymphocyte % 19.8 %; Nucleated Red Blood Cells % 0.3
[2018-10-18] MEDS: Sotalol TAB* 80 MG PO SCH ×2 (09:13→20:53)
[2018-10-18] MEDS: Pantoprazole TAB * 40 MG TAB PO SCH (09:13)
[2018-10-18] MEDS: Potassium Chloride* LIQUID 20 MEQ/15 ML UDC PO SCH (09:13)
[2018-10-18] MEDS: Metoprolol Tartrate TAB* 50 mg PO SCH ×2 (09:13→20:52)
--- NOTE | 2018-10-18 09:36 | PN ---
Progress Note - Progress Note Date of Service: 10/18/18 SOAP: Subjective: [Feeling ok. Still pretty wiped out. Worked with PT this am and was pretty fatigued by it. Still coughing occasionally] Objective: [ Vital Signs: Temp Pulse Resp BP Pulse Ox 98.2 F 74 24 130/68 98 10/18/18 08:09 10/18/18 08:09 10/18/18 08:09 10/18/18 08:09 10/18/18 08:09 Acetaminophen (Tylenol Tab*) 650 mg PO Q6H PRN PRN Reason: TEMPERATURE > 100.4 Last Admin: 10/17/18 09:19 Dose: 650 mg Alprazolam (Xanax Tab*) 0.5 mg PO TID PRN PRN Reason: ANXIETY Piperacillin Sod/Tazobactam (Sod 3.375 gm/ Sodium Chloride) 100 mls @ 25 mls/ hr IVPB Q8H [facility] Last Admin: 10/18/18 09:13 Dose: 25 mls/hr Metoprolol Tartrate (Lopressor Tab*) 50 mg PO Q12HR [facility] Last Admin: 10/18/18 09:13 Dose: 50 mg Oxycodone HCl (Roxycodone Tab*) 5 mg PO Q6HR PRN PRN Reason: PAIN - MILD Last Admin: 10/18/18 06:25 Dose: 5 mg Pantoprazole Sodium (Protonix Tab*) 40 mg PO QAM [facility] Last Admin: 10/18/18 09:13 Dose: 40 mg Pharmacy Consult (Zosyn Per Pharmacy*) 1 note FOLLOW UP .ZOSYN PER PHARMACY [facility] Potassium Chloride (Potassium Chloride Liquid) 20 meq PO DAILY [facility] Last Admin: 10/18/18 09:13 Dose: 20 meq Prochlorperazine (Compazine Tab*) 10 mg PO Q6H PRN PRN Reason: NAUSEA Sotalol HCl (Betapace Tab*) 80 mg PO 0900,2099 [facility] Last Admin: 10/18/18 09:13 Dose: 80 mg Laboratory Results - last 24 hr 10/17/18 10/17/18 10/18/18 09:32 09:33 05:37 WBC 3.3 L 3.5 RBC 3.31 L 2.97 L Hgb 10.3 L 9.4 L Hct 31 L 27 L MCV 93 92 MCH 31 32 H MCHC 34 35 RDW 17 H 17 H Plt Count 41 L 45 L MPV 11.2 H 10.9 H Neut % (Auto) 66.6 62.1 Lymph % (Auto) 18.7 19.8 [place] % (Auto) 13.1 15.0 Eos % (Auto) 0.9 2.6 Baso % (Auto) 0.7 0.5 Absolute Neuts (auto) 2.2 2.2 Absolute Lymphs (auto) 0.6 L 0.7 L Absolute Monos (auto) 0.4 0.5 Absolute Eos (auto) 0.0 0.1 Absolute Basos (auto) 0.0 0.0 Absolute Nucleated RBC 0.0 0.0 Immature Gran % 1.0 Neutrophils % 59.0 Lymphocytes % 22.0 Reactive Lymphs % 1.0 Monocytes % 16.0 Eosinophils % 1.0 Metamyelocytes % 1.0 Nucleated RBC % 0.1 0.3 Nucleated RBCs/100 WBC 1.0 H Large Platelets Present Normal RBC Morphology Normal Sodium 138 Potassium 3.9 Chloride 109 Carbon Dioxide 23 Anion Gap 6 BUN 38 H Creatinine 0.89 Est GFR ( Amer) 102.3 Est GFR (Non-Af Amer) 84.5 BUN/Creatinine Ratio 42.7 H Glucose 150 H Calcium 8.4 L Magnesium Total Bilirubin 4.00 H D Direct Bilirubin 2.70 H Indirect Bilirubin 1.3 H AST 51 H ALT 30 Alkaline Phosphatase 112 H Total Protein 5.2 L Albumin 2.5 L Globulin 2.7 Albumin/Globulin Ratio 0.9 L 10/18/18 05:37 WBC RBC Hgb Hct MCV MCH MCHC RDW Plt Count MPV Neut % (Auto) Lymph % (Auto) [place] % (Auto) Eos % (Auto) Baso % (Auto) Absolute Neuts (auto) Absolute Lymphs (auto) Absolute Monos (auto) Absolute Eos (auto) Absolute Basos (auto) Absolute Nucleated RBC Immature Gran % Neutrophils % Lymphocytes % Reactive Lymphs % Monocytes % Eosinophils % Metamyelocytes % Nucleated RBC % Nucleated RBCs/100 WBC Large Platelets Normal RBC Morphology Sodium 137 Potassium 3.4 L Chloride 106 Carbon Dioxide 25 Anion Gap 6 BUN 28 H Creatinine 0.81 Est GFR ( Amer) 114.0 Est GFR (Non-Af Amer) 94.2 BUN/Creatinine Ratio 34.6 H Glucose 83 Calcium 7.5 L Magnesium 1.9 Total Bilirubin 2.80 H Direct Bilirubin Indirect Bilirubin AST 39 ALT 25 Alkaline Phosphatase 127 H Total Protein 4.5 L Albumin 2.2 L Globulin 2.3 Albumin/Globulin Ratio 1.0 Exam: Gen: Chronically ill appearing, but relatively well given clinical context and in NAD HEENT: very hoarse voice, nearly a whisper CV: RRR, no m/r/g Resp: CTA today, much better air exchange, no w/c/r Abd: soft and nonTTP Ext: trace LE edema Skin: no rashes] Assessment: [68 yo male with mantle cell lymphoma treated with imbruvica with a recently prolonged hospitalization for aspergillus PNA treated with anidulafungin who presented with c/o fever and ST/hoarseness found to have pseudomonas bacteremia. Imaging demonstrated increased lung consolidation, no abscess noted in the neck, chest, abd or pelvis. Of note yesterday he has had a sharp rise in bilirubin without significant transaminitis or GI symptoms. Rise was mostly direct bilirubin. RUQ US WNL as well as CT from a few days prior. Tbili improved today after stopping Zosyn and anidulafungin, suggestive of possible drug induced cholestasis. Plan: 1. Neutropenic fever with pseudomonas bacteremia - cont Zosyn (switched from Cefepime d/t rise in Tbili) - double coverage was not necessary to continue per ID - likely source is lung - recommend a total of 2 weeks of IV abx - today is day 614 2. Aspergillus PNA - he completed the recommended course of anidulafungin, stopped yesterday 3. Hypoxia - likely related to PNA - down titrate supp O2 as tolerated 4. Elevated Tbili - likely drug related cholestasis, improved today - RUQ US is WNL 4. Mantle cell lymphoma - holding Imbruvica 5. Afib - rate controlled - holding anticoagulation for thrombocytopenia, resume when plts >50K - cont sotalol/metoprolol 6. Pancytopenia - secondary to imbruvica/sepsis - improving 7. DNR Dispo: cont inpatient stay. Will require a total of 2 weeks of IV abx. He is quite deconditioned from his recent hospitalizations and I don't foresee him being successful at home after discharge. Recommend KATE which pt is in agreement with
--- NOTE | 2018-10-18 10:57 | PN ---
Progress Note - Progress Note Date of Service: 10/18/18 SOAP: Subjective: CC: pneumonia HPI: 68 year old man with cough and dyspnea, right sided infiltrate on chest imaging. He has cough and dyspnea, no fever. Appetite is fair. No abd pain or diarrhea. Objective: Vital Signs Temp 36.8 C 10/18/18 08:09 Pulse 74 10/18/18 08:09 Resp 24 10/18/18 09:58 BP 130/68 10/18/18 08:09 Pulse Ox 98 10/18/18 08:09 Intake & Output 10/17/18 10/18/18 10/18/18 18:59 06:59 18:59 Intake Total 100 Output Total 400 Balance 100 -400 Intake: IVPB 100 Zosyn 100 Output: Urine 400 Other: # Bowel Movements 0 Gen:awake, no distress HEENT: no thrush Heart: regular no murmur Lungs:CTA BL Abd:+BS NTND soft Skin: no rash MSK: BL LE edema Laboratory Results - last 24 hr 10/17/18 10/17/18 10/18/18 09:32 09:33 05:37 WBC 3.5 RBC 2.97 L Hgb 9.4 L Hct 27 L MCV 92 MCH 32 H MCHC 35 RDW 17 H Plt Count 45 L MPV 10.9 H Neut % (Auto) 66.6 62.1 Lymph % (Auto) 18.7 19.8 [place] % (Auto) 13.1 15.0 Eos % (Auto) 0.9 2.6 Baso % (Auto) 0.7 0.5 Absolute Neuts (auto) 2.2 2.2 Absolute Lymphs (auto) 0.6 L 0.7 L Absolute Monos (auto) 0.4 0.5 Absolute Eos (auto) 0.0 0.1 Absolute Basos (auto) 0.0 0.0 Absolute Nucleated RBC 0.0 0.0 Immature Gran % 1.0 Neutrophils % 59.0 Lymphocytes % 22.0 Reactive Lymphs % 1.0 Monocytes % 16.0 Eosinophils % 1.0 Metamyelocytes % 1.0 Nucleated RBC % 0.1 0.3 Nucleated RBCs/100 WBC 1.0 H Large Platelets Present Normal RBC Morphology Normal Sodium Potassium Chloride Carbon Dioxide Anion Gap BUN Creatinine Est GFR ( Amer) Est GFR (Non-Af Amer) BUN/Creatinine Ratio Glucose Calcium Magnesium Total Bilirubin Direct Bilirubin 2.70 H Indirect Bilirubin 1.3 H AST ALT Alkaline Phosphatase Total Protein Albumin Globulin Albumin/Globulin Ratio 10/18/18 05:37 WBC RBC Hgb Hct MCV MCH MCHC RDW Plt Count MPV Neut % (Auto) Lymph % (Auto) [place] % (Auto) Eos % (Auto) Baso % (Auto) Absolute Neuts (auto) Absolute Lymphs (auto) Absolute Monos (auto) Absolute Eos (auto) Absolute Basos (auto) Absolute Nucleated RBC Immature Gran % Neutrophils % Lymphocytes % Reactive Lymphs % Monocytes % Eosinophils % Metamyelocytes % Nucleated RBC % Nucleated RBCs/100 WBC Large Platelets Normal RBC Morphology Sodium 137 Potassium 3.4 L Chloride 106 Carbon Dioxide 25 Anion Gap 6 BUN 28 H Creatinine 0.81 Est GFR ( Amer) 114.0 Est GFR (Non-Af Amer) 94.2 BUN/Creatinine Ratio 34.6 H Glucose 83 Calcium 7.5 L Magnesium 1.9 Total Bilirubin 2.80 H Direct Bilirubin Indirect Bilirubin AST 39 ALT 25 Alkaline Phosphatase 127 H Total Protein 4.5 L Albumin 2.2 L Globulin 2.3 Albumin/Globulin Ratio 1.0 Assessment: 1. Pseudomonas bacteremia, likely pneumonia and high risk for seeding of port 2. Lymphoma 3. neutropenia, resolving 4. Recent left sided pneumonia 5. hyperbilirubinemia, decreased today so not likely related to cefepime Plan: he needs bid dosing for SNF, will change back to cefepime 1 gm IV Q12hrs, day through port
[2018-10-18] MEDS: Acetaminophen TAB* 325 MG PO PRN (11:38)
[2018-10-18] MEDS: Cefepime 1 GM in Dextrose(*) 1 GM/50 ML BAG IV SCH (18:00)
[2018-10-19] MEDS: Cefepime 1 GM in Dextrose(*) 1 GM/50 ML BAG IV SCH ×2 (06:09→18:18)
[2018-10-19 08:44] LABS: ABS Neutrophils 3.4 10^3/ul (1.5-7.7); Hematocrit 31 % (42-52); Hemoglobin 10.4 g/dL (14.0-18.0); Mean Corpuscular HGB Conc 34 g/dL (31-36); Mean Corpuscular Hemoglobin 31 pg (27-31); Mean Corpuscular Volume 92 fL (80-94); Mean Platelet Volume 11.6 fL (7.4-10.4); Platelet Count 64 10^3/uL (150-450); Red Blood Count 3.34 10^6 /uL (4.18-5.48); Red Cell Distribution Width 17 % (10-15); White Blood Count 4.5 10^3/uL (3.5-10.8)
[2018-10-19 08:57] LABS: Albumin 2.5 g/dL (3.2-5.2); BUN/Creatinine Ratio 28.4 (8-20); Calcium 7.9 mg/dL (8.6-10.3); EGFR African American 141.9 (>60); EGFR Non-African American 117.3 (>60); Globulin 2.6 g/dL (2-4); Potassium 3.8 mmol/L (3.5-5.0); Total Bilirubin 2.4 mg/dL (0.2-1.0); Total Protein 5.1 g/dL (6.4-8.9)
[2018-10-19] MEDS: Sotalol TAB* 80 MG PO SCH ×2 (09:20→20:25)
[2018-10-19] MEDS: oxyCODONE TAB* 5 MG TAB PO PRN ×2 (09:21→18:18)
[2018-10-19] MEDS: Potassium Chloride* LIQUID 20 MEQ/15 ML UDC PO SCH (09:21)
[2018-10-19] MEDS: Metoprolol Tartrate TAB* 50 mg PO SCH ×2 (09:21→20:25)
[2018-10-19] MEDS: Pantoprazole TAB * 40 MG TAB PO SCH (09:22)
[2018-10-19 09:43] LABS: ABS Eosinophils 0.1 10^3/ul (0-0.6); ABS Lymphocytes 0.5 10^3/ul (1.0-4.8); ABS Monocytes 0.5 10^3/ul (0-0.8); Eosinophil % 1.5 %; Lymphocyte % 10.5 %; Nucleated Red Blood Cells % 0.1
--- NOTE | 2018-10-19 09:48 | PN ---
Progress Note - Progress Note Date of Service: 10/19/18 SOAP: Subjective: [Feeling ok today. Still hoarse. No dyspnea at rest. Still not moving much around his room.] Objective: [ Vital Signs: Temp Pulse Resp BP Pulse Ox 98.1 F 80 20 143/65 98 10/19/18 07:52 10/19/18 07:52 10/19/18 09:21 10/19/18 07:52 10/19/18 07:52 Acetaminophen (Tylenol Tab*) 650 mg PO Q6H PRN PRN Reason: TEMPERATURE > 100.4 Last Admin: 10/18/18 11:38 Dose: 650 mg Alprazolam (Xanax Tab*) 0.5 mg PO TID PRN PRN Reason: ANXIETY Heparin Sodium (Porcine) (Heparin Flush Port ([place])) 5 ml FLUSH DAILY [facility]; Protocol Last Admin: 10/18/18 20:45 Dose: 5 ml Cefepime HCl (Maxipime 1 Gm In Dextrose Duplex (*)) 1 gm in 50 mls @ 100 mls/ hr IV Q12H [facility] Last Admin: 10/19/18 06:09 Dose: 100 mls/hr Metoprolol Tartrate (Lopressor Tab*) 50 mg PO Q12HR [facility] Last Admin: 10/19/18 09:21 Dose: 50 mg Oxycodone HCl (Roxycodone Tab*) 5 mg PO Q6HR PRN PRN Reason: PAIN - MILD Last Admin: 10/19/18 09:21 Dose: 5 mg Pantoprazole Sodium (Protonix Tab*) 40 mg PO QAM [facility] Last Admin: 10/19/18 09:22 Dose: 40 mg Potassium Chloride (Potassium Chloride Liquid) 20 meq PO DAILY [facility] Last Admin: 10/19/18 09:21 Dose: 20 meq Prochlorperazine (Compazine Tab*) 10 mg PO Q6H PRN PRN Reason: NAUSEA Sotalol HCl (Betapace Tab*) 80 mg PO 0900,2100 [facility] Last Admin: 10/19/18 09:20 Dose: 80 mg Laboratory Results - last 24 hr 10/18/18 10/19/18 10/19/18 05:37 08:09 08:09 WBC 4.5 RBC 3.34 L Hgb 10.4 L Hct 31 L MCV 92 MCH 31 MCHC 34 RDW 17 H Plt Count 64 L MPV 11.6 H Neut % (Auto) 77.2 Lymph % (Auto) 10.5 [place] % (Auto) 10.5 Eos % (Auto) 1.5 Baso % (Auto) 0.3 Absolute Neuts (auto) 3.4 Absolute Lymphs (auto) 0.5 L Absolute Monos (auto) 0.5 Absolute Eos (auto) 0.1 Absolute Basos (auto) 0.0 Absolute Nucleated RBC 0.0 Immature Gran % 3.0 Neutrophils % 73.0 Band Neutrophils % 2.0 Lymphocytes % 9.0 Reactive Lymphs % 1.0 Monocytes % 12.0 Eosinophils % 2.0 Metamyelocytes % 1.0 Nucleated RBC % 0.1 Normal RBC Morphology Normal Anisocytosis 1+ Hem Pathologist Commnt Sodium 139 Potassium 3.8 Chloride 106 Carbon Dioxide 27 Anion Gap 6 BUN 19 Creatinine 0.67 Est GFR ( Amer) 141.9 Est GFR (Non-Af Amer) 117.3 BUN/Creatinine Ratio 28.4 H Glucose 107 H Calcium 7.9 L Total Bilirubin 2.40 H AST 24 ALT 21 Alkaline Phosphatase 145 H Total Protein 5.1 L Albumin 2.5 L Globulin 2.6 Albumin/Globulin Ratio 1.0 Exam: Gen: Chronically ill appearing, but relatively well given clinical context and in NAD HEENT: very hoarse voice, nearly a whisper, oropharynx WNL CV: RRR, no m/r/g Resp: CTA today, no w/c/r Abd: soft and nonTTP Ext: trace LE edema Skin: no rashes] Assessment: [68 yo male with mantle cell lymphoma treated with imbruvica with a recently prolonged hospitalization for aspergillus PNA treated with anidulafungin who presented with c/o fever and ST/hoarseness found to have pseudomonas bacteremia. Imaging demonstrated increased lung consolidation, no abscess noted in the neck, chest, abd or pelvis. Plan: 1. Neutropenic fever with pseudomonas bacteremia - cont Cefepime per ID - switched back from Zosyn yesterday - likely source is lung - recommend a total of 2 weeks of IV abx - today is day 09/02 2. Aspergillus PNA - he completed the recommended course of anidulafungin, stopped 10/17 3. Hypoxia - improving - likely related to PNA - cont to down titrate supp O2 as tolerated 4. Elevated Tbili - likely drug related cholestasis, improving off anidulafungin - will cont to monitor with resuming cefepime - RUQ US is WNL 4. Mantle cell lymphoma - holding Imbruvica 5. Afib - rate controlled - resume anticoagulation tomorrow if plts remain >50K - cont sotalol/metoprolol 6. Pancytopenia - secondary to imbruvica/sepsis - improving 7. DNR Dispo: cont inpatient stay. Will require a total of 2 weeks of IV abx. He is quite deconditioned from his recent hospitalizations and I don't foresee him being successful at home after discharge. Recommend KATE which pt is in agreement with, referrals pending]
--- NOTE | 2018-10-19 11:15 | PN ---
Progress Note - Progress Note Date of Service: 10/19/18 SOAP: Subjective: CC: Gram negative bacteremia and pneumonia. HPI: Mr. Goetz is a 68 yo male with PMH significant for lung cancer s/p left upper lobectomy, mantel call lymphoma, A fib, HLD, autoimmune neuropathy, hx hep C, depression, GERD and recent aspergillus PNA. Denies fever, chills, nausea , vomiting, or diarrhea. Reports shortness of breath that continues to be about the same, but now improving. Denies increased back pain from his chronic back pain. Continues to have a horse voice that is slowly improving, but no sore throat. He hopes to be discharged to rehab soon. Objective: Vital Signs - 8 hr 10/19/18 10/19/18 10/19/18 04:00 07:52 09:21 Temperature 98.3 F 98.1 F Pulse Rate 84 80 Respiratory 20 18 20 Rate Blood Pressure 143/66 143/65 (mmHg) O2 Sat by Pulse 94 98 Oximetry Physical Exam: General: NAD, sitting up in bed Neurological: Alert and Oriented HEENT: Moist MM, no thrush, horse voice Cardiovascular: Heart rate regular Respiratory: Lung sounds clear, diminished Abdominal: Bowel sounds present; ABD soft, non tender, and non distended Skin: No rash Laboratory Results - last 24 hr 10/18/18 10/19/18 10/19/18 05:37 08:09 08:09 WBC 4.5 RBC 3.34 L Hgb 10.4 L Hct 31 L MCV 92 MCH 31 MCHC 34 RDW 17 H Plt Count 64 L MPV 11.6 H Neut % (Auto) 77.2 Lymph % (Auto) 10.5 [place] % (Auto) 10.5 Eos % (Auto) 1.5 Baso % (Auto) 0.3 Absolute Neuts (auto) 3.4 Absolute Lymphs (auto) 0.5 L Absolute Monos (auto) 0.5 Absolute Eos (auto) 0.1 Absolute Basos (auto) 0.0 Absolute Nucleated RBC 0.0 Immature Gran % 3.0 Neutrophils % 73.0 Band Neutrophils % 2.0 Lymphocytes % 9.0 Reactive Lymphs % 1.0 Monocytes % 12.0 Eosinophils % 2.0 Metamyelocytes % 1.0 Nucleated RBC % 0.1 Normal RBC Morphology Normal Anisocytosis 1+ Hem Pathologist Commnt Sodium 139 Potassium 3.8 Chloride 106 Carbon Dioxide 27 Anion Gap 6 BUN 19 Creatinine 0.67 Est GFR ( Amer) 141.9 Est GFR (Non-Af Amer) 117.3 BUN/Creatinine Ratio 28.4 H Glucose 107 H Calcium 7.9 L Total Bilirubin 2.40 H AST 24 ALT 21 Alkaline Phosphatase 145 H Total Protein 5.1 L Albumin 2.5 L Globulin 2.6 Albumin/Globulin Ratio 1.0 Microbiology 10/13/18 14:54 Aerobic Blood Culture - Final Blood Venous Pseudomonas Aeruginosa Anaerobic Blood Culture - Final No Growth Day 5 10/16/18 12:30 Aerobic Blood Culture - Preliminary Blood Line No Growth Day 2 Anaerobic Blood Culture - Preliminary No Growth Day 2 10/16/18 11:50 Aerobic Blood Culture - Preliminary Blood Line No Growth Day 2 Anaerobic Blood Culture - Preliminary No Growth Day 2 10/13/18 14:54 Aerobic Blood Culture - Final Blood Venous Pseudomonas Aeruginosa Anaerobic Blood Culture - Final Pseudomonas Aeruginosa 10/14/18 00:30 Urine Culture - Final Urine No Growth (<1,000 CFU/mL) 10/13/18 21:58 Nasal Screen MRSA (PCR) - Final Nasal Mrsa Not Detected Assessment: 1. Pseudomonas bacteremia. Suspect secondary to pneumonia and high risk for seeding of port. Has been treated via port. Afebrile and no leukocytosis. Repeat blood cultures with no growth. 2. Mantel cell Lymphoma. 3. Neutropenia. Resolving 4. Recent left sided pneumonia. 5. Hyperbilirubinemia. Improved after holding cefepime for 1-2 doses, suspect not due to cefepime Plan: Continue cefepime 1 gm IV Q12hrs, day 614 through port. Recommend getting followup labs next week: CBC and CMP
[2018-10-20] MEDS: oxyCODONE TAB* 5 MG TAB PO PRN (00:24)
[2018-10-20] MEDS: Cefepime 1 GM in Dextrose(*) 1 GM/50 ML BAG IV SCH (06:01)
[2018-10-20 06:17] LABS: Albumin 2.3 g/dL (3.2-5.2); Calcium 7.6 mg/dL (8.6-10.3); EGFR African American 161.2 (>60); EGFR Non-African American 133.2 (>60); Globulin 2.4 g/dL (2-4); Potassium 3.7 mmol/L (3.5-5.0); Total Bilirubin 1.8 mg/dL (0.2-1.0); Total Protein 4.7 g/dL (6.4-8.9)
[2018-10-20 07:16] LABS: ABS Eosinophils 0.1 10^3/ul (0-0.6); ABS Lymphocytes 0.6 10^3/ul (1.0-4.8); ABS Monocytes 0.4 10^3/ul (0-0.8); Eosinophil % 1.2 %; Hematocrit 29 % (42-52); Hemoglobin 9.8 g/dL (14.0-18.0); Lymphocyte % 14.3 %; Mean Corpuscular HGB Conc 34 g/dL (31-36); Mean Corpuscular Hemoglobin 31 pg (27-31); Mean Corpuscular Volume 93 fL (80-94); Red Blood Count 3.14 10^6 /uL (4.18-5.48); Red Cell Distribution Width 17 % (10-15); White Blood Count 4.1 10^3/uL (3.5-10.8)
[2018-10-20 07:20] LABS: Mean Platelet Volume 11.2 fL (7.4-10.4); Platelet Count 71 10^3/uL (150-450)
[2018-10-20 07:21] LABS: Polychromasia 1+
[2018-10-20] MEDS ORDERED: Apixaban* 5 MG TAB PO SCH (09:00)
[2018-10-20] MEDS: Pantoprazole TAB * 40 MG TAB PO SCH (09:56)
[2018-10-20] MEDS: Potassium Chloride* LIQUID 20 MEQ/15 ML UDC PO SCH (09:56)
[2018-10-20] MEDS: Metoprolol Tartrate TAB* 50 mg PO SCH (09:56)
[2018-10-20] MEDS: Sotalol TAB* 80 MG PO SCH (09:56)
[2018-10-20] MEDS ORDERED: oxyCODONE ORAL.SOLN* 5 MG/5 ML UDC PO ONE (10:00)
--- NOTE | 2018-10-20 11:24 | DS ---
CC: [facility]; Dr. Bhatia; Dr. Brayan Voss* DISCHARGE SUMMARY: DATE OF ADMISSION: 10/13/18 DATE OF DISCHARGE: 10/20/18 DISCHARGE DIAGNOSES: 1. Pseudomonas bacteremia/pneumonia and sepsis. 2. Recent aspergillus pneumonia. 3. Recurrent mantle cell lymphoma, having been on Imbruvica. 4. History of lung cancer. 5. Pancytopenia secondary to Imbruvica. 6. History of atrial fibrillation. 7. Acute kidney injury. 8. Hyponatremia. HISTORY: Milton Goetz is a 68-year-old male with a history of lung cancer from which she is in currently remission and a history of mantle cell lymphoma, which had recurred for which he has been treated recently with good success with Imbruvica. He was hospitalized about one month ago with pneumonia and sepsis and found to have aspergillus for which he has been treated with anidulafungin which was scheduled to be discontinued on 10/17/18. He presented to the emergency room with a fever, laryngitis, which had come on rapidly and met criteria for severe sepsis but not septic shock as he was hemodynamically stable. He was found to have blood cultures positive for pseudomonas, which was a sensitive organism being sensitive to cefepime as well as quinolones, meropenem, Zosyn, and aminoglycosides. He was treated in the hospital with cefepime. He was seen in consultation by Dr. Brayan Voss of Infectious Disease. CT scans were obtained to look for potential source for the aspergillus pneumonia. Neck CT was obtained because of some neck pain and need to rule out abscess and was unremarkable. CT of the abdomen and pelvis did not show any evidence for any abscesses. Chest CT confirmed bilateral infiltrates which were patchy along with a small left pleural effusion and prior left upper lobe lobectomy. Over the course of the hospitalization, being off of Imbruvica , his blood counts improved with the neutrophil count on admission having been 600 and by the time discharge, had risen to 3000. Similarly, the platelet count which on admission was 72 did fall to 17 on on hospital day 3, but is back up to 71 at the time of discharge. Eliquis was held when his platelet count was low, but has subsequently been resumed for his underlying atrial fibrillation. Potassium was repleted during the hospitalization. He was maintained on his medications for his atrial fibrillation including beta- blockers and sotalol. He had some hoarseness at the time of admission, which markedly worsened during the hospitalization for unclear reasons. He was seen in consultation by Speech Therapy and initially was recommended for nectar- thick liquids and then for a full diet as he showed a safety in this regard. His hypoxia significantly improved during the hospitalization and is currently down from 8 L to 2 L per nasal cannula, felt likely secondary to the pneumonia. During the admission, he also had elevated LFTs, especially an elevated direct bilirubin, felt to be drug-related cholestasis and improved once he went off the anidulafungin. Cefepime was also held for one to two doses. Right upper quadrant ultrasound was within normal limits. His atrial fibrillation had a controlled rate and anticoagulation was resumed and he was maintained on sotalol and metoprolol. The patient has previously requested a DNR status and this was continued at his request during this hospitalization. The patient was agreeable to the plan of a transfer to a swing facility at [facility] for continued IV antibiotics and for rehab. On the morning of discharge, he became somewhat agitated and slightly confused initially, claiming that he was signing on AMA, this was before a nursing bed was approved. Once he was told that he was approved for [facility], he calmed down considerably and was again agreeable to the plan for discharge there. PHYSICAL EXAMINATION ON THE DAY OF DISCHARGE: Vital signs are stable. Blood pressure 124/59, pulse 81, afebrile, O2 saturation 92% on 2 L. HEENT: PERRL. EOMI. No scleral icterus. No palpable cervical, supraclavicular adenopathy. Lungs: Clear. Heart: Regular rate and rhythm without murmurs. Abdomen: Soft , nontender. Extremities: Trace edema bilaterally. MEDICATIONS AT THE TIME OF DISCHARGE: Include: 1. Cefepime 1 g q.12 h. 2. Eliquis 5 mg b.i.d. 3. Pantoprazole 40 mg daily. 4. Compazine 10 mg q.6 h. p.r.n. nausea. 5. Metoprolol 50 mg b.i.d. 6. Lexapro 10 mg daily. 7. Magnesium 400 mg t.i.d. 8. Potassium 40 mEq daily. 9. Ibrutinib is on hold. 10. Lasix is on hold. 11. O2 at 2 L per nasal cannula, increase as needed to maintain O2 saturations of at least 92%. FOLLOWUP: The patient should be seen back in our office in 1 to 2 weeks' time to further look at his counts and to be evaluated. He will require a CMP and a CBC in approximately 3 to 5 days' time. [id number]/[facility] #: [id number] MTDD
[2018-10-20 19:08] VITALS: BP 119/56
== END 2018-10-20 11:58 | disposition swing bed (61) | DRG 871 ==
LOC: ED 14:27 → MED 16:31 → ICU 19:58 → MEDTELE 10-15 09:14
PROVIDERS: ADMIT Internal Medicine Hematology & Oncology; ATTEND Internal Medicine Hematology & Oncology
DX: A41.52 Sepsis due to Pseudomonas (principal); J15.1 Pneumonia due to Pseudomonas; N17.9 Acute kidney failure, unspecified; E87.1 Hypo-osmolality and hyponatremia; C83.10 Mantle cell lymphoma, unspecified site; B44.9 Aspergillosis, unspecified; D61.818 Other pancytopenia; J90 Pleural effusion, not elsewhere classified; E03.9 Hypothyroidism, unspecified; I48.91 Unspecified atrial fibrillation; E78.5 Hyperlipidemia, unspecified; G90.09 Other idiopathic peripheral autonomic neuropathy; I10 Essential (primary) hypertension; J44.9 Chronic obstructive pulmonary disease, unspecified; K21.9 Gastro-esophageal reflux disease without esophagitis; M19.90 Unspecified osteoarthritis, unspecified site; G89.29 Other chronic pain; R65.20 Severe sepsis without septic shock; F32.9 Major depressive disorder, single episode, unspecified; Z66 Do not resuscitate; R09.02 Hypoxemia; F41.0 Panic disorder [episodic paroxysmal anxiety]; M54.9 Dorsalgia, unspecified; J04.0 Acute laryngitis; T45.1X5A Adverse effect of antineoplastic and immunosuppressive drugs, initial encounter; K71.0 Toxic liver disease with cholestasis; T36.1X5A Adverse effect of cephalosporins and other beta-lactam antibiotics, initial encounter; T36.7X5A Adverse effect of antifungal antibiotics, systemically used, initial encounter; M54.2 Cervicalgia; Z96.651 Presence of right artificial knee joint; Z82.49 Family history of ischemic heart disease and other diseases of the circulatory system; Z85.118 Personal history of other malignant neoplasm of bronchus and lung; Z90.2 Acquired absence of lung [part of]; Z87.440 Personal history of urinary (tract) infections; Z90.49 Acquired absence of other specified parts of digestive tract; Z86.19 Personal history of other infectious and parasitic diseases; Y92.9 Unspecified place or not applicable; Z87.891 Personal history of nicotine dependence; Z80.1 Family history of malignant neoplasm of trachea, bronchus and lung; Z79.01 Long term (current) use of anticoagulants
CPT/HCPCS: 36415; 70491; 71045; 71260; 74176; 76705; 80048; 80053; 81003; 81015; 82247; 82248; 83605; 83735; 84484; 85025; 85060; 87040; 87077; 87086; 87205; 87641; 93005; 99223; 99232; 99233; 99285; A9270-GY; G8978-GP-CJ; G8979-GP-CI; G8987-GO-CJ; G8988-GO-CI; J0348; J0692; J0744; J1160; J1642; J1940; J2543; J3475; J3480; J3490; Q9967

== ENCOUNTER 2018-10-30 11:31 | Inpatient (IN) | payer MEDICARE ==
[2018-10-30] MEDS ORDERED: Prochlorperazine TAB* 10 MG PO PRN (17:09)
[2018-10-30] MEDS: oxyCODONE TAB* 5 MG TAB PO PRN ×3 (17:59→23:57)
[2018-10-30] MEDS: Cefepime 2 GM in Dextrose(*) 2 GM/50 ML BAG IV SCH (18:10)
--- NOTE | 2018-10-30 19:47 | HP ---
ADMISSION HISTORY AND PHYSICAL: DATE OF ADMISSION: 10/30/18 PRIMARY ONCOLOGIST AND ATTENDING PHYSICIAN: Dr. Yosef Bhatia.* (DICTATED BY JOSE EARLY) HISTORY OF PRESENT ILLNESS: This is a 68-year-old gentleman with history of mantle cell lymphoma who has unfortunately had 2 recent complicated hospitalizations in both in August and September 2018. His August hospitalization, he was treated for what was eventually found to be an Aspergillus pneumonia, and then in September hospitalized with Pseudomonas bacteremia of likely lung origin with associated neutropenia secondary to Imbruvica. The patient received a total of 2 weeks IV of cefepime for which he had been transferred to [facility] under swing status to complete IV antibiotics. He was scheduled to finish those on 10/26/18. The patient is unsure exactly which date was his last antibiotic, but it was sometime over this last weekend. He subsequently developed a significant fever greater than 102 degrees Fahrenheit on 11/08, so within 1 to 2 days of completing antibiotics, and was subsequently transitioned from swing status to acute care. Interestingly, he was noted to be neutropenic again yesterday, although Imbruvica had not been resumed. He was restarted on cefepime after discussion with Infectious Disease, . The patient requested transfer back to our facility and arrived earlier today. The patient has been afebrile since and per report WBCs were 1300 today. The patient at the time of evaluation reports that he is feeling okay. He has been participating in rehab at [facility] and is somewhat frustrated by his prolonged hospital stays. He does not recall spiking a fever or much of the details of the last couple of days. He denies any significant cough or shortness of breath. No nausea, vomiting, or diarrhea. He does have some low back pain, but this is chronic for him. PAST MEDICAL HISTORY: 1. Mantle cell lymphoma, recently considered EDGAR on Imbruvica. 2. Atrial fibrillation. 3. Hypertension. 4. Hyperlipidemia. 4. Hepatitis C - previously treated. PAST SURGICAL HISTORY: 1. Total knee arthroplasty in 2013. 2. Cholecystectomy in 2007. 3. Benign ureteral tumor in 1989. CURRENT MEDICATIONS: 1. Eliquis 5 mg p.o. twice daily. 2. Bupropion 150 mg p.o. daily. 3. Lexapro 10 mg p.o. daily. 4. Metoprolol tartrate 50 mg p.o. twice daily. 5. Xanax 0.5 mg p.o. 3 times daily as needed. 6. Cefepime 1 g IV q. 12 hours. 7. Magnesium oxide 400 mg p.o. daily. 8. Oxycodone 5 to 10 mg p.o. as needed for pain. 9. Protonix 40 mg p.o. daily. 10. Potassium chloride 40 mEq p.o. daily. 11. Compazine 10 mg p.o. q.6 hours as needed for nausea and vomiting. 12. Sotalol 80 mg p.o. twice daily. FAMILY HISTORY: The patient's mother had a history of breast cancer at age 50, heart failure at age 70. The patient's father had an unspecified cancer diagnosis at the age of 56. REVIEW OF SYSTEMS: Full review of systems completed and negative apart from what is mentioned in HPI. SOCIAL HISTORY: Patient lives alone, . History of smoking and daily alcohol consumption. Remote history of IVDA. PHYSICAL EXAMINATION GENERAL: This is a chronically ill-appearing 68-year-old gentleman, in no acute distress, lying in a hospital bed. VITAL SIGNS: Most recent vital signs are not available for dictation into this report, but reviewed with nurse and the patient is noted to be afebrile and normotensive. HEENT: The patient is normocephalic, atraumatic. Mucous membranes are pink and moist. He does have a very hoarse voice when speaking to him, but no pathology noted in the posterior pharynx. RESPIRATORY: There is a faint wheeze appreciated in the left mid lung field and right lower lung field. CARDIOVASCULAR: Heart has regular rate, without murmurs, rubs or gallops. ABDOMEN: Soft and nontender to palpation. EXTREMITIES: The patient has 1+ pitting edema of the lower extremities bilaterally. SKIN: No rashes or concerning lesions. LABORATORY EVALUATION: CBC 10/30/18 shows a total white blood cell count of 1300 with a neutrophil count of 200 and 2.3% bands. Hemoglobin of 7.1 with an MCV of 95 and platelet count of 156,000. Urinalysis is unremarkable. Basic metabolic panel 10/30/18 shows sodium of 137, potassium of 3.7, BUN of 11 , creatinine 0.8, lactic acid of 1.2, and calcium of 7.7. IMAGING: Chest x-ray 10/29/18 shows evolving infiltrates involving bilateral lungs and a small left pleural effusion. ASSESSMENT AND PLAN: This is a 68-year-old gentleman with history of mantle cell lymphoma, recently considered EDGAR on Imbruvica, who has recently been admitted for Aspergillus pneumonia and most recent pseudomonal bacteremia who completed a total of 2 weeks of IV cefepime, who subsequently presents with recurrent fevers and infiltrates on chest x-ray. Of note, the patient has a persistent hoarseness for least the greater part of 2 weeks. No throat pain. CT imaging of the neck done on his prior hospitalization was unrevealing. The patient is being admitted under inpatient status for presumed recurrent bacteremia. 1. Neutropenic fever - repeat blood cultures now. Repeat blood cultures are pending from [facility] drawn yesterday without results are available for review at this time. We will obtain CT scan of the chest for comparison to prior from 10/15/18 to evaluate for progressive infiltrates. 2. Etiology of neutropenia is not clear and seems potentially improved. May be a result of sepsis, but depending on clinical course may require bone marrow biopsy. Cefepime has been resumed as long as patient is neutropenic and with recurrent fever. 3. Port in place - this may be a focus of infection. Depending on the blood culture results, we will consider removing port this hospital stay. 4. Atrial fibrillation - the patient is appropriately rate controlled. This is generally paroxysmal and we will continue his beta-quincy and sotalol as well as anticoagulation with Eliquis. 5. Anemia - hemoglobin noted to be 7 g/dL on labs completed yesterday. Hemoglobin was 9.8 when discharged from this hospital 10 days prior. We will send stool for occult blood testing, but we will continue Eliquis at this time and transfuse if patient develops new symptoms or based on results on repeat tomorrow. 6. DVT prophylaxis - continue therapeutic Eliquis. 7. Code status. The patient is assigned DNR/DNI. 7. Healthcare proxy is a former partner by the name of Greta Pond. DISPOSITION: The patient is being admitted under inpatient status for febrile neutropenia with recent history of pseudomonal bacteremia. Requested infectious disease consultation as well. JOSE EARLY [id number]/[facility] #: [id number] [facility] CENTERBhavna
[2018-10-30] MEDS: Magnesium Oxide TAB* 400 MG PO SCH (20:30)
[2018-10-30] MEDS: Apixaban* 5 MG TAB PO SCH (20:30)
[2018-10-30] MEDS: Sotalol TAB* 80 MG PO SCH ×2 (20:35→21:04)
[2018-10-30] MEDS: Metoprolol Tartrate TAB* 50 mg PO SCH ×2 (20:35→21:02)
[2018-10-31] MEDS: Cefepime 2 GM in Dextrose(*) 2 GM/50 ML BAG IV SCH ×3 (01:37→17:49)
[2018-10-31] MEDS: Sotalol TAB* 80 MG PO SCH ×3 (05:35→21:30)
[2018-10-31] MEDS: Metoprolol Tartrate TAB* 50 mg PO SCH ×2 (05:35→21:30)
[2018-10-31 07:14] LABS: Hematocrit 24 % (42-52); Hemoglobin 7.9 g/dL (14.0-18.0); Mean Corpuscular HGB Conc 34 g/dL (31-36); Mean Corpuscular Hemoglobin 31 pg (27-31); Mean Corpuscular Volume 94 fL (80-94); Red Blood Count 2.52 10^6 /uL (4.18-5.48); Red Cell Distribution Width 15 % (10-15)
[2018-10-31 07:30] LABS: Albumin 2.2 g/dL (3.2-5.2); Albumin/Globulin Ratio 0.9 (1-3); BUN/Creatinine Ratio 21.5 (8-20); Calcium 7.4 mg/dL (8.6-10.3); EGFR African American 146.9 (>60); EGFR Non-African American 121.4 (>60); Globulin 2.5 g/dL (2-4); Total Protein 4.7 g/dL (6.4-8.9)
[2018-10-31 08:01] LABS: ABS Lymphocytes 0.5 10^3/ul (1.0-4.8); ABS Monocytes 0.3 10^3/ul (0-0.8); ABS Neutrophils 0.1 10^3/ul (1.5-7.7); Nucleated Red Blood Cells % 0.4
[2018-10-31 08:27] LABS: Potassium 3.9 mmol/L (3.5-5.0)
[2018-10-31] MEDS: Magnesium Oxide TAB* 400 MG PO SCH ×3 (08:45→21:30)
[2018-10-31] MEDS: Escitalopram * 10 MG TAB PO SCH (08:45)
[2018-10-31] MEDS: Apixaban* 5 MG TAB PO SCH ×2 (08:45→21:30)
[2018-10-31] MEDS: Pantoprazole TAB * 40 MG TAB PO SCH (08:45)
[2018-10-31] MEDS: buPROPion SR TAB.SR* 150 MG PO SCH (08:45)
[2018-10-31] MEDS: oxyCODONE TAB* 5 MG TAB PO PRN ×3 (08:47→22:42)
[2018-10-31 08:48] LABS: Mean Platelet Volume 9.8 fL (7.4-10.4); Platelet Count 136 10^3/uL (150-450)
[2018-10-31] MEDS ORDERED: Potassium Chlor TAB* 20 MEQ TAB.ER PO ONE ×2 (10:58→12:00)
--- NOTE | 2018-10-31 15:01 | CONS ---
CONSULTATION REPORT: DATE OF CONSULT: 10/31/18 PRIMARY CARE PROVIDER: Saniya Kim NP PROVIDER REQUESTING CONSULTATION: JOSE Middleton CONSULTING SERVICE: Infectious Disease. PROVIDER: Vanda Marks NP ATTENDING PROVIDER: Dr. Brayan Voss * (dictated by Vanda Marks NP). REASON FOR CONSULTATION: Neutropenic fever. IMPRESSION: 1. Fevers. The patient recently received a month's treatment with antifungals for Aspergillus pneumonia followed by a 2-week course of cefepime for Pseudomonas bacteremia. After completing his course of cefepime at [facility], he developed a fever of 102.4 and was found to be neutropenic. He had chest x-ray there showing bilateral infiltrates. According to the [place] microbiology labs, his blood cultures have no growth to date that were drawn there. He had a repeat chest CT here showing bilateral upper lung cavitary pneumonia with progression. Interval improvement of the lower lung pneumonia. He had blood cultures drawn that are still pending at this time here. He continues to be neutropenic. No further fevers since being at [facility]. He was resumed on cefepime. The differential for fever includes Clostridium difficile , abdominal abscess, pneumonia (bacterial vs aspergillus), port infection. He denies any diarrhea or abdominal abscess. He did have an abdomen CT on showing no abscesses at that time. Port site is benign, and there has been no growth in blood cultures drawn at [facility]. Based on CT findings, suspect cause is likely pneumonia. 2. Recent pneumonia. History of Aspergillus pneumonia, completed 28-day course of antifungal. Pseudomonal pneumonia, completed a 2 week course of cefepime. 3. Mantle cell lymphoma. 4. History of right total knee arthroplasty. The right knee is benign. RECOMMENDATIONS: Recommend continuing cefepime while we await blood culture results here. If he is able to produce a sputum sample, we will recommend sending off sputum sample for culture. HISTORY OF PRESENT ILLNESS: Mr. Goetz is a 68-year-old male with past medical history significant for lung cancer, status post left upper lobe lobectomy; mantle cell lymphoma; atrial fibrillation; hypertension; hyperlipidemia; history of hepatitis C, status post treatment; autoimmune neuropathy; depression; and GERD, who was treated for Aspergillus pneumonia with a 28-day course of intravenous antifungal in August of 2018. He presented again to the hospital with Pseudomonas bacteremia and completed a 2-week course of IV cefepime at [facility] on 10/26/18. Mr. Goetz states that he has been feeling well, but is frustrated by being in the hospital so much recently. When he last presented to the hospital, he presented with a sore throat that progressed to hoarseness. The sore throat has resolved, but he continues to have hoarseness. He says intermittently his voice is normal. He denies any fevers or chills other than fever at [place] of 102.4, for which he had blood cultures and a chest x-ray showing bilateral infiltrates. According to them, they have been having issues with his port, but Mr. Goetz states that the port is working fine while at [facility]. Due to the patient being neutropenic with fevers, he was sent back to [facility] for further treatment. While at [facility], he had a chest CT showing bilateral upper lung cavitary pneumonia with progression, interval improvement of the lower lung pneumonia. He has had blood cultures drawn that are still pending at [facility]. He reports fatigue, reports shortness of breath at his baseline, but not increased. Denies diarrhea , constipation. He reports some occasional productive cough with red mucus production. He denies any urinary symptoms such as urgency, frequency, dysuria. He denies any recent travel. He reports lower back pain that is his baseline. PAST MEDICAL HISTORY: 1. Mantle cell lymphoma. 2. Atrial fibrillation. 3. Hypertension. 4. Hyperlipidemia. 5. History of hepatitis C, status post treatment. 6. Lung cancer, status post lobectomy. 7. Autoimmune neuropathy. 8. Depression. 9. GERD. PAST SURGICAL HISTORY: 1. Status post right total knee arthroplasty. 2. Status post cholecystectomy. 3. Status post excision of benign ureteral tumor. 4. Status post left upper lobectomy. MEDICATIONS: Home medications: 1. Eliquis 5 mg by mouth twice daily. 2. Bupropion 150 mg by mouth daily. 3. Lexapro 10 mg by mouth daily. 4. Metoprolol tartrate 50 mg by mouth twice daily. 5. Xanax 0.5 mg by mouth 3 times daily as needed for anxiety. 6. Magnesium oxide 400 mg by mouth daily. 7. Oxycodone 5 to 10 mg by mouth as needed for pain. 8. Protonix 40 mg by mouth daily. 9. Potassium chloride 40 mEq by mouth daily. 10. Compazine 10 mg by mouth every 6 hours as needed for nausea or vomiting. 11. Sotalol 80 mg by mouth twice daily. Hospital medications: 1. Xanax 0.5 mg by mouth 3 times daily as needed for anxiety. 2. Eliquis 5 mg by mouth twice daily. 3. Bupropion 150 mg by mouth daily. 4. Cefepime 2 g IV every 8 hours. 5. Lexapro 10 mg by mouth daily. 6. Magnesium oxide 400 mg by mouth 3 times daily. 7. Metoprolol tartrate 50 mg by mouth twice daily. 8. Oxycodone 10 mg by mouth every 6 hours as needed for pain. 9. Pantoprazole 40 mg by mouth every morning. 10. Potassium chloride 40 mEq by mouth daily. 11. Compazine 10 mg by mouth every 6 hours as needed for nausea. 12. Sotalol 80 mg by mouth every 12 hours. ALLERGIES: No known drug allergies. FAMILY HISTORY: Denies family history of recurrent resistant infections. Mother with a history of heart disease, breast cancer, she passed at age 70 from heart failure. Brother with a history of lung cancer. Father passed at age 56 from an unknown cancer. No family history of diabetes or coronary artery disease. SOCIAL HISTORY: He is a former smoker, quitting approximately 4 years ago, prior to that he was a 4-ogpf-p-day smoker for a smoking history for 40 years. He is a former alcoholic. He has a history of past IV drug use and opioid abuse. Denies current recreational drugs. REVIEW OF SYSTEMS: I performed a 10-point review of systems. All the pertinent positives and negatives are mentioned in the history of present illness. The remaining review of systems are negative. PHYSICAL EXAMINATION: Vital Signs: Temperature 97.9, heart rate 112, respiratory rate 20, O2 sat 95% on 2.5 L via nasal cannula, blood pressure 125/ 55. General Appearance: He is alert, appears to be in no acute distress. Head : Normocephalic, atraumatic. ENT: Extraocular movements are intact. No subconjunctival hemorrhage. Moist mucous membranes. No thrush. He is noted to have a hoarse voice. Neurological: Alert and oriented. Cardiovascular: Regular rate and rhythm. S1, S2 present. No murmurs, rubs, or gallops heard. Respiratory: No accessory muscle use. Lung sounds are diminished bilaterally with some minimal expiratory wheezing heard in the upper lobe. Abdomen: Bowel sounds present. Abdomen is soft, nontender, and nondistended. Extremities: No lower extremity edema. Musculoskeletal: No clubbing or cyanosis noted. He exhibits good strength in all extremities. He has no tenderness with palpation of the right knee. No erythema, warmth. Full range of motion. There is no tenderness with palpation of the neck, back, or spine. Psychological: Calm and cooperative. Skin: No rashes or abnormalities seen. He is noted to have a PowerPort to his right upper chest and the site is benign. DIAGNOSTIC STUDIES/LABORATORY DATA: Sodium 135, potassium 3.9, chloride 103, CO2 of 27, BUN 14, creatinine 0.65, and glucose 107. White blood cell count 1.0 , hemoglobin 7.9, hematocrit 24, platelet count 136. Please see impression and recommendations outlined above. Thank you for asking us to see Mr. Goetz in consultation. Case has been reviewed with my attending, Dr. Voss, who agrees with the plan of care. Reviewed by CORA ALVAREZ 11/01/18 1004 [id number]/[facility] #: [id number] BECKY
[2018-10-31] MEDS: Potassium Chlor TAB* 20 MEQ TAB.ER PO SCH (15:58)
[2018-11-01] MEDS: Cefepime 2 GM in Dextrose(*) 2 GM/50 ML BAG IV SCH ×3 (01:41→17:55)
[2018-11-01 06:54] LABS: Hematocrit 20 % (42-52); Hemoglobin 6.8 g/dL (14.0-18.0); Mean Corpuscular HGB Conc 34 g/dL (31-36); Mean Corpuscular Hemoglobin 32 pg (27-31); Mean Corpuscular Volume 92 fL (80-94); Mean Platelet Volume 9.9 fL (7.4-10.4); Platelet Count 113 10^3/uL (150-450); Red Blood Count 2.16 10^6 /uL (4.18-5.48); Red Cell Distribution Width 15 % (10-15); White Blood Count 0.9 10^3/uL (3.5-10.8)
[2018-11-01 07:11] LABS: BUN/Creatinine Ratio 25.4 (8-20); Calcium 7.6 mg/dL (8.6-10.3); EGFR African American 132.7 (>60); EGFR Non-African American 109.7 (>60); Magnesium 1.8 mg/dL (1.9-2.7); Potassium 4.3 mmol/L (3.5-5.0)
[2018-11-01] MEDS: Pantoprazole TAB * 40 MG TAB PO SCH (08:13)
[2018-11-01] MEDS: Magnesium Oxide TAB* 400 MG PO SCH ×3 (08:13→20:32)
[2018-11-01] MEDS: Escitalopram * 10 MG TAB PO SCH (08:13)
[2018-11-01] MEDS: Apixaban* 5 MG TAB PO SCH ×2 (08:13→20:32)
[2018-11-01] MEDS: buPROPion SR TAB.SR* 150 MG PO SCH (08:14)
[2018-11-01] MEDS: oxyCODONE TAB* 5 MG TAB PO PRN ×2 (08:14→14:17)
[2018-11-01] MEDS: Sotalol TAB* 80 MG PO SCH ×2 (08:14→20:32)
[2018-11-01] MEDS: Metoprolol Tartrate TAB* 50 mg PO SCH ×2 (08:14→20:32)
[2018-11-01 08:37] LABS: ABS Lymphocytes 0.5 10^3/ul (1.0-4.8); ABS Monocytes 0.4 10^3/ul (0-0.8); ABS Neutrophils 0.1 10^3/ul (1.5-7.7); Eosinophil % 2.2 %; Nucleated Red Blood Cells % 0.5
--- NOTE | 2018-11-01 09:43 | PN ---
Progress Note - Progress Note Date of Service: 11/01/18 SOAP: Subjective: CC: fever HPI: 68 year old man with recent Pseudomonas pneumonia, had 2 weeks cefepime and a few days after finishing it he developed fever. Cefepime restarted, no subsequent fever. Occasional cough, non productive. No rash or diarrhea. Not short of breath at rest. Objective: Vital Signs Temp 36.9 C 11/01/18 07:40 Pulse 86 11/01/18 07:40 Resp 18 11/01/18 08:14 BP 108/58 11/01/18 07:40 Pulse Ox 96 11/01/18 07:40 Intake & Output 10/31/18 11/01/18 11/01/18 18:59 06:59 18:59 Intake Total 535 530 Output Total 300 200 250 Balance 235 330 -250 Intake: IVPB 55 50 ABX - CEFEPIME 55 50 Oral 480 480 Output: Urine 300 200 250 Other: Estimated Void Medium # Voids 1 Gen:awake, no distress HEENT:no thrush Heart:RRR no murmur Lungs:Decr BS BL, no wheeze Skin: no rash Abd:+BS NTND soft Laboratory Results - last 24 hr 10/31/18 11/01/18 11/01/18 06:50 06:43 06:43 WBC 0.9 L RBC 2.16 L Hgb 6.8 L Hct 20 L MCV 92 MCH 32 H MCHC 34 RDW 15 Plt Count 113 L MPV 9.9 Neut % (Auto) 10.5 Lymph % (Auto) 48.0 [place] % (Auto) 38.7 Eos % (Auto) 2.2 Baso % (Auto) 0.6 Absolute Neuts (auto) 0.1 L Absolute Lymphs (auto) 0.5 L Absolute Monos (auto) 0.4 Absolute Eos (auto) 0.0 Absolute Basos (auto) 0.0 Absolute Nucleated RBC 0.0 Immature Gran % 1.0 Neutrophils % 14.0 Lymphocytes % 53.0 Monocytes % 32.0 Myelocytes % 1.0 Nucleated RBC % 0.5 Normal RBC Morphology Normal Hem Pathologist Commnt Sodium 134 L Potassium 4.3 Chloride 105 Carbon Dioxide 27 Anion Gap 2 BUN 18 Creatinine 0.71 Est GFR ( Amer) 132.7 Est GFR (Non-Af Amer) 109.7 BUN/Creatinine Ratio 25.4 H Glucose 103 H Calcium 7.6 L Magnesium 1.8 L Microbiology 10/31/18 08:22 Aerobic Blood Culture - Preliminary Blood Venous No Growth Day 1 Anaerobic Blood Culture - Preliminary No Growth Day 1 10/30/18 17:55 Aerobic Blood Culture - Preliminary Blood Venous No Growth Day 1 Anaerobic Blood Culture - Preliminary No Growth Day 1 Assessment: 1. Fever, CT chest shows BL necrotizing pneumonia, likely due to Pseudomonas, Aspergillus also on the differential though no return of fever since restarting cefepime 2. Neutropenia 3. Mantle cell lymphoma 4. Lung cancer Plan: 1. continue cefepime 2 gm IV Q8hrs day 2. If he continues to improve. will plan on 4-6 weeks of antibiotics, initially IV and then change to FQ.
--- NOTE | 2018-11-01 11:10 | PN ---
Progress Note - Progress Note Date of Service: 11/01/18 SOAP: Subjective: [Milton reports feeling better today. He is very confused regarding the events of the last few days. Difficult time orienting to time and place. Converted to NSR last evening.] Objective: [ Vital Signs: Temp Pulse Resp BP Pulse Ox 98.4 F 86 18 108/58 96 11/01/18 07:40 11/01/18 07:40 11/01/18 08:14 11/01/18 07:40 11/01/18 07:40 Alprazolam (Xanax Tab*) 0.5 mg PO TID PRN PRN Reason: ANXIETY Apixaban (Eliquis*) 5 mg PO BID [facility] Last Admin: 11/01/18 08:13 Dose: 5 mg Bupropion HCl (Wellbutrin Sr Tab*) 150 mg PO DAILY [facility] Last Admin: 11/01/18 08:14 Dose: 150 mg Escitalopram Oxalate (Lexapro *) 10 mg PO DAILY [facility] Last Admin: 11/01/18 08:13 Dose: 10 mg Cefepime HCl (Maxipime 2 Gm In Dextrose Duplex (*)) 2 gm in 50 mls @ 100 mls/ hr IV Q8H [facility] Last Admin: 11/01/18 10:05 Dose: 100 mls/hr Magnesium Oxide (Magox 400 Tab*) 400 mg PO TID [facility] Last Admin: 11/01/18 08:13 Dose: 400 mg Metoprolol Tartrate (Lopressor Tab*) 50 mg PO Q12HR [facility] Last Admin: 11/01/18 08:14 Dose: 50 mg Oxycodone HCl (Roxycodone Tab*) 10 mg PO Q6HR PRN PRN Reason: PAIN Last Admin: 11/01/18 08:14 Dose: 10 mg Pantoprazole Sodium (Protonix Tab*) 40 mg PO QAM [facility] Last Admin: 11/01/18 08:13 Dose: 40 mg Potassium Chloride (Klor Con Er Tab*) 40 meq PO DAILY@1400 [facility] Last Admin: 10/31/18 15:58 Dose: 40 meq Prochlorperazine (Compazine Tab*) 10 mg PO Q6H PRN PRN Reason: NAUSEA Last Admin: 10/30/18 23:02 Dose: 10 mg Sotalol HCl (Betapace Tab*) 80 mg PO Q12HR [facility] Last Admin: 11/01/18 08:14 Dose: 80 mg Laboratory Results - last 24 hr 10/31/18 11/01/18 11/01/18 06:50 06:43 06:43 WBC 0.9 L RBC 2.16 L Hgb 6.8 L Hct 20 L MCV 92 MCH 32 H MCHC 34 RDW 15 Plt Count 113 L MPV 9.9 Neut % (Auto) 10.5 Lymph % (Auto) 48.0 [place] % (Auto) 38.7 Eos % (Auto) 2.2 Baso % (Auto) 0.6 Absolute Neuts (auto) 0.1 L Absolute Lymphs (auto) 0.5 L Absolute Monos (auto) 0.4 Absolute Eos (auto) 0.0 Absolute Basos (auto) 0.0 Absolute Nucleated RBC 0.0 Immature Gran % 1.0 Neutrophils % 14.0 Lymphocytes % 53.0 Monocytes % 32.0 Myelocytes % 1.0 Nucleated RBC % 0.5 Normal RBC Morphology Normal Hem Pathologist Commnt Sodium 134 L Potassium 4.3 Chloride 105 Carbon Dioxide 27 Anion Gap 2 BUN 18 Creatinine 0.71 Est GFR ( Amer) 132.7 Est GFR (Non-Af Amer) 109.7 BUN/Creatinine Ratio 25.4 H Glucose 103 H Calcium 7.6 L Magnesium 1.8 L Exam: Gen: chronically ill but acutely well appearing in NAD HEENT: MMM CV: RRR, no m/r/g Resp: crackles in R lung base Abd: soft and nonTTP Ext: trace LE edema] Assessment: [This is a 68 yo male with mantle cell lymphoma and recent hospitalizations for aspergillus PNA and pseudomonas bacteremia. He completed 2 weeks of IV cefepime and subsequently developed a new fever after completing abx now with a new cavitary lung infiltrate and pancytopenia off of any bone marrow suppressive agents. ] Plan: [1. Pseudomonas PNA - blood cultures negative to date here and initial cultures collected at [facility] - cont cefepime per ID recommendations - reviewed with ID whether bronchoscopy is appropriate in this case - since he is improving clinically Dr Voss felt that there was little clinical benefit to bronchoscopy at this time 2. Pancytopenia - ddx includes marrow suppression due to acute illness/sepsis, recurrent mantle cell lymphoma or a new primary bone marrow process - transfusion of 1U PRBCs today - if cytopenias remain unchanged tomorrow, plan for bone marrow bx which was discussed with patient today 3. Encephalopathy - orientation appears to be waxing and waning - no focal neurologic symptoms - likely due to acute illness - no recent brain imaging - if confusion persists will order MRI brain to r/o primary BILINGUAL NANNY pathology 4. Afib - no back in sinus rhythm - cont Eliquis as long as plts remain >50K - cont metoprolol/sotalol 5. h/o hep c 6. DVT prophylaxis - Eliquis 5 mg bid 7. DNR 8. HCP: Greta Pond Dispo: cont inpatient stay, no clear dc plan at this time, but will certainly require prolonged IV abx]
[2018-11-01] MEDS ORDERED: Alteplase (CATHFLO)* 2 MG VIAL IV ONE (11:25)
[2018-11-01] MEDS: Potassium Chlor TAB* 20 MEQ TAB.ER PO SCH (13:36)
[2018-11-02] MEDS: Cefepime 2 GM in Dextrose(*) 2 GM/50 ML BAG IV SCH ×2 (01:59→10:40)
[2018-11-02 07:19] LABS: Hematocrit 23 % (42-52); Hemoglobin 7.8 g/dL (14.0-18.0); Mean Corpuscular HGB Conc 34 g/dL (31-36); Mean Corpuscular Hemoglobin 31 pg (27-31); Mean Corpuscular Volume 92 fL (80-94); Mean Platelet Volume 10.5 fL (7.4-10.4); Platelet Count 142 10^3/uL (150-450); Red Blood Count 2.52 10^6 /uL (4.18-5.48); Red Cell Distribution Width 16 % (10-15); White Blood Count 1.2 10^3/uL (3.5-10.8)
[2018-11-02 07:36] LABS: BUN/Creatinine Ratio 22.2 (8-20); Calcium 7.3 mg/dL (8.6-10.3); EGFR African American 130.6 (>60); EGFR Non-African American 107.9 (>60); Magnesium 1.6 mg/dL (1.9-2.7); Potassium 4.3 mmol/L (3.5-5.0)
[2018-11-02] MEDS: Sotalol TAB* 80 MG PO SCH ×2 (08:01→21:00)
[2018-11-02] MEDS: buPROPion SR TAB.SR* 150 MG PO SCH (08:01)
[2018-11-02] MEDS: Magnesium Oxide TAB* 400 MG PO SCH ×3 (08:02→21:01)
[2018-11-02] MEDS: Apixaban* 5 MG TAB PO SCH ×2 (08:02→21:00)
[2018-11-02] MEDS: Metoprolol Tartrate TAB* 50 mg PO SCH ×2 (08:02→21:00)
[2018-11-02] MEDS: Pantoprazole TAB * 40 MG TAB PO SCH (08:03)
[2018-11-02] MEDS: Escitalopram * 10 MG TAB PO SCH (08:03)
[2018-11-02 08:13] LABS: ABS Lymphocytes 0.6 10^3/ul (1.0-4.8); ABS Monocytes 0.5 10^3/ul (0-0.8); ABS Neutrophils 0.1 10^3/ul (1.5-7.7); Eosinophil % 0.4 %; Lymphocyte % 48.4 %; Nucleated Red Blood Cells % 0.5
[2018-11-02] MEDS ORDERED: Magnesium Sulf 4 GM/100 ML IV* 4,000 MG/100 ML BAG IVPB ONE (09:00)
[2018-11-02] MEDS: ALPRAZolam TAB* 0.5 MG PO PRN ×2 (09:56→21:01)
--- NOTE | 2018-11-02 10:09 | PN ---
Progress Note - Progress Note Date of Service: 11/02/18 SOAP: Subjective: CC: fever HPI: 68 year old man with recent Pseudomonas pneumonia, had 2 weeks cefepime and after stopping it he developed fever. Cefepime restarted, no subsequent fever. Occasional cough, non productive. Some paranoia this morning. Objective: Vital Signs Temp 36.8 C 11/02/18 07:15 Pulse 94 11/02/18 07:15 Resp 20 11/02/18 09:56 BP 115/54 11/02/18 07:15 Pulse Ox 97 11/02/18 07:15 Intake & Output 11/01/18 11/02/18 11/02/18 18:59 06:59 18:59 Intake Total 650 600 Output Total 250 300 Balance 400 300 Intake: IV Fluids 20 ABX - CEFEPIME 20 IVPB 50 100 ABX - CEFEPIME 50 100 Oral 600 480 Output: Urine 250 300 Other: Estimated Void Medium Gen:awake, no distress HEENT:no thrush Heart:RRR no murmur Lungs:Decr BS BL, no wheeze Skin: no rash Abd:+BS NTND soft MSK: no joint effusion Laboratory Results - last 24 hr 11/01/18 11/01/18 11/02/18 06:39 06:43 06:00 WBC RBC Hgb Hct MCV MCH MCHC RDW Plt Count MPV Neut % (Auto) Lymph % (Auto) [place] % (Auto) Eos % (Auto) Baso % (Auto) Absolute Neuts (auto) Absolute Lymphs (auto) Absolute Monos (auto) Absolute Eos (auto) Absolute Basos (auto) Absolute Nucleated RBC Neutrophils % Lymphocytes % Reactive Lymphs % Monocytes % Eosinophils % Basophils % Nucleated RBC % Abs Neuts (Manual) Abs Lymphs (Manual) Abs Monocytes (Manual) Absolute Eos (Manual) Abs Basophils (Manual) Normal RBC Morphology Hypochromasia Hem Pathologist Commnt Sodium 135 Potassium 4.3 Chloride 105 Carbon Dioxide 27 Anion Gap 3 BUN 16 Creatinine 0.72 Est GFR ( Amer) 130.6 Est GFR (Non-Af Amer) 107.9 BUN/Creatinine Ratio 22.2 H Glucose 101 H Calcium 7.3 L Magnesium 1.6 L Blood Type A Positive Antibody Screen Negative Crossmatch See Detail 11/02/18 06:00 WBC 1.2 L RBC 2.52 L Hgb 7.8 L Hct 23 L MCV 92 MCH 31 MCHC 34 RDW 16 H Plt Count 142 L MPV 10.5 H Neut % (Auto) 7.6 Lymph % (Auto) 48.4 [place] % (Auto) 43.2 Eos % (Auto) 0.4 Baso % (Auto) 0.4 Absolute Neuts (auto) 0.1 L Absolute Lymphs (auto) 0.6 L Absolute Monos (auto) 0.5 Absolute Eos (auto) 0.0 Absolute Basos (auto) 0.0 Absolute Nucleated RBC 0.0 Neutrophils % 7.0 Lymphocytes % 51.0 Reactive Lymphs % 3.0 D Monocytes % 39.0 Eosinophils % 0.0 Basophils % 0.0 Nucleated RBC % 0.5 Abs Neuts (Manual) Telegraph Repeater Technician Abs Lymphs (Manual) Telegraph Repeater Technician Abs Monocytes (Manual) Telegraph Repeater Technician Absolute Eos (Manual) Telegraph Repeater Technician Abs Basophils (Manual) Telegraph Repeater Technician Normal RBC Morphology Not Reportable Hypochromasia 1+ Hem Pathologist Commnt Sodium Potassium Chloride Carbon Dioxide Anion Gap BUN Creatinine Est GFR ( Amer) Est GFR (Non-Af Amer) BUN/Creatinine Ratio Glucose Calcium Magnesium Blood Type Antibody Screen Crossmatch Assessment: 1. Fever, CT chest shows BL necrotizing pneumonia, likely due to Pseudomonas, Aspergillus also on the differential though no return of fever since restarting cefepime 2. Neutropenia 3. Mantle cell lymphoma 4. Lung cancer 5. subtle mental status Plan: 1. continue cefepime 2 gm IV Q8hrs day 3, he may have RADIO TOWER TECHNICIAN toxicity from cefepime and/or hypersensitivity reaction causing neutropenia. Will change to zosyn primarily due to RADIO TOWER TECHNICIAN concerns, marrow is pending as well. Discussed with Heri GARCIA
[2018-11-02] MEDS ORDERED: Piperacillin/Tazobac ADVAN(*) 3.375 GM in NS 0.9% 100 ML* 100 ML IVPB SCH (11:00)
--- NOTE | 2018-11-02 11:12 | PN ---
Progress Note - Progress Note Date of Service: 11/02/18 SOAP: Subjective: [Reports no change in symptoms but is concerned that he has been charged with rape and murder and his nurse is collecting evidence for the business services clerk's department.] Objective: [ Vital Signs: Temp Pulse Resp BP Pulse Ox 98.3 F 94 20 115/54 97 11/02/18 07:15 11/02/18 07:15 11/02/18 09:56 11/02/18 07:15 11/02/18 07:15 Alprazolam (Xanax Tab*) 0.5 mg PO TID PRN PRN Reason: ANXIETY Last Admin: 11/02/18 09:56 Dose: 0.5 mg Apixaban (Eliquis*) 5 mg PO BID [facility] Last Admin: 11/02/18 08:02 Dose: 5 mg Bupropion HCl (Wellbutrin Sr Tab*) 150 mg PO DAILY [facility] Last Admin: 11/02/18 08:01 Dose: 150 mg Escitalopram Oxalate (Lexapro *) 10 mg PO DAILY [facility] Last Admin: 11/02/18 08:03 Dose: 10 mg Heparin Sodium (Porcine) (Heparin Flush Port (Ivad)) 5 ml FLUSH DAILY [facility]; Protocol Last Admin: 11/02/18 10:49 Dose: Not Given Magnesium Sulfate (Magnesium Sulf 4 Gm/100 Ml Iv*) 4,000 mg in 100 mls @ 33.333 mls/hr IVPB ONCE ONE Stop: 11/02/18 11:59 Last Admin: 11/02/18 10:45 Dose: 33.333 mls/hr Piperacillin Sod/Tazobactam (Sod 3.375 gm/ Sodium Chloride) 100 mls @ 25 mls/ hr IVPB Q8H [facility] Magnesium Oxide (Magox 400 Tab*) 400 mg PO TID [facility] Last Admin: 11/02/18 08:02 Dose: 400 mg Metoprolol Tartrate (Lopressor Tab*) 50 mg PO Q12HR [facility] Last Admin: 11/02/18 08:02 Dose: 50 mg Oxycodone HCl (Roxycodone Tab*) 10 mg PO Q6HR PRN PRN Reason: PAIN Last Admin: 11/01/18 14:17 Dose: 10 mg Pantoprazole Sodium (Protonix Tab*) 40 mg PO QAM [facility] Last Admin: 11/02/18 08:03 Dose: 40 mg Potassium Chloride (Klor Con Er Tab*) 40 meq PO DAILY@1400 [facility] Last Admin: 11/01/18 13:36 Dose: 40 meq Prochlorperazine (Compazine Tab*) 10 mg PO Q6H PRN PRN Reason: NAUSEA Last Admin: 10/30/18 23:02 Dose: 10 mg Sotalol HCl (Betapace Tab*) 80 mg PO Q12HR [facility] Last Admin: 11/02/18 08:01 Dose: 80 mg Laboratory Results - last 24 hr 11/01/18 11/01/18 11/02/18 06:39 06:43 06:00 WBC RBC Hgb Hct MCV MCH MCHC RDW Plt Count MPV Neut % (Auto) Lymph % (Auto) [place] % (Auto) Eos % (Auto) Baso % (Auto) Absolute Neuts (auto) Absolute Lymphs (auto) Absolute Monos (auto) Absolute Eos (auto) Absolute Basos (auto) Absolute Nucleated RBC Neutrophils % Lymphocytes % Reactive Lymphs % Monocytes % Eosinophils % Basophils % Nucleated RBC % Abs Neuts (Manual) Abs Lymphs (Manual) Abs Monocytes (Manual) Absolute Eos (Manual) Abs Basophils (Manual) Normal RBC Morphology Hypochromasia Hem Pathologist Commnt Sodium 135 Potassium 4.3 Chloride 105 Carbon Dioxide 27 Anion Gap 3 BUN 16 Creatinine 0.72 Est GFR ( Amer) 130.6 Est GFR (Non-Af Amer) 107.9 BUN/Creatinine Ratio 22.2 H Glucose 101 H Calcium 7.3 L Magnesium 1.6 L Blood Type A Positive Antibody Screen Negative Crossmatch See Detail 11/02/18 06:00 WBC 1.2 L RBC 2.52 L Hgb 7.8 L Hct 23 L MCV 92 MCH 31 MCHC 34 RDW 16 H Plt Count 142 L MPV 10.5 H Neut % (Auto) 7.6 Lymph % (Auto) 48.4 [place] % (Auto) 43.2 Eos % (Auto) 0.4 Baso % (Auto) 0.4 Absolute Neuts (auto) 0.1 L Absolute Lymphs (auto) 0.6 L Absolute Monos (auto) 0.5 Absolute Eos (auto) 0.0 Absolute Basos (auto) 0.0 Absolute Nucleated RBC 0.0 Neutrophils % 7.0 Lymphocytes % 51.0 Reactive Lymphs % 3.0 D Monocytes % 39.0 Eosinophils % 0.0 Basophils % 0.0 Nucleated RBC % 0.5 Abs Neuts (Manual) Visual Lead Abs Lymphs (Manual) Visual Lead Abs Monocytes (Manual) Visual Lead Absolute Eos (Manual) Visual Lead Abs Basophils (Manual) Visual Lead Normal RBC Morphology Not Reportable Hypochromasia 1+ Hem Pathologist Commnt Sodium Potassium Chloride Carbon Dioxide Anion Gap BUN Creatinine Est GFR ( Amer) Est GFR (Non-Af Amer) BUN/Creatinine Ratio Glucose Calcium Magnesium Blood Type Antibody Screen Crossmatch Exam: Gen: chronically ill but acutely well appearing in NAD HEENT: MMM CV: RRR, no m/r/g Resp: crackles in R lung base Abd: soft and nonTTP Ext: trace LE edema] Assessment: [This is a 68 yo male with mantle cell lymphoma and recent hospitalizations for aspergillus PNA and pseudomonas bacteremia. He completed 2 weeks of IV cefepime and subsequently developed a new fever after completing abx now with a new cavitary lung infiltrate and pancytopenia off of any bone marrow suppressive agents. ] Plan: [1. Pseudomonas PNA - blood cultures negative to date here and initial cultures collected at [facility] - switched from cefepime to Zosyn per ID recommendations given his increasing paranoia and persistent cytopenias that may relate to cefepime - reviewed with ID whether bronchoscopy is appropriate in this case - since he is improving clinically Dr Voss felt that there was little clinical benefit to bronchoscopy at this time 2. Pancytopenia - ddx includes marrow suppression due to acute illness/sepsis, drug toxicity, recurrent mantle cell lymphoma or a new primary bone marrow process - transfusion of 1U PRBCs yesterday - bone marrow biopsy completed today and sent for flow 3. Encephalopathy - orientation appears to be waxing and waning but he has clear paranoia today - no focal neurologic symptoms - likely due to acute illness but would like to r/o BILLET RECORDER pathology - MRI brain today with and w/o contrast 4. Afib - now back in sinus rhythm - cont Eliquis as long as plts remain >50K - cont metoprolol/sotalol 5. h/o hep c 6. DVT prophylaxis - Eliquis 5 mg bid 7. DNR 8. HCP: Greta Pond Dispo: cont inpatient stay, no clear dc plan at this time, but will certainly require prolonged IV abx]
--- NOTE | 2018-11-02 11:15 | BRIEFOPN ---
Brief Operative/Procedure Note - Operation Details Pre-Op Diagnosis: pancytopenia Post-Op Diagnosis: pancytopenia Procedures: Bone marrow aspiration and biopsy Surgeon(s)/Proceduralists: Heri Owens PA-C Anesthesia: 2% lidocaine Estimated Blood Loss: <1ml Findings: uncomplicated aspiration and bone marrow core sample collected Specimen(s)/Culture(s) Description: aspiration and core sample Complications: None, patient tolerated well
[2018-11-02] MEDS: oxyCODONE TAB* 5 MG TAB PO PRN ×2 (12:52→21:05)
[2018-11-02] MEDS: Potassium Chlor TAB* 20 MEQ TAB.ER PO SCH (12:53)
[2018-11-02] MEDS: Piperacillin/Tazobac ADVAN(*) 3.375 GM in NS 0.9% 100 ML* 100 ML IVPB SCH ×2 (14:21→21:38)
[2018-11-02] MEDS ORDERED: Gadoteridol* (CONTRAST) 279.3 MG/ML 10 ML IV ONE (18:18)
[2018-11-03] MEDS: Piperacillin/Tazobac ADVAN(*) 3.375 GM in NS 0.9% 100 ML* 100 ML IVPB SCH ×4 (04:10→19:57)
[2018-11-03] MEDS: Magnesium Oxide TAB* 400 MG PO SCH ×3 (07:51→19:55)
[2018-11-03] MEDS: Pantoprazole TAB * 40 MG TAB PO SCH (07:51)
[2018-11-03] MEDS: Apixaban* 5 MG TAB PO SCH ×2 (07:51→19:55)
[2018-11-03] MEDS: Escitalopram * 10 MG TAB PO SCH (07:51)
[2018-11-03] MEDS: buPROPion SR TAB.SR* 150 MG PO SCH (07:51)
[2018-11-03] MEDS: Sotalol TAB* 80 MG PO SCH ×2 (07:51→19:57)
[2018-11-03] MEDS: Metoprolol Tartrate TAB* 50 mg PO SCH ×2 (07:51→19:56)
--- NOTE | 2018-11-03 09:02 | PN ---
Progress Note - Progress Note Date of Service: 11/03/18 SOAP: Subjective: []Delirium today, has paranoid delusions, at times non cooperative. He is not oriented to place time or situation. Denies pain. Breathing comfortable when sitting still. Alprazolam (Xanax Tab*) 0.5 mg PO TID PRN PRN Reason: ANXIETY Last Admin: 11/02/18 21:01 Dose: 0.5 mg Apixaban (Eliquis*) 5 mg PO BID [facility] Last Admin: 11/03/18 07:51 Dose: 5 mg Bupropion HCl (Wellbutrin Sr Tab*) 150 mg PO DAILY [facility] Last Admin: 11/03/18 07:51 Dose: 150 mg Escitalopram Oxalate (Lexapro *) 10 mg PO DAILY [facility] Last Admin: 11/03/18 07:51 Dose: 10 mg Heparin Sodium (Porcine) (Heparin Flush Port (Ivad)) 5 ml FLUSH DAILY [facility]; Protocol Last Admin: 11/03/18 07:52 Dose: Not Given Piperacillin Sod/Tazobactam (Sod 3.375 gm/ Sodium Chloride) 100 mls @ 200 mls/ hr IVPB Q6H [facility] Last Admin: 11/03/18 07:49 Dose: 200 mls/hr Magnesium Oxide (Magox 400 Tab*) 400 mg PO TID [facility] Last Admin: 11/03/18 07:51 Dose: 400 mg Metoprolol Tartrate (Lopressor Tab*) 50 mg PO Q12HR [facility] Last Admin: 11/03/18 07:51 Dose: 50 mg Oxycodone HCl (Roxycodone Tab*) 10 mg PO Q6HR PRN PRN Reason: PAIN Last Admin: 11/02/18 21:05 Dose: 10 mg Pantoprazole Sodium (Protonix Tab*) 40 mg PO QAM [facility] Last Admin: 11/03/18 07:51 Dose: 40 mg Potassium Chloride (Klor Con Er Tab*) 40 meq PO DAILY@1400 [facility] Last Admin: 11/02/18 12:53 Dose: 40 meq Prochlorperazine (Compazine Tab*) 10 mg PO Q6H PRN PRN Reason: NAUSEA Last Admin: 10/30/18 23:02 Dose: 10 mg Sotalol HCl (Betapace Tab*) 80 mg PO Q12HR [facility] Last Admin: 11/03/18 07:51 Dose: 80 mg Objective: [] Vital Signs Temp Pulse Resp BP Pulse Ox 99.3 F 115 28 93/49 94 11/03/18 03:15 11/03/18 03:15 11/03/18 03:39 11/03/18 03:15 11/03/18 03:15 Exam: Gen: chronically ill but acutely well appearing in NAD HEENT: no lesions, dry CV: RRR, no m/r/g. HR 112 on exam Resp: crackles in R lung base, RR 20 Abd: soft and nonTTP Ext: trace LE edema Assessment: [This is a 68 yo male with mantle cell lymphoma and recent hospitalizations for aspergillus PNA and pseudomonas bacteremia. He completed 2 weeks of IV cefepime and subsequently developed a new fever after completing abx now with a new cavitary lung infiltrate and pancytopenia off of any bone marrow suppressive agents. Has improved on antibiotics but with continued low grade fever. Course now complicated by acute delirium. ] Plan: [1. Pseudomonas PNA - blood cultures negative to date here and initial cultures collected at [facility] - switched from cefepime to Zosyn per ID recommendations given his increasing paranoia and persistent cytopenias that may relate to cefepime - reviewed with ID, hold on bronchoscopy at this time - Blood cultures for fever > 101.0 2. Pancytopenia - ddx includes marrow suppression due to acute illness/sepsis, drug toxicity, recurrent mantle cell lymphoma or a new primary bone marrow process - transfusion of 1U PRBCs yesterday - bone marrow biopsy results pending - Trial Neupogen. 3. Encephalopathy. - delerium today - MRI negative - Ddx: infection, medication, underlying psych issues - Stop Oxycodone and xanax - Tylenol only for pain - Haldol for anxiety or insomnia 1 mg IV q 2 hrs - discuss with psychiatry holding SSRIs 4. Afib - a-fib - cont Eliquis as long as plts remain >50K - cont metoprolol/sotalol - May be dry: NS at 100 cc per hr 5. h/o hep c 6. DVT prophylaxis - Eliquis 5 mg bid 7. DNR 8. HCP: Greta Pond. Family called, prognosis poor and he may this admission.
[2018-11-03] MEDS ORDERED: Magnesium Sulf 4 GM/100 ML IV* 4,000 MG/100 ML BAG IVPB ONE (09:03)
[2018-11-03] MEDS ORDERED: Haloperidol INJ IV/IM* 5 MG/ML AMP IV SLOW PU PRN (09:04)
[2018-11-03] MEDS ORDERED: Acetaminophen TAB* 325 MG PO PRN (09:11)
[2018-11-03] MEDS ORDERED: NS 0.9% 1000 ML** 1,000 ML IV SCH (09:15)
[2018-11-03] MEDS ORDERED: FILGRASTIM-SNDZ* 480 MCG/0.8 ML SYRINGE SUBCUT SCH (10:00)
[2018-11-03 11:23] LABS: Hematocrit 24 % (42-52); Hemoglobin 8.1 g/dL (14.0-18.0); Mean Corpuscular HGB Conc 33 g/dL (31-36); Mean Corpuscular Hemoglobin 31 pg (27-31); Mean Corpuscular Volume 93 fL (80-94); Mean Platelet Volume 10.4 fL (7.4-10.4); Platelet Count 149 10^3/uL (150-450); Red Blood Count 2.62 10^6 /uL (4.18-5.48); Red Cell Distribution Width 16 % (10-15); White Blood Count 1.3 10^3/uL (3.5-10.8)
[2018-11-03 11:39] LABS: Albumin 2.2 g/dL (3.2-5.2); BUN/Creatinine Ratio 16.9 (8-20); Calcium 7.2 mg/dL (8.6-10.3); EGFR African American 110.8 (>60); EGFR Non-African American 91.6 (>60); Globulin 2.2 g/dL (2-4); Magnesium 1.9 mg/dL (1.9-2.7); Potassium 4.2 mmol/L (3.5-5.0); Total Bilirubin 2.9 mg/dL (0.2-1.0); Total Protein 4.4 g/dL (6.4-8.9)
[2018-11-03 12:10] LABS: ABS Lymphocytes 0.6 10^3/ul (1.0-4.8); ABS Monocytes 0.5 10^3/ul (0-0.8); ABS Neutrophils 0.2 10^3/ul (1.5-7.7); Eosinophil % 0.5 %; Nucleated Red Blood Cells % 0.2
[2018-11-03] MEDS: Potassium Chlor TAB* 20 MEQ TAB.ER PO SCH (13:47)
[2018-11-03] MEDS ORDERED: Furosemide IV* 10 MG/ML VIAL (40 MG) ONE (20:50)
[2018-11-03] MEDS ORDERED: Furosemide IV* 10 MG/ML VIAL (40 MG) IV ONE (20:53)
--- NOTE | 2018-11-03 21:14 | PN ---
Hospitalist Progress Note Date of Service: 11/03/18 CAT call at 2046 for hypoxia. Desat to 66% while on his 2L. 68 male Hx of mantle cell lymphoma and recent aspergillus pna/PSDA bacteremia. Chronic Afib on Eliquis and sotalol. Dementia and further delerium this admission. Getting zosyn for pseudomonal pneumonia; neutropenia ANC 1300. Exam: HR 113, BP 154/84, T 100.0, Sat improved to only 78% when placed on 15L oxymask denies chest pain, tracks with eyes Lungs:reduced bs left base and midlung, rales laterally b/l. CARD: RRR tachy no m/r/g abd: s/nt/nd ext: pulses intact 1-2+ pitting edema and some dependent edema 40mg IV lasix stat Assessment: concern for volume overload in setting of PSDA pneumonia, febrile neutropenia Plan: transfer to ICU for vapotherm and possible bipap trial CXR stat -> infiltrates and volume overload CBC, troponin, CMP, troponin, lactic acid, Mag, ABG. Continue Zosyn Temp rectally up to 39.1 C. Repeat 2 blood cultures Talked to Gloria Pond who says patient when last lucid said no intubation. She is now at bedside. Pt pulling at bipap mask but calmer after morphine, ativan and Adelaide at bedside. Pt with 40 pack year history, will add jackie david spiriva.
[2018-11-03] MEDS ORDERED: Albuterol/Ipratropium NEB.SOL* Albuterol 2.5 MG/Ipratropium 0.5 MG 3 ML INH PRN (21:26)
[2018-11-03] MEDS ORDERED: Morphine INJ* 2 MG/ML 1 ML SYRINGE (TWO MG - NEW SYRINGE VERSION) ONE (21:32)
[2018-11-03] MEDS ORDERED: Lorazepam PYXIS KEY PRN (21:32)
[2018-11-03] MEDS: Morphine INJ* 2 MG/ML 1 ML SYRINGE (TWO MG - NEW SYRINGE VERSION) IV PRN (21:33)
[2018-11-03] MEDS ORDERED: Acetaminophen SUPP* 650 MG SUPP PR PRN (21:36)
[2018-11-03 21:43] LABS: Hematocrit 29 % (42-52); Hemoglobin 9.6 g/dL (14.0-18.0); Mean Corpuscular HGB Conc 33 g/dL (31-36); Mean Corpuscular Hemoglobin 30 pg (27-31); Mean Corpuscular Volume 93 fL (80-94); Mean Platelet Volume 10.7 fL (7.4-10.4); Platelet Count 230 10^3/uL (150-450); Red Blood Count 3.17 10^6 /uL (4.18-5.48); Red Cell Distribution Width 16 % (10-15); White Blood Count 1.6 10^3/uL (3.5-10.8)
[2018-11-03] MEDS: LORazepam INJ* 2 MG/ML 1 ML VIAL IV PUSH PRN (21:52)
[2018-11-03 21:56] LABS: Albumin 2.5 g/dL (3.2-5.2); Albumin/Globulin Ratio 0.9 (1-3); BUN/Creatinine Ratio 19.3 (8-20); Calcium 7.4 mg/dL (8.6-10.3); EGFR African American 103.6 (>60); EGFR Non-African American 85.6 (>60); Globulin 2.7 g/dL (2-4); Magnesium 2.4 mg/dL (1.9-2.7); Potassium 4.1 mmol/L (3.5-5.0); Total Bilirubin 2.4 mg/dL (0.2-1.0); Total Protein 5.2 g/dL (6.4-8.9)
[2018-11-03 21:56] LABS: Urine Appearance Cloudy; Urine Bacteria Absent (Absent); Urine Bilirubin Negative (Negative); Urine Blood 1+ (Negative); Urine Color Yellow; Urine Glucose Negative (Negative); Urine Ketones Negative (Negative); Urine Nitrite Negative (Negative); Urine Protein Negative (Negative); Urine Red Blood Cell 2+(6-10/hpf) (Absent); Urine Specific Gravity 1.015 (1.010-1.030); Urine Squamous Epithelial Cell Present (Absent); Urine Urobilinogen Negative (Negative); Urine White Blood Cell Trace(0-5/hpf) (Absent)
[2018-11-03 21:59] LABS: Troponin I 0.02 ng/mL (<0.04)
[2018-11-03] MEDS ORDERED: Mometasone/Formoter 200/5 MDI INH SCH (22:00)
[2018-11-03 22:06] LABS: ABS Lymphocytes 0.8 10^3/ul (1.0-4.8); ABS Monocytes 0.6 10^3/ul (0-0.8); ABS Neutrophils 0.2 10^3/ul (1.5-7.7); Eosinophil % 1.4 %; Lymphocyte % 50.2 %; Nucleated Red Blood Cells % 1.2
[2018-11-03 22:11] LABS: Polychromasia 1+
[2018-11-03 23:32] LABS: C Reactive Protein 263.83 mg/L (<8.01)
[2018-11-04] MEDS: Morphine INJ* 2 MG/ML 1 ML SYRINGE (TWO MG - NEW SYRINGE VERSION) IV PRN ×2 (00:15→02:58)
[2018-11-04] MEDS: LORazepam INJ* 2 MG/ML 1 ML VIAL IV PUSH PRN (00:55)
[2018-11-04] MEDS ORDERED: Metoprolol Tartrate IV* 1 MG/ML 5 ML VIAL IV ONE (00:59)
[2018-11-04] MEDS ORDERED: Furosemide IV* 10 MG/ML 10 ML VIAL (100 MG) IV ONE (01:00)
[2018-11-04] MEDS ORDERED: Metoprolol Tartrate IV* 1 MG/ML 5 ML VIAL ONE (01:04)
[2018-11-04] MEDS ORDERED: Diltiazem IV push/loading dose 5 MG/ML 5 ML vial (25 mg) IV SLOW PU ONE (01:22)
[2018-11-04] MEDS ORDERED: Digoxin IV* 0.5 MG/2 ML AMP (0.25 MG/ML) IV SLOW PU ONE (01:23)
[2018-11-04] MEDS ORDERED: Digoxin IV* 0.5 MG/2 ML AMP (0.25 MG/ML) ONE (01:26)
[2018-11-04] MEDS: KCL 20 MEQ/100 ML IVPREMIX* 20 MEQ/100 ML BAG IV SCH ×2 (01:40→02:58)
[2018-11-04] MEDS ORDERED: Morphine 10 MG/ML VIAL (1 ml) IV ONE (03:13)
[2018-11-04] MEDS ORDERED: LORazepam INJ* 2 MG/ML 1 ML VIAL IV PUSH PRN (03:14)
[2018-11-04] MEDS ORDERED: Morphine ORAL CONCENTRATE* 5 MG/0.25 ML ORAL.SYRIN SL PRN (03:14)
[2018-11-04] MEDS ORDERED: Morphine 10 MG/ML VIAL (1 ml) ONE (03:15)
--- NOTE | 2018-11-04 03:19 | PN ---
Hospitalist Progress Note Date of Service: 11/04/18 Patient with climbing rectal temperatures as high as 105, went back into Afib with HR 140s+. lopressor, dilt, IV K, digoxin given. Family has decided to pursue complete comfort care.
[2018-11-04] MEDS: Piperacillin/Tazobac ADVAN(*) 3.375 GM in NS 0.9% 100 ML* 100 ML IVPB SCH (03:28)
[2018-11-04] MEDS: Morphine 4 MG/ML VIAL (1 ml) 4 MG/ML VIAL IV PRN ×2 (05:50→08:45)
[2018-11-04 06:33] VITALS: BP 61/35
[2018-11-04] MEDS ORDERED: SPIRIVA Respimat* (tiotropium) 2.5 mcg/inh Inhaler INH SCH (09:00)
--- NOTE | 2018-11-04 09:55 | PN ---
Progress Note - Progress Note Date of Service: 11/04/18 Note: Patient upgraded to ICU for respiratory failure, pneumonia made DNR and comfort care last night by family Patient is comfort care now; declining this morning. Family at bedside Apneic, asystolic, pronounced at 941am on 11/04/2018. Dr Harris aware of . Tavo Elder MD Gluing Machine Offbearer
--- NOTE | 2018-11-04 10:22 | PN ---
Progress Note - Progress Note Date of Service: 11/04/18 SOAP: Subjective: []Events overnight noted Became hypoxic, not responding to oxygen Transferred to ICU Fever to 105 HCP called in and has been with him overnight, decision to go to comfort care. Acetaminophen (Tylenol Supp*) 650 mg ND Q6H PRN PRN Reason: MILD PAIN or TEMP > 100.4 Last Admin: 11/04/18 00:13 Dose: 650 mg Lorazepam (Ativan Inj*) 0.5 mg IV PUSH Q4H PRN PRN Reason: ANXIETY Last Admin: 11/04/18 00:55 Dose: 0.5 mg Lorazepam (Ativan Inj*) 1 mg IV PUSH Q4H PRN PRN Reason: Anxiety/Agitation Miscellaneous (Ativan Pyxis Vazquez) 1 ea N/A .ATIVAN IV VAZQUEZ PRN PRN Reason: PYXIS VAZQUEZ Morphine Sulfate (Morphine 4 Mg/Ml Vial (1 Ml)) 4 mg IV Q2H PRN PRN Reason: PAIN - SEVERE Last Admin: 11/04/18 08:45 Dose: 4 mg Objective: [] Vital Signs Temp Pulse Resp BP Pulse Ox 104.6 F 110 32 61/35 75 11/04/18 02:46 11/04/18 08:00 11/04/18 08:45 11/04/18 05:59 11/04/18 08:00 Exam: Gen: comfortable HEENT: dry, no crackles CV: RRR, no m/r/g. HR 150-160 Resp: agonal breathing Abd: soft and nonTTP Ext: trace LE edema Neuro: comfortable and non responsive. Assessment: [This is a 68 yo male with mantle cell lymphoma and recent hospitalizations for aspergillus PNA and pseudomonas bacteremia. He completed 2 weeks of IV cefepime and subsequently developed a new fever after completing abx now with a new cavitary lung infiltrate and pancytopenia off of any bone marrow suppressive agents. Developed delirium, then hypoxia and recurrent fevers, presumably resistant infection. Transfered to ICU but now comfort care. Plan: Morphine and lorazapam to comfort, all other medications have stopped. Has support in room, no distress.
--- NOTE | 2018-11-26 14:43 | DS ---
DISCHARGE/ SUMMARY: DATE OF ADMISSION: 10/30/18 DATE OF : 11/04/18 DIAGNOSES: 1. Mantle cell lymphoma. 2. Neutropenic fever. 3. Respiratory failure. 4. Refractory anemia. HOSPITAL COURSE: The patient was admitted with pneumonia, community acquired or healthcare based. He was started on broad-spectrum antibiotics and managed conservatively for 4 days. He had marked pancytopenia during the admission after stopping Imbruvica. He had a bone marrow biopsy that showed 40% marrow cellularity without hematologic malignancy. Infectious Disease was consulted and he had been placed on cefepime and fluconazole as well as Neulasta. Unfortunately, his blood counts remained low and on 11/03/18, he spiked a fever up to 105. He deteriorated quickly over 24 hours. He had previously determined he wanted to be DNR. Family was called, and decision was made to go to comfort care only. He in the intensive care unit with family by his side. STUDIES PENDING AT DISCHARGE: None. DISPOSITION: The patient is . [id number]/[facility] #: [id number] [facility]
== END 2018-11-04 12:34 | disposition expired | DRG 177 ==
LOC: OBSVTOIN 13:33 → MEDTELE 13:33 → UNDOADMOB 15:51 → ICU 11-03 21:17
PROVIDERS: ADMIT Internal Medicine Hematology & Oncology; ATTEND Internal Medicine Critical Care Medicine
PROC: 30233N1 Transfusion of Nonautologous Red Blood Cells into Peripheral Vein, Percutaneous Approach (ICD-10-PCS; 2018-11-01)
PROC: 07DR3ZX Extraction of Iliac Bone Marrow, Percutaneous Approach, Diagnostic (ICD-10-PCS; 2018-11-02)
PROC: 5A09357 Assistance with Respiratory Ventilation, Less than 24 Consecutive Hours, Continuous Positive Airway Pressure (ICD-10-PCS; principal; 2018-11-03)
DX: J15.1 Pneumonia due to Pseudomonas (principal); J96.91 Respiratory failure, unspecified with hypoxia; C83.10 Mantle cell lymphoma, unspecified site; D61.818 Other pancytopenia; G93.40 Encephalopathy, unspecified; F05 Delirium due to known physiological condition; M54.5 Low back pain; G89.29 Other chronic pain; I48.91 Unspecified atrial fibrillation; I10 Essential (primary) hypertension; E78.5 Hyperlipidemia, unspecified; Z66 Do not resuscitate; Z96.651 Presence of right artificial knee joint; G62.9 Polyneuropathy, unspecified; K21.9 Gastro-esophageal reflux disease without esophagitis; F22 Delusional disorders; F03.90 Unspecified dementia, unspecified severity, without behavioral disturbance, psychotic disturbance, mood disturbance, and anxiety; E87.70 Fluid overload, unspecified; Z51.5 Encounter for palliative care; F32.9 Major depressive disorder, single episode, unspecified; Z80.1 Family history of malignant neoplasm of trachea, bronchus and lung; Z86.19 Personal history of other infectious and parasitic diseases; Z90.49 Acquired absence of other specified parts of digestive tract; Z80.3 Family history of malignant neoplasm of breast; Z82.49 Family history of ischemic heart disease and other diseases of the circulatory system; Z87.891 Personal history of nicotine dependence; Z72.89 Other problems related to lifestyle; Z87.01 Personal history of pneumonia (recurrent); Z85.118 Personal history of other malignant neoplasm of bronchus and lung; Z90.2 Acquired absence of lung [part of]
CPT/HCPCS: 36415; 36600; 38222; 70250; 70553; 71045; 71250; 80048; 80053; 81003; 81015; 82803; 83605; 83735; 83880; 84484; 85025; 85049; 85060; 85097; 86140; 86850; 86900; 86901; 86922; 87040; 87070; 87077; 87086; 87186; 87205; 87641; 88184; 88185; 88187; 88188; 88189; 88305; 88311; 88313; 93005; 94660; 99232; 99233; A9270-GY; A9579; J0692; J1160; J1442; J1642; J1940; J2060; J2270; J2543; J2997; J3475; J3480; J3490; J3535; P9040; Q5101